=== PATIENT | female | born 1985 | race Caucasian/White ===

== ENCOUNTER 2020-03-16 20:47 | Inpatient (IN) | payer MEDICAID, SELFPAY ==
--- NOTE | 2020-03-16 20:53 | DI.RAD.S_ITS ---
PROCEDURE: XR ACUTE ABDOMEN SERIES INDICATIONS: severe pain, N/V TECHNIQUE: One view chest and two views of the abdomen were acquired. COMPARISON: None. FINDINGS: Surgical changes and devices: None. Chest: Lungs are clear. Heart size is normal. No pleural effusions. No pneumoperitoneum. Abdomen: Bowel gas pattern is demonstrates prominent, dilated fluid-filled loops of bowel. No suspicious calcifications. Visualized solid organ contours appear normal. Bones: No suspicious bony lesions. IMPRESSION: Prominently dilated fluid filled loops of bowel consistent with partial obstruction. Dictated by: Neetu Spence M.D. on 03/16/2020 at 21:49 Approved by: Neetu Spence M.D. on 03/16/2020 at 21:49
--- NOTE | 2020-03-16 20:56 | ED_ITS ---
HPI - Abdominal Pain General Chief Complaint: Abdominal Pain Stated Complaint: abd pain/ bloating Time Seen by Provider: 03/16/20 20:48 Source: patient and EMS Mode of arrival: EMS Limitations: no limitations History of Present Illness HPI narrative: 35-year-old female smoker with history mental illness and illicit drug use presents by EMS for evaluation of worsening abdominal pain. She was seen and evaluated at an outside facility earlier today and had a workup which was reassuring with normal labs and an apparent return to baseline. Over the course of the afternoon patient developed worsening pain and persistent vomiting contacted EMS for transport here. She states that any motion makes her belly worse and she has never had any pain like this before. She denies any change in bowel movements or difficulty with urination. Related Data Home Medications Medication Instructions Recorded Confirmed albuterol sulfate [Ventolin HFA] #0 07/26/17 fluticasone propion-salmeterol 1 puff INH BID #0 07/26/17 [Advair Diskus] lithium carbonate TID #0 01/01/18 Previous Rx's Medication Instructions Recorded albuterol sulfate [Ventolin HFA] 0 puff INH Q4HP PRN #1 ea 07/26/17 oxycodone 0 mg PO Q4HP PRN #30 10/05/17 oxycodone-acetaminophen 0 tab PO Q4HP PRN #30 10/05/17 nystatin [Nyamyc] 100,000 u TP TID #30 gm 11/17/17 oxycodone-acetaminophen [Percocet] 0 tab PO Q4HP PRN #30 tab 01/01/18 labetalol 100 mg PO BID #60 tab 02/02/18 Allergies Allergy/AdvReac Type Severity Reaction Status Date / Time morphine [MORPHINE] Allergy Intermediate rash,hives Unverified 02/17/18 12:33 clindamycin [CLINDAMYCIN] Allergy Mild vomiting Unverified 02/17/18 12:33 Review of Systems Constitutional Constitutional: Denies chills, Denies fatigue, Denies fever(s), Denies frequent falls, Denies lethargy and Denies weakness Eyes Eyes: Denies change in vision, Denies eye discharge, Denies irritation and Denie s loss of vision ENT Ears, Nose, Mouth, and Throat: Denies change in voice, Denies dizziness, Denies neck pain, Denies sore throat and Denies throat swelling Cardiovascular Cardiovascular: Denies chest pain, Denies irregular heart rhythm, Denies lightheadedness, Denies palpitations, Denies dyspnea, Denies dyspnea on exertion and Denies orthopnea Respiratory Respiratory: Denies cough, Denies dyspnea, Denies dyspnea on exertion and Denies wheezing Gastrointestinal Gastrointestinal: Reports abdominal pain, Denies change in bowel habits, Denies diarrhea, Reports nausea and Reports vomiting Genitourinary Genitourinary: Denies hematuria, Denies flank pain, Denies urinary incontinence and Denies urinary urgency Musculoskeletal Musculoskeletal: Denies back pain, Denies muscle weakness, Denies neck pain, Den ies numbness and Denies tingling Integumentary/Breasts Skin/Breast: Denies pruritus, Denies erythema, Denies rash and Denies wounds Neurologic Neurologic: Denies behavioral changes, Denies confusion, Denies dizziness, Denies frequent falls, Denies loss of vision, Denies numbness, Denies tingling and Denies weakness Psychiatric Psychiatric: Denies anxiety, Denies behavioral changes, Denies confusion, Denies depression, Denies homicidal ideation and Denies suicidal ideation Endocrine Endocrine: Denies fatigue, Denies flushing and Denies palpitations Hematologic/Lymphatic Hematologic/Lymphatic: Denies easy bruising Allergic/Immunologic Allergic/Immunologic: Denies urticaria, Denies throat swelling and Denies wheezing Patient History Surgical History Status post delivery (10/02/17) Social History household members: family Smoking Status: Former smoker alcohol intake: former Smoking Status: Current some day smoker Substance Use Type: heroin Exam Narrative Exam Narrative: GENERAL: [35] year old patient appears stated age. Well- nourished, well-developed patient, in moderate distress, obviously in signifi cant pain, holding an emesis bag HEAD: Atraumatic. Normocephalic. EYES: Pupils equal round and reactive. Extraocular motions intact. No scleral icterus. No injection or drainage. ENT: Nose without bleeding, purulent drainage. Throat without erythema, tonsillar hypertrophy or exudate. Airway patent. NECK: Trachea midline. Non tender CARDIOVASCULAR: Regular rate and rhythm without murmurs, gallops, or rubs. RESPIRATORY: Clear to auscultation. Breath sounds equal bilaterally. No wheezes, rales, or rhonchi. GASTROINTESTINAL: Abdomen soft, generally tender with significant pain and localized peritonitis in the upper abdomen, mildly distended. EXTREMITIES: No edema or joint tenderness. BACK: Nontender without deformity or crepitance. No flank tenderness. NEURO: AOx3. SKIN: No rash or erythema of visible areas Initial Vital Signs Initial Vital Signs: Vital Signs Temperature 97.7 F 03/16/20 21:00 Pulse Rate 94 H 03/16/20 21:00 Respiratory Rate 18 03/16/20 21:00 Blood Pressure 149/97 H 03/16/20 21:00 Pulse Oximetry 97 03/16/20 21:00 Course Orders Ordered: ED Orders 03/16/20 20:53 XR acute abdomen series Stat 03/16/20 21:02 Complete Blood Count AUTO DIFF Stat Comprehensive Metabolic Panel Stat Lactate (Lactic Acid) Stat Lipase Stat 03/16/20 21:58 CT abdomen pelvis w con Stat Hydromorphone HCl (Dilaudid) 1 mg IV Q3H PRN PRN Reason: Pain, Severe (7-10) Sodium Chloride (Normal Saline 0.9%) 1,000 mls @ 125 mls/hr IV CONT PERRY Naloxone HCl (Narcan) 0.2 mg IV Q2MIN PRN PRN Reason: Opiate Reversal Ondansetron HCl (Zofran) 4 mg IV Q6HR PERRY Discontinued Medications Hydromorphone HCl (Dilaudid) 0.5 mg IV NOW ONE Stop: 03/16/20 21:57 Last Admin: 03/16/20 22:16 Dose: 0.5 mg Documented by: RIAZ Sodium Chloride (Normal Saline 0.9%) 1,000 mls @ 150 mls/hr IV CONT PERRY Last Admin: 03/16/20 22:17 Dose: 150 mls/hr Documented by: RIAZ Ondansetron HCl (Zofran) 4 mg IV NOW ONE Stop: 03/16/20 20:54 Last Admin: 03/16/20 22:18 Dose: 4 mg Documented by: RIAZ Pantoprazole Sodium (Protonix) 40 mg IV NOW ONE Stop: 03/16/20 20:54 Last Admin: 03/16/20 21:20 Dose: 40 mg Documented by: DHALE Consultations Consultation #1: call to surgery, happy to be involved in consult, not surgical patient currently. Requests NG, COVID swab, and admission to hospitalist Consultation #2: Hospitalist happy to accept Vital Signs Vital signs: Vital Signs - 8 hr 03/16/20 21:00 03/16/20 22:37 03/16/20 23:10 Temperature 97.7 F Pulse Rate 94 H 93 H 83 Respiratory Rate 18 25 H 19 Blood Pressure 149/97 H Blood Pressure [Right Arm] 170/81 H 151/80 H Pulse Oximetry 97 97 98 MDM - Abdominal Pain Lab Data Result diagrams: 03/16/20 21:02 03/16/20 21:02 Labs: Lab Results 03/16/20 03/16/20 03/16/20 Range/Units 21:02 21:02 21:02 WBC 8.5 (4.5-11.0) X10^3/uL RBC 5.68 H (4.0-5.2) X10^6/uL Hgb 16.4 H (12.0-16.0) g/dL Hct 49.3 H (36-46) % MCV 86.9 (80-100) fL MCH 28.8 (26-34) PG MCHC 33.2 (30-36) % RDW 14.5 (11.6-14.8) % Plt Count 244 (150-400) X10^3/uL Neut % (Auto) 85.7 H (50-75) % Lymph % (Auto) 11.0 L (25-40) % [place] % (Auto) 2.9 L (3-14) % Eos % (Auto) 0.2 L (2-4) % Baso % (Auto) 0.2 (0-2) % Neut # (Auto) 7300 H (8867-8395) /uL Lymph # (Auto) 900 L (8942-1724) /uL [place] # (Auto) 200 (0-900) /uL Eos # (Auto) 0 (0-450) /uL Baso # (Auto) 0 (0-100) /uL RBC Morphology See below Anisocytosis 1+ H Sodium 136 L (137-145) mmol/L Potassium 3.9 (3.4-5.1) mmol/L Chloride 100 (98-107) mmol/L Carbon Dioxide 30 (22-32) mmol/L BUN 13 (7-17) mg/dL Creatinine 0.63 (0.52-1.04) mg/dL Estimated GFR > 60.0 (>60) mL/min BUN/Creatinine Ratio 20.6 (6-22) Glucose 273 H (70-100) mg/dL Lactate 1.5 (0.7-2.1) mmol/L Calcium 9.2 (8.4-10.2) mg/dL Total Bilirubin 0.7 (0.2-1.3) mg/dL AST 45 H (14-36) IU/L ALT 57 H (<35) IU/L Alkaline Phosphatase 104 (38-126) U/L Total Protein 8.0 (6.3-8.2) g/dL Albumin 4.4 (3.5-5.0) g/dL Globulin 3.6 (1.7-4.1) g/dL Albumin/Globulin Ratio 1.2 (1.0-2.8) Lipase 29 (23-300) U/L Imaging Data Abdominal x-ray: Attestation: I personally reviewed and interpreted this imaging study as follows: My Impression: bowel obstruction CT scan - abdomen/pelvis: Radiologist's Impression: High-grade obstruction proximal sigmoid colon with moderate to severe colonic distension Discharge Plan Departure Patient Disposition: Admitted As Inpatient Clinical Impression: Bowel obstruction Qualifiers: Intestinal obstruction type: other intestinal obstruction Intestinal obstruction extent: partial Qualified Code(s): K56.690 - Other partial intestinal obstruction Admit Date/Time: 03/16/20 23:39 Admit Provider: Arianne Shoemaker
[2020-03-16 21:00] VITALS: BP 149/97; PULSE 94; RESP 18; TEMP 36.5; O2SAT 97
[2020-03-16 21:17] LABS: Basophils Absolute Auto 0 /uL (0-100); Basophils Percent Auto 0.2 % (0-2); Eosinophils Absolute Auto 0 /uL (0-450); Eosinophils Percent Auto 0.2 % (2-4); Hematocrit 49.3 % (36-46); Hemoglobin 16.4 g/dL (12.0-16.0); Lymphocytes Absolute Auto 900 /uL (1100-4500); Mean Corpuscular HGB Conc 33.2 % (30-36); Mean Corpuscular Hemoglobin 28.8 PG (26-34); Mean Corpuscular Volume 86.9 fL (80-100); Monocytes Absolute Auto 200 /uL (0-900); Monocytes Percent Auto 2.9 % (3-14); Neutrophils Absolute Auto 7300 /uL (1500-7000); Neutrophils Percent Auto 85.7 % (50-75); Platelet Count 244 X10^3/uL (150-400); Red Blood Cell Count 5.68 X10^6/uL (4.0-5.2); Red Cell Distribution Width 14.5 % (11.6-14.8); White Blood Cell Count 8.5 X10^3/uL (4.5-11.0)
[2020-03-16 21:18] LABS: Add Manual Diff / Slide Review SLIDE REVIEW
[2020-03-16] MEDS: PANTOPRAZOLE 40 MG VIAL IV (21:20)
[2020-03-16 21:26] LABS: Lactate (Lactic Acid) 1.5 mmol/L (0.7-2.1)
[2020-03-16 21:27] LABS: Alanine Aminotransferase 57 IU/L (<35); Albumin 4.4 g/dL (3.5-5.0); Albumin Globulin Ratio 1.2 (1.0-2.8); Alkaline Phosphatase 104 U/L (38-126); Aspartate Aminotransferase 45 IU/L (14-36); BUN Creatinine Ratio 20.6 (6-22); Bilirubin Total 0.7 mg/dL (0.2-1.3); Blood Urea Nitrogen 13 mg/dL (7-17); Calcium 9.2 mg/dL (8.4-10.2); Carbon Dioxide 30 mmol/L (22-32); Chloride 100 mmol/L (98-107); Estimated Glomerular Filt Rate > 60.0 mL/min (>60); Globulin 3.6 g/dL (1.7-4.1); Glucose 273 mg/dL (70-100); HEMOLYSIS 18 (0-50); Lipase 29 U/L (23-300); Potassium 3.9 mmol/L (3.4-5.1); Sodium 136 mmol/L (137-145)
--- NOTE | 2020-03-16 21:58 | DI.CT.S_ITS ---
PROCEDURE: CT ABDOMEN PELVIS W CON INDICATIONS: bowel obstruction TECHNIQUE: After the administration of intravenous contrast, 5 mm thick sections acquired from the diaphragm to the symphysis. 5 mm coronal and sagittal reformats were acquired. For radiation dose reduction, the following was used: automated exposure control, adjustment of mA and/or kV according to patient size. COMPARISON: [facility], CR, XR ACUTE ABDOMEN SERIES, 03/16/2020, 21:26. FINDINGS: Image quality: This study is limited by body habitus. ABDOMEN: Lung bases: Lung bases are clear. Heart size is normal. Solid organs: Liver is normal in size and enhancement. Diffuse fatty liver infiltration is noted. Gallbladder wall does not appear thickened. Biliary system is non dilated. Pancreas enhances normally. Spleen is normal in size and enhancement. No adrenal nodules. Kidneys demonstrate normal size and enhancement, without hydronephrosis. Peritoneum and bowel: A gastric tube is seen, with the tip within the distal stomach. There is focal narrowing seen involving the sigmoid colon, as on series 2 image 80 and on series 5 image 51. Just proximal to this site of narrowing, there is an apparent ball of stool seen. Distal to this site, the colon is collapsed. Proximal to this site, there is liquid filled, dilated colon seen. The cecum measures 8.5 cm. Dilated loops of small bowel can be seen, which measure up to 3.7 cm. Nodes and vessels: Mild prominence of retroperitoneal lymph nodes can be seen, without delmis enlargement. No enlarged mesenteric lymph nodes are seen. Aorta and inferior vena cava are normal in size. Miscellaneous: No ventral hernias. PELVIS: Genitourinary: Bladder wall thickness is normal. Miscellaneous: No inguinal hernias or adenopathy. Bones: No suspicious bony lesions. No vertebral body compression fractures. Focal lower lumbar spine degenerative changes are seen. IMPRESSION: Distal colonic obstruction, with a site of narrowing seen within the sigmoid colon. Just proximal to this, there is a focus of apparent stool seen. Dilated loops of fluid-filled colon and small bowel can be seen proximal to this site of obstruction. The tip of the gastric tube is seen within the mid stomach. Incidental note is made of: Fatty liver infiltration Borderline prominent retroperitoneal lymph nodes Premature lower lumbar spine degenerative change Note: No significant discrepancy from the preliminary report. Dictated by: Shubham Sheikh M.D. on 03/17/2020 at 7:17 Approved by: Shubham Sheikh M.D. on 03/17/2020 at 7:25
[2020-03-16] MEDS: LIDOCAINE 1% (PF) 2 ML (22:13)
[2020-03-16] MEDS: HYDROMORPHONE 0.5 MG INJ IV (22:16)
[2020-03-16] MEDS: SODIUM CHLORIDE 0.9% 1,000 ML 150 ML IV (22:17)
[2020-03-16] MEDS: ONDANSETRON 4 MG/2 ML INJ IV (22:18)
[2020-03-16 22:37] VITALS: BP 170/81; PULSE 93; RESP 25; O2SAT 97
[2020-03-16 22:54] LABS: Anisocytosis 1+
[2020-03-16 23:10] VITALS: BP 151/80; PULSE 83; RESP 19; O2SAT 98
--- NOTE | 2020-03-16 23:16 | PM.HP.1 ---
History of Present Illness History of Present Illness Date Patient Seen: 03/16/20 Time Patient Seen: 23:16 Chief complaint: abd pain/ bloating Narrative: This is a 35 yo woman who is a poor historian due to sleepiness. She wakes to answer questions appropriately but immediately falls back asleep. Per chart review and partial discussion with patient, she has a history of morbid obesity, borderline DM2, C section in 2017, tubal ligation, asthma, bipolar disorder, and substance abuse (methamphetamine history per chart review). She presented to the ER with 12 hours of obstructive symptoms including abdominal pain, obstipation, and bloating. In the ER she was found to have normal labs, and an xray consistent with obstruction. CT scan performed shows a distal sigmoid narrowing causing obstruction. The cause of the sigmoid narrowing is unclear based on the CT scan. The patient's lactate is 1.2, WBC is 8, and electrolytes are normal. Her LFT's are slightly elevated, and her glucose is 273. She says she has never had an episode like this before. She denies any history of chronic constipation or diarrhea, blood in the stool, or dark colored stool. She denies any family history of colorectal disorders. She has never had a colonoscopy. She denies any fevers or chills. ROS: Full ROS could not be obtained as patient continued to dose off as I was speaking to her. Otherwise as per HPI. PE: GENERAL: Sleepy but arousable. Appears stated age. When awakened, the patient answers questions appropriately. Vital signs noted. HENT: Normocephalic, atraumatic. Hearing intact. Oral mucosa is pink and dry EYES: Conjunctiva pink, sclera white, no periorbital swelling. CARDIOVASCULAR: Regular rate. No pedal edema. RESPIRATORY: Non-tachypneic, breathing comfortably on room air. GASTROINTESTINAL: Abdomen soft, obese, moderately distended, mild generalized TTP; no focal peritonitis GENITALURINARY: No flank tenderness. MUSCULOSKELETAL: Equal tone and mass bilaterally. SKIN: Warm, dry, soft, appropriate color for ethnicity. No other lesions, rashes, or wounds. NEURO: Sleepy, but arouses to painful stimulus; oriented when awakened by stimulation. No gross sensory deficits, or cognitive issues. Psych: appropriate mood/fatigued affect Patient History Medical History (Updated 03/17/20 @ 04:48 by Margaret Barnard MD) Asthma exacerbation (Chronic) Bowel obstruction (Acute) Surgical History (Updated 03/17/20 @ 04:47 by Margaret Barnard MD) Status post delivery (Inactive 10/02/17) Family & Social History Safety & Behavioral: Feels Safe in Current Yes Environment Tobacco & Substance use: Smoking Status Former smoker Substance Use Type heroin,amphetamines Meds Home Medications and Allergies Home Medications Medication Instructions Recorded Confirmed Type albuterol sulfate [Ventolin HFA] #0 07/26/17 History albuterol sulfate [Ventolin HFA] 0 puff INH Q4HP PRN #1 ea 07/26/17 Rx fluticasone propion-salmeterol 1 puff INH BID #0 07/26/17 History [Advair Diskus] oxycodone 0 mg PO Q4HP PRN #30 10/05/17 Rx oxycodone-acetaminophen 0 tab PO Q4HP PRN #30 10/05/17 Rx nystatin [Nyamyc] 100,000 u TP TID #30 gm 11/17/17 Rx lithium carbonate TID #0 01/01/18 History oxycodone-acetaminophen [Percocet] 0 tab PO Q4HP PRN #30 tab 01/01/18 Rx labetalol 100 mg PO BID #60 tab 02/02/18 Rx Allergies Allergy/AdvReac Type Severity Reaction Status Date / Time morphine [MORPHINE] Allergy Intermediate rash,hives Unverified 02/17/18 12:33 clindamycin [CLINDAMYCIN] Allergy Mild vomiting Unverified 02/17/18 12:33 Exam Vital Signs (past 8 hours): - 03/16/20 21:00 03/16/20 22:37 03/16/20 23:10 Temperature 97.7 F Pulse Rate 94 H 93 H 83 Respiratory Rate 18 25 H 19 Blood Pressure 149/97 H Blood Pressure [Right Arm] 170/81 H 151/80 H Pulse Oximetry 97 97 98 Oxygen Delivery Method Nasal Cannula Oxygen Flow Rate [address] scan - abdomen: My impression: Bowel obstruction with narrowed sigmoid of unclear cause; no indication of volvulus, diverticulitis, fecal impaction; possible adhesive scarring from past C section Radiologist's impression: Bowel obstruction with narrowed sigmoid of unclear cause; dilated small bowel and proximal colon Labs Result Diagrams: 03/16/20 21:02 03/16/20 21:02 Labs: Laboratory Results - last 24 hr 03/16/20 03/16/20 03/16/20 21:02 21:02 21:02 WBC 8.5 RBC 5.68 H Hgb 16.4 H Hct 49.3 H MCV 86.9 MCH 28.8 MCHC 33.2 RDW 14.5 Plt Count 244 Neut % (Auto) 85.7 H Lymph % (Auto) 11.0 L [place] % (Auto) 2.9 L Eos % (Auto) 0.2 L Baso % (Auto) 0.2 Neut # (Auto) 7300 H Lymph # (Auto) 900 L [place] # (Auto) 200 Eos # (Auto) 0 Baso # (Auto) 0 RBC Morphology See below Anisocytosis 1+ H Sodium 136 L Potassium 3.9 Chloride 100 Carbon Dioxide 30 BUN 13 Creatinine 0.63 Estimated GFR > 60.0 BUN/Creatinine Ratio 20.6 Glucose 273 H Lactate 1.5 Calcium 9.2 Total Bilirubin 0.7 AST 45 H ALT 57 H Alkaline Phosphatase 104 Total Protein 8.0 Albumin 4.4 Globulin 3.6 Albumin/Globulin Ratio 1.2 Lipase 29 Assessment & Plan Assessment and plan (1) Morbid obesity: Problem details: BMI 53. Severe morbid obesity. She is at much higher risk for a medical or surgical complication because of her morbid obesity. It increases the difficulty of any surgery, and increases the chances of a poor outcome such as wound infection, wound dehiscence. Creating an ostomy and getting it to survive and function would be extremely difficulty if not impossible given the thickness of her abdominal wall. Current visit: Yes Status: Chronic (2) Status post primary low transverse section: Problem details: by Dr. Molina in 2017 Current visit: No Status: Acute (3) SBO (small bowel obstruction): Current visit: Yes Status: Acute (4) Colon obstruction: Problem details: sigmoid obstruction per CT scan; unclear etiology Current visit: Yes Status: Acute (5) Mental health disorder: Problem details: bipolar disorder per chart review Current visit: Yes Status: Acute Assessment & Plan narrative: This is a 35 yo woman with bowel obstruction symptoms x 12 hours. Her lactate and WBC are normal. Her cecum is 9-10cm on KUB. There is not a clear etiology of the sigmoid obstruction, but most likely cause is adhesive disease from prior C section which, per the chart, was in 2017. For now we will place an NGT and give bowel rest. She says she is very sleepy from being up all day. Her mental status seems normal and sharp when she is aroused, but she goes back to sleep after a few sentences of conversation. Given her drug history I would recommend a tox screen. She has an enlarging colon, and will need repeat exam and imaging in a few hours. If she has a sudden change in exam or vitals, we will need to repeat imaging and labs sooner, and consider going ahead to OR to avoid injuring the cecum. She is at much higher risk for a medical or surgical complication because of her morbid obesity. It increases the difficulty of any surgery, and the chances of a poor outcome. Recommendations: NGT, IV maintenance fluids repeat labs in AM (BMP, CBC, Mag) Rapid COVID 19 test in case she needs to go to the OR No abx for right now Ambulate as tolerated Ok for DVT ppx call if sudden changes in exam or vital signs urine tox screen COVID-19 COVID-19 status: Result pending Time Spent With Patient Time with patient: Greater than 35 minutes Quality VTE Deep Vein Thrombosis/Pulmonary Embolism Present on Admission: No
[2020-03-16 23:45] VITALS: BMI 54.5
[2020-03-17] VITALS (24 sets, daily range): BP systolic 112–202; BP diastolic 50–131; PULSE 12–120; RESP 13–24; TEMP 36.4–38.1; O2SAT 90–96; BMI 53.5
--- NOTE | 2020-03-17 01:37 | P.HP_ITS ---
History of Present Illness History of Present Illness Date Patient Seen: 03/16/20 Time Patient Seen: 23:55 Chief complaint: abd pain/ bloating Narrative: Unable to obtain history from the patient. She does state she is in pain and then when I try to follow-up with a question she falls asleep. Per nursing in the ED she was doing this as well. She was seen at [facility] emergency department and at that time was given Zofran and discharged with a diagnosis of acute gastritis. She apparently returned home and the pain got worse particularly with movement. In the emergency department here they did the CT scan of her abdomen and belly and found that she has a high-grade obstruction of the proximal sigmoid colon with moderate to severe distention of the colon and distension of the distal small bowel loops. Per the emergency room provider the only surgery she has ever had was laparoscopic gynecological surgery however was not able to discuss this with her. I am. unable to conduct a review of systems or obtain a social and family history from her. Patient History Medical History (Updated 03/17/20 @ 02:02 by ROEL Sands) Asthma exacerbation (Chronic) Bowel obstruction (Acute) Surgical History (Updated 03/17/20 @ 01:52 by ROEL Sands) Status post delivery (Inactive 10/02/17) Family & Social History Social History: household members family Prior Living Arrangements Apartment/Condo Safety & Behavioral: Feels Safe in Current Yes Environment Been Physically Hurt or No Threatened By a Person Suicidal Ideation Description None Suicide Plan Description No Plan Tobacco & Substance use: Smoking Status Current some day smoker alcohol intake former alcohol intake frequency holiday/special occasion Substance Use Type heroin Meds Home Medications and Allergies Home Medications Medication Instructions Recorded Confirmed Type albuterol sulfate [Ventolin HFA] #0 07/26/17 History albuterol sulfate [Ventolin HFA] 0 puff INH Q4HP PRN #1 ea 07/26/17 Rx fluticasone propion-salmeterol 1 puff INH BID #0 07/26/17 History [Advair Diskus] oxycodone 0 mg PO Q4HP PRN #30 10/05/17 Rx oxycodone-acetaminophen 0 tab PO Q4HP PRN #30 10/05/17 Rx nystatin [Nyamyc] 100,000 u TP TID #30 gm 11/17/17 Rx lithium carbonate TID #0 01/01/18 History oxycodone-acetaminophen [Percocet] 0 tab PO Q4HP PRN #30 tab 01/01/18 Rx labetalol 100 mg PO BID #60 tab 02/02/18 Rx Allergies Allergy/AdvReac Type Severity Reaction Status Date / Time morphine [MORPHINE] Allergy Intermediate rash,hives Unverified 02/17/18 12:33 clindamycin [CLINDAMYCIN] Allergy Mild vomiting Unverified 02/17/18 12:33 Review of Systems Review of Systems ROS: Yes unobtainable due to mental status Exam Vital Signs (past 8 hours): - 03/16/20 21:00 03/16/20 22:37 03/16/20 23:10 Temperature 97.7 F Pulse Rate 94 H 93 H 83 Respiratory Rate 18 25 H 19 Blood Pressure 149/97 H Blood Pressure [Right Arm] 170/81 H 151/80 H Pulse Oximetry 97 97 98 03/17/20 00:34 Temperature Pulse Rate 100 H Respiratory Rate 24 Blood Pressure Blood Pressure [Right Arm] 202/131 H Pulse Oximetry 95 Oxygen Delivery Method Nasal Cannula Oxygen Flow Rate 2 Narrative Exam Narrative: Gen: Alert, oriented, morbidly obese 35 y.o. female, is very lethargic or moaning in pain HEENT: normocephalic, atraumatic, conjunctiva clear, sclera non-icteric, oral mucosa pink and moist, NG tube intact Neck: supple, full ROM, no JVD, trachea is midline Resp: Lungs CTA, non-labored breathing CV: RRR, no murmur or rubs Abd: Distended and rigid abdomen with no bowel tones Skin: no lesions or rashes, dry and intact Neuro: Lethargic with minimal verbal responses GCS 12 Extremities: moves all 4 extremities Psyche: unable to assess at this time Objective Labs Result Diagrams: 03/16/20 21:02 03/16/20 21:02 Labs: Laboratory Results - last 24 hr 03/16/20 03/16/20 03/16/20 21:02 21:02 21:02 WBC 8.5 RBC 5.68 H Hgb 16.4 H Hct 49.3 H MCV 86.9 MCH 28.8 MCHC 33.2 RDW 14.5 Plt Count 244 Neut % (Auto) 85.7 H Lymph % (Auto) 11.0 L [place] % (Auto) 2.9 L Eos % (Auto) 0.2 L Baso % (Auto) 0.2 Neut # (Auto) 7300 H Lymph # (Auto) 900 L [place] # (Auto) 200 Eos # (Auto) 0 Baso # (Auto) 0 RBC Morphology See below Anisocytosis 1+ H Sodium 136 L Potassium 3.9 Chloride 100 Carbon Dioxide 30 BUN 13 Creatinine 0.63 Estimated GFR > 60.0 BUN/Creatinine Ratio 20.6 Glucose 273 H Lactate 1.5 Calcium 9.2 Total Bilirubin 0.7 AST 45 H ALT 57 H Alkaline Phosphatase 104 Total Protein 8.0 Albumin 4.4 Globulin 3.6 Albumin/Globulin Ratio 1.2 Lipase 29 Assessment & Plan Assessment & Plan narrative: Annie Jovel is a 35-year-old morbidly obese female who is admitted as an inpatient for a high-grade bowel obstruction High-grade bowel obstruction, acute, present on admission -surgery is following -patient has an NG tube placed and is NPO -pain control with IV Dilaudid -nausea and vomiting controlled with NG tube and IV Zofran -I noted in her history that she has had a section so she may have a moderate probability of adhesions -IV normal saline at 125 mL/hour Asthma, chronic, present on admission -patient will have as needed albuterol inhalers Morbid obesity, chronic, present on admission Consults: Margaret Barnard, consult and involvement is appreciated. Patient is inpatient status as [] stay is likely to exceed 2 midnights. FEN: IV NS at 125 ml/hour, NPO, C/BMP in the am. VTE prophylaxis: Bilateral SCDs Dispo: Eventual discharged to home Code Status: presumed to be full code given her age COVID-19 COVID-19 status: Result pending Result date/Date tested (Pos, Neg/Pending): 03/16/20 Scores GCS Guillermo coma scale eye opening: Spontaneous [place] coma scale verbal response: Words Guillermo coma scale motor response: Localising Guillermo coma scale total score: 12 Quality VTE Deep Vein Thrombosis/Pulmonary Embolism Present on Admission: No
[2020-03-17 02:22] LABS: COVID19 -Nasal RAPID Negative (Negative)
[2020-03-17] MEDS: SODIUM CHLORIDE 0.9% 1,000 ML 125 ML IV ×2 (02:34→09:13)
--- NOTE | 2020-03-17 04:08 | PC.NURSE ---
Admiited from ER, Diagnosed with worsening abdominal pain. per abdominal x-ray partial SBO. NGT to JEWEL tate. Unable to ask her some questions she's asleep,only opened her eyes for few seconds with verbal & tactile stimuli, but not answering my questions. NS initiated & 125 cc/hr. NPO for bowel rest, 2 litrs 02/NC & SPO2 95-97%. Lab called reported CoVid 19 test was negative. Will cont. POC & monitor
[2020-03-17] MEDS: HYDROMORPHONE 1 MG INJ IV ×3 (05:03→10:42)
[2020-03-17 05:14] LABS: Ur Creatinine 50 (Normal); Ur Specific Gravity 1.015 (Normal); Urine pH 6.5 (Normal)
[2020-03-17 05:15] LABS: UR Morphine/Opiate cutoff 300 Positive (Negative); Urine Amphetamines Positive (Negative); Urine Barbiturates Negative (Negative); Urine Benzodiazepines Negative (Negative); Urine Cocaine Negative (Negative); Urine MDMA Negative (Negative); Urine Methadone Negative (Negative); Urine Methamphetamines Positive (Negative); Urine Oxycodone Negative (Negative); Urine Phencyclidine Negative (Negative); Urine Tetrahydrocannabinol Negative (Negative); Urine Tricyclic Antidepressant Negative (Negative)
[2020-03-17 05:26] LABS: Appearance Urine UA CLEAR; Bacteria Urine None Seen; Bilirubin Urine UA NEGATIVE (NEGATIVE); Color Urine UA YELLOW; Glucose Urine UA 1+ g/dL (Negative); Ketones Urine UA 1+ (NEGATIVE); Leukocyte Esterase Urine UA NEGATIVE (NEGATIVE); Nitrite Urine UA NEGATIVE (Negative); Occult Blood Urine UA NEGATIVE (Negative); Protein Urine UA TRACE (Negative); Specific Gravity Urine UA <=1.005 (1.000-1.035); Urobilinogen Urine UA 0.2 E.U./dL (0.2); pH Urine UA 6.5 (4.5-8.0)
[2020-03-17 05:27] LABS: Culture Indicated Urine Cult Not Indicated; RBC Urine 0-1/HPF (0-5/HPF); Squamous Epithelial Cell Urine 1-5 /HPF (0-5/HPF); WBC Urine 0-1/HPF (0-5/HPF)
[2020-03-17] MEDS: ONDANSETRON 4 MG/2 ML INJ IV ×2 (06:40→18:31)
[2020-03-17 06:46] LABS: Add Manual Diff / Slide Review NO; Basophils Absolute Auto 0 /uL (0-100); Basophils Percent Auto 0.5 % (0-2); Eosinophils Absolute Auto 0 /uL (0-450); Eosinophils Percent Auto 0.3 % (2-4); Hematocrit 45.8 % (36-46); Hemoglobin 15.3 g/dL (12.0-16.0); Lymphocytes Absolute Auto 1000 /uL (1100-4500); Lymphocytes Percent Auto 19.8 % (25-40); Mean Corpuscular HGB Conc 33.5 % (30-36); Mean Corpuscular Volume 86.7 fL (80-100); Monocytes Absolute Auto 500 /uL (0-900); Monocytes Percent Auto 9.6 % (3-14); Neutrophils Absolute Auto 3400 /uL (1500-7000); Neutrophils Percent Auto 69.8 % (50-75); Platelet Count 225 X10^3/uL (150-400); Red Blood Cell Count 5.29 X10^6/uL (4.0-5.2); Red Cell Distribution Width 14.3 % (11.6-14.8); White Blood Cell Count 4.9 X10^3/uL (4.5-11.0)
[2020-03-17 06:57] LABS: BUN Creatinine Ratio 20.3 (6-22); Blood Urea Nitrogen 12 mg/dL (7-17); Calcium 8.4 mg/dL (8.4-10.2); Carbon Dioxide 28 mmol/L (22-32); Chloride 102 mmol/L (98-107); Estimated Glomerular Filt Rate > 60.0 mL/min (>60); Glucose 212 mg/dL (70-100); HEMOLYSIS < 15 (0-50); Magnesium 1.6 mg/dL (1.6-2.3); Potassium 3.6 mmol/L (3.4-5.1); Sodium 137 mmol/L (137-145)
[2020-03-17 07:20] LABS: Hemoglobin A1C% w Est Avg Glu 10.1 % (4.0-6.0)
[2020-03-17] MEDS: LABETALOL 20 MG/4 ML SYRINGE 5 MG IV (08:47)
[2020-03-17] MEDS: INSULIN GLARGINE 100 UNIT/ML 3ML PEN SUBCUT (08:50)
[2020-03-17] MEDS: FLUTICASONE/SALMETEROL 250/50 60 PUFF DISKUS INH ×2 (09:00→20:23)
--- NOTE | 2020-03-17 12:37 | PM.PREOP ---
Pre-operative Note Interval Note History & Physical reviewed/Exam performed by Physician: Yes Changes to H&P: Yes H&P completed within 30 days and has changed as indicated here:: Patient now has peritoneal irritation with diffuse abdominal pain. Increased pain with motion as well. Difficult to evaluate for guarding due to her very large size. I believe however she has involuntary guarding. Lungs are clear heart regular rate and rhythm no murmur gallop. Will proceed to the operating room. I have discussed the procedure in uncertainty of the diagnosis with the patient. Probable need to resect bowel and give her an ostomy was discussed with her. Risks of bleeding, infection, hernia, heart problems or breathing issues, intestinal leak all discussed. She is at high risk due to numerous issues medically of some form of complication though her young age will be beneficial to her.
[2020-03-17] MEDS: LACTATED RINGERS 1,000 ML 42 ML IV (12:38)
[2020-03-17] MEDS: PIPERACILLIN-TAZO 3.375 GM/50 ML FROZ.PIGGY IV (13:11)
--- NOTE | 2020-03-17 14:03 | P.PN_ITS ---
Subjective Subjective Date Patient Seen: 03/17/20 Time Patient Seen: 08:45 Interval history: Annie Jovel is a 35-year-old female with past medical history of ? COPD. Hypertension, bipolar disorder, diabetes, morbid obesity, and substance use disorder who presented to the emergency room with abdominal pain and bloating. She was found to have a high-grade large-bowel obstruction on CT imaging. An NG tube was placed without much improvement. This morning she was still complaining of significant pain. General surgery is currently taking to the patient to the operating room for a possible colectomy. Exam Vital Signs (past 8 hours): - 03/17/20 08:00 03/17/20 08:47 03/17/20 08:54 Temperature 98.5 F Pulse Rate 112 H 106 H 100 H Respiratory Rate 20 Blood Pressure 140/74 133/78 147/96 H Pulse Oximetry 91 03/17/20 09:07 03/17/20 09:22 03/17/20 09:36 Temperature Pulse Rate 100 H 101 H Respiratory Rate Blood Pressure 135/80 Pulse Oximetry 90 L 93 03/17/20 11:54 03/17/20 12:26 Temperature 97.6 F 100.3 F H Pulse Rate 110 H 111 H Respiratory Rate 20 18 Blood Pressure 130/85 131/78 Pulse Oximetry 92 95 Oxygen Delivery Method Room Air Oxygen Flow Rate 2 Narrative Exam Narrative: GENERAL APPEARANCE: Morbidly obese female, grimacing in pain with minimal movement or extremely lethargic when resting. SKIN: Inspection of the skin reveals no rashes, ulcerations or petechiae. HEENT: Normocephalic atraumatic, extraocular muscles are intact, oropharynx is clear and mucous membranes are moist, neck is supple without adenopathy. NG tube in place. NECK: Supple and symmetric. There was no thyroid enlargement, and no tenderness, or masses were felt. CHEST: Normal AP diameter and normal contour without any kyphoscoliosis. LUNGS: Auscultation of the lungs revealed no wheezes, rhonchi, or rales. CARDIOVASCULAR: There was a regular rate and rhythm without any murmurs, gallops, rubs. Peripheral pulses were 2+ and symmetric. ABDOMEN: Obese, diffuse tenderness worsened right upper quadrant, absent bowel tones. Difficult exam due to obesity MUSCULOSKELETAL: There was no tenderness or effusions noted. Muscle strength and tone were normal. EXTREMITIES: No cyanosis, clubbing or edema. NEUROLOGIC: Alert but falls asleep easily. No focal deficits. Objective Labs Result Diagrams: 03/17/20 06:30 03/17/20 06:30 Labs: Laboratory Results - last 24 hr 03/16/20 03/16/20 03/16/20 21:02 21:02 21:02 WBC 8.5 RBC 5.68 H Hgb 16.4 H Hct 49.3 H MCV 86.9 MCH 28.8 MCHC 33.2 RDW 14.5 Plt Count 244 Neut % (Auto) 85.7 H Lymph % (Auto) 11.[address] [place] % (Auto) 2.9 L Eos % (Auto) 0.2 L Baso % (Auto) 0.2 Neut # (Auto) 7300 H Lymph # (Auto) [address] [place] [place] # (Auto) 200 Eos # (Auto) 0 Baso # (Auto) 0 RBC Morphology See below Anisocytosis 1+ H Sodium 136 L Potassium 3.9 Chloride 100 Carbon Dioxide 30 BUN 13 Creatinine 0.63 Estimated GFR > 60.0 BUN/Creatinine Ratio 20.6 Glucose 273 H Hemoglobin A1c Lactate 1.5 Calcium 9.2 Magnesium Total Bilirubin 0.7 AST 45 H ALT 57 H Alkaline Phosphatase 104 Total Protein 8.0 Albumin 4.4 Globulin 3.6 Albumin/Globulin Ratio 1.2 Lipase 29 Urine Color Urine Appearance Urine pH Ur Specific [place] Urine Protein Urine Glucose (UA) Urine Ketones Urine Occult Blood Urine Nitrate Urine Bilirubin Urine Urobilinogen Ur Leukocyte Esterase Urine RBC Urine WBC Ur Squamous Epith Cells Urine Bacteria Ur Culture Indicated? U Opiates 300ng/mL cut Ur Oxycodone Screen Urine Methadone Screen Ur Barbiturates Screen U Tricyclic Antidepress Ur Phencyclidine Scrn Ur Amphetamines Screen U Methamphetamines Scrn Ur MDMA Scrn (Ecstasy) U Benzodiazepines Scrn Urine Cocaine Screen U Marijuana (THC) Screen COVID-19 PCR 03/17/20 03/17/20 03/17/20 01:15 04:50 04:50 WBC RBC Hgb Hct MCV MCH MCHC RDW Plt Count Neut % (Auto) Lymph % (Auto) [place] % (Auto) Eos % (Auto) Baso % (Auto) Neut # (Auto) Lymph # (Auto) [place] # (Auto) Eos # (Auto) Baso # (Auto) RBC Morphology Anisocytosis Sodium Potassium Chloride Carbon Dioxide BUN Creatinine Estimated GFR BUN/Creatinine Ratio Glucose Hemoglobin A1c Lactate Calcium Magnesium Total Bilirubin AST ALT Alkaline Phosphatase Total Protein Albumin Globulin Albumin/Globulin Ratio Lipase Urine Color Yellow Urine Appearance Clear Urine pH 6.5 Ur Specific [place] <=1.005 Urine Protein Trace H Urine Glucose (UA) 1+ H Urine Ketones 1+ H Urine Occult Blood Negative Urine Nitrate Negative Urine Bilirubin Negative Urine Urobilinogen 0.2 Ur Leukocyte Esterase Negative Urine RBC 0-1/hpf Urine WBC 0-1/hpf Ur Squamous Epith Cells 1-5 /hpf Urine Bacteria None seen Ur Culture Indicated? Cult not indicated U Opiates 300ng/mL cut Positive H Ur Oxycodone Screen Negative Urine Methadone Screen Negative Ur Barbiturates Screen Negative U Tricyclic Antidepress Negative Ur Phencyclidine Scrn Negative Ur Amphetamines Screen Positive H U Methamphetamines Scrn Positive H Ur MDMA Scrn (Ecstasy) Negative U Benzodiazepines Scrn Negative Urine Cocaine Screen Negative U Marijuana (THC) Screen Negative COVID-19 PCR Negative 03/17/20 03/17/20 03/17/20 06:30 06:30 06:30 WBC 4.9 RBC 5.29 H Hgb 15.3 Hct 45.8 MCV 86.7 MCH 29.0 MCHC 33.5 RDW 14.3 Plt Count 225 Neut % (Auto) 69.8 Lymph % (Auto) 19.[address] [place] % (Auto) 9.6 Eos % (Auto) 0.3 L Baso % (Auto) 0.5 Neut # (Auto) 3400 Lymph # (Auto) [address] [place] [place] # (Auto) 500 Eos # (Auto) 0 Baso # (Auto) 0 RBC Morphology Anisocytosis Sodium 137 Potassium 3.6 Chloride 102 Carbon Dioxide 28 BUN 12 Creatinine 0.59 Estimated GFR > 60.0 BUN/Creatinine Ratio 20.3 Glucose 212 H Hemoglobin A1c 10.1 H Lactate Calcium 8.4 Magnesium 1.6 Total Bilirubin AST ALT Alkaline Phosphatase Total Protein Albumin Globulin Albumin/Globulin Ratio Lipase Urine Color Urine Appearance Urine pH Ur Specific [place] Urine Protein Urine Glucose (UA) Urine Ketones Urine Occult Blood Urine Nitrate Urine Bilirubin Urine Urobilinogen Ur Leukocyte Esterase Urine RBC Urine WBC Ur Squamous Epith Cells Urine Bacteria Ur Culture Indicated? U Opiates 300ng/mL cut Ur Oxycodone Screen Urine Methadone Screen Ur Barbiturates Screen U Tricyclic Antidepress Ur Phencyclidine Scrn Ur Amphetamines Screen U Methamphetamines Scrn Ur MDMA Scrn (Ecstasy) U Benzodiazepines Scrn Urine Cocaine Screen U Marijuana (THC) Screen COVID-19 PCR Assessment & Plan Assessment & Plan narrative: Annie Jovel is a 35-year-old female with past medical history of ? COPD. Hypertension, bipolar disorder, diabetes, morbid obesity, and substance use disorder who presented to the emergency room with abdominal pain and bloating. She was found to have a high-grade large-bowel obstruction on CT imaging. An NG tube was placed without much improvement. General surgery is currently taking to the patient to the operating room for a possible colectomy. 1. Large bowel obstruction, acute, present on admission -appreciate surgical management of high-grade obstruction, patient currently in the operating room. -continue NPO pending operative findings -pain control with IV Dilaudid -at as needed Zofran 2. COPD, chronic, present on admission -patient will have as needed albuterol inhalers -consider blood gas. Labs not indicative of hypercarbia. -RT eval and treat 3. Diabetes, type 2, insulin dependent, possible new diagnosis -unable to confirm if patient was diabetic prior to admission, however she does have a prescription for metformin -A1c is 10.1 -have started Lantus 5 units given likely insulin naive, with medium dose sliding scale -will continue to adjust as necessary pending diet and glucose control. -fingersticks q.6 hours if NPO, a.c. HS if tolerating a diet. 4. Morbid obesity, present on admission -patient is more likely to experience complications from her surgery due to her morbid obesity as well as now uncontrolled diabetes. 5. Bipolar disorder -will need to work to confirm lithium dosing if the patient is still taking, there does not appear to be in electronic record of lithium -will need medication reconciliation once she is more alert 6. Elevated liver enzymes, present on admission -unknown chronicity, AST and ALT mildly elevated at 45 and 57 respectively. This is likely due to ARREOLA. -continue to follow liver enzymes. 7. Polysubstance abuse -urine tox screen positive for amphetamines -social work consultation Code: Full Dispo: Currently in the operating room, she is admitted under inpatient status. She possibly could be taken back to the ICU after surgical interventions, however this is unclear. Quality VTE Deep Vein Thrombosis/Pulmonary Embolism Present on Admission: No
--- NOTE | 2020-03-17 14:23 | SUR.OPER ---
Supine on padded OR bed, head on pillow, arms secured on padded arm boards at <90 degrees abduction, legs uncrossed, safety belt at thigh, tape over blanket over lower legs.
[2020-03-17] MEDS: BUPIVACAINE 0.5% (PF) VIAL 30 ML INJ (15:01)
--- NOTE | 2020-03-17 15:30 | PM.OP.1 ---
Operative Date/Time/Diagnoses Date of procedure: 03/17/20 Time of procedure: 15:31 Pre-op diagnosis: Large bowel obstruction Post-op diagnosis: same (Due to a large piece of inspissated stool) Procedure & Clinicians Procedure: Exploratory laparotomy. Flexible sigmoidoscopy. Disimpaction of the rectum. Same procedure as scheduled: Yes Indications: Patient with a large bowel obstruction in finding suggestive of peritonitis. She was taken emergently to the operating room. Surgeon: Alireza Gold Stained Glass Artist: Margaret Barnard Anesthesia Type: General Operative Notes Findings: Large piece of inspissated stool causing an intestinal blockage at the junction between the descending and sigmoid colon. This was milked into the rectum where it was disimpacted at procedure completion. Closure Type: primary Specimen(s): none sent Prosthetic devices, grafts, tissues, transplants, or devices: None Applied: catheter (Goodrich) Estimated Blood Loss (mL): 50 Blood products transfused: none Procedure in detail: Patient was placed supine on the operating room table underwent general endotracheal anesthesia. A Goodrich catheter was inserted and she was prepped and draped in the usual fashion. A vertical midline incision was made above and below the umbilicus and carried down into the peritoneal cavity. The omentum was removed as was the small bowel and I immediately encountered a segment of sigmoid colon containing a very hard piece of inspissated stool. It was mobile proximally but is it hit the turn in the sigmoid colon it stopped. Proximal to this the bowel was distended though viable. Distal it was normal in appearance externally. Due to the very unusual nature of this problem in the preoperative CT scan A clamp was placed across the colon proximal to the stool and a colonoscope was inserted and advanced to a level of 50 cm. The colon wall was entirely normal. It insufflated well. There were no defects. No strictures. The scope was removed Evacuating air as I went. The cecum was identified and was healthy in appearance and showed no signs of ischemia was soft and pliable. I partially crushed and then milked the piece of stool into the rectum. The abdomen was irrigated and suctioned free of fluid. The fascia was closed with a running 1. Double stranded PDS. Occasional intermittent figure of 8 1. Vicryl were placed. The subcu was closed in 2 layers. One with 2 0 Vicryl in the more superficial 1 with 3 0 Vicryl. The skin was closed with samuel. Local anesthetic was infiltrated. A dressing was applied and the drapes were removed. The patient was then frog-legged and I disimpacted the rectum. The patient was awakened, extubated taken recovery area in good condition. There were no apparent complications. Complications: none Post-operative Condition: stable Disposition: PACU
--- NOTE | 2020-03-17 15:35 | CM.IDA ---
Initial DCP Assessment Note: Pt is a 35 yo female , resident of [place]. Presents w/ abd pain and bloating PCP: Claude Ambrosio Payer: DASIA Reviewed chart, then spoke w/ RN Amna. Patient presents w/tox screen + for opiates, meth, amphetamines and has h/o ETOH and heroin use per Amna. Patient currently off the floor for surgery, possible colectomy and colostomy. Patient is expected to be in the ICU post operatively d/t her multiple medical co-morbidities. Mom Nighat Valadez P# [phone] has been kept updated per patient's request. Reviewed prior social work notes, [employer] consult requested in [address] Genao after patient's C Section d/t patient's meth use during her and h/o CPS involvement. See prior notes for details of this assessment. Patient will benefit from an [employer] assessment when she returns to the acute care floor and is able to engage in conversation. If not, patient's mom and sister might be good contacts to gather some background information. Following closely. RAJAN Franco
--- NOTE | 2020-03-17 16:07 | SUR.PHASEI ---
Patient taken back to room in bed.. left in good condition with receiving RN Kierra
[2020-03-17] MEDS: DEXTROSE 5%-0.45% NS 1,000 ML 125 ML IV (16:28)
[2020-03-17] MEDS: CEFAZOLIN 2 GM/100 ML FROZ.PIGGY IV (16:33)
--- NOTE | 2020-03-17 17:38 | PC.NURSE ---
Addendum entered by Kierra Reyes R.N. 03/17/20 23:38: Bolus completed and now pt receiving LR @ 150 cc/hr. HR 115 per monitor. Urine remains jeffy colored. NOC RN informed during bedside shift report. 02 decreased to 2L as oxygen level on 3L nc 98%. Addendum entered by Kierra Reyes R.N. 03/17/20 22:12: Pt's blood sugar checked after one hour receiving LR. Blood sugar 172. No insulin given per protocol. NG to LIS resumed following po meds. Addendum entered by Kierra Reyes R.N. 03/17/20 21:50: Bolus of LR begun @ 0 although not yet verified and scanned. Pt repositioned with assistance. Abdominal splinting taught to pt using pillow. Able to swallow po med whole with water. NG clamped x 30 minutes. Addendum entered by Kierra Reyes R.N. 03/17/20 21:10: Dr. Gold contacted by telephone and informed of pt's elevated HR in 100's and now sustained @ 120. Informed MD of pt's vital signs. Orders received and entered by this screen writer. Pt currently rousable, but resting quietly in bed with eyes closed without signs of distress or discomfort. Original Note: Pt to room 218 from PACU drowsy, but rousable to verbal and tactile stimuli. NG to LIS with small amount brown liquid draining. 02 3L nc sats 94% per continuous monitor. Clear breath sounds BL anterior edwards. Goodrich to gravity with jeffy colored urine. BL calf scd's in place. Respirations are even and unlabored. Abdominal binder in place with gauze dressing to abdomen clean and intact. Bowel tones are absent.
[2020-03-17] MEDS: INSULIN ASPART 100 UNIT/ML INSULN PEN SUBCUT (18:26)
[2020-03-17] MEDS: KETOROLAC 30 MG/ML VIAL IV (18:31)
[2020-03-17] MEDS: SODIUM CHLORIDE 0.9% FLUSH 10 ML IV ×2 (19:07→19:21)
[2020-03-17] MEDS: HYDROMORPHONE 2 MG INJ IV (19:20)
[2020-03-17] MEDS: LACTATED RINGERS 1,000 ML 1000 ML IV (21:20)
[2020-03-17] MEDS: GABAPENTIN 300 MG CAPSULE PO (21:27)
[2020-03-17] MEDS: ENOXAPARIN 40 MG/0.4 ML SYRINGE SUBCUT (22:23)
[2020-03-17] MEDS: LACTATED RINGERS 1,000 ML 150 ML IV (22:30)
[2020-03-18] VITALS (10 sets, daily range): BP systolic 106–127; BP diastolic 64–86; PULSE 98–119; RESP 18–22; TEMP 36.1–37.4; O2SAT 90–94
[2020-03-18] MEDS: ONDANSETRON 4 MG/2 ML INJ IV ×4 (00:17→18:09)
[2020-03-18] MEDS: CEFAZOLIN 2 GM/100 ML FROZ.PIGGY IV ×2 (00:18→08:59)
[2020-03-18] MEDS: KETOROLAC 30 MG/ML VIAL IV ×4 (00:26→21:31)
[2020-03-18] MEDS: HYDROMORPHONE 2 MG INJ IV ×4 (01:40→21:27)
[2020-03-18 05:10] LABS: Add Manual Diff / Slide Review NO; Basophils Absolute Auto 0 /uL (0-100); Basophils Percent Auto 0.4 % (0-2); Eosinophils Absolute Auto 100 /uL (0-450); Hematocrit 42.8 % (36-46); Hemoglobin 14.2 g/dL (12.0-16.0); Lymphocytes Absolute Auto 2100 /uL (1100-4500); Lymphocytes Percent Auto 39.2 % (25-40); Mean Corpuscular HGB Conc 33.2 % (30-36); Mean Corpuscular Volume 87.3 fL (80-100); Monocytes Absolute Auto 800 /uL (0-900); Monocytes Percent Auto 14.2 % (3-14); Neutrophils Absolute Auto 2400 /uL (1500-7000); Neutrophils Percent Auto 44.2 % (50-75); Platelet Count 217 X10^3/uL (150-400); Red Cell Distribution Width 14.3 % (11.6-14.8); White Blood Cell Count 5.4 X10^3/uL (4.5-11.0)
[2020-03-18 05:21] LABS: BUN Creatinine Ratio 19.1 (6-22); Blood Urea Nitrogen 18 mg/dL (7-17); Calcium 7.9 mg/dL (8.4-10.2); Carbon Dioxide 28 mmol/L (22-32); Chloride 102 mmol/L (98-107); Estimated Glomerular Filt Rate > 60.0 mL/min (>60); Glucose 155 mg/dL (70-100); HEMOLYSIS < 15 (0-50); Potassium 4.1 mmol/L (3.4-5.1); Sodium 136 mmol/L (137-145)
[2020-03-18] MEDS: LACTATED RINGERS 1,000 ML 150 ML IV ×3 (05:30→19:48)
[2020-03-18] MEDS: GABAPENTIN 300 MG CAPSULE PO ×2 (08:59→21:31)
[2020-03-18] MEDS: INSULIN GLARGINE 100 UNIT/ML 3ML PEN SUBCUT (09:00)
[2020-03-18] MEDS: FLUTICASONE/SALMETEROL 250/50 60 PUFF DISKUS INH ×2 (09:14→19:49)
--- NOTE | 2020-03-18 09:57 | CM.DPC ---
DCP continued: EMR reviewed: Patient had colonoscopy done yesterday and had a fecal bowel obstruction that was removed. During AM rounds Dr. Lackey stated patient will be here a few more days while she works on being able to eat and pass stools post surgery and bowel obstruction. Cm/Rn attempted to meet with patient today but patient was groggy and not able to participate in [employer] Supervisor Assessment today. Patient plan is to D/C home when medically stable. Haydee Kirkland RN
[2020-03-18] MEDS: LABETALOL 20 MG/4 ML SYRINGE 5 MG IV (10:35)
--- NOTE | 2020-03-18 11:06 | PM.PNPO.1 ---
Subjective Subjective Date Patient Seen: 03/18/20 Time Patient Seen: 10:06 Interval history: The patient is a woman postop day 1. From an exploration for large bowel obstruction caused by inspissated stool. She is feeling sore but otherwise okay. No flatus. Exam Vital Signs (past 8 hours): - 03/18/20 04:15 03/18/20 08:00 03/18/20 08:03 Temperature 98.6 F 99 F Pulse Rate 119 H 109 H Respiratory Rate 20 20 Blood Pressure 121/64 120/68 Pulse Oximetry 93 94 93 03/18/20 09:14 Temperature Pulse Rate 111 H Respiratory Rate 20 Blood Pressure Pulse Oximetry 92 Oxygen Delivery Method Nasal Cannula Oxygen Flow Rate 2 Narrative Exam Narrative: Respiratory effort could be better. Clear anteriorly. Abdomen is protuberant soft. Dressing is dry and intact there is a small area probably near the umbilicus that has a little bit of blood staining. Objective Labs Result Diagrams: 03/18/20 04:50 03/18/20 04:50 Labs: Laboratory Results - last 24 hr 03/18/20 03/18/20 04:50 04:50 WBC 5.4 RBC 4.90 Hgb 14.2 Hct 42.8 MCV 87.3 MCH 29.0 MCHC 33.2 RDW 14.3 Plt Count 217 Neut % (Auto) 44.2 L D Lymph % (Auto) 39.2 Morgan % (Auto) 14.2 H Eos % (Auto) 2.0 Baso % (Auto) 0.4 Neut # (Auto) 2400 Lymph # (Auto) 2100 Morgan # (Auto) 800 Eos # (Auto) 100 Baso # (Auto) 0 Sodium 136 L Potassium 4.1 Chloride 102 Carbon Dioxide 28 BUN 18 H Creatinine 0.94 Estimated GFR > 60.0 BUN/Creatinine Ratio 19.1 Glucose 155 H Calcium 7.9 L Assessment & Plan Post-op Postoperative Procedures: Procedures Operation Date: 03/17/20 12:30 Actual Procedures Side Surgeon p Exploratory Laparotomy GEN, flexible sigmoidoscopy Alireza Gold MD Postoperative day: 1 Postoperative status narrative: Doing as expected. Postoperative plan narrative: Mobilized patient. Remove Goodrich. DVT prophylaxis to continue. She is at increased risk due to her obesity and lack of activity of developing a DVT. Physical therapy to see patient as she is indefinite need of additional help due to her large size in mobilizing her. Quality VTE Deep Vein Thrombosis/Pulmonary Embolism Present on Admission: No
--- NOTE | 2020-03-18 13:16 | P.PN_ITS ---
Subjective Subjective Date Patient Seen: 03/18/20 Time Patient Seen: 13:17 Interval history: Annie Jovel is a 35-year-old female with past medical history of ? COPD. Hypertension, bipolar disorder, diabetes, morbid obesity, and substance use disorder who presented to the emergency room with abdominal pain and bloating. She was found to have a high-grade large-bowel obstruction on CT imaging. An NG tube was placed without much improvement and she was taking to the operating room yesterday where she was found to have a blockage secondary to impacted stool. This was relieved in the operating room and the patient currently has her pain controlled. She was up in bed to chair. Awaiting return of bowel function currently, NG tube still in place. Exam Vital Signs (past 8 hours): - 03/18/20 08:00 03/18/20 08:03 03/18/20 09:14 Temperature 99 F Pulse Rate 109 H 111 H Respiratory Rate 20 20 Blood Pressure 120/68 Pulse Oximetry 94 93 92 03/18/20 12:00 Temperature 99.3 F Pulse Rate 98 H Respiratory Rate 18 Blood Pressure 106/68 Pulse Oximetry 90 L Oxygen Delivery Method Nasal Cannula Oxygen Flow Rate 2 Narrative Exam Narrative: GENERAL APPEARANCE: Morbidly obese female, alert and talking but does not open eyes frequently unless prompted. SKIN: Inspection of the skin reveals no rashes, ulcerations or petechiae. HEENT: Normocephalic atraumatic, extraocular muscles are intact, oropharynx is clear and mucous membranes are moist, neck is supple without adenopathy. NG tube in place. NECK: Supple and symmetric. There was no thyroid enlargement, and no tenderness, or masses were felt. CHEST: Normal AP diameter and normal contour without any kyphoscoliosis. LUNGS: Auscultation of the lungs revealed no wheezes, rhonchi, or rales. CARDIOVASCULAR: There was a regular rate and rhythm without any murmurs, gallops, rubs. Peripheral pulses were 2+ and symmetric. ABDOMEN: Obese, soft, non-distended with appropriate tenderness near midline surgical dressings. dressings c/d/i. MUSCULOSKELETAL: There was no tenderness or effusions noted. Muscle strength and tone were normal. EXTREMITIES: No cyanosis or edema. NEUROLOGIC: Alert but falls asleep easily. No focal deficits. Objective Labs Result Diagrams: 03/18/20 04:50 03/18/20 04:50 Labs: Laboratory Results - last 24 hr 03/18/20 03/18/20 04:50 04:50 WBC 5.4 RBC 4.90 Hgb 14.2 Hct 42.8 MCV 87.3 MCH 29.0 MCHC 33.2 RDW 14.3 Plt Count 217 Neut % (Auto) 44.2 L D Lymph % (Auto) 39.2 [place] % (Auto) 14.2 H Eos % (Auto) 2.0 Baso % (Auto) 0.4 Neut # (Auto) 2400 Lymph # (Auto) 2100 [place] # (Auto) 800 Eos # (Auto) 100 Baso # (Auto) 0 Sodium 136 L Potassium 4.1 Chloride 102 Carbon Dioxide 28 BUN 18 H Creatinine 0.94 Estimated GFR > 60.0 BUN/Creatinine Ratio 19.1 Glucose 155 H Calcium 7.9 L Assessment & Plan Assessment & Plan narrative: Annie Jovel is a 35-year-old female with past medical history of ? COPD. Hypertension, bipolar disorder, diabetes, morbid obesity, and substance use disorder who presented to the emergency room with abdominal pain and bloating. She was found to have a high-grade large-bowel obstruction on CT imaging. An NG tube was placed without much improvement. Gen eral surgery is currently taking to the patient to the operating room yesterday where she was found to have a blockage secondary to impacted stool. 1. Large bowel obstruction, acute, present on admission -appreciate surgical management of high-grade obstruction, secondary to impacted stool which was removed during surgery without need for colectomy found on laparotomy 03/17/20. -continue NPO, ADAT per surgery. NG tube per surgery. -pain control with IV Dilaudid -at as needed Zofran 2. COPD, chronic, present on admission -patient will have as needed albuterol inhalers -RT eval and treat 3. Diabetes, type 2, insulin dependent, possible new diagnosis -A1c is 10.1 -have started Lantus 5 units given likely insulin naive, with medium dose sliding scale -will continue to adjust as necessary pending diet and glucose control. -fingersticks q.6 hours if NPO, a.c. HS if tolerating a diet. -glucose control today is adequate in the 120-160 range. 4. Morbid obesity, present on admission -patient is more likely to experience complications from her surgery due to her morbid obesity as well as now uncontrolled diabetes. 5. History of post depression. -patient states she does not have bipolar disorder and has been off of lithium for years, states initially thought of bipolar but was actually depression. 6. Elevated liver enzymes, present on admission -unknown chronicity, AST and ALT mildly elevated at 45 and 57 respectively. This is likely due to ARREOLA. -continue to follow liver enzymes. 7. Polysubstance abuse -urine tox screen positive for amphetamines -social work consultation 8. HTN - currently with borderline low BP but tachycardia. Continue labetalol as needed and if blood pressure increases. change back to oral medications when feasible. 9. Constipation - given above findings will need bowel regimen upon discharge. Code: Full Dispo: May need SNF upon discharge given obesity and after recovery from a laparotomy. Pending PT/OT evaluations. Quality VTE Deep Vein Thrombosis/Pulmonary Embolism Present on Admission: No
[2020-03-18] MEDS: INSULIN ASPART 100 UNIT/ML INSULN PEN SUBCUT ×2 (13:22→18:41)
--- NOTE | 2020-03-18 14:39 | PT-IP ANOTE ---
Received PT consult and reviewed chart. Discussed pt with RN who stated the pt's pain was poorly managed and would have limited ability to participate. Will contact pt in the morning to initiate evaluation.
[2020-03-18] MEDS: SODIUM CHLORIDE 0.9% FLUSH 10 ML IV ×2 (16:11→18:09)
--- NOTE | 2020-03-18 17:26 | RT ---
PT PLACED ON HOSPITAL CPAP PER VERBAL ORDER BY DR. MORGAN. PT USES HOME CPAP, HOWEVER HOME UNIT IS NOT HERE.
--- NOTE | 2020-03-18 17:29 | PC.NURSE ---
Addendum entered by Kierra Reyes R.N. 03/18/20 22:54: Reports abdominal pain improved. NG to LIS. 02 @ 3.5 L per NC sats 94% per continuous monitor. SCD's off for rest as per pt request. Addendum entered by Kierra Reyes R.N. 03/18/20 21:45: Pt is audibly crying. Reassured by staff and medicated for pain 8/10 as per emar. Pt describes this as gas pain. Denies passing flatus. Pt is able to assist with position changes in bed. SCD's off for a break for pt. Pillow to abdomen to splint. Encouraged deep breathing. NG clamped x 30 minutes following administration of po med. Pt has spoken to family members via telephone this evening shift. Addendum entered by Kierra Reyes R.N. 03/18/20 18:03: Pt no longer tolerating cpap and asks for this to be removed. This was done. Pt returned to NC @ 3.5 L with 02 saturation level 92-96%. Rouses easily to voice. Mostly sleeping with regular and unlabored respirations. Original Note: Pt with eyes closed in bed restlessly moving limbs. Admits to sharp pain to abdomen 10 making it difficult to move. Pt was medicated with 2 mg iv dilaudid and pt reports immediate improvement in pain. Denies nausea. NG to LIS with scant amount green colored liquid in tubing. Bowel tones hypoactive with NG suction turned off. Denies passing flatus. Goodrich catheter to be removed in a.m. per dayshift report. BL calf scd's replaced. Pt's 02 saturation level on 2L per nc 89-91%. Inquired of pt if has diagnosis of sleep apnea with cpap use at home and pt confirms both of these things. Discussion with Dr. Lackey and with R.T. Pt provided with hospital cpap as per R.T. Pt is able to tolerate this with NG in place. Uses I.S. with encouragement to 750.
[2020-03-19] VITALS (8 sets, daily range): BP systolic 111–149; BP diastolic 65–98; PULSE 96–105; RESP 18–20; TEMP 36.2–36.9; O2SAT 90–95
[2020-03-19] MEDS: HYDROMORPHONE 2 MG INJ IV ×5 (00:43→16:45)
[2020-03-19] MEDS: ONDANSETRON 4 MG/2 ML INJ IV ×2 (00:44→06:08)
[2020-03-19] MEDS: LACTATED RINGERS 1,000 ML 150 ML IV ×2 (02:41→09:23)
--- NOTE | 2020-03-19 03:58 | PC.NURSE ---
Addendum entered by Ermelinda Novak R.N. 03/19/20 06:47: Pt encouraged to TCDB and assists with same. Medicated with Dilaudid for pain 7/10.Pt sleeping between pain meds. Minimal amount out per NG of light green bile. NG irrigated easily with 30CC H20. With quick returns of 70 ml light bile colored fluid. Original Note: Pt assisted with repositioning in bed. Pt able to assist with turning. Pt encouraged to C,CB and able to return demonstrate. SCDs replaced and patient encouraged to ankle wave and calf pump. Pt able to participate in activities. Abd midline dressing with scant serosanguinous drainage at mid dressing. Abd binder in place. Pt rates pain 7/10 and Dilauid IV given per EMAR with good effect. Pt denies nausea.
[2020-03-19] MEDS: KETOROLAC 30 MG/ML VIAL IV (04:21)
[2020-03-19 05:57] LABS: Add Manual Diff / Slide Review NO; Basophils Absolute Auto 0 /uL (0-100); Basophils Percent Auto 0.4 % (0-2); Eosinophils Absolute Auto 200 /uL (0-450); Eosinophils Percent Auto 3.9 % (2-4); Lymphocytes Absolute Auto 2100 /uL (1100-4500); Lymphocytes Percent Auto 33.7 % (25-40); Mean Corpuscular HGB Conc 33.3 % (30-36); Mean Corpuscular Volume 87.2 fL (80-100); Monocytes Absolute Auto 700 /uL (0-900); Monocytes Percent Auto 10.9 % (3-14); Neutrophils Absolute Auto 3100 /uL (1500-7000); Neutrophils Percent Auto 51.1 % (50-75); Platelet Count 177 X10^3/uL (150-400); Red Blood Cell Count 4.48 X10^6/uL (4.0-5.2); Red Cell Distribution Width 14.4 % (11.6-14.8); White Blood Cell Count 6.1 X10^3/uL (4.5-11.0)
[2020-03-19 06:11] LABS: Alanine Aminotransferase 22 IU/L (<35); Alkaline Phosphatase 64 U/L (38-126); Aspartate Aminotransferase 27 IU/L (14-36); BUN Creatinine Ratio 18.3 (6-22); Bilirubin Total 0.4 mg/dL (0.2-1.3); Bilirubin Unconjugated 0.3 mg/dL (0.0-1.1); Blood Urea Nitrogen 13 mg/dL (7-17); Calcium 8.3 mg/dL (8.4-10.2); Carbon Dioxide 31 mmol/L (22-32); Chloride 103 mmol/L (98-107); Estimated Glomerular Filt Rate > 60.0 mL/min (>60); Globulin 3.1 g/dL (1.7-4.1); Glucose 103 mg/dL (70-100); HEMOLYSIS < 15 (0-50); Magnesium 1.8 mg/dL (1.6-2.3); Phosphorous 3.2 mg/dL (2.5-4.5); Potassium 3.9 mmol/L (3.4-5.1); Sodium 138 mmol/L (137-145); Total Protein 6.1 g/dL (6.3-8.2)
[2020-03-19] MEDS: FLUTICASONE/SALMETEROL 250/50 60 PUFF DISKUS INH ×2 (08:07→19:04)
[2020-03-19] MEDS: INSULIN GLARGINE 100 UNIT/ML 3ML PEN SUBCUT (08:39)
[2020-03-19] MEDS: GABAPENTIN 300 MG CAPSULE PO ×2 (08:39→22:05)
[2020-03-19] MEDS: SODIUM CHLORIDE 0.9% FLUSH 10 ML IV ×2 (08:40→22:06)
--- NOTE | 2020-03-19 10:11 | PC.NURSE ---
Addendum entered by Sheyla Galeas R.N. 03/19/20 13:24: PASSED FLATUS. Voided post Goodrich Cath removal 400 ml. Original Note: Day shift note: Received patient on O2 at 3L via CPAP while sleeping, arouses very easily, cont. pulse ox, sats 95%. Continue with NGT in place to right nare, at LIS, light green drainage noted. Abdominal binder in place, abdomen firm, mild distention, hypoactive BS, and tender. Dressing to mid abdo, CDI. No flatus. SCDs in place, encouraged IS use. Noted edema to upper extremity bilaterally 2+, and bilateral LE trace edema, notified Dr. Lackey regarding new finding, new order obtained to decreased IVF rate. Up OOB with OT/PT this chute operator. Calls appropriately for staff assist.
--- NOTE | 2020-03-19 11:35 | PT.IIE ---
Current Diagnoses Morbid (severe) obesity due to excess calories (03/16/20) Mental disorder, not otherwise specified (03/16/20) Unspecified intestinal obstruction, unspecified as to partial versus complete obstruction (03/16/20) History of uterine scar from previous surgery (03/16/20) Surgery Performed Operation Date: 03/17/20 12:30 Actual Procedures p Exploratory Laparotomy GEN, flexible sigmoidoscopy - Alireza Gold MD Surgical History (Last Updated 03/17/20 @ 01:52 by ROEL Sands) Status post delivery (Inactive 10/02/17) Medical History (Last Updated 03/17/20 @ 01:52 by ROEL Sands) Asthma exacerbation (Chronic) Bowel obstruction (Acute) Physical Therapy Inpatient Evaluation/Re-Eval M1 PT/OT-IP Prior Functional Status Start: 03/18/20 13:01 Freq: NEEDED Status: Active Protocol: Document 03/19/20 11:08 AW (Rec: 03/19/20 11:35 AW [id number]) Medical Review Prior Functional Status Medical History Reviewed Yes Diet/Fluid Consistency NPO Communication WNL. Pt is an effective verbal communicator. Mobility and Gait Pt reports independent ambulation with a limit of ~25 feet due to chronic back pain which she attributes a problem with epidural anesthesia a few years ago. She plans her outings accordingly with awareness of rest stations along her path. Activities of Daily Living and IADL's Independent Social History Household Members none Living Arrangements Apartment/Condo Number of Floors (Floors) One Floor Number of Stairs To Enter/Railing? Level entrance, wheelchair- accessible apartment. Home Environment High Toilet,Tub/Shower Home Equipment Front Wheel Walker,Four Wheel Walker,Shower Seat without Backrest,Grab Bars Near Toilet ,Grab Bars In Shower Employment Status Unemployed Additional Social History Comment Pt lived with her father who was on hospice and in late February. She provided some level of care for him. She now lives alone. Her children were placed with her sister ~18 months ago due to drug use which she states coincides with the onset of her back pain. Pt's mother and sister live nearby. Pt states she can discharge to her mother's home as her mom is concerned about her overdoing it before she has fully recovered. M2 PT-IP Current Condition Start: 03/18/20 13:01 Freq: NEEDED Status: Active Protocol: Document 03/19/20 11:08 AW (Rec: 03/19/20 11:35 AW [id number]) Physical Therapy Current Condition Current Condition Evaluation Date 03/19/20 Treatment Diagnosis bowel obstruction s/p abd surgery, difficulty in walking Onset Date 03/16/20 Precautions Abdominal Surgery Precautions Log Roll,Lifting Restrictions, Gait Belt above Incisional Area Brace abdominal binder for support Other Precautions NG tube to intermittent suction M3 PT-IP Subjective Start: 03/18/20 13:01 Freq: NEEDED Status: Active Protocol: Document 03/19/20 11:08 AW (Rec: 03/19/20 11:35 AW [id number]) Subjective Physical Therapy Visit Type Type Initial Evaluation Visit Start Time 09:55 Visit Stop Time 10:26 Total Visit Minutes 31 Physical Therapy Visit Comments Patient Comments Pt is interested in sitting up in the chair Patient Goals To discharge to her mother's house which is well-equipped. Therapy Pain Assessment Pain When Pain Assessed During Mobility Pain Present Pain Present Pain Reported Location abd Scale Used 0/10 at rest; 7/10 during mobility Pain Management Techniques Re-positioning,Timing of Activity with Medications M4 PT-IP Mobility and Gait Start: 03/18/20 13:01 Freq: NEEDED Status: Active Protocol: Document 03/19/20 11:08 AW (Rec: 03/19/20 11:35 AW [id number]) PT-Bed Mobility Assessment Rolling Type of Rolling Log Rolling,Roll to Left Level of Assist Minimal Assistance,1 Person Assistance Supine to Sit Supine to Sit Moderate Assistance,1 Person Assistance Scooting Scooting to Edge of Bed Standby Assistance Scooting Up and Down in Bed Standby Assistance PT-Transfer Assessment Sit to and From Stand Sit to and from Stand Minimal Assistance,1 Person Assistance,Use of Upper Extremities Equipment Transfer Assistive Device Gait Belt,Front Wheeled Walker Orthotic/Prosthetic Devices or Brace: No Transfers Transfer Destination Chair Transfer Technique Stand Step Pivot Transfer Ability Level of Assist Minimal Assistance,1 Person Assistance,Use of Upper Extremities Comments Mobility Comments Pt was reclined in bed upon PT arrival, eager to get out of bed. She was able to scoot herself up in bed SBA with bed flat and rolled to her left side min A. She completed sidelying to sit mod A x 1 and was able to sit EOB with and without UE support. She completed sit to stand min A x 1 with standard size FWW and ambulated min A x 1 three feet to the chair. SpO2 remained > 90% on 3L O2 via NC throughout evaluation. Pt was positioned in the chair with call light and all needs within reach. Gait Assessment Gait Gait Assistance Required: Minimum Assistance,1 Person Assist Distance (Feet) 3 Able to Maintain Weight Bearing Status Yes During Gait Assistive Devices Assistive Device Gait Belt,Front Wheeled Walker Gait Deviations General Gait Pattern Antalgic,Decreased Stride Length,Decreased Feet Clearance,Flexed Trunk Factors Limiting Gait Function Factors Limiting Gait Function Decreased Activity Tolerance, Decreased Strength,Pain,Poor Balance Comments Gait Comments Pt tethered to wall suction, limiting ambulation distance. Pt would benefit from bariatric-sized walker which was placed in the room following evaluation. Stair Climbing Assessment Comments Stair Climbing Comments Not assessed. No stairs at home or at her mother's home. PT-Balance Assessment Sitting Balance and Reactions Static Sitting Balance Ability Good Dynamic Sitting Balance Ability Good Standing Balance and Reactions Static Standing Balance Ability Good Dynamic Standing Balance Ability Good Device Used FWW M5 PT-IP Objective Assessments Start: 03/18/20 13:01 Freq: NEEDED Status: Active Protocol: Document 03/19/20 11:08 AW (Rec: 03/19/20 11:35 [id number]) Orientation Orientation/Cognition Level of Alertness Alert Orientation Name,Day of Week,Place, Situation Language Function Ability No Deficits Noted Safety Awareness Understands Safety Issues Memory Description No Deficits Noted Gross Range of Motion Lower Extremity ROM Assessment Bilaterally Impaired Impairments soft tissue limitations due to pt's habitus Strength Lower Extremity Strength Assessment Bilaterally Impaired Comments Strength Comments grossly 4-/5 BLE Coordination Assessment Gross Coordination Gross Coordination WNL Sensation Assessment Sensation Gross Sensation Right UE Impaired,Left UE Impaired Comments Sensation Comments 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 Pt encouraged to use pillow for splinting abdomen when needing to cough. M7 PT-IP Assessment and Plan Start: 03/18/20 13:01 Freq: NEEDED Status: Active Protocol: Document 03/19/20 11:08 AW (Rec: 03/19/20 11:35 AW [id number]) PT Summary Assessment and Plan Potential Rehabilitation Potential Good Status of Condition at Evaluation Evolving Summary Impairments Pain,ROM,Strength,Balance,Bed Mobility,Transfers,Gait, Activity Tolerance Assessment Summary Annie is a 35yo woman admitted with bowel obstruction and seen on POD2 following exp lap and flex sigmoidoscopy. She has a history of diabetes, bipolar disorder, substance use, and chronic back pain. At baseline , pt is independent with short bout ambulation up to about 25 feet at a time with her primary limitation being back pain. She is independent with ADL's. On evaluation, pt required min to mod assist with all mobility and will benefit from continued acute PT in order to address mobility limitations and for continued education. Morbid obesity contributes to the pt' s mobilty limitations as well. PT recommends likely discharge to her mother's house or to her own apartment with her mother staying to assist once medically stable and cleared. Pt would also benefit from home health PT. Goals Bed Mobility Goal Standby Assistance Transfer Goal Standby Assistance,Front Wheeled Walker Gait Goal Standby Assistance,Front Wheel Walker Gait Distance 30 Days to Meet Goals 5 Frequency of Treatment Frequency Of Treatment Once a Day Treatment Plan Physical Therapy Treatment Plan Bed Mobility Training,Transfer Training,Gait Training, Therapeutic Exercise,Balance Retraining,Post Op Education, Discharge Planning Other Recommendations and Next Treatment bed mobility, transfers, Focus standing tolerance, self-care at sink, progress ambulation distance with FWW if able Recommendations To Nursing Amount of Assist Needed 1 Person Assist Discharge Recommendations PT Discharge Recommendations Home with Assistance,Home Health Transportation Needs at Discharge Private Vehicle
--- NOTE | 2020-03-19 11:46 | PM.CHAP ---
Short introduction. Pt. responded only with a nod. We have female chaplains available if Pt. is open to further conversation. Cj Parker, [facility] [phone]
[2020-03-19] MEDS: LACTATED RINGERS 1,000 ML 75 ML IV ×2 (12:09→22:05)
--- NOTE | 2020-03-19 17:28 | P.PN_ITS ---
Subjective Subjective Date Patient Seen: 03/19/20 Time Patient Seen: 17:28 Interval history: Passing flatus. No abdominal pain except at the incision. Feeling better. Exam Vital Signs (past 8 hours): - 03/19/20 10:47 03/19/20 16:00 Temperature 97.8 F 97.7 F Pulse Rate 97 H 98 H Respiratory Rate 20 20 Blood Pressure 149/78 H 132/91 H Pulse Oximetry 90 L 93 Oxygen Delivery Method Nasal Cannula,CPAP Oxygen Flow Rate 2 Narrative Exam Narrative: On BiPAP. Lungs clear. Abdomen is soft. No unusual tenderness. Midline is intact. She has a red cast about her skin generally in that was present preoperatively. Objective Labs Result Diagrams: 03/19/20 05:30 03/19/20 05:30 Labs: Laboratory Results - last 24 hr 03/19/20 03/19/20 05:30 05:30 WBC 6.1 RBC 4.48 Hgb 13.0 Hct 39.0 MCV 87.2 MCH 29.0 MCHC 33.3 RDW 14.4 Plt Count 177 Neut % (Auto) 51.1 Lymph % (Auto) 33.7 [place] % (Auto) 10.9 Eos % (Auto) 3.9 Baso % (Auto) 0.4 Neut # (Auto) 3100 Lymph # (Auto) 2100 [place] # (Auto) 700 Eos # (Auto) 200 Baso # (Auto) 0 Sodium 138 Potassium 3.9 Chloride 103 Carbon Dioxide 31 BUN 13 Creatinine 0.71 Estimated GFR > 60.0 BUN/Creatinine Ratio 18.3 Glucose 103 H Calcium 8.3 L Phosphorus 3.2 Magnesium 1.8 Total Bilirubin 0.4 Conjugated Bilirubin 0.0 Unconjugated Bilirubin 0.3 AST 27 ALT 22 Alkaline Phosphatase 64 Total Protein 6.1 L Albumin 3.0 L Globulin 3.1 Albumin/Globulin Ratio 1.0 Assessment & Plan Post-op Postoperative Procedures: Procedures Operation Date: 03/17/20 12:30 Actual Procedures Side Surgeon p Exploratory Laparotomy GEN, flexible sigmoidoscopy Alireza Gold MD Postoperative status: doing well Postoperative plan narrative: JEM NG. Continue fluids and NPO status. DVT prophylaxis. JEM Chaudhryey. Quality VTE Deep Vein Thrombosis/Pulmonary Embolism Present on Admission: No
--- NOTE | 2020-03-19 18:24 | PM.PN.1 ---
Subjective Subjective Date Patient Seen: 03/19/20 Time Patient Seen: 11:30 Interval history: Annie Jovel is a 35-year-old female with past medical history of ? COPD. Hypertension, bipolar disorder, diabetes, morbid obesity, and substance use disorder who presented to the emergency room with abdominal pain and bloating. She was found to have a high-grade large-bowel obstruction on CT imaging. An NG tube was placed without much improvement and she was taking to the operating room yesterday where she was found to have a blockage secondary to impacted stool. This was relieved in the operating room and the patient currently has her pain controlled. She was up in bed to chair. She passed flatus later this afternoon and her NG tube was removed by surgery. She still NPO. Exam Vital Signs (past 8 hours): - 03/19/20 10:47 03/19/20 16:00 Temperature 97.8 F 97.7 F Pulse Rate 97 H 98 H Respiratory Rate 20 20 Blood Pressure 149/78 H 132/91 H Pulse Oximetry 90 L 93 Oxygen Delivery Method Nasal Cannula,CPAP Oxygen Flow Rate 2 Narrative Exam Narrative: GENERAL APPEARANCE: Morbidly obese female, alert and talking but does not open eyes frequently unless prompted. SKIN: Inspection of the skin reveals no rashes, ulcerations or petechiae. HEENT: Normocephalic atraumatic, extraocular muscles are intact, oropharynx is clear and mucous membranes are moist, neck is supple without adenopathy. NG tube in place. NECK: Supple and symmetric. There was no thyroid enlargement, and no tenderness, or masses were felt. CHEST: Normal AP diameter and normal contour without any kyphoscoliosis. LUNGS: Auscultation of the lungs revealed no wheezes, rhonchi, or rales. CARDIOVASCULAR: There was a regular rate and rhythm without any murmurs, gallops, rubs. Peripheral pulses were 2+ and symmetric. ABDOMEN: Obese, soft, non-distended with appropriate tenderness near midline surgical dressings. dressings c/d/i. MUSCULOSKELETAL: There was no tenderness or effusions noted. Muscle strength and tone were normal. EXTREMITIES: No cyanosis or edema. NEUROLOGIC: Alert but falls asleep easily. No focal deficits. Objective Labs Result Diagrams: 03/19/20 05:30 03/19/20 05:30 Labs: Laboratory Results - last 24 hr 03/19/20 03/19/20 05:30 05:30 WBC 6.1 RBC 4.48 Hgb 13.0 Hct 39.0 MCV 87.2 MCH 29.0 MCHC 33.3 RDW 14.4 Plt Count 177 Neut % (Auto) 51.1 Lymph % (Auto) 33.7 [place] % (Auto) 10.9 Eos % (Auto) 3.9 Baso % (Auto) 0.4 Neut # (Auto) 3100 Lymph # (Auto) 2100 [place] # (Auto) 700 Eos # (Auto) 200 Baso # (Auto) 0 Sodium 138 Potassium 3.9 Chloride 103 Carbon Dioxide 31 BUN 13 Creatinine 0.71 Estimated GFR > 60.0 BUN/Creatinine Ratio 18.3 Glucose 103 H Calcium 8.3 L Phosphorus 3.2 Magnesium 1.8 Total Bilirubin 0.4 Conjugated Bilirubin 0.0 Unconjugated Bilirubin 0.3 AST 27 ALT 22 Alkaline Phosphatase 64 Total Protein 6.1 L Albumin 3.0 L Globulin 3.1 Albumin/Globulin Ratio 1.0 Assessment & Plan Assessment & Plan narrative: Annie Jovel is a 35-year-old female with past medical history of ? COPD. Hypertension, bipolar disorder, diabetes, morbid obesity, and substance use disorder who presented to the emergency room with abdominal pain and bloating. She was found to have a high-grade large-bowel obstruction on CT imaging. An NG tube was placed without much improvement. General surgery is currently taking to the patient to the operating room yesterday where she was found to have a blockage secondary to impacted stool. 1. Large bowel obstruction, acute, present on admission -appreciate surgical management of high-grade obstruction, secondary to impacted stool which was removed during surgery without need for colectomy found on laparotomy 03/17/20. -continue NPO, ADAT per surgery. NG tube removed per surgery today. -pain control with IV Dilaudid -at as needed Zofran 2. COPD, chronic, present on admission -patient will have as needed albuterol inhalers -RT eval and treat 3. Diabetes, type 2, insulin dependent, possible new diagnosis -A1c is 10.1 -have started Lantus 5 units given likely insulin naive, with medium dose sliding scale -will continue to adjust as necessary pending diet and glucose control. -fingersticks q.6 hours if NPO, a.c. HS if tolerating a diet. -continue to adjust as necessary as diet increases 4. Morbid obesity, present on admission -patient is more likely to experience complications from her surgery due to her morbid obesity as well as now uncontrolled diabetes. 5. History of post depression. -patient states she does not have bipolar disorder and has been off of lithium for years, states initially thought of bipolar but was actually depression. 6. Elevated liver enzymes, present on admission -unknown chronicity, AST and ALT mildly elevated at 45 and 57 respectively. This has now improved to normal and may have been indicative of low-flow state during her obstruction. 7. Polysubstance abuse -urine tox screen positive for amphetamines -social work consultation appreciated 8. HTN - currently with borderline low BP but tachycardia. Continue labetalol as needed and if blood pressure increases. change back to oral medications when feasible. 9. Constipation - given above findings will need bowel regimen once tolerating oral intake Code: Full Dispo: Appreciate PT evaluation, plan for home with assistance. COVID-19 COVID-19 status: Negative Quality VTE Deep Vein Thrombosis/Pulmonary Embolism Present on Admission: No
--- NOTE | 2020-03-19 18:59 | PC.NURSE ---
MD Gold here to see pt and dc'd ng tube. pt greta well
[2020-03-20] VITALS (7 sets, daily range): BP systolic 134–155; BP diastolic 81–100; PULSE 91–97; RESP 16–20; TEMP 35.7–37.3; O2SAT 86–96
[2020-03-20] MEDS: HYDROMORPHONE 2 MG INJ IV ×3 (00:32→21:11)
[2020-03-20] MEDS: ONDANSETRON 4 MG/2 ML INJ IV (00:37)
[2020-03-20 05:34] LABS: Add Manual Diff / Slide Review NO; Basophils Absolute Auto 100 /uL (0-100); Basophils Percent Auto 0.9 % (0-2); Eosinophils Absolute Auto 300 /uL (0-450); Eosinophils Percent Auto 3.6 % (2-4); Hemoglobin 13.5 g/dL (12.0-16.0); Lymphocytes Absolute Auto 2200 /uL (1100-4500); Lymphocytes Percent Auto 29.3 % (25-40); Mean Corpuscular HGB Conc 32.9 % (30-36); Mean Corpuscular Hemoglobin 28.8 PG (26-34); Mean Corpuscular Volume 87.5 fL (80-100); Monocytes Absolute Auto 600 /uL (0-900); Monocytes Percent Auto 7.8 % (3-14); Neutrophils Absolute Auto 4400 /uL (1500-7000); Neutrophils Percent Auto 58.4 % (50-75); Platelet Count 204 X10^3/uL (150-400); Red Blood Cell Count 4.69 X10^6/uL (4.0-5.2); Red Cell Distribution Width 14.1 % (11.6-14.8); White Blood Cell Count 7.6 X10^3/uL (4.5-11.0)
[2020-03-20 05:50] LABS: Alanine Aminotransferase 26 IU/L (<35); Albumin 3.4 g/dL (3.5-5.0); Albumin Globulin Ratio 1.1 (1.0-2.8); Alkaline Phosphatase 69 U/L (38-126); Aspartate Aminotransferase 35 IU/L (14-36); Bilirubin Total 0.5 mg/dL (0.2-1.3); Bilirubin Unconjugated 0.4 mg/dL (0.0-1.1); Blood Urea Nitrogen 12 mg/dL (7-17); Calcium 8.7 mg/dL (8.4-10.2); Carbon Dioxide 30 mmol/L (22-32); Chloride 101 mmol/L (98-107); Estimated Glomerular Filt Rate > 60.0 mL/min (>60); Globulin 3.2 g/dL (1.7-4.1); Glucose 97 mg/dL (70-100); HEMOLYSIS < 15 (0-50); Magnesium 1.9 mg/dL (1.6-2.3); Phosphorous 3.9 mg/dL (2.5-4.5); Potassium 3.9 mmol/L (3.4-5.1); Sodium 139 mmol/L (137-145); Total Protein 6.6 g/dL (6.3-8.2)
[2020-03-20] MEDS: INSULIN GLARGINE 100 UNIT/ML 3ML PEN SUBCUT (08:16)
[2020-03-20] MEDS: GABAPENTIN 300 MG CAPSULE PO ×2 (08:16→21:12)
[2020-03-20] MEDS: SODIUM CHLORIDE 0.9% FLUSH 10 ML IV ×2 (08:19→21:12)
[2020-03-20] MEDS: KETOROLAC 30 MG/ML VIAL IV ×2 (09:38→16:40)
[2020-03-20] MEDS: FLUTICASONE/SALMETEROL 250/50 60 PUFF DISKUS INH ×2 (09:47→21:06)
--- NOTE | 2020-03-20 10:34 | P.PN_ITS ---
Subjective Subjective Date Patient Seen: 03/20/20 Time Patient Seen: 07:41 Interval history: The patient is post an exploration for large bowel obstruction caused by inspissated stool. She feels better today. Very little pain. Passing gas. Exam Vital Signs (past 8 hours): - 03/20/20 04:10 03/20/20 07:28 Temperature 97.4 F L 98.3 F Pulse Rate 94 H 97 H Respiratory Rate 18 18 Blood Pressure 144/85 H 134/100 H Pulse Oximetry 95 86 L Oxygen Delivery Method Nasal Cannula Oxygen Flow Rate 2 Narrative Exam Narrative: Cooperative no apparent distress. Much improved respiratory effort. Decreased breath sounds in the bases but that may just be from her body habitus making it difficult to hear posteriorly. Heart regular rate and rhythm without murmur gallop. Abdomen is protuberant but soft. Her midline is intact. She has a continued red cast to her skin of her arms and torso. Objective Labs Result Diagrams: 03/20/20 05:20 03/20/20 05:20 Labs: Laboratory Results - last 24 hr 03/20/20 03/20/20 05:20 05:20 WBC 7.6 RBC 4.69 Hgb 13.5 Hct 41.0 MCV 87.5 MCH 28.8 MCHC 32.9 RDW 14.1 Plt Count 204 Neut % (Auto) 58.4 Lymph % (Auto) 29.3 [place] % (Auto) 7.8 Eos % (Auto) 3.6 Baso % (Auto) 0.9 Neut # (Auto) 4400 Lymph # (Auto) 2200 [place] # (Auto) 600 Eos # (Auto) 300 Baso # (Auto) 100 Sodium 139 Potassium 3.9 Chloride 101 Carbon Dioxide 30 BUN 12 Creatinine 0.63 Estimated GFR > 60.0 BUN/Creatinine Ratio 19.0 Glucose 97 Calcium 8.7 Phosphorus 3.9 Magnesium 1.9 Total Bilirubin 0.5 Conjugated Bilirubin 0.0 Unconjugated Bilirubin 0.4 AST 35 ALT 26 Alkaline Phosphatase 69 Total Protein 6.6 Albumin 3.4 L Globulin 3.2 Albumin/Globulin Ratio 1.1 Assessment & Plan Post-op Postoperative Procedures: Procedures Operation Date: 03/17/20 12:30 Actual Procedures Side Surgeon p Exploratory Laparotomy GEN, flexible sigmoidoscopy Alireza Gold MD Postoperative status: doing well Postoperative plan narrative: Started her on clear liquids. Sugars are better controlled. May be able to go home in a day or to her medical issues are resolved and she continues to improve bowel function. Quality VTE Deep Vein Thrombosis/Pulmonary Embolism Present on Admission: No
--- NOTE | 2020-03-20 10:43 | PT.IPTN ---
Current Diagnoses Morbid (severe) obesity due to excess calories (03/16/20) Mental disorder, not otherwise specified (03/16/20) Unspecified intestinal obstruction, unspecified as to partial versus complete obstruction (03/16/20) History of uterine scar from previous surgery (03/16/20) Surgery Performed Operation Date: 03/17/20 12:30 Actual Procedures p Exploratory Laparotomy GEN, flexible sigmoidoscopy - Alireza Gold MD Physical Therapy Treatment Note M2 PT-IP Current Condition Start: 03/18/20 13:01 Freq: NEEDED Status: Active Protocol: Document 03/19/20 11:08 AW (Rec: 03/19/20 11:35 AW [id number]) Physical Therapy Current Condition Current Condition Evaluation Date 03/19/20 Treatment Diagnosis bowel obstruction s/p abd surgery, difficulty in walking Onset Date 03/16/20 Precautions Abdominal Surgery Precautions Log Roll,Lifting Restrictions, Gait Belt above Incisional Area Brace abdominal binder for support Other Precautions NG tube to intermittent suction M3 PT-IP Subjective Start: 03/18/20 13:01 Freq: NEEDED Status: Active Protocol: Document 03/20/20 09:31 MB (Rec: 03/20/20 10:43 MB [id number]) Subjective Physical Therapy Visit Type Type Treatment Note Visit Start Time 09:31 Visit Stop Time 09:44 Total Visit Minutes 13 Number of MANAGER CUSTOM Visits 0 Physical Therapy Visit Comments Patient Comments Pt denies pain upon arrival, asks to get up to the commode. Therapy Pain Assessment Pain When Pain Assessed During Mobility Pain Present Pain Present Pain Reported Location abd Scale Used 10/10 with sitting EOB, 8/10 after getting back from BR commode Pain Management Techniques Re-positioning,Timing of Activity with Medications M4 PT-IP Mobility and Gait Start: 03/18/20 13:01 Freq: NEEDED Status: Active Protocol: Document 03/20/20 09:31 MB (Rec: 03/20/20 10:43 MB [id number]) PT-Bed Mobility Assessment Rolling Type of Rolling Log Rolling,Roll to Left Level of Assist Independent Supine to Sit Supine to Sit Independent,Head of Bed Elevated,Bedrails Scooting Scooting to Edge of Bed Independent PT-Transfer Assessment Sit to and From Stand Sit to and from Stand Standby Assistance,1 Person Assistance,Use of Upper Extremities Equipment Transfer Assistive Device Front Wheeled Walker Orthotic/Prosthetic Devices or Brace: No Transfers Transfer Destination Toilet Transfer Ability Level of Assist Standby Assistance,Use of Upper Extremities Comments Mobility Comments Pt is able to perform bed mobility without person asst with heavy use of bed rails and HOB increased. She is able to transfer from the bed to standing and on and off the commode with superv to SBA with rolling walker. Pt states that she is ready to sit in the recliner after using toilet. Gait Assessment Gait Gait Assistance Required: Standby Assistance Distance (Feet) 15 Assistive Devices Assistive Device Front Wheeled Walker Gait Deviations General Gait Pattern Decreased Stride Length, Decreased Feet Clearance, Flexed Trunk,Wide Based Gait Factors Limiting Gait Function Factors Limiting Gait Function Decreased Activity Tolerance, Decreased Strength,Pain,Poor Balance,Poor Safety Awareness Comments Gait Comments Pt is able to gait with the walker to get to the BR 15' and then back to chair 10' with SBA and PT managing IV pole. Her sats are 89-91% on RA and nsg asks PT to re-don 2L O2 after treatment. Nsg brings pain medication at end of treatment. PT-Balance Assessment Sitting Balance and Reactions Static Sitting Balance Ability Good Dynamic Sitting Balance Ability Good Standing Balance and Reactions Static Standing Balance Ability Good Dynamic Standing Balance Ability Good Device Used RW M5 PT-IP Objective Assessments Start: 03/18/20 13:01 Freq: NEEDED Status: Active Protocol: Document 03/19/20 11:08 AW (Rec: 03/19/20 11:35 AW [id number]) Orientation Orientation/Cognition Level of Alertness Alert Orientation Name,Day of Week,Place, Situation Language Function Ability No Deficits Noted Safety Awareness Understands Safety Issues Memory Description No Deficits Noted Gross Range of Motion Lower Extremity ROM Assessment Bilaterally Impaired Impairments soft tissue limitations due to pt's habitus Strength Lower Extremity Strength Assessment Bilaterally Impaired Comments Strength Comments grossly 4-/5 BLE Coordination Assessment Gross Coordination Gross Coordination WNL Sensation Assessment Sensation Gross Sensation Right UE Impaired,Left UE Impaired Comments Sensation Comments 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 Muscle Tone Muscle Tone WNL Yes M6 PT-IP Treatment Start: 03/18/20 13:01 Freq: NEEDED Status: Active Protocol: Document 03/20/20 09:31 MB (Rec: 03/20/20 10:43 MB [id number]) Physical Therapy Treatment Education Education Provided Safety Other Treatments Other Treatment Performed Use of incentive spirometer, ed pt to perform 10x every hour. She demonstrates 3 reps with 1500 and inability to hold breath. She states that she smokes a pack a day and is never able to breathe well. Her O2 sats on RA are the best after incentive spirometer ( 91%). This is better than with O2 donned d/t she does not readily breathe deeply through nostrils. Her HR also improves with incentive spirometer--from 104 to 96 BPM . M7 PT-IP Assessment and Plan Start: 03/18/20 13:01 Freq: NEEDED Status: Active Protocol: Document 03/20/20 09:31 MB (Rec: 03/20/20 10:43 MB [id number]) PT Summary Assessment and Plan Potential Rehabilitation Potential Fair Status of Condition at Evaluation Evolving Summary Impairments Pain,ROM,Strength,Balance,Bed Mobility,Gait,Activity Tolerance Assessment Summary Pt presents with increased HR and decreased O2 sats this date with and without O2 donned. Both improve with use of incentive spirometer in sitting. She is able to toilet with set-up asst and is SBA for transfers and gait and PT monitoring lines. She declines further mobility today. Overall poor health including body habitus, surgery and smoking are barriers to overall functional health and I. She declines gait belt this date d/t pain. Nsg nearby at end of treatment when pt left up in chair. Call resendez given to pt. Goals Bed Mobility Goal Independent Transfer Goal Independent,Front Wheeled Walker Gait Goal Independent,Front Wheel Walker Gait Distance 100 Days to Meet Goals 5 Frequency of Treatment Frequency Of Treatment Once a Day Treatment Plan Physical Therapy Treatment Plan Bed Mobility Training,Transfer Training,Gait Training, Therapeutic Exercise,Balance Retraining,Post Op Education, Discharge Planning Other Recommendations and Next Treatment bed mobility with bed flat and Focus no rails, transfers, standing tolerance, self-care at sink, progress ambulation distance with FWW if able Recommendations To Nursing Amount of Assist Needed Standby Assistance Discharge Recommendations PT Discharge Recommendations Home with Assistance,Home Health Transportation Needs at Discharge Private Vehicle
--- NOTE | 2020-03-20 12:57 | CM.DPC ---
DCP/continued: Reviewed chart. Patient is a 35yr old obese female admitted [facility] with [facility]. Primary payor is 1)Medicaid 2)Self pay. Patient being followed by surgery. Attempted to meet with patient to discuss d/c planning and role. Patient unable to have meaningful conversation. She was in/out of sleeping throughout visit. ORDER CLERK reviewed therapy notes which recommend home with assistance from family and HH. F2F signed by provider. D/C anticipated for within the next 24-48hrs. Will request CM team follow closely and discuss HH options with patient when appropriate. Unclear if patient will meet homebound status or even wants HH. P: CM team to follow closely for d/c planning. RAJAN Bullard Discharge Planning/Care Management Advanced directive, confirm from FAMILY Start: 03/16/20 23:56 Freq: Q24H Status: Active Protocol: Document 03/17/20 07:45 CEW (Rec: 03/17/20 15:44 CEW [id number]) Advance Directive, confirm on record Time 08:00 Person contacted patient, doesn't have same, she reports she is a full code . Copy received No Document 03/18/20 07:40 CEW (Rec: 03/18/20 12:47 CEW [id number]) Advance Directive, confirm on record Time 08:00 Person contacted patient, doesn't have same, she reports she is a full code . Copy received No Time 08:00 Person contacted Patient, see above. Advanced directive available on record No Document 03/18/20 23:00 DGF (Rec: 03/19/20 01:55 DGF [id number]) Advance Directive, confirm on record Time 08:00 Person contacted patient, doesn't have same, she reports she is a full code . Copy received No Time 08:00 Person contacted Patient, see above. Advanced directive available on record No Document 03/20/20 09:00 EM (Rec: 03/20/20 09:32 EM [id number]) Advance Directive, confirm on record Time 08:00 Person contacted patient, doesn't have same, she reports she is a full code . Copy received No Time 08:00 Person contacted Patient, see above. Advanced directive available on record No CM Discharge Assessment Start: 03/20/20 12:51 Freq: Status: Active Protocol: Document 03/20/20 12:51 KJS (Rec: 03/20/20 12:57 KJS [id number]) Discharge Planning Assessment Assigned Endocrinology Physician RAJAN Bullard Contact Information Nighat Valadez (Mother) [phone] Advance Directives? No History Provided By Patient,Medical Record Prior Living Arrangements Apartment/Condo Household Members none Independent with ADL's Yes Is patient alert and oriented? No: Sleeping at time of visit. Unable to communicate fully due to drowsiness. Needs Assistance With Home Chores / Shopping Caregiver for Another No Comment Unsure on what DME patient already owns in the residence. Barriers to Discharge No Comment Hopefully patient will be able to stay at her Mom's at time of d/c. This mentioned in PT evaluation. Discharge Plan Home Transportation Arrangement Family? If patient plan is home with home health Yes : Has signed face to face form been completed? SNF/HH Preference No agency determined at this time. Pateint resides in [place]. F2F signed by Dr. Lackey for services. Whiteboard Updated in Patient Room with Yes name and ext. # of Endocrinology Physician Review Status In Process Next Review Type Continued Stay Review
[2020-03-20] MEDS: LACTATED RINGERS 1,000 ML 75 ML IV (13:16)
--- NOTE | 2020-03-20 13:29 | PC.NURSE ---
Day shift note: Patient awake, alert, and pleasantly cooperative. OOB to chair this shift, using IS while awake, instructed to cough and deep breathe. Weaned from O2 to RA, sats between 89-92% while sleeping. States at home her saturation is not above 92% at any given time. Diet advanced to CLEARS this morning after being seen by Dr. Gold. Tolerating diet, no nausea or vomiting. Abdomen round, tender, active BS, PASSING FLATUS. Up to BR to void, QS. Patient noted stronger today, increased mobility from previous day. Abdo incisions ZEE, abdominal binder in place. Calls appropriately for staff assistance.
--- NOTE | 2020-03-20 14:30 | P.PN_ITS ---
Subjective Subjective Date Patient Seen: 03/20/20 Time Patient Seen: 14:31 Interval history: Annie Jovel is a 35-year-old female with past medical history of ? COPD. Hypertension, bipolar disorder, diabetes, morbid obesity, and substance use disorder who presented to the emergency room with abdominal pain and bloating. She was found to have a high-grade large-bowel obstruction on CT imaging and was found to have an impacted stool causing the obstruction. Patient was advanced to clears after NG tube was removed. She is tolerating clears today. She is passing gas. Exam Vital Signs (past 8 hours): - 03/20/20 07:28 03/20/20 09:47 03/20/20 12:00 Temperature 98.3 F 97.8 F Pulse Rate 97 H 95 H 95 H Respiratory Rate 18 20 16 Blood Pressure 134/100 H 153/98 H Pulse Oximetry 86 L 96 88 L Oxygen Delivery Method Room Air Oxygen Flow Rate 2 Narrative Exam Narrative: GENERAL APPEARANCE: Morbidly obese female, alert and talking but does not open eyes frequently unless prompted. SKIN: Inspection of the skin reveals no rashes, ulcerations or petechiae. HEENT: Normocephalic atraumatic, extraocular muscles are intact, oropharynx is clear and mucous membranes are moist, neck is supple without adenopathy. NG tube in place. NECK: Supple and symmetric. There was no thyroid enlargement, and no tenderness, or masses were felt. CHEST: Normal AP diameter and normal contour without any kyphoscoliosis. LUNGS: Auscultation of the lungs revealed no wheezes, rhonchi, or rales. CARDIOVASCULAR: There was a regular rate and rhythm without any murmurs, gallops, rubs. Peripheral pulses were 2+ and symmetric. ABDOMEN: Obese, soft, non-distended with appropriate tenderness near midline surgical dressings. dressings c/d/i. MUSCULOSKELETAL: There was no tenderness or effusions noted. Muscle strength and tone were normal. EXTREMITIES: No cyanosis or edema. NEUROLOGIC: Alert but falls asleep easily. No focal deficits. Objective Labs Result Diagrams: 03/20/20 05:20 03/20/20 05:20 Labs: Laboratory Results - last 24 hr 03/20/20 03/20/20 05:20 05:20 WBC 7.6 RBC 4.69 Hgb 13.5 Hct 41.0 MCV 87.5 MCH 28.8 MCHC 32.9 RDW 14.1 Plt Count 204 Neut % (Auto) 58.4 Lymph % (Auto) 29.3 [place] % (Auto) 7.8 Eos % (Auto) 3.6 Baso % (Auto) 0.9 Neut # (Auto) 4400 Lymph # (Auto) 2200 [place] # (Auto) 600 Eos # (Auto) 300 Baso # (Auto) 100 Sodium 139 Potassium 3.9 Chloride 101 Carbon Dioxide 30 BUN 12 Creatinine 0.63 Estimated GFR > 60.0 BUN/Creatinine Ratio 19.0 Glucose 97 Calcium 8.7 Phosphorus 3.9 Magnesium 1.9 Total Bilirubin 0.5 Conjugated Bilirubin 0.0 Unconjugated Bilirubin 0.4 AST 35 ALT 26 Alkaline Phosphatase 69 Total Protein 6.6 Albumin 3.4 L Globulin 3.2 Albumin/Globulin Ratio 1.1 Assessment & Plan Assessment & Plan narrative: Annie Jovel is a 35-year-old female with past medical history of ? COPD. Hypertension, bipolar disorder, diabetes, morbid obesity, and substance use disorder who presented to the emergency room with abdominal pain and bloating. She was found to have a high-grade large-bowel obstruction on CT imaging. An NG tube was placed without much improvement. General surgery took the patient to the operating room on 03/18 where she was found to have a blockage secondary to impacted stool. She is doing well post-ope ratively, now advanced to clears. 1. Large bowel obstruction, acute, present on admission -appreciate surgical management of high-grade obstruction, secondary to impacted stool which was removed during surgery without need for colectomy found on laparotomy 03/17/20. -advanced to clears. ADAT per surgery. -pain control as needed and nausea control 2. COPD, chronic, present on admission -patient will have as needed albuterol inhalers -RT eval and treat 3. Diabetes, type 2, insulin dependent, possible new diagnosis -A1c is 10.1 -have started Lantus 5 units given likely insulin naive, with medium dose sliding scale -will continue to adjust as necessary pending diet and glucose control. -fingersticks ACHS with sliding scale -continue to adjust as necessary as diet increases 4. Morbid obesity, present on admission -patient is more likely to experience complications from her surgery due to her morbid obesity as well as now uncontrolled diabetes. 5. History of post depression. -patient states she does not have bipolar disorder and has been off of lithium for years, states initially thought of bipolar but was actually depression. 6. Elevated liver enzymes, present on admission -unknown chronicity, AST and ALT mildly elevated at 45 and 57 respectively. This has now improved to normal and may have been indicative of low-flow state during her obstruction. 7. Polysubstance abuse -urine tox screen positive for amphetamines -social work consultation appreciated 8. HTN - currently with borderline low BP but tachycardia. Continue labetalol as needed and if blood pressure increases. change back to oral medications when feasible. 9. Constipation - given above findings will need bowel regimen once tolerating oral intake Code: Full Dispo: Appreciate PT evaluation, plan for home with assistance. Per surgery anticipate discharge in the next 1-2 days. COVID-19 COVID-19 status: Negative Quality VTE Deep Vein Thrombosis/Pulmonary Embolism Present on Admission: No
[2020-03-20] MEDS: HEPARIN 5,000 UNIT/ML VIAL 5000 UNIT SUBCUT (21:13)
[2020-03-21] VITALS: BP 138/99; PULSE 92; RESP 20; TEMP 36.1; O2SAT 93
[2020-03-21] MEDS: KETOROLAC 30 MG/ML VIAL IV ×2 (02:40→11:36)
[2020-03-21 04:00] VITALS: BP 145/83; PULSE 80; RESP 18; TEMP 35.9; O2SAT 96
[2020-03-21] MEDS: HEPARIN 5,000 UNIT/ML VIAL 5000 UNIT SUBCUT ×2 (05:37→14:45)
[2020-03-21] MEDS: LACTATED RINGERS 1,000 ML 75 ML IV (05:37)
[2020-03-21 05:51] LABS: Add Manual Diff / Slide Review NO; Basophils Absolute Auto 0 /uL (0-100); Basophils Percent Auto 0.6 % (0-2); Eosinophils Absolute Auto 200 /uL (0-450); Eosinophils Percent Auto 3.6 % (2-4); Hematocrit 40.1 % (36-46); Lymphocytes Absolute Auto 2000 /uL (1100-4500); Lymphocytes Percent Auto 31.1 % (25-40); Mean Corpuscular HGB Conc 32.3 % (30-36); Mean Corpuscular Hemoglobin 28.2 PG (26-34); Mean Corpuscular Volume 87.3 fL (80-100); Monocytes Absolute Auto 600 /uL (0-900); Monocytes Percent Auto 8.9 % (3-14); Neutrophils Absolute Auto 3700 /uL (1500-7000); Neutrophils Percent Auto 55.8 % (50-75); Platelet Count 219 X10^3/uL (150-400); Red Cell Distribution Width 14.2 % (11.6-14.8); White Blood Cell Count 6.5 X10^3/uL (4.5-11.0)
[2020-03-21 06:02] LABS: Alanine Aminotransferase 27 IU/L (<35); Albumin 3.2 g/dL (3.5-5.0); Alkaline Phosphatase 68 U/L (38-126); Aspartate Aminotransferase 38 IU/L (14-36); Bilirubin Total 0.4 mg/dL (0.2-1.3); Bilirubin Unconjugated 0.2 mg/dL (0.0-1.1); Blood Urea Nitrogen 12 mg/dL (7-17); Calcium 8.6 mg/dL (8.4-10.2); Carbon Dioxide 32 mmol/L (22-32); Chloride 102 mmol/L (98-107); Estimated Glomerular Filt Rate > 60.0 mL/min (>60); Globulin 3.1 g/dL (1.7-4.1); Glucose 132 mg/dL (70-100); HEMOLYSIS < 15 (0-50); Phosphorous 3.4 mg/dL (2.5-4.5); Potassium 3.7 mmol/L (3.4-5.1); Sodium 137 mmol/L (137-145); Total Protein 6.3 g/dL (6.3-8.2)
[2020-03-21 08:00] VITALS: BP 157/92; PULSE 81; RESP 18; TEMP 36.5; O2SAT 93
[2020-03-21] MEDS: GABAPENTIN 300 MG CAPSULE PO (08:13)
[2020-03-21] MEDS: INSULIN GLARGINE 100 UNIT/ML 3ML PEN SUBCUT (08:14)
--- NOTE | 2020-03-21 09:58 | PT.IPTN ---
Current Diagnoses Morbid (severe) obesity due to excess calories (03/16/20) Mental disorder, not otherwise specified (03/16/20) Unspecified intestinal obstruction, unspecified as to partial versus complete obstruction (03/16/20) History of uterine scar from previous surgery (03/16/20) Surgery Performed Operation Date: 03/17/20 12:30 Actual Procedures p Exploratory Laparotomy GEN, flexible sigmoidoscopy - Alireza Gold MD Physical Therapy Treatment Note M2 PT-IP Current Condition Start: 03/18/20 13:01 Freq: NEEDED Status: Active Protocol: Document 03/19/20 11:08 AW (Rec: 03/19/20 11:35 AW [id number]) Physical Therapy Current Condition Current Condition Evaluation Date 03/19/20 Treatment Diagnosis bowel obstruction s/p abd surgery, difficulty in walking Onset Date 03/16/20 Precautions Abdominal Surgery Precautions Log Roll,Lifting Restrictions, Gait Belt above Incisional Area Brace abdominal binder for support Other Precautions NG tube to intermittent suction M3 PT-IP Subjective Start: 03/18/20 13:01 Freq: NEEDED Status: Active Protocol: Document 03/21/20 09:58 AB (Rec: 03/21/20 11:50 AB [id number]) Subjective Physical Therapy Visit Type Type Treatment Note Visit Start Time 09:58 Visit Stop Time 10:14 Total Visit Minutes 16 Number of REHABILITATION DIRECTOR Visits 0 Physical Therapy Visit Comments Patient Comments i want to go home Therapy Pain Assessment Pain Present Pain Present Denied Pain M4 PT-IP Mobility and Gait Start: 03/18/20 13:01 Freq: NEEDED Status: Active Protocol: Document 03/21/20 09:58 AB (Rec: 03/21/20 11:50 AB [id number]) PT-Bed Mobility Assessment Supine to Sit Supine to Sit Standby Assistance,Head of Bed Elevated,Bedrails PT-Transfer Assessment Sit to and From Stand Sit to and from Stand Standby Assistance Equipment Transfer Assistive Device Gait Belt Orthotic/Prosthetic Devices or Brace: No Transfers Transfer Destination Chair Transfer Technique Stand Step Pivot Transfer Ability Level of Assist Standby Assistance,1 Person Assistance Comments Mobility Comments pt supine in bed and agreed to get up. pt stated that she wants to go home and to inform nurse to call her mother. pt is impulsive and go up from the bed using bed rail and HOB elevated SBA before PT finished setting up and prior to instructions. pt able to don her pants on by herself and shoes on and maintained standing balance without AD SBA. pt has decrease activity tolerance and has to sit down a few time to complete tasks. pt ambulated to the toilet without AD SBA and completed without assist. ambulated more in room ~ 50 ft without AD SBA. pt sat on chair and stated that she wants to sit up on the chair until her mom comes in because she wants to go home and stated that if her mom does not come, she will walk out of the hospital. call light, phone and table placed next to pt. informed nurse. Gait Assessment Gait Gait Assistance Required: Standby Assistance Distance (Feet) 50 Able to Maintain Weight Bearing Status Yes During Gait Assistive Devices Orthotic/Prosthetic Devices or Brace: No Gait Deviations General Gait Pattern Antalgic,Decreased Stride Length,Decreased Feet Clearance Factors Limiting Gait Function Factors Limiting Gait Function Decreased Activity Tolerance, Decreased Strength,Poor Safety Awareness Comments Gait Comments pls refer to mobility section for details M5 PT-IP Objective Assessments Start: 03/18/20 13:01 Freq: NEEDED Status: Active Protocol: Document 03/19/20 11:08 AW (Rec: 03/19/20 11:35 AW [id number]) Orientation Orientation/Cognition Level of Alertness Alert Orientation Name,Day of Week,Place, Situation Language Function Ability No Deficits Noted Safety Awareness Understands Safety Issues Memory Description No Deficits Noted Gross Range of Motion Lower Extremity ROM Assessment Bilaterally Impaired Impairments soft tissue limitations due to pt's habitus Strength Lower Extremity Strength Assessment Bilaterally Impaired Comments Strength Comments grossly 4-/5 BLE Coordination Assessment Gross Coordination Gross Coordination WNL Sensation Assessment Sensation Gross Sensation Right UE Impaired,Left UE Impaired Comments Sensation Comments 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 Muscle Tone Muscle Tone WNL Yes M6 PT-IP Treatment Start: 03/18/20 13:01 Freq: NEEDED Status: Active Protocol: Document 03/21/20 09:58 AB (Rec: 03/21/20 11:50 AB [id number]) Physical Therapy Treatment Education Education Provided Safety M7 PT-IP Assessment and Plan Start: 03/18/20 13:01 Freq: NEEDED Status: Active Protocol: Document 03/21/20 09:58 AB (Rec: 03/21/20 11:50 AB [id number]) PT Summary Assessment and Plan Potential Rehabilitation Potential Good Summary Impairments Strength,Balance,Bed Mobility, Transfers,Gait,Activity Tolerance Progress Towards Goals Slow Progress due to Activity Tolerance Assessment Summary pt requiring SBA with mobility but presents with decrease activity tolerance requiring seated rest breaks in between activities. pt expressed desire to go home. pt confirmed that she will stay at her mother's house upon d/c and does not have any stairs to maneuver. pt may go home with assist when medically stable. Goals Bed Mobility Goal Independent Transfer Goal Independent Gait Goal Independent Gait Distance 100 Days to Meet Goals 5 Frequency of Treatment Frequency Of Treatment Once a Day Treatment Plan Physical Therapy Treatment Plan Bed Mobility Training,Transfer Training,Gait Training, Therapeutic Exercise,Balance Retraining,Post Op Education, Discharge Planning Recommendations To Nursing Amount of Assist Needed Standby Assistance Discharge Recommendations PT Discharge Recommendations Home with Assistance,Home Health Transportation Needs at Discharge Private Vehicle
--- NOTE | 2020-03-21 10:45 | PC.NURSE ---
Addendum entered by Tara Ruby R.N. 03/21/20 13:55: Patient is more relaxed after talking to her mother. She is waiting for the Doctor to come and see her and would like her diet to be upgraded from clear liquids. Given toradol for her cramping. Hopefully this will help patient promote a bowel movement. Original Note: Patient is wanting to leave against medical advice. She understands that the Dr's have not given her permission to be discharged to home. She still needs to have a bowel movement and advance her diet to see if she tolerates this well. Patient has multiple skin issues, please see skin assessment. Incision to lower abdomen has samuel that are well approximated. She is passing gas and her bowel tones are +x4. This RN informed patient that if she leaves , she may have to come back to the hospital for a longer period.
[2020-03-21 10:47] VITALS: PULSE 83; RESP 18; O2SAT 94
[2020-03-21 11:20] VITALS: BP 138/102; PULSE 80; RESP 18; TEMP 36.2; O2SAT 93
[2020-03-21] MEDS: SODIUM CHLORIDE 0.9% FLUSH 10 ML IV (11:36)
[2020-03-21] MEDS: INSULIN ASPART 100 UNIT/ML INSULN PEN SUBCUT ×2 (12:19→17:17)
--- NOTE | 2020-03-21 14:18 | CM.DPC ---
DCP Cont: Per MD, pt's NG removed and on clear liquids with plan to advance diet to see how she tolerates but pt also hasn't had bowel movement and pt will need to have bowel function prior to d/c. Per RN, pt has some anxiousness with feelings of wanting to discharge but can be redirected and calmed. Per PT, recommending home with assist and HH at d/c. SW met bedside with pt and explained role and pt confirms that she lives in an apartment alone in [place] but has local supportive mom and sister. Pt states that she is typically independent with ADL's at baseline but has chronic back pain since her labor and delivery and epidural about 2 years ago. Pt states she had imaging previously and was determined surgical intervention not needed but likely more nerve damage and pt has yet to pursue this further. Pt states she can only stand for short amount of time before she has to sit or lay down and has still been able to go grocery shopping via electric scooter at the store and frequent breaks. Pt has 3 children (ages around 16,12, and 2) who all live with her local sister who is in the process of open adoption and pt is very agreeable with this plan as she is so limited physically as well as an active heroin user. Pt states since the of her father, best friend, and grandpa within the past year and her chronic pain she began using street drugs to cope. Pt denies any hx of CD or MH treatment and states that she does not want to be using drugs anymore. SW discussed possible options of Inpt vs outpt treatment and pt declines Inpt Tx at this time as she does not want to be away from my kids for that long, being here in the hospital is the longest I have been away from them. SW discussed the benefits of Inpt Tx and pt states she may be agreeable to outpt tx although I've never done anything like treatment or counseling before. SW discussed the impacts of chronic pain and grief/loss in combination with drug use. Pt somewhat tearful and admits to feeling as if she does not have a purpose to focus on. Pt agreeable with being given resources for MH and CD tx to consider today to determine if she would like to have any services at d/c. Pt is agreeable with HH at d/c if covered by her Medicaid and states that she just recently spoke to her mother via phone and plan is for pt to d/c to her Mother's house for additional assist at d/c and HH would work with her at mother's house which is located at [address] [place] [address], [place] [address]. Pt agreeable with HH referral and no preference. [facility] called [facility] and discussed pt's straight Medicaid and they will need to review to determine if they can accept and do case by case basis for Medicaid but [employer] not covered by Medicaid but likely PT/RN and request clinicals be faxed for review and they will call back to confirm if they can accept. [facility] faxed requested clinicals to [facility]. F2F has been signed by . Plan: [facility] to follow for [facility] review to determine if they can accept her for RN/PT under her Medicaid for plan of d/c to pt's Mother's house. SW to follow for further discussion of MH/CD resources if pt is interested in outpt services at d/c as currently she is declining any Inpt tx and her barriers are her ADL's independently and medical complexity for Inpt treatment anyways. Kiley Hoyos, [employer]
[2020-03-21 15:00] VITALS: BP 142/87; PULSE 72; RESP 17; TEMP 36.4; O2SAT 94
--- NOTE | 2020-03-21 15:05 | PM.PNPO.1 ---
Subjective Subjective Date Patient Seen: 03/21/20 Time Patient Seen: 15:05 Interval history: Patient post exploration for colon obstruction secondary to inspissated stool. She feels pretty good today. She would like to go home. Still no bowel movement. Exam Vital Signs (past 8 hours): - 03/21/20 08:00 03/21/20 10:47 03/21/20 11:20 Temperature 97.7 F 97.1 F L Pulse Rate 81 83 80 Respiratory Rate 18 18 18 Blood Pressure 157/92 H 138/102 H Pulse Oximetry 93 94 93 Oxygen Delivery Method Room Air Oxygen Flow Rate 0 Narrative Exam Narrative: Flat affect. Lungs are clear no rales or rhonchi. Good effort. Heart regular rate and rhythm without murmur gallop. Abdomen is protuberant soft there is no unusual tenderness. Midline is intact. No cellulitis. Objective Labs Result Diagrams: 03/21/20 05:10 03/21/20 05:10 Labs: Laboratory Results - last 24 hr 03/21/20 03/21/20 05:10 05:10 WBC 6.5 RBC 4.60 Hgb 13.0 Hct 40.1 MCV 87.3 MCH 28.2 MCHC 32.3 RDW 14.2 Plt Count 219 Neut % (Auto) 55.8 Lymph % (Auto) 31.1 [place] % (Auto) 8.9 Eos % (Auto) 3.6 Baso % (Auto) 0.6 Neut # (Auto) 3700 Lymph # (Auto) 2000 [place] # (Auto) 600 Eos # (Auto) 200 Baso # (Auto) 0 Sodium 137 Potassium 3.7 Chloride 102 Carbon Dioxide 32 BUN 12 Creatinine 0.63 Estimated GFR > 60.0 BUN/Creatinine Ratio 19.0 Glucose 132 H Calcium 8.6 Phosphorus 3.4 Magnesium 2.0 Total Bilirubin 0.4 Conjugated Bilirubin 0.0 Unconjugated Bilirubin 0.2 AST 38 H ALT 27 Alkaline Phosphatase 68 Total Protein 6.3 Albumin 3.2 L Globulin 3.1 Albumin/Globulin Ratio 1.0 Assessment & Plan Post-op Postoperative Procedures: Procedures Operation Date: 03/17/20 12:30 Actual Procedures Side Surgeon p Exploratory Laparotomy GEN, flexible sigmoidoscopy Alireza Gold MD Postoperative status narrative: Doing well. Postoperative plan narrative: Continue DVT prophylaxis. Advance diet. Will give something to stimulate bowel function. Encourage patient to shower. Possible discharge in the morning. Quality VTE Deep Vein Thrombosis/Pulmonary Embolism Present on Admission: No
--- NOTE | 2020-03-21 15:46 | PC.NURSE ---
Addendum entered by Kierra Reyes R.N. 03/21/20 19:51: Pt had several loose stools while awaiting discharge paperwork. Prefers abdominal binder on and this is in place. Discharge instructions and prescription for gabapentin given to pt with verbal and written discharge instructions. Pt left hospital with [facility] escort via wheelchair and all personal belongings accounted for in stable condition. Addendum entered by Kierra Reyes R.N. 03/21/20 18:26: Pt fully dresses self. Up ad heron in room with abdominal binder in place. Expresses reggie at going home. Took full liquid diet well without any c/o nausea or pain. Reports had second, less hard bowel movement. Addendum entered by Kierra Reyes R.N. 03/21/20 18:12: Dr. Murry in to see patient. Pt now up in recliner. Addendum entered by Kierra Reyes R.N. 03/21/20 17:33: Discussed with Dr. Murry who states desires to see patient this evening shift. This was explained to pt and pt agrees to stay in hospital until Dr. Murry sees patient. Pt has put self back to bed and is now resting quietly with eyes closed. Addendum entered by Kierra Reyes R.N. 03/21/20 16:54: Dr. Barnard was informed via telephone of pt's decision to leave hospital this evening. Dr. Barnard then contacted Dr. Gold who states pt is on medicine service and surgeon was just waiting for pt to stool which has happened. Message to Dr. Murry to discuss and direct. Addendum entered by Kierra Reyes R.N. 03/21/20 16:44: BACON DE RINDER reports pt has had small, formed stool. [facility] R[facility] also informs this health technical writer pt has arranged for a ride home and is leaving as per pt statement. This health technical writer enters room and pt is sitting up in chair wide awake, smiling and conversant. States has had bowel movement and now wants to go home and has called for a ride. This health technical writer informed pt surgeon may discharge pt tomorrow based on progress report if pt could manage to remain in hospital overnight. Pt reports will not. States is going home. Page to on-call surgeon to discuss. Original Note: Pt resting quietly in bed with eyes closed. Rouses easily to voice. Explained to pt surgeon's orders for rectal suppository to promote bowel function. Pt expresses, I don't want to. Offered for pt to administer to self and pt declined. After a few moments states, Can we do it after dinner? Will allow this in this patient. Abdominal incision inspected. Midline incision with samuel intact open to air. Scattered bruises surround staple line. No drainage noted. Rare, but present bowel tones. Admits to passing flatus. Abdominal binder secured snugly. Will allow for rest and reapproach with suppository at later time as per pt request.
--- NOTE | 2020-03-21 18:27 | P.DS_ITS ---
History of Present Illness History of Present Illness Date Patient Seen: 03/17/20 Chief complaint: abd pain/ bloating Narrative: Written by Arianne SEVILLA: Unable to obtain history from the patient. She does state she is in pain and then when I try to follow-up with a question she falls asleep. Per nursing in the ED she was doing this as well. She was seen at [facility] emergency department and at that time was given Zofran and discharged with a diagnosis of acute gastritis. She apparently returned home and the pain got worse particularly with movement. In the emergency department here they did the CT scan of her abdomen and belly and found that she has a high-grade obstruction of the proximal sigmoid colon with moderate to severe distention of the colon and distension of the distal small bowel loops. Per the emergency room provider the only surgery she has ever had was laparoscopic gynecological surgery however was not able to discuss this with her. I am. unable to conduct a review of systems or obtain a social and family history from her. Discharge Providers Provider Date of admission: 03/16/20 23:39 Discharge Date: 03/21/20 Primary care physician: Claude Ambrosio Consults: 03/17/20 00:34 Consult to Physician Routine Comment: Consulting Provider: Margaret Barnard Reason for consultation: High grade SBO Has provider been notified: Yes 03/17/20 16:08 Consult to Discharge Planning Routine Comment: 03/18/20 11:11 Consult to Physical Therapy Evaluate & Treat Comment: Needs assistance in mobilization Physician Instructions: Evaluate and Treat 03/20/20 10:39 Consult to Discharge Planning Routine Comment: may go home in one or two days Discharge provider: Keli Murry DO Summary Hospital Course Discharge Diagnosis: 1. Acute high-grade large bowel obstruction, secondary to impacted stool, present on admission. Resolved. 2. Opiate induced constipation, acute on chronic, present on admission. Acute portion resolved. 3. COPD, chronic, present on admission. Stable. 4. Diabetes mellitus type 2, non-insulin using, present on admission. Stable. 5. Morbid obesity, present on admission. Stable. 6. Fatty liver disease, chronic, present on admission. Presumed stable. 7. Polysubstance abuse, chronic, present on admission. Stable. 8. Hypertension, chronic, present on admission. Stable. 9. History of post depression. Hospital Course: Annie Jovel is a 35-year-old female with a past medical history of hypertension, COPD, diabetes mellitus type II, morbid obesity, and substance abuse of heroin and methamphetamines who presented to the ED with abdominal pain and bloating and found to have a high-grade large-bowel obstruction. 1. Acute high-grade large bowel obstruction, secondary to impacted stool, present on admission. Resolved. -Patient presented with progressive worsening abdominal pain and persistent vomiting. -CT abdomen and pelvis with contrast demonstrated distal colonic obstruction, with a site of narrowing seen within the sigmoid colon. Just proximal to this, there is a focus of apparent stool seen. Dilated loops of fluid-filled colon and small bowel can be seen proximal to this site of obstruction. -Consulted general surgery, Dr. Gold, who performed an exploratory laparotomy, flexible sigmoidoscopy and disimpaction of the rectum. Continued postoperative management and pain control per general surgery. Discharged with temporary prescription of gabapentin 300 mg twice daily for pain control. -Continued to advance diet as tolerated which patient tolerated carbohydrate consistent diet with return of bowel function and several BMs prior to discharge. General surgery cleared for discharge home. 2. Opiate induced constipation, acute on chronic, present on admission. Acute portion resolved. -Surgical intervention as above. -Continued and discharged on bowel regimen with Colace 100 mg twice daily and Miralax 17 g daily. 3. COPD, chronic, present on admission. Stable. -Does not represent COPD exacerbation. -Continued respiratory therapy evaluation and treatment. Ordered as needed supplemental oxygen to maintain oxygen saturations 88-92%. Patient desaturatted while sleeping with oxygen placed on at night likely due to [place] and recommended outpatient sleep study per PCP. Continued albuterol inhaler as needed. Patient off oxygen. 4. Diabetes mellitus type 2, non-insulin using, present on admission. Stable. -Hemoglobin A1c 10.1% indicative of poor glycemic control. -Held metformin. -Continued [facility] blood glucose checks and medium dose correctional scale insulin. Started lantus 5 units for tighter glycemic control and discontinued at time of discharge as patient was adamant of discharging whether she have to sign-out AMA or not and due to concern for medical non-compliance and current substance abuse was instructed to restart metformin and follow-up with PCP. -Continued heart healthy/carbohydrate consistent diet. 5. Morbid obesity, present on admission. Stable. -BMI 53.6. -Counseled the patient extensively on lifestyle modification including: diet and exercise. 6. Fatty liver disease, chronic, present on admission. Presumed stable. -CT abdomen and pelvis demonstrated diffuse fatty liver infiltration. -Initial LFTs mildly elevated with AST and ALT 45 and 57 respectively. LFTs improved. -Counseled the patient extensively on lifestyle modification including: diet and exercise. 7. Polysubstance abuse, chronic, present on admission. Stable. -Urine tox screen was positive for methamphetamines and opiates. Patient admits to using heroin and methamphetamines up until hospitalization and reports she wants to abstain and go to inpatient treatment in next several days after discharge once she is able to see her children. -Consulted [employer] and we appreciate her time and recommendations. 8. Hypertension, chronic, present on admission. Stable. -Continued labetalol 100 mg twice daily. 9. History of post depression. -Patient reports she does not have bipolar disorder and has been off of lithium for years. She reports initially she was thought to have bipolar disorder but later was felt to be depression. Exam Vital Signs (past 8 hours): - 03/21/20 15:00 Temperature 97.6 F Pulse Rate 72 Respiratory Rate 17 Blood Pressure 142/87 H Pulse Oximetry 94 Oxygen Delivery Method Room Air Oxygen Flow Rate 0 Narrative Exam Narrative: General: Young female, sitting in bedside chair and in no acute distress, anxious but otherwise appropriately interactive. HEENT: Normocephalic, atraumatic. External ears without defect. Pupils equal, round, and reactive to light. Anicteric sclerae, moist conjunctivae, and no lid lag. Oropharynx free of erythema and cobble stoning with moist mucosa. Neck: Supple with full range of motion. No jugular venous distension. No bruits. No lymphadenopathy or thyromegaly. Cardiovascular: Regular rate and rhythm without murmurs, rubs, or gallops appreciated. Pulmonary: Clear to auscultation bilaterally without crackles, wheezes, or rhonchi. Normal respiratory effort with no use of accessory muscles. Abdomen: Soft, obese, mild tenderness over vertical surgical site with dressing in place C/D/I, nondistended. Extremities: No clubbing, cyanosis, or edema. Skin: Damian skin color. Normal temperature, turgor, and texture; no rash, ulcers, or subcutaneous nodules appreciated. Neurological: Cranial nerves grossly intact. Psychiatric: Anxious mood and affect. Alert and oriented to person, place, and time. Objective Labs Result Diagrams: 03/21/20 05:10 03/21/20 05:10 Labs: Laboratory Results - last 24 hr 03/21/20 03/21/20 05:10 05:10 WBC 6.5 RBC 4.60 Hgb 13.0 Hct 40.1 MCV 87.3 MCH 28.2 MCHC 32.3 RDW 14.2 Plt Count 219 Neut % (Auto) 55.8 Lymph % (Auto) 31.1 [place] % (Auto) 8.9 Eos % (Auto) 3.6 Baso % (Auto) 0.6 Neut # (Auto) 3700 Lymph # (Auto) 2000 [place] # (Auto) 600 Eos # (Auto) 200 Baso # (Auto) 0 Sodium 137 Potassium 3.7 Chloride 102 Carbon Dioxide 32 BUN 12 Creatinine 0.63 Estimated GFR > 60.0 BUN/Creatinine Ratio 19.0 Glucose 132 H Calcium 8.6 Phosphorus 3.4 Magnesium 2.0 Total Bilirubin 0.4 Conjugated Bilirubin 0.0 Unconjugated Bilirubin 0.2 AST 38 H ALT 27 Alkaline Phosphatase 68 Total Protein 6.3 Albumin 3.2 L Globulin 3.1 Albumin/Globulin Ratio 1.0 Discharge Plan Discharge Plan Patient Disposition: Home Health Service Discharge comment: You are being discharged home. You have been prescribed gabapentin 300 mg twice daily for pain control. Please abstain indefinitely from methamphetamines and heroin use. You had a large bowel obstruction due to severe constipation and impaction. Recommend regular bowel regimen with Colace 100 mg twice daily and metformin 17 g daily (may be increased to twice daily or decreased to every other day depending on stool frequency and consistency). Heroin is severely constipating and again please do not use this indefinitely. Highly recommend you consider inpatient treatment for polysubstance abuse. Please make an appointment with general surgery, Dr. Gold, in 2 weeks for postoperative follow-up. Please follow-up with your primary care provider in the next 1-2 weeks regarding your hospitalization and continued treatment for your diabetes. Discharge orders & Medications Prescriptions: New gabapentin [Neurontin] 300 mg Capsule 300 mg PO BID Qty: 30 RF: 0 docusate sodium [Colace] 100 mg capsule 100 mg PO BID Qty: 60 RF: 0 polyethylene glycol 3350 [Miralax] 17 gram/dose powder 17 gram PO DAILY Qty: 238 RF: 0 Continued fluticasone propion-salmeterol [Advair Diskus] 250 MCG/50 MCG blister with device 1 puff INH BID Qty: 0 RF: 0 albuterol sulfate [Ventolin HFA] 90 MCG/PUFF HFA aerosol inhaler 0 puff INH Q4HP PRNQty: 1 RF: 0 nystatin [Nyamyc] 15 GM powder 100,000 u TP TID Qty: 30 RF: 0 labetalol 100 MG tablet 100 mg PO BID Qty: 60 RF: 3 metformin 1,000 mg Tablet 1,000 mg PO BID RF: 0 Follow up/Referrals: Claude Ambrosio [Primary Care Provider] - Alireza Gold MD [Physician] - (Please call the office to make a follow up appointment for the week of April 02. ) Diet/Activity/Treatments Diet: Diet as Tolerated Activity: Avoid lifting, pulling, pushing more than 10 lbs for six weeks after surgery. Take a stool softener or laxative daily unless you are having loose stool. Avoid straining and constipation to help reduce the risk of hernia formation at the incision site. Use a fiber supplement such as metamucil or benefiber to help prevent constipation. Skin/Wound/Dressing Care Report to your healthcare provider any signs of infection, such as:: chills, fever, night sweats, increased pain, unusual drainage and unusual redness Other wound treatment: Ok to shower. Do not tub bathe or go in a swimming pool or tub until after your follow up appointment. Visit Report/Discharge Packet Instructions: DI Following Your Exploratory Laparotomy, DI for Constipation, [facility]: Wound Care Discharge Data Primary Care Provider: Claude Ambrosio Discharges patient from system. Discharge Date/Time: 03/21/20 19:49 Quality VTE Deep Vein Thrombosis/Pulmonary Embolism Present on Admission: No
== END 2020-03-21 19:49 | disposition home health service (06) | DRG 357 ==
LOC: ED 21:21 → AC 23:39
PROVIDERS: Internal Medicine; Specialist; Surgery; Admitting Provider Nurse Practitioner Family; Emergency Provider Emergency Medicine; PCP Physician Assistant Medical; Referring Provider Physician Assistant Medical; Visit Provider Nurse Practitioner Family
PROC: 0DCN8ZZ Extirpation of Matter from Sigmoid Colon, Via Natural or Artificial Opening Endoscopic (ICD-10-PCS; CPT 49000; principal; 2020-03-17 12:30)
DX: K56.41 Fecal impaction (principal); Z68.43 Body mass index [BMI] 50.0-59.9, adult; E66.01 Morbid (severe) obesity due to excess calories; J44.9 Chronic obstructive pulmonary disease, unspecified; E11.65 Type 2 diabetes mellitus with hyperglycemia; I10 Essential (primary) hypertension; F15.10 Other stimulant abuse, uncomplicated; F17.210 Nicotine dependence, cigarettes, uncomplicated; Z79.4 Long term (current) use of insulin; Z11.59 Encounter for screening for other viral diseases
CPT/HCPCS: 36415; 45330; 49000; 74022; 74177; 80048; 80053; 80076; 80305; 81001; 82962; 83036; 83605; 83690; 83735; 84100; 85025; 87635; 94150; 94640; 94660; 94760; 94762; 96361; 96374; 96375; 97161; 97530; 99222; 99284; 99285; C9113; J0330; J0690; J1170; J1644; J1650; J1885; J2250; J2405; J2543; J2704; J3010

== ENCOUNTER 2022-09-27 16:29 | Inpatient (IN) | payer OTHER, MEDICAID, SELFPAY ==
[2020-04-05 13:47] VITALS: BMI 53.5
[2022-09-27] VITALS (30 sets, daily range): BP systolic 122–167; BP diastolic 77–93; PULSE 87–117; RESP 10–35; TEMP 36.6–37; O2SAT 90–95; BMI 48.0
--- NOTE | 2022-09-27 16:26 | ED.SOB ---
HPI - SOB/Dyspnea <Annie Orellana DO - Last Filed: 09/29/22 20:53> General Chief Complaint: Shortness of Breath/Dyspnea Stated Complaint: SOB Time Seen by Provider: 09/27/22 16:37 Source: EMS and old records reviewed Mode of arrival: EMS Limitations: no limitations History of Present Illness HPI Narrative: This is a 37 year old female with known asthma, diabetes and history of fentanyl abuse which patient states she just by smoking. Patient states she is off her current medications. She has had fevers including sweats starting yesterday, muscle aches, chest pain, shortness of breath and wheeze for the past 2 days. She denies nausea or vomiting. She denies abdominal pain she states she has not had a bowel movement several days. She has been urinating regular without dysuria urgency or frequency. No new vaginal bleeding or discharge. She does not appreciate new swelling in her extremities. Patient states she was supposed to be on metformin for her diabetes, she had gestational hypertension but is no longer supposed to take labetalol, she was on albuterol and Advair. Patient states she is had some form of abdominal surgery she does not know exactly what because she left afterwards but she has a large scar. She has been intubated once before and she states she is been BiPAP multiple times. She states she does use tobacco, she states occasional alcohol but not regularly. She uses marijuana, she denies other illicit besides fentanyl. She states her last use was approximately 4 or 5 hours ago. Related Data Home Medications Medication Instructions Recorded Confirmed No Known Home Medications 09/28/22 09/28/22 Allergies Allergy/AdvReac Type Severity Reaction Status Date / Time morphine [MORPHINE] Allergy Intermediate rash,hives Verified 09/27/22 16:37 clindamycin [CLINDAMYCIN] Allergy Mild vomiting Verified 09/27/22 16:37 remdesivir Allergy Mild Verified 09/29/22 13:29 baricitinib Allergy Verified 09/29/22 13:30 Review of Systems <Annie Orellana DO - Last Filed: 09/29/22 20:53> Review of Systems ROS Unobtainable: All systems reviewed & are unremarkable except as noted in HPI and below Patient History <Annie Orellana DO - Last Filed: 09/29/22 20:53> Medical History Asthma exacerbation Bowel obstruction Surgical History Status post delivery (10/02/17) Social History household members: none Smoking Status: Current some day smoker alcohol intake: former Exam <Annie Orellana DO - Last Filed: 09/29/22 20:53> Narrative Exam Narrative: GEN: Obese female, alert and oriented x 3, patient appears to be in moderate distress. HEENT: Atraumatic, pupils are equal round reactive to light, extraocular movements are intact, nares are clear, Throat is clear without any exudates, erythema, tonsillar enlargement or uvular deviation HEART: Tachycardic but Regular rate and rhythm without murmur, clicks, rubs. No carotid bruits, pulses are equal in upper and lower extremities. No swelling bilateral lower extremities. LUNGS:Lungs have bilateral wheeze, rhonchi, no, rales, crackles, chest moves symmetrically, mild tachypnea. Mild sternoclavicular loose, no intercostal or subcostal retractions. Able to speak in 4-5 word sentences. ABD:bowel sounds normal, soft, non-tender, no guarding, rebound, rigidity, no masses noted, no hepatosplenomegaly :No CVA tenderness MSCL: Non-tender, no muscle atrophy, muscles strength 5/5 upper and lower extremities, full range of motion, normal gait NEURO:CN 2-12 intact, sensation normal Initial Vital Signs Initial Vital Signs: Vital Signs Temperature 98.6 F 09/27/22 16:37 Pulse Rate 109 H 09/27/22 16:37 Respiratory Rate 32 H 09/27/22 16:37 Blood Pressure 167/93 H 09/27/22 16:37 Pulse Oximetry 90 L 09/27/22 16:37 Oxygen Delivery Method 09/27/22 16:37 <Gabriela Story DO - Last Filed: 09/28/22 03:03> Initial Vital Signs Initial Vital Signs: Vital Signs Temperature 98.6 F 09/27/22 16:37 Pulse Rate 109 H 09/27/22 16:37 Respiratory Rate 32 H 09/27/22 16:37 Blood Pressure 167/93 H 09/27/22 16:37 Pulse Oximetry 90 L 09/27/22 16:37 Oxygen Delivery Method 09/27/22 16:37 Course <Annie Orellana, - Last Filed: 09/29/22 20:53> Orders Ordered: Acetaminophen (Acetaminophen 325 Mg Tablet) 650 mg PO Q6H PRN PRN Reason: Fever/Mild Pain (1-3) Last Admin: 09/28/22 09:34 Dose: 650 mg Documented By: Admin: 09/28/22 04:17 Dose: 650 mg Documented By: Admin: 09/27/22 22:28 Dose: 650 mg Documented By: CB Albuterol (Albuterol 2.5 Mg/3 Ml Neb (Adult)) 2.5 mg INH [id number] [facility] Last Admin: 09/29/22 19:44 Dose: 2.5 mg Documented By: ZRaymon Admin: 09/29/22 16:39 Dose: Not Given Documented By: Admin: 09/29/22 12:34 Dose: 2.5 mg Documented By: Admin: 09/29/22 07:19 Dose: 2.5 mg Documented By: Admin: 09/29/22 04:00 Dose: Not Given Documented By: Admin: 09/28/22 21:07 Dose: 2.5 mg Documented By: Admin: 09/28/22 15:57 Dose: 2.5 mg Documented By: Admin: 09/28/22 11:50 Dose: 2.5 mg Documented By: Admin: 09/28/22 09:05 Dose: 2.5 mg Documented By: Admin: 09/28/22 09:05 Dose: Not Given Documented By: JZF Albuterol (Albuterol 2.5 Mg/3 Ml Neb (Adult)) 2.5 mg INH [id number] PRN PRN Reason: Shortness Of Breath Last Admin: 09/29/22 03:59 Dose: 2.5 mg Documented By: ZC Budesonide (Budesonide 0.5 Mg/2 Ml Neb) 0.5 mg INH RTBID [facility] Last Admin: 09/29/22 19:44 Dose: 0.5 mg Documented By: Admin: 09/29/22 07:19 Dose: 0.5 mg Documented By: Admin: 09/28/22 21:07 Dose: 0.5 mg Documented By: Admin: 09/28/22 09:06 Dose: 0.5 mg Documented By: NATALIA Dexamethasone (Dexamethasone 10 Mg/Ml Vial) 6 mg IV DAILY [facility] Last Admin: 09/29/22 08:22 Dose: 6 mg Documented By: Admin: 09/28/22 08:46 Dose: 6 mg Documented By: MARIKA Dextrose (Dextrose 50 % In Water 25 Gm/50 Ml Syringe) 25 gm IV PRN PRN PRN Reason: Hypoglycemia Diphenhydramine HCl (Diphenhydramine 25 Mg Tablet) 25 mg PO Q6HR PRN PRN Reason: Itching Doxycycline Hyclate (Doxycycline Hyclate 100 Mg Tablet) 100 mg PO BID [facility] Stop: 10/01/22 09:00 Last Admin: 09/29/22 08:22 Dose: 100 mg Documented By: Admin: 09/28/22 21:11 Dose: 100 mg Documented By: Admin: 09/28/22 08:48 Dose: 100 mg Documented By: Admin: 09/27/22 22:28 Dose: 100 mg Documented By: VALERIA Enoxaparin Sodium (Enoxaparin 40 Mg/0.4 Ml Syringe) 40 mg SUBCUT BID [facility] Last Admin: 09/29/22 08:21 Dose: 40 mg Documented By: Admin: 09/28/22 21:12 Dose: 40 mg Documented By: Admin: 09/28/22 08:46 Dose: 40 mg Documented By: Admin: 09/27/22 22:37 Dose: 40 mg Documented By: VALERIA Famotidine (Famotidine 20 Mg Tablet) 20 mg PO BID [facility] Last Admin: 09/29/22 10:44 Dose: 20 mg Documented By: MYKEL Furosemide (Furosemide 20 Mg/2 Ml Vial) 20 mg IV BID [facility] Last Admin: 09/29/22 08:22 Dose: 20 mg Documented By: Admin: 09/28/22 21:12 Dose: 20 mg Documented By: Admin: 09/28/22 08:48 Dose: 20 mg Documented By: Admin: 09/27/22 22:37 Dose: 20 mg Documented By: VALERIA Ceftriaxone Sodium 2,000 mg/ (Sodium Chloride) 100 mls @ 200 mls/hr IV Q24H [facility] Last Infusion: 09/28/22 22:08 Dose: 0 mls/hr Documented By: Admin: 09/28/22 21:12 Dose: 200 mls/hr Documented By: Infusion: 09/28/22 03:24 Dose: 0 mls/hr Documented By: Admin: 09/27/22 22:53 Dose: 200 mls/hr Documented By: VALERIA Insulin Glargine (Insulin Glargine 100 Unit/Ml 3ml Pen) 10 unit SUBCUT DAILY [facility] Last Admin: 09/29/22 08:16 Dose: 10 unit Documented By: MYKEL Co-signed By: NASREEN Admin: 09/28/22 12:22 Dose: 10 unit Documented By: MARIKA Co-signed By: SHEILA Insulin Human Lispro (Insulin Lispro 100 Unit/Ml 3ml Vial) 0 unit SUBCUT ACHS [facility]; Protocol Last Admin: 09/29/22 16:58 Dose: 5 unit Documented By: MYKEL Co-signed By: NURYS Admin: 09/29/22 11:59 Dose: 3 unit Documented By: MYKEL Co-signed By: EDGARD Admin: 09/29/22 08:16 Dose: 1 unit Documented By: MYKEL Co-signed By: NASREEN Admin: 09/28/22 21:26 Dose: 2 unit Documented By: VALERIA Co-signed By: FLORINDA Admin: 09/28/22 17:01 Dose: 5 unit Documented By: RL Co-signed By: SHEILA Admin: 09/28/22 12:21 Dose: 5 unit Documented By: RL Co-signed By: SHEILA Admin: 09/28/22 08:45 Dose: 3 unit Documented By: MARIKA Co-signed By: SHEILA Admin: 09/27/22 23:01 Dose: 2 unit Documented By: VALERIA Co-signed By: TIN Loperamide HCl (Loperamide 2 Mg Capsule) 2 mg PO QID PRN PRN Reason: Diarrhea Naloxone HCl (Naloxone 0.4 Mg/Ml Vial) 0.2 mg IV Q2MIN PRN PRN Reason: Opiate Reversal Ondansetron HCl (Ondansetron 4 Mg/2 Ml Inj) 4 mg IV Q8HR PRN PRN Reason: Nausea And Vomiting Last Admin: 09/28/22 16:59 Dose: 4 mg Documented By: MARIKA Oxycodone HCl (Oxycodone Ir 10 Mg Tablet) 5 mg PO Q4HR PRN PRN Reason: opiate withdrawal symptoms Last Admin: 09/29/22 11:17 Dose: 5 mg Documented By: Admin: 09/29/22 03:29 Dose: 5 mg Documented By: Admin: 09/28/22 21:10 Dose: 5 mg Documented By: VALERIA Trazodone HCl (Trazodone 50 Mg Tablet) 50 mg PO BEDTIME [facility] Last Admin: 09/28/22 21:11 Dose: 50 mg Documented By: VALERIA Discontinued Medications Albuterol (Albuterol Hfa Mdi 60 Puff/8 Gm Inhaler) 8 puff INH NOW ONE Stop: 09/27/22 16:36 Last Admin: 09/27/22 16:45 Dose: 8 puff Documented By: NATALIA Albuterol (Albuterol 2.5 Mg/3 Ml Neb (Adult)) 2.5 mg INH NOW ONE Stop: 09/27/22 19:44 Last Admin: 09/27/22 20:57 Dose: Not Given Documented By: TO Albuterol/Ipratropium (Albuterol/Ipratropium 3 Ml Ampul) 3 ml INH NOW ONE Stop: 09/27/22 17:32 Last Admin: 09/27/22 17:55 Dose: 3 ml Documented By: NATALIA Clonidine HCl (Clonidine 0.1 Mg Tablet) 0.1 mg PO QID [facility] Stop: 09/29/22 17:00 Last Admin: 09/29/22 16:57 Dose: Not Given Documented By: Admin: 09/29/22 12:35 Dose: 0.1 mg Documented By: Admin: 09/29/22 08:22 Dose: 0.1 mg Documented By: Admin: 09/28/22 21:11 Dose: 0.1 mg Documented By: Admin: 09/28/22 17:00 Dose: 0.1 mg Documented By: MARIKA Remdesivir 200 mg/ Sodium (Chloride) 250 mls @ 250 mls/hr IV NOW ONE Stop: 09/27/22 22:42 Last Infusion: 09/28/22 03:24 Dose: 0 mls/hr Documented By: Admin: 09/27/22 22:54 Dose: 250 mls/hr Documented By: VALERIA Remdesivir 100 mg/ Sodium (Chloride) 250 mls @ 250 mls/hr IV DAILY [facility] Stop: 10/01/22 09:59 Last Admin: 09/29/22 08:49 Dose: Not Given Documented By: Infusion: 09/28/22 10:03 Dose: 0 mls/hr Documented By: Admin: 09/28/22 09:03 Dose: 250 mls/hr Documented By: MARIKA Insulin Human Lispro (Insulin Lispro 100 Unit/Ml 3ml Vial) 0 unit SUBCUT ACHS [facility]; Protocol Methylprednisolone (Methylprednisolone 125 Mg/2 Ml Vial) 125 mg IV NOW ONE Stop: 09/27/22 16:36 Last Admin: 09/27/22 16:56 Dose: 125 mg Documented By: MONET Oxycodone HCl (Oxycodone Ir 10 Mg Tablet) 10 mg PO Q8HR PRN PRN Reason: Pain, Severe (7-10) Last Admin: 09/28/22 11:30 Dose: 10 mg Documented By: MARIKA Reevaluation(s) Reevaluation #1: On recheck patient is still wheezy desats to 88% on room air, at 2 L she maintains but when she falls asleep she desatted so bumped up to 4%. DuoNeb was ordered. Time: 17:25 Vital Signs Vital signs: Vital Signs - 8 hr 09/27/22 19:13 09/27/22 19:59 09/27/22 19:00 Pulse Rate 91 H 102 H Respiratory Rate 20 22 27 H Pulse Oximetry 91 92 91 Oxygen Delivery Method Nasal Cannula Heated High Flow Nasal Cannula Oxygen Flow Rate 5 50 5 Fraction of Inspired Oxygen 09/27/22 19:15 09/27/22 19:30 09/27/22 19:45 Pulse Rate 103 H 106 H 101 H Respiratory Rate 25 H 20 15 Pulse Oximetry 91 90 L 90 L Oxygen Delivery Method Nasal Cannula Oxygen Flow Rate 5 5 Fraction of Inspired Oxygen 09/27/22 20:00 09/27/22 20:00 Pulse Rate Respiratory Rate 24 Pulse Oximetry 92 93 Oxygen Delivery Method High Flow Nasal Cannula Oxygen Flow Rate 50 Fraction of Inspired Oxygen 65 <Gabriela Story DO - Last Filed: 09/28/22 03:03> Orders Ordered: Acetaminophen (Acetaminophen 325 Mg Tablet) 650 mg PO Q6H PRN PRN Reason: Fever/Mild Pain (1-3) Last Admin: 09/28/22 09:34 Dose: 650 mg Documented By: Admin: 09/28/22 04:17 Dose: 650 mg Documented By: Admin: 09/27/22 22:28 Dose: 650 mg Documented By: CB Albuterol (Albuterol 2.5 Mg/3 Ml Neb (Adult)) 2.5 mg INH [id number] [facility] Last Admin: 09/29/22 19:44 Dose: 2.5 mg Documented By: Admin: 09/29/22 16:39 Dose: Not Given Documented By: Admin: 09/29/22 12:34 Dose: 2.5 mg Documented By: Admin: 09/29/22 07:19 Dose: 2.5 mg Documented By: Admin: 09/29/22 04:00 Dose: Not Given Documented By: Admin: 09/28/22 21:07 Dose: 2.5 mg Documented By: Admin: 09/28/22 15:57 Dose: 2.5 mg Documented By: Admin: 09/28/22 11:50 Dose: 2.5 mg Documented By: Admin: 09/28/22 09:05 Dose: 2.5 mg Documented By: Admin: 09/28/22 09:05 Dose: Not Given Documented By: SAYF Albuterol (Albuterol 2.5 Mg/3 Ml Neb (Adult)) 2.5 mg INH [id number] PRN PRN Reason: Shortness Of Breath Last Admin: 09/29/22 03:59 Dose: 2.5 mg Documented By: JOHN Budesonide (Budesonide 0.5 Mg/2 Ml Neb) 0.5 mg INH RTBID [facility] Last Admin: 09/29/22 19:44 Dose: 0.5 mg Documented By: Admin: 09/29/22 07:19 Dose: 0.5 mg Documented By: Admin: 09/28/22 21:07 Dose: 0.5 mg Documented By: Z Admin: 09/28/22 09:06 Dose: 0.5 mg Documented By: SAYF Dexamethasone (Dexamethasone 10 Mg/Ml Vial) 6 mg IV DAILY [facility] Last Admin: 09/29/22 08:22 Dose: 6 mg Documented By: Admin: 09/28/22 08:46 Dose: 6 mg Documented By: MARIKA Dextrose (Dextrose 50 % In Water 25 Gm/50 Ml Syringe) 25 gm IV PRN PRN PRN Reason: Hypoglycemia Diphenhydramine HCl (Diphenhydramine 25 Mg Tablet) 25 mg PO Q6HR PRN PRN Reason: Itching Doxycycline Hyclate (Doxycycline Hyclate 100 Mg Tablet) 100 mg PO BID [facility] Stop: 10/01/22 09:00 Last Admin: 09/29/22 08:22 Dose: 100 mg Documented By: Admin: 09/28/22 21:11 Dose: 100 mg Documented By: Admin: 09/28/22 08:48 Dose: 100 mg Documented By: Admin: 09/27/22 22:28 Dose: 100 mg Documented By: VALERIA Enoxaparin Sodium (Enoxaparin 40 Mg/0.4 Ml Syringe) 40 mg SUBCUT BID [facility] Last Admin: 09/29/22 08:21 Dose: 40 mg Documented By: Admin: 09/28/22 21:12 Dose: 40 mg Documented By: Admin: 09/28/22 08:46 Dose: 40 mg Documented By: Admin: 09/27/22 22:37 Dose: 40 mg Documented By: VALERIA Famotidine (Famotidine 20 Mg Tablet) 20 mg PO BID [facility] Last Admin: 09/29/22 10:44 Dose: 20 mg Documented By: MYKEL Furosemide (Furosemide 20 Mg/2 Ml Vial) 20 mg IV BID [facility] Last Admin: 09/29/22 08:22 Dose: 20 mg Documented By: Admin: 09/28/22 21:12 Dose: 20 mg Documented By: Admin: 09/28/22 08:48 Dose: 20 mg Documented By: Admin: 09/27/22 22:37 Dose: 20 mg Documented By: VALERIA Ceftriaxone Sodium 2,000 mg/ (Sodium Chloride) 100 mls @ 200 mls/hr IV Q24H [facility] Last Infusion: 09/28/22 22:08 Dose: 0 mls/hr Documented By: Admin: 09/28/22 21:12 Dose: 200 mls/hr Documented By: Infusion: 09/28/22 03:24 Dose: 0 mls/hr Documented By: Admin: 09/27/22 22:53 Dose: 200 mls/hr Documented By: VALERIA Insulin Glargine (Insulin Glargine 100 Unit/Ml 3ml Pen) 10 unit SUBCUT DAILY [facility] Last Admin: 09/29/22 08:16 Dose: 10 unit Documented By: MYKEL Co-signed By: NASREEN Admin: 09/28/22 12:22 Dose: 10 unit Documented By: MARIKA Co-signed By: SHEILA Insulin Human Lispro (Insulin Lispro 100 Unit/Ml 3ml Vial) 0 unit SUBCUT ACHS [facility]; Protocol Last Admin: 09/29/22 16:58 Dose: 5 unit Documented By: MYKEL Co-signed By: NURYS Admin: 09/29/22 11:59 Dose: 3 unit Documented By: MYKEL Co-signed By: EDGARD Admin: 09/29/22 08:16 Dose: 1 unit Documented By: MYKEL Co-signed By: NASREEN Admin: 09/28/22 21:26 Dose: 2 unit Documented By: VALERIA Co-signed By: FLORINDA Admin: 09/28/22 17:01 Dose: 5 unit Documented By: RL Co-signed By: SHEILA Admin: 09/28/22 12:21 Dose: 5 unit Documented By: MARIKA Co-signed By: SHEILA Admin: 09/28/22 08:45 Dose: 3 unit Documented By: MARIKA Co-signed By: SHEILA Admin: 09/27/22 23:01 Dose: 2 unit Documented By: VALERIA Co-signed By: TIN Loperamide HCl (Loperamide 2 Mg Capsule) 2 mg PO QID PRN PRN Reason: Diarrhea Naloxone HCl (Naloxone 0.4 Mg/Ml Vial) 0.2 mg IV Q2MIN PRN PRN Reason: Opiate Reversal Ondansetron HCl (Ondansetron 4 Mg/2 Ml Inj) 4 mg IV Q8HR PRN PRN Reason: Nausea And Vomiting Last Admin: 09/28/22 16:59 Dose: 4 mg Documented By: MARIKA Oxycodone HCl (Oxycodone Ir 10 Mg Tablet) 5 mg PO Q4HR PRN PRN Reason: opiate withdrawal symptoms Last Admin: 09/29/22 11:17 Dose: 5 mg Documented By: Admin: 09/29/22 03:29 Dose: 5 mg Documented By: Admin: 09/28/22 21:10 Dose: 5 mg Documented By: VALERIA Trazodone HCl (Trazodone 50 Mg Tablet) 50 mg PO BEDTIME [facility] Last Admin: 09/28/22 21:11 Dose: 50 mg Documented By: VALERIA Discontinued Medications Albuterol (Albuterol Hfa Mdi 60 Puff/8 Gm Inhaler) 8 puff INH NOW ONE Stop: 09/27/22 16:36 Last Admin: 09/27/22 16:45 Dose: 8 puff Documented By: NATALIA Albuterol (Albuterol 2.5 Mg/3 Ml Neb (Adult)) 2.5 mg INH NOW ONE Stop: 09/27/22 19:44 Last Admin: 09/27/22 20:57 Dose: Not Given Documented By: TO Albuterol/Ipratropium (Albuterol/Ipratropium 3 Ml Ampul) 3 ml INH NOW ONE Stop: 09/27/22 17:32 Last Admin: 09/27/22 17:55 Dose: 3 ml Documented By: NATALIA Clonidine HCl (Clonidine 0.1 Mg Tablet) 0.1 mg PO QID [facility] Stop: 09/29/22 17:00 Last Admin: 09/29/22 16:57 Dose: Not Given Documented By: Admin: 09/29/22 12:35 Dose: 0.1 mg Documented By: Admin: 09/29/22 08:22 Dose: 0.1 mg Documented By: Admin: 09/28/22 21:11 Dose: 0.1 mg Documented By: Admin: 09/28/22 17:00 Dose: 0.1 mg Documented By: MARIKA Remdesivir 200 mg/ Sodium (Chloride) 250 mls @ 250 mls/hr IV NOW ONE Stop: 09/27/22 22:42 Last Infusion: 09/28/22 03:24 Dose: 0 mls/hr Documented By: Admin: 09/27/22 22:54 Dose: 250 mls/hr Documented By: VALERIA Remdesivir 100 mg/ Sodium (Chloride) 250 mls @ 250 mls/hr IV DAILY [facility] Stop: 10/01/22 09:59 Last Admin: 09/29/22 08:49 Dose: Not Given Documented By: Infusion: 09/28/22 10:03 Dose: 0 mls/hr Documented By: Admin: 09/28/22 09:03 Dose: 250 mls/hr Documented By: MARIKA Insulin Human Lispro (Insulin Lispro 100 Unit/Ml 3ml Vial) 0 unit SUBCUT ACHS [facility]; Protocol Methylprednisolone (Methylprednisolone 125 Mg/2 Ml Vial) 125 mg IV NOW ONE Stop: 09/27/22 16:36 Last Admin: 09/27/22 16:56 Dose: 125 mg Documented By: NR Oxycodone HCl (Oxycodone Ir 10 Mg Tablet) 10 mg PO Q8HR PRN PRN Reason: Pain, Severe (7-10) Last Admin: 09/28/22 11:30 Dose: 10 mg Documented By: RL Vital Signs Vital signs: Vital Signs - 8 hr 09/27/22 19:13 09/27/22 19:59 09/27/22 19:00 Pulse Rate 91 H 102 H Respiratory Rate 20 22 27 H Pulse Oximetry 91 92 91 Oxygen Delivery Method Nasal Cannula Heated High Flow Nasal Cannula Oxygen Flow Rate 5 50 5 Fraction of Inspired Oxygen 09/27/22 19:15 09/27/22 19:30 09/27/22 19:45 Pulse Rate 103 H 106 H 101 H Respiratory Rate 25 H 20 15 Pulse Oximetry 91 90 L 90 L Oxygen Delivery Method Nasal Cannula Oxygen Flow Rate 5 5 Fraction of Inspired Oxygen 09/27/22 20:00 09/27/22 20:00 Pulse Rate Respiratory Rate 24 Pulse Oximetry 92 93 Oxygen Delivery Method High Flow Nasal Cannula Oxygen Flow Rate 50 Fraction of Inspired Oxygen 65 MDM - SOB/Dyspnea <Annie Orellana, - Last Filed: 09/29/22 20:53> Lab Data Result diagrams: 09/28/22 04:21 09/28/22 04:21 Labs: Lab Results 09/27/22 09/27/22 09/27/22 Range/Units 16:33 16:33 16:33 WBC 8.7 (4.5-11.0) X10^3/uL RBC 5.07 (4.0-5.2) X10^6/uL Hgb 13.8 (12.0-16.0) g/dL Hct 42.6 (36-46) % MCV 84.0 (80-100) fL MCH 27.2 (26-34) PG MCHC 32.4 (30-36) % RDW 15.1 H (11.6-14.8) % Plt Count 186 (150-400) X10^3/uL Neut % (Auto) 84.8 H (50-75) % Lymph % (Auto) 7.3 L (25-40) % Mingo % (Auto) 7.7 (3-14) % Eos % (Auto) 0.0 L (2-4) % Baso % (Auto) 0.2 (0-2) % Neut # (Auto) 7400 H (9723-7937) /uL Lymph # (Auto) 600 L (7648-7476) /uL Mingo # (Auto) 700 (0-900) /uL Eos # (Auto) 0 (0-450) /uL Baso # (Auto) 0 (0-100) /uL PT 15.8 H (10.1-12.7) SECONDS INR 1.4 H (0.9-1.3) APTT 29 (26-36) SECONDS D-Dimer 787 H (<500) ng/ml Sodium (137-145) mmol/L Potassium (3.4-5.1) mmol/L Chloride (98-107) mmol/L Carbon Dioxide (22-32) mmol/L BUN (7-17) mg/dL Creatinine (0.52-1.04) mg/dL Estimated GFR (>60) mL/min BUN/Creatinine Ratio (6-22) Glucose (70-100) mg/dL Lactate (0.7-2.1) mmol/L Calcium (8.4-10.2) mg/dL Total Bilirubin (0.2-1.3) mg/dL AST (14-36) IU/L ALT (<35) IU/L Alkaline Phosphatase (38-126) U/L Total Creatine Kinase (30-135) U/L CK-MB (CK-2) (<2.37) ng/mL CK-MB (CK-2) Rel Index (1.5-5.0) % Troponin I (0.01-0.034) ng/mL NT-Pro-B Natriuret Pep (<125) pg/mL Total Protein (6.3-8.2) g/dL Albumin (3.5-5.0) g/dL Globulin (1.7-4.1) g/dL Albumin/Globulin Ratio (1.0-2.8) Procalcitonin (<0.5) ng/mL SARS-CoV-2 (PCR) Positive H (Negative) Influenza A (RT-PCR) Flu a negative (NEGATIVE) Influenza B (RT-PCR) Flu b negative (NEGATIVE) RSV (PCR) Negative (Negative) 09/27/22 09/27/22 Range/Units 16:33 16:33 WBC (4.5-11.0) X10^3/uL RBC (4.0-5.2) X10^6/uL Hgb (12.0-16.0) g/dL Hct (36-46) % MCV (80-100) fL MCH (26-34) PG MCHC (30-36) % RDW (11.6-14.8) % Plt Count (150-400) X10^3/uL Neut % (Auto) (50-75) % Lymph % (Auto) (25-40) % Mingo % (Auto) (3-14) % Eos % (Auto) (2-4) % Baso % (Auto) (0-2) % Neut # (Auto) (4181-9669) /uL Lymph # (Auto) (2624-9069) /uL Mingo # (Auto) (0-900) /uL Eos # (Auto) (0-450) /uL Baso # (Auto) (0-100) /uL PT (10.1-12.7) SECONDS INR (0.9-1.3) APTT (26-36) SECONDS D-Dimer (<500) ng/ml Sodium 133 L (137-145) mmol/L Potassium 4.3 (3.4-5.1) mmol/L Chloride 98 (98-107) mmol/L Carbon Dioxide 29 (22-32) mmol/L BUN 9 (7-17) mg/dL Creatinine 0.64 (0.52-1.04) mg/dL Estimated GFR > 60 (>60) mL/min BUN/Creatinine Ratio 14.1 (6-22) Glucose 192 H (70-100) mg/dL Lactate 1.2 (0.7-2.1) mmol/L Calcium 8.6 (8.4-10.2) mg/dL Total Bilirubin 0.9 (0.2-1.3) mg/dL AST 32 (14-36) IU/L ALT 30 (<35) IU/L Alkaline Phosphatase 81 (38-126) U/L Total Creatine Kinase 130 (30-135) U/L CK-MB (CK-2) 1.20 (<2.37) ng/mL CK-MB (CK-2) Rel Index 0.9 L (1.5-5.0) % Troponin I < 0.012 (0.01-0.034) ng/mL NT-Pro-B Natriuret Pep 308 H (<125) pg/mL Total Protein 7.9 (6.3-8.2) g/dL Albumin 3.9 (3.5-5.0) g/dL Globulin 4.0 (1.7-4.1) g/dL Albumin/Globulin Ratio 1.0 (1.0-2.8) Procalcitonin 0.23 (<0.5) ng/mL SARS-CoV-2 (PCR) (Negative) Influenza A (RT-PCR) (NEGATIVE) Influenza B (RT-PCR) (NEGATIVE) RSV (PCR) (Negative) Imaging Data Chest x-ray: Radiologist's Impression: [address] [address] XRay Report Signed Patient: Annie Jovel MR#: [id number] : 1985 Acct:[id number] Age/Sex: 37 / F Date of Service: 09/27/22 Loc: Accession Number: [id number] ?? Procedure: XR chest 1V Ordering Provider: Annie Orellana D.O. PROCEDURE:? XR CHEST 1V ? INDICATIONS:? wheeze, chest pain ? TECHNIQUE:? One view of the chest was acquired.? ? COMPARISON:? None. ? FINDINGS:? ? Surgical changes and devices:? None.? ? Lungs and pleura:? Scattered bibasilar atelectasis and infiltrate. ? Mediastinum:? Mediastinal contours appear normal.? Heart size is normal.? ? Bones and chest wall:? No suspicious bony lesions.? Overlying soft tissues appear unremarkable.? ? IMPRESSION:? Scattered bibasilar atelectasis and or infiltrate ? ? ? ECG Data Attestation: I personally reviewed and interpreted this ECG as follows: Interpretation: Sinus tachycardia rate of 108 ME 120 QRS of 106 and QTC 463. No acute ST elevation depression. MDM Narrative Medical decision making narrative: This is a 37-year-old female with recent fever, myalgias with history of fentanyl abuse which she describes as smoking, asthma with prior BiPAP and intubation and untreated diabetes. Patient is wheezy, hypoxic in the field and had MDI with 4 puffs, she is tachycardic and tachypneic. She speaking in sentences with SCM accessory use. Chest x-ray is negative, labs show an elevated dimer, troponin, BNP are normal BNP is only [address] is negative making pneumonia unlikely. Slight leftward shift but normal hemoglobin and platelets. Patient likely having reactive airway with COVID and asthma but with her past history and elevated dimer CT angio was ordered. Patient was signed out to Dr. Story while awaiting CT angio and for final disposition. <Gabriela Story, DO - Last Filed: 09/28/22 03:03> Lab Data Labs: Lab Results 09/27/22 09/27/22 09/27/22 Range/Units 16:33 16:33 16:33 WBC 8.7 (4.5-11.0) X10^3/uL RBC 5.07 (4.0-5.2) X10^6/uL Hgb 13.8 (12.0-16.0) g/dL Hct 42.6 (36-46) % MCV 84.0 (80-100) fL MCH 27.2 (26-34) PG MCHC 32.4 (30-36) % RDW 15.1 H (11.6-14.8) % Plt Count 186 (150-400) X10^3/uL Neut % (Auto) 84.8 H (50-75) % Lymph % (Auto) 7.3 L (25-40) % [place] % (Auto) 7.7 (3-14) % Eos % (Auto) 0.0 L (2-4) % Baso % (Auto) 0.2 (0-2) % Neut # (Auto) 7400 H (9588-5878) /uL Lymph # (Auto) 600 L (1084-4084) /uL [place] # (Auto) 700 (0-900) /uL Eos # (Auto) 0 (0-450) /uL Baso # (Auto) 0 (0-100) /uL PT 15.8 H (10.1-12.7) SECONDS INR 1.4 H (0.9-1.3) APTT 29 (26-36) SECONDS D-Dimer 787 H (<500) ng/ml Sodium (137-145) mmol/L Potassium (3.4-5.1) mmol/L Chloride (98-107) mmol/L Carbon Dioxide (22-32) mmol/L BUN (7-17) mg/dL Creatinine (0.52-1.04) mg/dL Estimated GFR (>60) mL/min BUN/Creatinine Ratio (6-22) Glucose (70-100) mg/dL Lactate (0.7-2.1) mmol/L Calcium (8.4-10.2) mg/dL Total Bilirubin (0.2-1.3) mg/dL AST (14-36) IU/L ALT (<35) IU/L Alkaline Phosphatase (38-126) U/L Total Creatine Kinase (30-135) U/L CK-MB (CK-2) (<2.37) ng/mL CK-MB (CK-2) Rel Index (1.5-5.0) % Troponin I (0.01-0.034) ng/mL NT-Pro-B Natriuret Pep (<125) pg/mL Total Protein (6.3-8.2) g/dL Albumin (3.5-5.0) g/dL Globulin (1.7-4.1) g/dL Albumin/Globulin Ratio (1.0-2.8) Procalcitonin (<0.5) ng/mL SARS-CoV-2 (PCR) Positive H (Negative) Influenza A (RT-PCR) Flu a negative (NEGATIVE) Influenza B (RT-PCR) Flu b negative (NEGATIVE) RSV (PCR) Negative (Negative) 09/27/22 09/27/22 Range/Units 16:33 16:33 WBC (4.5-11.0) X10^3/uL RBC (4.0-5.2) X10^6/uL Hgb (12.0-16.0) g/dL Hct (36-46) % MCV (80-100) fL MCH (26-34) PG MCHC (30-36) % RDW (11.6-14.8) % Plt Count (150-400) X10^3/uL Neut % (Auto) (50-75) % Lymph % (Auto) (25-40) % [place] % (Auto) (3-14) % Eos % (Auto) (2-4) % Baso % (Auto) (0-2) % Neut # (Auto) (3822-4933) /uL Lymph # (Auto) (2823-3390) /uL M[place] # (Auto) (0-900) /uL Eos # (Auto) (0-450) /uL Baso # (Auto) (0-100) /uL PT (10.1-12.7) SECONDS INR (0.9-1.3) APTT (26-36) SECONDS D-Dimer (<500) ng/ml Sodium 133 L (137-145) mmol/L Potassium 4.3 (3.4-5.1) mmol/L Chloride 98 (98-107) mmol/L Carbon Dioxide 29 (22-32) mmol/L BUN 9 (7-17) mg/dL Creatinine 0.64 (0.52-1.04) mg/dL Estimated GFR > 60 (>60) mL/min BUN/Creatinine Ratio 14.1 (6-22) Glucose 192 H (70-100) mg/dL Lactate 1.2 (0.7-2.1) mmol/L Calcium 8.6 (8.4-10.2) mg/dL Total Bilirubin 0.9 (0.2-1.3) mg/dL AST 32 (14-36) IU/L ALT 30 (<35) IU/L Alkaline Phosphatase 81 (38-126) U/L Total Creatine Kinase 130 (30-135) U/L CK-MB (CK-2) 1.20 (<2.37) ng/mL CK-MB (CK-2) Rel Index 0.9 L (1.5-5.0) % Troponin I < 0.012 (0.01-0.034) ng/mL NT-Pro-B Natriuret Pep 308 H (<125) pg/mL Total Protein 7.9 (6.3-8.2) g/dL Albumin 3.9 (3.5-5.0) g/dL Globulin 4.0 (1.7-4.1) g/dL Albumin/Globulin Ratio 1.0 (1.0-2.8) Procalcitonin 0.23 (<0.5) ng/mL SARS-CoV-2 (PCR) (Negative) Influenza A (RT-PCR) (NEGATIVE) Influenza B (RT-PCR) (NEGATIVE) RSV (PCR) (Negative) Imaging Data CT scan - chest: Radiologist's Impression: [facility] [id number] CT Scan Report Signed Patient: Annie Jovel MR#: [id number] : 1985 Acct:[id number] Age/Sex: 37 / F Date of Service: 09/27/22 Loc: ED Accession Number: [id number] ?? Procedure: CT angio chest PE protocol Ordering Provider: Annie Orellana D.O. PROCEDURE:? CT ANGIO CHEST PE PROTOCOL ? INDICATIONS:? sob, fever, myalgias, +dimer ? TECHNIQUE:? After the administration of intravenous contrast, 2 mm thick sections acquired from the pulmonary apices to the posterior costophrenic angles.? 3-dimensional maximum intensity projection (MIP) coronal and sagittal reformats were then acquired through the thorax.? For radiation dose reduction, the following was used:? automated exposure control, adjustment of mA and/or kV according to patient size.? ? COMPARISON:? [facility], CR, XR CHEST 1V, 09/27/2022, 16:35. ? FINDINGS:? Image quality:? Excellent.? ? Pulmonary arteries:? Pulmonary arteries are normal in size, and demonstrate no intraluminal filling defects to suggest central pulmonary embolism.? ? Lungs and pleura:? There is scattered areas of nodular, patchy and more confluent areas ground-glass opacity as well as consolidations.? The most focal areas identified in the left lower lobe. ? Mediastinum:? Heart size is normal, without pericardial effusion.? Large mediastinal lymph nodes are present.? Aortic pulmonary window lymph node measures 1.5 cm.? Thoracic aorta is normal in caliber and enhancement.? Esophagus is normal in caliber, without hiatal hernia.? ? Bones and chest wall:? No suspicious bony lesions.? Ribs and thoracic spine appear intact throughout.? Thyroid gland is unremarkable.? No axillary or supraclavicular adenopathy.? ? Abdomen:? Visualized upper abdominal solid organs appear normal in the early arterial phase of enhancement.? ? IMPRESSION:? Patchy, nodular as well as consolidative opacities most consistent with pneumonia. Recommend interval followup to document resolution and exclude presence of underlying noninfectious/noninflammatory, potentially neoplastic mass. ? No pulmonary embolism. ? ? Dictated by: Neetu Spence M.D. on 09/27/2022 at 19:44 ? ? [facility] Narrative Medical decision making narrative: This is a 37-year-old female with recent fever, myalgias with history of fentanyl abuse which she describes as smoking, asthma with prior BiPAP and intubation and untreated diabetes. Patient is wheezy, hypoxic in the field and had MDI with 4 puffs, she is tachycardic and tachypneic. She speaking in sentences with SCM accessory use. Chest x-ray is negative, labs show an elevated dimer, troponin, BNP are normal BNP is only [address] is negative making pneumonia unlikely. Slight leftward shift but normal hemoglobin and platelets. Patient likely having reactive airway with COVID and asthma but with her past history and elevated dimer CT angio was ordered. Patient was signed out to Dr. Story while awaiting CT angio and for final disposition. Patient signed out to me by Dr. Orellana. I have seen evaluated patient myself. Overweight alert 37-year-old female. Sleeping but easily awoken O2 sat 88% on 5 L nasal cannula. Lungs are clear no sign of respiratory distress. Positive for COVID history of asthma with previous intubations. CT angio negative. Doing well now. Dr. Perry accepts patient Discharge Plan Departure Patient Disposition: Admitted As Inpatient Clinical Impression: COVID-19 virus infection, Asthma exacerbation Admit Date/Time: 09/27/22 20:08 Admit Provider: Brandon Perry
--- NOTE | 2022-09-27 16:35 | DI.RAD.S_ITS ---
PROCEDURE: XR CHEST 1V INDICATIONS: wheeze, chest pain TECHNIQUE: One view of the chest was acquired. COMPARISON: None. FINDINGS: Surgical changes and devices: None. Lungs and pleura: Scattered bibasilar atelectasis and infiltrate. Mediastinum: Mediastinal contours appear normal. Heart size is normal. Bones and chest wall: No suspicious bony lesions. Overlying soft tissues appear unremarkable. IMPRESSION: Scattered bibasilar atelectasis and or infiltrate Approved by: Skyler Mac M.D. on 09/27/2022 at 16:49
[2022-09-27] MEDS: ALBUTEROL HFA MDI 60 PUFF/8 GM INHALER 8 PUFF INH (16:45)
[2022-09-27] MEDS: methylPREDNISolone 125 MG/2 ML VIAL IV (16:56)
[2022-09-27 16:57] LABS: INR 1.4 (0.9-1.3); Prothrombin Time 15.8 SECONDS (10.1-12.7)
[2022-09-27 16:59] LABS: Add Manual Diff / Slide Review NO; Basophils Absolute Auto 0 /uL (0-100); Basophils Percent Auto 0.2 % (0-2); D Dimer 787 ng/ml (<500); Eosinophils Absolute Auto 0 /uL (0-450); Hematocrit 42.6 % (36-46); Hemoglobin 13.8 g/dL (12.0-16.0); Lymphocytes Absolute Auto 600 /uL (1100-4500); Lymphocytes Percent Auto 7.3 % (25-40); Mean Corpuscular HGB Conc 32.4 % (30-36); Mean Corpuscular Hemoglobin 27.2 PG (26-34); Monocytes Absolute Auto 700 /uL (0-900); Monocytes Percent Auto 7.7 % (3-14); Neutrophils Absolute Auto 7400 /uL (1500-7000); Neutrophils Percent Auto 84.8 % (50-75); Platelet Count 186 X10^3/uL (150-400); Red Blood Cell Count 5.07 X10^6/uL (4.0-5.2); Red Cell Distribution Width 15.1 % (11.6-14.8); White Blood Cell Count 8.7 X10^3/uL (4.5-11.0)
[2022-09-27 17:00] LABS: PTT Partial Thromboplastin Tim 29 SECONDS (26-36)
[2022-09-27 17:02] LABS: Alanine Aminotransferase 30 IU/L (<35); Albumin 3.9 g/dL (3.5-5.0); Alkaline Phosphatase 81 U/L (38-126); Aspartate Aminotransferase 32 IU/L (14-36); BUN Creatinine Ratio 14.1 (6-22); Bilirubin Total 0.9 mg/dL (0.2-1.3); Blood Urea Nitrogen 9 mg/dL (7-17); Calcium 8.6 mg/dL (8.4-10.2); Carbon Dioxide 29 mmol/L (22-32); Chloride 98 mmol/L (98-107); Creatine Kinase 130 U/L (30-135); Estimated Glomerular Filt Rate > 60 mL/min (>60); Glucose 192 mg/dL (70-100); Potassium 4.3 mmol/L (3.4-5.1); Sodium 133 mmol/L (137-145); Total Protein 7.9 g/dL (6.3-8.2)
[2022-09-27 17:03] LABS: Lactate (Lactic Acid) 1.2 mmol/L (0.7-2.1)
[2022-09-27 17:13] LABS: NT-proBNP (BNP-Adult 18+) 308 pg/mL (<125); Troponin I < 0.012 ng/mL (0.01-0.034)
[2022-09-27 17:17] LABS: CKMB % Relative Index 0.9 % (1.5-5.0); HEMOLYSIS 43 (0-50)
[2022-09-27 17:18] LABS: Procalcitonin 0.23 ng/mL (<0.5)
--- NOTE | 2022-09-27 17:24 | PC.NURSE ---
trial on room air upon arrival to ER. pt destated to 88%. placed on 2L NC with increase oxygen levels of 94%. pt then fell asleep and desated to 85%. provider notified
--- NOTE | 2022-09-27 17:31 | DI.CT.S_ITS ---
PROCEDURE: CT ANGIO CHEST PE PROTOCOL INDICATIONS: sob, fever, myalgias, +dimer TECHNIQUE: After the administration of intravenous contrast, 2 mm thick sections acquired from the pulmonary apices to the posterior costophrenic angles. 3-dimensional maximum intensity projection (MIP) coronal and sagittal reformats were then acquired through the thorax. For radiation dose reduction, the following was used: automated exposure control, adjustment of mA and/or kV according to patient size. COMPARISON: [facility], CR, XR CHEST 1V, 09/27/2022, 16:35. FINDINGS: Image quality: Excellent. Pulmonary arteries: Pulmonary arteries are normal in size, and demonstrate no intraluminal filling defects to suggest central pulmonary embolism. Lungs and pleura: There is scattered areas of nodular, patchy and more confluent areas ground-glass opacity as well as consolidations. The most focal areas identified in the left lower lobe. Mediastinum: Heart size is normal, without pericardial effusion. Large mediastinal lymph nodes are present. Aortic pulmonary window lymph node measures 1.5 cm. Thoracic aorta is normal in caliber and enhancement. Esophagus is normal in caliber, without hiatal hernia. Bones and chest wall: No suspicious bony lesions. Ribs and thoracic spine appear intact throughout. Thyroid gland is unremarkable. No axillary or supraclavicular adenopathy. Abdomen: Visualized upper abdominal solid organs appear normal in the early arterial phase of enhancement. IMPRESSION: Patchy, nodular as well as consolidative opacities most consistent with pneumonia. Recommend interval followup to document resolution and exclude presence of underlying noninfectious/noninflammatory, potentially neoplastic mass. No pulmonary embolism. Dictated by: Neetu Spence M.D. on 09/27/2022 at 19:44 Approved by: Neetu Spence M.D. on 09/27/2022 at 19:46
[2022-09-27 17:38] LABS: Influenza A - CEPHEID Flu A NEGATIVE (NEGATIVE); Influenza B - CEPHEID Flu B NEGATIVE (NEGATIVE); Respiratory Syncytial Virus Negative (Negative)
[2022-09-27 17:48] LABS: COVID-19 CEPHEID 4-PLEX PCR POSITIVE (Negative)
[2022-09-27] MEDS: ALBUTEROL/IPRATROPIUM 3 ML AMPUL INH (17:55)
--- NOTE | 2022-09-27 19:13 | PC.NURSE ---
Patient laying back on gurney, resting with eyes closed. O2 saturation 91% on 5L by NC. Patient on continuous monitoring coordinator, BP cuff and 02 probe. Respirations equal, regular and unlabored. No acute distress noted at this point in time.
--- NOTE | 2022-09-27 19:50 | PC.NURSE ---
Patient O2 saturation 88% while resting with eyes closed. She opens eyes to verbal stimulation and is able to speak 2-[address] Story notified and patient placed on high flow oxygen
[2022-09-27 20:35] LABS: Fractionated Inspired Oxygen 65; HCO3 ABG 27 mmol/L (22-26); Oxygen Saturation ABG 94 % (95-100); PCO2 ABG 40.7 mmHg (35-45); PO2 ABG 69 mmHg (80-100); TCO2 ABG 28 mmol/L (21-31); pH ABG 7.43 (7.35-7.45)
--- NOTE | 2022-09-27 21:00 | P.HP_ITS ---
History of Present Illness History of Present Illness Date Patient Seen: 09/27/22 Time Patient Seen: 20:00 Chief complaint: SOB Narrative: Ms. Jovel is a 37W with PMH asthma, morbid obesity, smoking daily fentanyl, diabetes who presents to the hospital feeling unwell. She states she has felt poorly for four days. She notes fevers, myalgias, chest pain, wheezing, diaphoresis. She has taken her albuterol once a day. She came in today because her family member recommended it. She has received one dose of Moderna vaccine against COVID. She has not taken a COVID test and has no known exposures. She has needed intubation and BIPAP previously for asthma exacerbation. She denied smoking tobacco and marijuana to me, but did admit this to the ED physician. She was placed on oxygen by EMS. In the ED workup was done, vitals notable for afebrile, tachycardic in the 100s, tachypneic in the 30s, pulse ox in the 80s on 4L. She was then placed on heated high flow. Labs notable for WBC 8.7, hgb 13.8, plts 186. Creatinine 0.64. INR 1.4. COVID positive. Lactate 1.2, troponin negative. Procal 0.23. Chest xray showed scattered infiltrates. CTA showed no PE, but did show patchy, nodular consolidations. Social history: smokes fentanyl daily Family history: she denies any astthma, copd, or other pulmonary medical issues in family Patient History Medical History Asthma exacerbation Bowel obstruction Surgical History Status post delivery (10/02/17) Family & Social History Social History: household members none Safety & Behavioral: Feels Safe in Current Yes Environment Been Physically Hurt or No Threatened By a Person Tobacco & Substance use: Smoking Status Current some day smoker alcohol intake former alcohol intake frequency holiday/special occasion Substance Use Type marijuana,other Meds Home Medications and Allergies Home Medications Medication Instructions Recorded Confirmed Type albuterol sulfate 90 mcg/actuation 0 puff INH Q4HP PRN #1 ea 07/26/17 04/05/20 Rx aerosol inhaler (Ventolin HFA) fluticasone 250 mcg-salmeterol 50 1 puff INH BID ##0 07/26/17 04/05/20 History mcg/dose blistr powdr for inhalation (Advair Diskus) nystatin 100,000 unit/gram topical 100,000 u TP TID ##30 11/17/17 04/05/20 Rx powder (Nyamyc) labetalol 100 mg tablet 100 mg PO BID #60 tabs 02/02/18 04/05/20 Rx docusate sodium 100 mg capsule 100 mg PO BID #60 caps 03/21/20 04/05/20 Rx (Colace) gabapentin 300 mg capsule 300 mg PO BID #30 caps 03/21/20 04/05/20 Rx (Neurontin) metformin 1,000 mg tablet 1,000 mg PO BID 03/21/20 04/05/20 History polyethylene glycol 3350 17 17 gram PO DAILY #238 grams 03/21/20 04/05/20 Rx gram/dose oral powder (Miralax) cephalexin 500 mg capsule (Keflex) 500 mg PO QID cellulitis #30 caps 04/05/20 04/05/20 Rx Allergies Allergy/AdvReac Type Severity Reaction Status Date / Time morphine [MORPHINE] Allergy Intermediate rash,hives Verified 09/27/22 16:37 clindamycin [CLINDAMYCIN] Allergy Mild vomiting Verified 09/27/22 16:37 Review of Systems Review of Systems Narrative: 14 systems reviewed and negative aside from what is noted in HPI Exam Vital Signs (past 8 hours): - 09/27/22 16:37 09/27/22 16:46 09/27/22 17:55 Temperature 98.6 F Pulse Rate 109 H 114 H 112 H Respiratory Rate 32 H 22 30 H Blood Pressure 167/93 H Pulse Oximetry 90 L 92 93 Oxygen Delivery Method Room Air Nasal Cannula Nasal Cannula Oxygen Flow Rate 2 4 Fraction of Inspired Oxygen 09/27/22 19:13 09/27/22 19:59 09/27/22 16:45 Temperature Pulse Rate 91 H 112 H Respiratory Rate 20 22 35 H Blood Pressure Pulse Oximetry 91 92 92 Oxygen Delivery Method Nasal Cannula Heated High Flow Oxygen Flow Rate 5 50 Fraction of Inspired Oxygen 09/27/22 17:00 09/27/22 17:02 09/27/22 17:02 Temperature Pulse Rate 112 H 117 H Respiratory Rate 34 H 28 H Blood Pressure 143/83 H Pulse Oximetry 93 94 Oxygen Delivery Method Oxygen Flow Rate Fraction of Inspired Oxygen 09/27/22 17:15 09/27/22 17:30 09/27/22 17:30 Temperature Pulse Rate 108 H 110 H Respiratory Rate 31 H 33 H Blood Pressure 132/79 Pulse Oximetry 93 Oxygen Delivery Method Oxygen Flow Rate Fraction of Inspired Oxygen 09/27/22 17:45 09/27/22 18:00 09/27/22 18:00 Temperature Pulse Rate 112 H 108 H Respiratory Rate 31 H 33 H Blood Pressure 130/77 Pulse Oximetry 92 92 Oxygen Delivery Method Oxygen Flow Rate Fraction of Inspired Oxygen 09/27/22 18:15 09/27/22 18:39 09/27/22 18:45 Temperature Pulse Rate 109 H 109 H 103 H Respiratory Rate 34 H 29 H 27 H Blood Pressure Pulse Oximetry 90 L 92 92 Oxygen Delivery Method Nasal Cannula Oxygen Flow Rate 5 Fraction of Inspired Oxygen 09/27/22 19:00 09/27/22 19:15 09/27/22 19:30 Temperature Pulse Rate 102 H 103 H 106 H Respiratory Rate 27 H 25 H 20 Blood Pressure Pulse Oximetry 91 91 90 L Oxygen Delivery Method Nasal Cannula Oxygen Flow Rate 5 5 Fraction of Inspired Oxygen 09/27/22 19:45 09/27/22 20:00 09/27/22 20:00 Temperature Pulse Rate 101 H Respiratory Rate 15 24 Blood Pressure Pulse Oximetry 90 L 92 93 Oxygen Delivery Method Nasal Cannula High Flow Nasal Cannula Oxygen Flow Rate 5 50 Fraction of Inspired Oxygen 65 09/27/22 20:55 Temperature Pulse Rate 93 H Respiratory Rate 22 Blood Pressure 130/77 Pulse Oximetry 93 Oxygen Delivery Method High Flow Nasal Cannula Oxygen Flow Rate Fraction of Inspired Oxygen Fraction of Inspired Oxygen 65 SaO2/FiO2 Ratio 143 Oxygen Delivery Method High Flow Nasal Cannula Oxygen Flow Rate 50 Narrative Exam Narrative: GEN: in respiratory distress, diaphoretic HEENT: moist mucous membranes, PERRL NECK: trachea midline, no JVD PULM: poor air movement bilaterally CV: tachycardic, no murmurs ABD: soft, nontender, nondistended, no organomegaly EXT: warm and well perfused with no edema NEURO: awake, alert, oriented, no focal deficits Objective Labs Result Diagrams: 09/27/22 16:33 09/27/22 16:33 Labs: Laboratory Results - last 24 hr 09/27/22 09/27/22 09/27/22 16:33 16:33 16:33 WBC 8.7 RBC 5.07 Hgb 13.8 Hct 42.6 MCV 84.0 MCH 27.2 MCHC 32.4 RDW 15.1 H Plt Count 186 Neut % (Auto) 84.8 H Lymph % (Auto) 7.3 L [place] % (Auto) 7.7 Eos % (Auto) 0.0 L Baso % (Auto) 0.2 Neut # (Auto) 7400 H Lymph # (Auto) 600 L [place] # (Auto) 700 Eos # (Auto) 0 Baso # (Auto) 0 PT 15.8 H INR 1.4 H APTT 29 D-Dimer 787 H ABG pH ABG pCO2 ABG pO2 ABG HCO3 ABG Total CO2 ABG O2 Saturation ABG Base Excess FiO2 Sodium Potassium Chloride Carbon Dioxide BUN Creatinine Estimated GFR BUN/Creatinine Ratio Glucose Lactate Calcium Total Bilirubin AST ALT Alkaline Phosphatase Total Creatine Kinase CK-MB (CK-2) CK-MB (CK-2) Rel Index Troponin I NT-Pro-B Natriuret Pep Total Protein Albumin Globulin Albumin/Globulin Ratio Procalcitonin SARS-CoV-2 (PCR) Positive H Influenza A (RT-PCR) Flu a negative Influenza B (RT-PCR) Flu b negative RSV (PCR) Negative 09/27/22 09/27/22 09/27/22 16:33 16:33 20:21 WBC RBC Hgb Hct MCV MCH MCHC RDW Plt Count Neut % (Auto) Lymph % (Auto) [place] % (Auto) Eos % (Auto) Baso % (Auto) Neut # (Auto) Lymph # (Auto) [place] # (Auto) Eos # (Auto) Baso # (Auto) PT INR APTT D-Dimer ABG pH 7.43 ABG pCO2 40.7 ABG pO2 69 L ABG HCO3 27 H ABG Total CO2 28 ABG O2 Saturation 94 L ABG Base Excess 3.0 H FiO2 65 Sodium 133 L Potassium 4.3 Chloride 98 Carbon Dioxide 29 BUN 9 Creatinine 0.64 Estimated GFR > 60 BUN/Creatinine Ratio 14.1 Glucose 192 H Lactate 1.2 Calcium 8.6 Total Bilirubin 0.9 AST 32 ALT 30 Alkaline Phosphatase 81 Total Creatine Kinase 130 CK-MB (CK-2) 1.20 CK-MB (CK-2) Rel Index 0.9 L Troponin I < 0.012 NT-Pro-B Natriuret Pep 308 H Total Protein 7.9 Albumin 3.9 Globulin 4.0 Albumin/Globulin Ratio 1.0 Procalcitonin 0.23 SARS-CoV-2 (PCR) Influenza A (RT-PCR) Influenza B (RT-PCR) RSV (PCR) Assessment & Plan Assessment & Plan narrative: 1. Acute hypoxemic respiratory failure secondary to COVID pneumonia, asthma exacerbation -patient undervaccinated with one dose of moderna -COVID positive on admission -requiring high flow oxygen on admission -abg with normal ph and pco2 -procal negative, bacterial pneumonia is less likely -could have some component of pulmonary toxicity from inhaled substances -treat covid with remdesivir, steroids, and baricitinib -dvt ppx with lovenox bid -will treat asthma with frequent nebs and steroids -procalcitonin low, will hold off on antibiotics, but low threshold to start if worsening 2. Type 2 Diabetes -hold metformin -ordered insulin sliding scale 3. Morbid obesity -risk factor for worse outcomes in covid 4. Opiate abuse, now with mild opiate withdrawal -did get narcan in field prior to arrival -starting to have mild withdrawal -monitor symptoms with COWS -will likely need medication for withdrawal, will wait until slightly more withdrawal CODE: Full Proxy: [facility], sister I have utilized all available resources to reconcile the patient's home medications Time Spent With Patient Critical Care time: I spent a total of [] minutes of critical care time on this patient's care today; this time is exclusive of procedural time.
--- NOTE | 2022-09-27 21:51 | P.TELICUCN_ITS ---
History of Present Illness Consult details IF CAMERA ACTIVATED, patient seen via real-time interactive audiovisual communication: Camera activated Date Patient Seen: 09/27/22 Chief complaint: SOB Requesting provider: Brandon Perry Consent obtained for tele-strategic debriefing officer care: Yes Patient Location: ICU Provider location (State): [place] Other participants/roles: RN Narrative: Patient is a 37 year old female with history of asthma, DM, and smoke fentanyl daily who presents with fever/chills, cough, and wheezing. On presentation, she was tested positive for COVID-19. She received one dose of Moderna vaccine. In ER, she was noted to be hypoxemia which she was placed on HFNC 40/45%. CTA PE study patchy consolidation. Started on baricitinib, remdesivir, and decadron therapy. In ICU, patient is desatting down to the 80s and HFNC was placed on her mouth. Recommended to switch her over to CPAP/BiPAP. Started on CAP coverage and lasix for gentle diuresis. [facility] Medical History Asthma exacerbation Bowel obstruction Surgical History Status post delivery (10/02/17) Social History household members: none Smoking Status: Current some day smoker alcohol intake: former Current Medications Current Medications Medications: Home Medications albuterol sulfate 90 mcg/actuation aerosol inhaler (Ventolin HFA) 0 puff INH Q 4HP PRN #1 ea 07/26/17 [Rx Confirmed 04/05/20] fluticasone 250 mcg-salmeterol 50 mcg/dose blistr powdr for inhalation (Advair Diskus) 1 puff INH BID ##0 07/26/17 [History Confirmed 04/05/20] nystatin 100,000 unit/gram topical powder (Nyamyc) 100,000 u TP TID ##30 11/17/17 [Rx Confirmed 04/05/20] labetalol 100 mg tablet 100 mg PO BID #60 tabs 02/02/18 [Rx Confirmed 04/05/20] docusate sodium 100 mg capsule (Colace) 100 mg PO BID #60 caps 03/21/20 [Rx Confirmed 04/05/20] gabapentin 300 mg capsule (Neurontin) 300 mg PO BID #30 caps 03/21/20 [Rx Confirmed 04/05/20] metformin 1,000 mg tablet 1,000 mg PO BID 03/21/20 [History Confirmed 04/05/20] polyethylene glycol 3350 17 gram/dose oral powder (Miralax) 17 gram PO DAILY #238 grams 03/21/20 [Rx Confirmed 04/05/20] cephalexin 500 mg capsule (Keflex) 500 mg PO QID cellulitis #30 caps 04/05/20 [Rx Confirmed 04/05/20] Exam Vital Signs (past 8 hours): - 09/27/22 16:37 09/27/22 16:46 09/27/22 17:55 Temperature 98.6 F Pulse Rate 109 H 114 H 112 H Respiratory Rate 32 H 22 30 H Blood Pressure 167/93 H Pulse Oximetry 90 L 92 93 Oxygen Delivery Method Room Air Nasal Cannula Nasal Cannula Oxygen Flow Rate 2 4 Fraction of Inspired Oxygen 09/27/22 19:13 09/27/22 19:59 09/27/22 16:45 Temperature Pulse Rate 91 H 112 H Respiratory Rate 20 22 35 H Blood Pressure Pulse Oximetry 91 92 92 Oxygen Delivery Method Nasal Cannula Heated High Flow Oxygen Flow Rate 5 50 Fraction of Inspired Oxygen 09/27/22 17:00 09/27/22 17:02 09/27/22 17:02 Temperature Pulse Rate 112 H 117 H Respiratory Rate 34 H 28 H Blood Pressure 143/83 H Pulse Oximetry 93 94 Oxygen Delivery Method Oxygen Flow Rate Fraction of Inspired Oxygen 09/27/22 17:15 09/27/22 17:30 09/27/22 17:30 Temperature Pulse Rate 108 H 110 H Respiratory Rate 31 H 33 H Blood Pressure 132/79 Pulse Oximetry 93 Oxygen Delivery Method Oxygen Flow Rate Fraction of Inspired Oxygen 09/27/22 17:45 09/27/22 18:00 09/27/22 18:00 Temperature Pulse Rate 112 H 108 H Respiratory Rate 31 H 33 H Blood Pressure 130/77 Pulse Oximetry 92 92 Oxygen Delivery Method Oxygen Flow Rate Fraction of Inspired Oxygen 09/27/22 18:15 09/27/22 18:39 09/27/22 18:45 Temperature Pulse Rate 109 H 109 H 103 H Respiratory Rate 34 H 29 H 27 H Blood Pressure Pulse Oximetry 90 L 92 92 Oxygen Delivery Method Nasal Cannula Oxygen Flow Rate 5 Fraction of Inspired Oxygen 09/27/22 19:00 09/27/22 19:15 09/27/22 19:30 Temperature Pulse Rate 102 H 103 H 106 H Respiratory Rate 27 H 25 H 20 Blood Pressure Pulse Oximetry 91 91 90 L Oxygen Delivery Method Nasal Cannula Oxygen Flow Rate 5 5 Fraction of Inspired Oxygen 09/27/22 19:45 09/27/22 20:00 09/27/22 20:00 Temperature Pulse Rate 101 H Respiratory Rate 15 24 Blood Pressure Pulse Oximetry 90 L 92 93 Oxygen Delivery Method Nasal Cannula High Flow Nasal Cannula Oxygen Flow Rate 5 50 Fraction of Inspired Oxygen 65 09/27/22 20:55 Temperature Pulse Rate 93 H Respiratory Rate 22 Blood Pressure 130/77 Pulse Oximetry 93 Oxygen Delivery Method High Flow Nasal Cannula Oxygen Flow Rate Fraction of Inspired Oxygen Fraction of Inspired Oxygen 65 SaO2/FiO2 Ratio 143 Oxygen Delivery Method High Flow Nasal Cannula Oxygen Flow Rate 50 Narrative Exam Narrative: Morbidly obese, diaphoretic, HFNC placed in mouth w/ SpO2 ~89% Objective Labs Result Diagrams: 09/27/22 16:33 09/27/22 16:33 Labs: Laboratory Results - last 24 hr 09/27/22 09/27/22 09/27/22 16:33 16:33 16:33 WBC 8.7 RBC 5.07 Hgb 13.8 Hct 42.6 MCV 84.0 MCH 27.2 MCHC 32.4 RDW 15.1 H Plt Count 186 Neut % (Auto) 84.8 H Lymph % (Auto) 7.3 L Archer % (Auto) 7.7 Eos % (Auto) 0.0 L Baso % (Auto) 0.2 Neut # (Auto) 7400 H Lymph # (Auto) 600 L Archer # (Auto) 700 Eos # (Auto) 0 Baso # (Auto) 0 PT 15.8 H INR 1.4 H APTT 29 D-Dimer 787 H ABG pH ABG pCO2 ABG pO2 ABG HCO3 ABG Total CO2 ABG O2 Saturation ABG Base Excess FiO2 Sodium Potassium Chloride Carbon Dioxide BUN Creatinine Estimated GFR BUN/Creatinine Ratio Glucose Lactate Calcium Total Bilirubin AST ALT Alkaline Phosphatase Total Creatine Kinase CK-MB (CK-2) CK-MB (CK-2) Rel Index Troponin I NT-Pro-B Natriuret Pep Total Protein Albumin Globulin Albumin/Globulin Ratio Procalcitonin SARS-CoV-2 (PCR) Positive H Influenza A (RT-PCR) Flu a negative Influenza B (RT-PCR) Flu b negative RSV (PCR) Negative 09/27/22 09/27/22 09/27/22 16:33 16:33 20:21 WBC RBC Hgb Hct MCV MCH MCHC RDW Plt Count Neut % (Auto) Lymph % (Auto) Archer % (Auto) Eos % (Auto) Baso % (Auto) Neut # (Auto) Lymph # (Auto) Archer # (Auto) Eos # (Auto) Baso # (Auto) PT INR APTT D-Dimer ABG pH 7.43 ABG pCO2 40.7 ABG pO2 69 L ABG HCO3 27 H ABG Total CO2 28 ABG O2 Saturation 94 L ABG Base Excess 3.0 H FiO2 65 Sodium 133 L Potassium 4.3 Chloride 98 Carbon Dioxide 29 BUN 9 Creatinine 0.64 Estimated GFR > 60 BUN/Creatinine Ratio 14.1 Glucose 192 H Lactate 1.2 Calcium 8.6 Total Bilirubin 0.9 AST 32 ALT 30 Alkaline Phosphatase 81 Total Creatine Kinase 130 CK-MB (CK-2) 1.20 CK-MB (CK-2) Rel Index 0.9 L Troponin I < 0.012 NT-Pro-B Natriuret Pep 308 H Total Protein 7.9 Albumin 3.9 Globulin 4.0 Albumin/Globulin Ratio 1.0 Procalcitonin 0.23 SARS-CoV-2 (PCR) Influenza A (RT-PCR) Influenza B (RT-PCR) RSV (PCR) Assessment & Plan Assessment & Plan narrative: NEURO: # Decondition -- Seek early mobility as tolerated # Fentanyl abuse -- Avoid narcotic due to risk of respiratory depression -- Pain control w/ tylenol as needed RESP: # Acute hypoxemia respiratory failure -- Secondary to COVID PNA w/ possible superimposed bacterial PNA -- COVID rx as below -- CAP coverage as below -- Start gentle diuresis to seek net negative fluid balance -- HOB elevation -- Recommend switching her over to NIVVP -- Goal SpO2 > 88% CVS: -- Goal SBP < 140 ID: # COVID PNA -- On baricitinib, remdesivir, and decadron -- Start gentle diuresis to seek net negative fluid balance -- On contact/airborne precaution w/ meticulous hygiene # Concern for bacterial PNA -- Given patchy consolidation, this raises concern for ? CAP vs SIZE WORKER -- Start ceftriaxone/doxycyline -- Check resp cx -- Follow up cx data ENDO: # DM -- Start ISS -- Goal BS < 180 D/w RN and Dr. Perry. Time Spent With Patient Critical Care time: I spent a total of 39 minutes of critical care time on this patient's care today; this time is exclusive of procedural time.
[2022-09-27] MEDS: DOXYCYCLINE HYCLATE 100 MG TABLET PO (22:28)
[2022-09-27] MEDS: ACETAMINOPHEN 325 MG TABLET 650 MG PO (22:28)
[2022-09-27] MEDS: BARICITINIB 2 MG TABLET 4 MG PO (22:29)
[2022-09-27] MEDS: ENOXAPARIN 40 MG/0.4 ML SYRINGE SUBCUT (22:37)
[2022-09-27] MEDS: FUROSEMIDE 20 MG/2 ML VIAL IV (22:37)
[2022-09-27] MEDS: cefTRIAXone 2,000 MG in SODIUM CHLORIDE 0.9% 100 ML 200 MG IV (22:53)
[2022-09-27] MEDS: REMDESIVIR 200 MG in SODIUM CHLORIDE 0.9% 210 ML 250 MG IV (22:54)
[2022-09-27] MEDS: INSULIN LISPRO 100 UNIT/ML 3ML VIAL SUBCUT (23:01)
[2022-09-28] VITALS (32 sets, daily range): BP systolic 107–145; BP diastolic 58–86; PULSE 54–97; RESP 10–24; TEMP 32–37.1; O2SAT 92–98
--- NOTE | 2022-09-28 00:44 | PC.NURSE ---
Pt arrived on floor around 2129. Pt A&Ox4, lungs exhibiting some inspiratory wheezing bilaterally, heart rate and rhythm WNL. Pt came up on HHFNC on 67% 50 L. Pt was diaphoretic on arrival, but stating they were cold. Temperature was WNL. Dope Worker was called, stated to transition pt to BiPAP since they were mouth-breathing, now currently on 65% FiO2 satting >95%. Pt started on ordered antibiotics and remdesivir. Pt getting up to the beside commode, exhibiting some SOB on exertion. Pt currently resting in room.
[2022-09-28 01:23] LABS: Appearance Urine UA CLEAR; Bilirubin Urine UA NEGATIVE (NEGATIVE); Color Urine UA YELLOW; Glucose Urine UA 1+ g/dL (Negative); Ketones Urine UA 1+ (NEGATIVE); Leukocyte Esterase Urine UA NEGATIVE (NEGATIVE); Nitrite Urine UA NEGATIVE (Negative); Occult Blood Urine UA NEGATIVE (Negative); Protein Urine UA NEGATIVE (Negative); Urobilinogen Urine UA 0.2 E.U./dL (0.2)
[2022-09-28 01:24] LABS: pH Urine UA 5.5 (4.5-8.0)
[2022-09-28 01:39] LABS: Bacteria Urine Occasional (0-1); Culture Indicated Urine Cult Not Indicated; RBC Urine None Seen (0-5/HPF); Squamous Epithelial Cell Urine 1-5 /HPF (0-5/HPF); WBC Urine None Seen (0-5/HPF)
[2022-09-28] MEDS: ACETAMINOPHEN 325 MG TABLET 650 MG PO ×2 (04:17→09:34)
[2022-09-28 04:37] LABS: Add Manual Diff / Slide Review NO; Basophils Absolute Auto 0 /uL (0-100); Basophils Percent Auto 0.3 % (0-2); Eosinophils Absolute Auto 0 /uL (0-450); Hematocrit 41.1 % (36-46); Hemoglobin 13.6 g/dL (12.0-16.0); Lymphocytes Absolute Auto 700 /uL (1100-4500); Lymphocytes Percent Auto 10.4 % (25-40); Mean Corpuscular HGB Conc 33.1 % (30-36); Mean Corpuscular Hemoglobin 27.6 PG (26-34); Mean Corpuscular Volume 83.5 fL (80-100); Monocytes Absolute Auto 200 /uL (0-900); Monocytes Percent Auto 2.7 % (3-14); Neutrophils Absolute Auto 6200 /uL (1500-7000); Neutrophils Percent Auto 86.6 % (50-75); Platelet Count 174 X10^3/uL (150-400); Red Blood Cell Count 4.93 X10^6/uL (4.0-5.2); Red Cell Distribution Width 14.7 % (11.6-14.8); White Blood Cell Count 7.1 X10^3/uL (4.5-11.0)
[2022-09-28 04:42] LABS: BUN Creatinine Ratio 29.4 (6-22); Blood Urea Nitrogen 15 mg/dL (7-17); Calcium 8.4 mg/dL (8.4-10.2); Carbon Dioxide 26 mmol/L (22-32); Chloride 100 mmol/L (98-107); Estimated Glomerular Filt Rate > 60 mL/min (>60); Glucose 287 mg/dL (70-100); Potassium 3.9 mmol/L (3.4-5.1); Sodium 134 mmol/L (137-145)
[2022-09-28 04:46] LABS: HEMOLYSIS 52 (0-50)
[2022-09-28] MEDS: INSULIN LISPRO 100 UNIT/ML 3ML VIAL SUBCUT ×4 (08:45→21:26)
[2022-09-28] MEDS: ENOXAPARIN 40 MG/0.4 ML SYRINGE SUBCUT ×2 (08:46→21:12)
[2022-09-28] MEDS: DEXAMETHASONE 10 MG/ML VIAL 6 MG IV (08:46)
[2022-09-28] MEDS: FUROSEMIDE 20 MG/2 ML VIAL IV ×2 (08:48→21:12)
[2022-09-28] MEDS: DOXYCYCLINE HYCLATE 100 MG TABLET PO ×2 (08:48→21:11)
[2022-09-28] MEDS: BARICITINIB 2 MG TABLET 4 MG PO (08:48)
[2022-09-28] MEDS: REMDESIVIR 100 MG in SODIUM CHLORIDE 0.9% 230 ML 250 MG IV (09:03)
[2022-09-28] MEDS: ALBUTEROL 2.5 MG/3 ML NEB (ADULT) INH ×4 (09:05→21:07)
[2022-09-28] MEDS: BUDESONIDE 0.5 MG/2 ML NEB INH ×2 (09:06→21:07)
--- NOTE | 2022-09-28 09:11 | PM.CN.EICU ---
History of Present Illness Consult details IF CAMERA ACTIVATED, patient seen via real-time interactive audiovisual communication: Camera activated Chief complaint: SOB Consent obtained for tele-tester compressed gases care: Yes Patient Location: ICU Provider location (State): Other participants/roles: RN Narrative: Assessment & Plan narrative: NEURO: # Decondition -- Seek early mobility as tolerated # Fentanyl abuse -- Avoid narcotic due to risk of respiratory depression -- Pain control w/ tylenol as needed Resp: # Acute hypoxemia respiratory failure -- Secondary to COVID PNA w/ possible superimposed bacterial PNA -- COVID rx as below -- CAP coverage as below -- Continue gentle diuresis to seek net negative fluid balance -- HOB elevation -- Recommend alternating between BiPAP & HFNC ( currently on 22/05/55%) -- Goal SpO2 > 88% CVS: -- Goal SBP < 140 ID: # COVID PNA -- On baricitinib, remdesivir, and decadron -- Continue gentle diuresis to seek net negative fluid balance -- On contact/airborne precaution w/ meticulous hygiene # Concern for bacterial PNA -- Given patchy consolidation, this raises concern for ? CAP vs WARP HAND -- Start ceftriaxone/doxycyline -- f/u resp cx -- Follow up cx data ENDO: # DM -- ISS -- Goal BS < 180 D/w RN and Dr. Perry. Time Spent With Patient Critical Care time: I spent a total of 30 minutes of critical care time on this patient's care today; this time is exclusive of procedural time. [facility] Medical History Asthma exacerbation Bowel obstruction Surgical History Status post delivery (10/02/17) Social History household members: none Smoking Status: Current some day smoker alcohol intake: former Current Medications Current Medications Medications: Home Medications albuterol sulfate 90 mcg/actuation aerosol inhaler (Ventolin HFA) 0 puff INH Q4HP PRN #1 ea 07/26/17 [Rx Confirmed 04/05/20] fluticasone 250 mcg-salmeterol 50 mcg/dose blistr powdr for inhalation (Advair Diskus) 1 puff INH BID ##0 07/26/17 [History Confirmed 04/05/20] nystatin 100,000 unit/gram topical powder (Nyamyc) 100,000 u TP TID ##30 11/17/17 [Rx Confirmed 04/05/20] labetalol 100 mg tablet 100 mg PO BID #60 tabs 02/02/18 [Rx Confirmed 04/05/20] docusate sodium 100 mg capsule (Colace) 100 mg PO BID #60 caps 03/21/20 [Rx Confirmed 04/05/20] gabapentin 300 mg capsule (Neurontin) 300 mg PO BID #30 caps 03/21/20 [Rx Confirmed 04/05/20] metformin 1,000 mg tablet 1,000 mg PO BID 03/21/20 [History Confirmed 04/05/20] polyethylene glycol 3350 17 gram/dose oral powder (Miralax) 17 gram PO DAILY #238 grams 03/21/20 [Rx Confirmed 04/05/20] cephalexin 500 mg capsule (Keflex) 500 mg PO QID cellulitis #30 caps 04/05/20 [Rx Confirmed 04/05/20] Visit Medications (administered) Generic Name Dose Route Start Last Admin Trade Name Freq PRN Reason Stop Dose Admin Acetaminophen 650 mg 09/27/22 21:43 09/28/22 04:17 Acetaminophen 325 Mg Tablet PO 650 mg Q6H PRN Administration Fever/Mild Pain (1-3) Albuterol 2.5 mg 09/27/22 23:00 09/28/22 09:05 Albuterol 2.5 Mg/3 Ml Neb (Adult) INH 2.5 mg [id number] PERRY Administration Budesonide 0.5 mg 09/28/22 08:00 09/28/22 09:06 Budesonide 0.5 Mg/2 Ml Neb INH 0.5 mg RTBID PERRY Administration Dexamethasone 6 mg 09/28/22 09:00 09/28/22 08:46 Dexamethasone 10 Mg/Ml Vial IV 6 mg DAILY PERRY Administration Doxycycline Hyclate 100 mg 09/27/22 22:00 09/28/22 08:48 Doxycycline Hyclate 100 Mg Tablet PO 10/01/22 09:00 100 mg BID PERRY Administration Enoxaparin Sodium 40 mg 09/27/22 21:43 09/28/22 08:46 Enoxaparin 40 Mg/0.4 Ml Syringe SUBCUT 40 mg BID PERRY Administration Furosemide 20 mg 09/27/22 22:00 09/28/22 08:48 Furosemide 20 Mg/2 Ml Vial IV 20 mg BID PERRY Administration Remdesivir 100 mg/ Sodium 250 mls @ 250 mls/hr 09/28/22 09:00 09/28/22 09:03 Chloride IV 10/01/22 09:59 250 mls/hr DAILY PERRY Administration Ceftriaxone Sodium 2,000 mg/ 100 mls @ 200 mls/hr 09/27/22 22:00 09/28/22 03:24 Sodium Chloride IV Infused Q24H PERRY Infusion Insulin Human Lispro 0 unit 09/27/22 22:30 09/28/22 08:45 Insulin Lispro 100 Unit/Ml 3ml Vial SUBCUT 3 unit ACHS PERRY Administration Protocol Exam Vital Signs (past 8 hours): - 09/28/22 02:00 09/28/22 03:00 09/28/22 04:17 Temperature 98.3 F Pulse Rate 83 83 Respiratory Rate 20 19 Blood Pressure 127/77 121/69 Pulse Oximetry 94 95 Oxygen Delivery Method Fraction of Inspired Oxygen 0.67 0.67 09/28/22 04:00 09/28/22 04:00 09/28/22 05:00 Temperature 98.3 F Pulse Rate 90 85 Respiratory Rate 19 18 Blood Pressure 145/82 H 126/74 Pulse Oximetry 95 96 Oxygen Delivery Method BiPAP Fraction of Inspired Oxygen 0.66 0.67 09/28/22 05:22 09/28/22 06:00 09/28/22 08:00 Temperature Pulse Rate 82 Respiratory Rate 15 Blood Pressure 125/75 Pulse Oximetry 95 Oxygen Delivery Method BiPAP Fraction of Inspired Oxygen 55 0.66 Fraction of Inspired Oxygen 0.66 SaO2/FiO2 Ratio 143 Oxygen Delivery Method BiPAP Oxygen Flow Rate 50 Objective Labs Result Diagrams: 09/28/22 04:21 09/28/22 04:21 Labs: Laboratory Results - last 24 hr 09/27/22 09/27/22 09/27/22 16:33 16:33 16:33 WBC 8.7 RBC 5.07 Hgb 13.8 Hct 42.6 MCV 84.0 MCH 27.2 MCHC 32.4 RDW 15.1 H Plt Count 186 Neut % (Auto) 84.8 H Lymph % (Auto) 7.3 L Young % (Auto) 7.7 Eos % (Auto) 0.0 L Baso % (Auto) 0.2 Neut # (Auto) 7400 H Lymph # (Auto) 600 L Young # (Auto) 700 Eos # (Auto) 0 Baso # (Auto) 0 PT 15.8 H INR 1.4 H APTT 29 D-Dimer 787 H ABG pH ABG pCO2 ABG pO2 ABG HCO3 ABG Total CO2 ABG O2 Saturation ABG Base Excess FiO2 Sodium Potassium Chloride Carbon Dioxide BUN Creatinine Estimated GFR BUN/Creatinine Ratio Glucose Lactate Calcium Total Bilirubin AST ALT Alkaline Phosphatase Total Creatine Kinase CK-MB (CK-2) CK-MB (CK-2) Rel Index Troponin I NT-Pro-B Natriuret Pep Total Protein Albumin Globulin Albumin/Globulin Ratio Procalcitonin Urine Color Urine Appearance Urine pH Ur Specific [place] Urine Protein Urine Glucose (UA) Urine Ketones Urine Occult Blood Urine Nitrate Urine Bilirubin Urine Urobilinogen Ur Leukocyte Esterase Urine RBC Urine WBC Ur Squamous Epith Cells Urine Bacteria Ur Culture Indicated? Nasal Screen MRSA (PCR) SARS-CoV-2 (PCR) Positive H Influenza A (RT-PCR) Flu a negative Influenza B (RT-PCR) Flu b negative RSV (PCR) Negative 09/27/22 09/27/22 09/27/22 16:33 16:33 20:21 WBC RBC Hgb Hct MCV MCH MCHC RDW Plt Count Neut % (Auto) Lymph % (Auto) Young % (Auto) Eos % (Auto) Baso % (Auto) Neut # (Auto) Lymph # (Auto) Young # (Auto) Eos # (Auto) Baso # (Auto) PT INR APTT D-Dimer ABG pH 7.43 ABG pCO2 40.7 ABG pO2 69 L ABG HCO3 27 H ABG Total CO2 28 ABG O2 Saturation 94 L ABG Base Excess 3.0 H FiO2 65 Sodium 133 L Potassium 4.3 Chloride 98 Carbon Dioxide 29 BUN 9 Creatinine 0.64 Estimated GFR > 60 BUN/Creatinine Ratio 14.1 Glucose 192 H Lactate 1.2 Calcium 8.6 Total Bilirubin 0.9 AST 32 ALT 30 Alkaline Phosphatase 81 Total Creatine Kinase 130 CK-MB (CK-2) 1.20 CK-MB (CK-2) Rel Index 0.9 L Troponin I < 0.012 NT-Pro-B Natriuret Pep 308 H Total Protein 7.9 Albumin 3.9 Globulin 4.0 Albumin/Globulin Ratio 1.0 Procalcitonin 0.23 Urine Color Urine Appearance Urine pH Ur Specific [place] Urine Protein Urine Glucose (UA) Urine Ketones Urine Occult Blood Urine Nitrate Urine Bilirubin Urine Urobilinogen Ur Leukocyte Esterase Urine RBC Urine WBC Ur Squamous Epith Cells Urine Bacteria Ur Culture Indicated? Nasal Screen MRSA (PCR) SARS-CoV-2 (PCR) Influenza A (RT-PCR) Influenza B (RT-PCR) RSV (PCR) 09/28/22 09/28/22 09/28/22 00:40 04:21 04:21 WBC 7.1 RBC 4.93 Hgb 13.6 Hct 41.1 MCV 83.5 MCH 27.6 MCHC 33.1 RDW 14.7 Plt Count 174 Neut % (Auto) 86.6 H Lymph % (Auto) 10.4 L Young % (Auto) 2.7 L Eos % (Auto) 0.0 L Baso % (Auto) 0.3 Neut # (Auto) 6200 Lymph # (Auto) 700 L Young # (Auto) 200 Eos # (Auto) 0 Baso # (Auto) 0 PT INR APTT D-Dimer ABG pH ABG pCO2 ABG pO2 ABG HCO3 ABG Total CO2 ABG O2 Saturation ABG Base Excess FiO2 Sodium 134 L Potassium 3.9 Chloride 100 Carbon Dioxide 26 BUN 15 Creatinine 0.51 L Estimated GFR > 60 BUN/Creatinine Ratio 29.4 H Glucose 287 H Lactate Calcium 8.4 Total Bilirubin AST ALT Alkaline Phosphatase Total Creatine Kinase CK-MB (CK-2) CK-MB (CK-2) Rel Index Troponin I NT-Pro-B Natriuret Pep Total Protein Albumin Globulin Albumin/Globulin Ratio Procalcitonin Urine Color Yellow Urine Appearance Clear Urine pH 5.5 Ur Specific [place] 1.020 Urine Protein Negative Urine Glucose (UA) 1+ H Urine Ketones 1+ H Urine Occult Blood Negative Urine Nitrate Negative Urine Bilirubin Negative Urine Urobilinogen 0.2 Ur Leukocyte Esterase Negative Urine RBC None seen Urine WBC None seen Ur Squamous Epith Cells 1-5 /hpf Urine Bacteria Occasional (0-1) Ur Culture Indicated? Cult not indicated Nasal Screen MRSA (PCR) SARS-CoV-2 (PCR) Influenza A (RT-PCR) Influenza B (RT-PCR) RSV (PCR) 09/28/22 04:21 WBC RBC Hgb Hct MCV MCH MCHC RDW Plt Count Neut % (Auto) Lymph % (Auto) Young % (Auto) Eos % (Auto) Baso % (Auto) Neut # (Auto) Lymph # (Auto) Young # (Auto) Eos # (Auto) Baso # (Auto) PT INR APTT D-Dimer ABG pH ABG pCO2 ABG pO2 ABG HCO3 ABG Total CO2 ABG O2 Saturation ABG Base Excess FiO2 Sodium Potassium Chloride Carbon Dioxide BUN Creatinine Estimated GFR BUN/Creatinine Ratio Glucose Lactate Calcium Total Bilirubin AST ALT Alkaline Phosphatase Total Creatine Kinase CK-MB (CK-2) CK-MB (CK-2) Rel Index Troponin I NT-Pro-B Natriuret Pep Total Protein Albumin Globulin Albumin/Globulin Ratio Procalcitonin Urine Color Urine Appearance Urine pH Ur Specific [place] Urine Protein Urine Glucose (UA) Urine Ketones Urine Occult Blood Urine Nitrate Urine Bilirubin Urine Urobilinogen Ur Leukocyte Esterase Urine RBC Urine WBC Ur Squamous Epith Cells Urine Bacteria Ur Culture Indicated? Nasal Screen MRSA (PCR) Negative for mrsa SARS-CoV-2 (PCR) Influenza A (RT-PCR) Influenza B (RT-PCR) RSV (PCR) Assessment & Plan Time Spent With Patient Critical Care time: I spent a total of [] minutes of critical care time on this patient's care today; this time is exclusive of procedural time.
[2022-09-28] MEDS: OXYCODONE IR 10 MG TABLET PO (11:30)
[2022-09-28] MEDS: INSULIN GLARGINE 100 UNIT/ML 3ML PEN 10 UNIT SUBCUT (12:22)
--- NOTE | 2022-09-28 12:37 | PC.NURSE ---
Pt confirmed she takes no home medications. Med list updated accordingly.
--- NOTE | 2022-09-28 14:01 | CM.DANOTE ---
Patient is a 37 yo female who was admitted on 09/27/22 for SOB. Pt has [employer] and [employer] for insurance and her PCP is Claude Ambrosio. EMR was reviewed. Per MD, pt with hx of asthma, obesity and diabetes and hx of intubation from asthma exacerbation. Pt also admits to smoking fentanyl daily for chronic pain issues. Pt currently on HHFNC and also bipap. Pt getting oxycodone for pain and also reduce risk of withdrawal. Pt COVID positive as well. Pt was last admitted in 2019 and declined CD/MH resources at that time and discharged home with family support. SW called into pt room due to COVID precautions and pt still feeling quite ill and limited in her ability to participate in long discussion but was able to confirm that she still lives in an apartment alone in [place] but has local supportive mom and sister. Pt states that she is typically independent with ADL's at baseline but has chronic back pain since her labor and delivery and epidural about 4 years ago. Pt states she had imaging previously and was determined surgical intervention not needed but likely more nerve damage and pt has yet to pursue this further. Pt states she can only stand for short amount of time before she has to sit or lay down and has still been able to go grocery shopping via electric scooter at the store and frequent breaks. Pt has 3 children (ages around 16,12, and 2) who all live with her local sister who pursued open adoption and pt is very agreeable with this plan as she is so limited physically. Pt states since the of her father, best friend, and grandpa a couple years ago and her chronic pain she began using street drugs to cope and has continued to use them since. Pt denies any hx of CD or MH treatment and is unsure if she is interested in [facility] resources at this time for additional support at d/c. Pt denies any hx of HH or SNF. Pt still needs to ambulate once her oxygen levels are more stabilized to confirm if she will be safe for d/c to home with family support and HH vs higher level of care needs. Pt's COVID+ status could be a barrier if pt not safe for home. Plan: SW to follow closely for pt's progress towards determining d/c planning needs and offer CD/MH resources again closer to d/c when pt feeling better. RAJAN Knight Discharge Planning/Care Management CM Discharge Assessment Start: 09/28/22 13:59 Freq: Status: Active Protocol: Document 09/28/22 13:59 BF (Rec: 09/28/22 14:01 BF [id number]) Discharge Planning Assessment Assigned Pump Runner RAJAN Cao DPOA/Assigned Designee Name sister Hoa Jovel Advance Directives? No Advance Directives on File No History Provided By Patient,Medical Record Has Patient been admitted in last 30 No days? Prior Living Arrangements Apartment/Condo Household Members none Type of transporation used prior to Drives own vehicle admit Independent with ADL's Yes Is patient alert and oriented? Yes Needs Assistance With Home Chores / Shopping Caregiver for Another No: 3 children that are adopted by her sister Patient/Family Preference Drug/Alcohol Rehab Barriers to Discharge No Discharge Plan Home with Home Health Transportation Arrangement Family likely if safe for home Whiteboard Updated in Patient Room with Yes name and ext. # of Pump Runner Review Status In Process Please Provide Date Initial DC 09/28/22 Assessment Was Performed Next Review Type Continued Stay Review
[2022-09-28] MEDS: ONDANSETRON 4 MG/2 ML INJ IV (16:59)
[2022-09-28] MEDS: cloNIDine 0.1 MG TABLET PO ×2 (17:00→21:11)
--- NOTE | 2022-09-28 18:39 | P.PN_ITS ---
Subjective Subjective Interval history: 37-year-old female with asthma, class 3 obesity, tobacco use, marijuana use, and Internal abuse who was admitted overnight with acute hypoxic respiratory failure and COVID pneumonia. Patient reports that she smokes fentanyl daily. It sounds as though she gets synthetic fentanyl (Mexis). She states she smokes up to 12 times a day and often will smoke hourly. She has generally well-controlled asthma and states she takes Advair 500/50 twice daily and DuoNebs. She typically only has trouble with her asthma when she gets sick. She states she continues to be short of breath today. She feels better than admission but about the same as she did earlier today. She was taken off of BiPAP this morning and transitioned to high-flow without difficulty. She does ask to use BiPAP tonight for sleep. She has had withdrawal symptoms including sweats and chills. She denies any nausea, vomiting, or diarrhea. Exam Vital Signs (past 8 hours): - 09/28/22 11:00 09/28/22 11:50 09/28/22 12:00 Temperature Pulse Rate 72 77 Respiratory Rate 15 15 Blood Pressure 124/78 Pulse Oximetry 95 95 Oxygen Delivery Method Heated High Flow Heated High Flow Oxygen Flow Rate 50 50 Fraction of Inspired Oxygen 65 65 09/28/22 12:00 09/28/22 13:00 09/28/22 14:00 Temperature 96.8 F L Pulse Rate 76 83 77 Respiratory Rate 15 14 15 Blood Pressure 122/65 110/59 L 122/58 L Pulse Oximetry 95 94 95 Oxygen Delivery Method Oxygen Flow Rate 50 50 50 Fraction of Inspired Oxygen 65 65 65 09/28/22 15:00 09/28/22 15:57 09/28/22 16:00 Temperature Pulse Rate 71 71 80 Respiratory Rate 15 20 17 Blood Pressure 107/67 141/77 H Pulse Oximetry 95 96 97 Oxygen Delivery Method Heated High Flow Oxygen Flow Rate 50 50 50 Fraction of Inspired Oxygen 65 65 65 09/28/22 16:00 09/28/22 17:00 09/28/22 16:49 Temperature 97.2 F L Pulse Rate 64 68 Respiratory Rate 13 Blood Pressure 126/68 141/77 H Pulse Oximetry 94 Oxygen Delivery Method Heated High Flow Oxygen Flow Rate 50 Fraction of Inspired Oxygen 65 09/28/22 18:00 Temperature Pulse Rate 54 L Respiratory Rate 18 Blood Pressure 117/61 Pulse Oximetry 98 Oxygen Delivery Method Oxygen Flow Rate 50 Fraction of Inspired Oxygen 65 Fraction of Inspired Oxygen 65 SaO2/FiO2 Ratio 147 Oxygen Delivery Method Heated High Flow Oxygen Flow Rate 50 Narrative Exam Narrative: GEN: Alert and oriented x 3, NAD HEENT:NC, Face symmetric CHEST: Respiratory excursions symmetric, CTAB CV: RRR, no M/R/G ABD: Soft, NT/ND, BT present in all 4 quadrants, no organomegaly or masses EXTR: warm, well perfused, no C/C/E SKIN: warm and dry, no rash NEURO: Alert and oriented x 3, nonfocal Objective Labs Result Diagrams: 09/28/22 04:21 09/28/22 04:21 Labs: Laboratory Results - last 24 hr 09/27/22 09/28/22 09/28/22 20:21 00:40 04:21 WBC 7.1 RBC 4.93 Hgb 13.6 Hct 41.1 MCV 83.5 MCH 27.6 MCHC 33.1 RDW 14.7 Plt Count 174 Neut % (Auto) 86.6 H Lymph % (Auto) 10.4 L [place] % (Auto) 2.7 L Eos % (Auto) 0.0 L Baso % (Auto) 0.3 Neut # (Auto) 6200 Lymph # (Auto) 700 L [place] # (Auto) 200 Eos # (Auto) 0 Baso # (Auto) 0 ABG pH 7.43 ABG pCO2 40.7 ABG pO2 69 L ABG HCO3 27 H ABG Total CO2 28 ABG O2 Saturation 94 L ABG Base Excess 3.0 H FiO2 65 Sodium Potassium Chloride Carbon Dioxide BUN Creatinine Estimated GFR BUN/Creatinine Ratio Glucose Calcium Urine Color Yellow Urine Appearance Clear Urine pH 5.5 Ur Specific [place] 1.020 Urine Protein Negative Urine Glucose (UA) 1+ H Urine Ketones 1+ H Urine Occult Blood Negative Urine Nitrate Negative Urine Bilirubin Negative Urine Urobilinogen 0.2 Ur Leukocyte Esterase Negative Urine RBC None seen Urine WBC None seen Ur Squamous Epith Cells 1-5 /hpf Urine Bacteria Occasional (0-1) Ur Culture Indicated? Cult not indicated Nasal Screen MRSA (PCR) 09/28/22 09/28/22 04:21 04:21 WBC RBC Hgb Hct MCV MCH MCHC RDW Plt Count Neut % (Auto) Lymph % (Auto) [place] % (Auto) Eos % (Auto) Baso % (Auto) Neut # (Auto) Lymph # (Auto) [place] # (Auto) Eos # (Auto) Baso # (Auto) ABG pH ABG pCO2 ABG pO2 ABG HCO3 ABG Total CO2 ABG O2 Saturation ABG Base Excess FiO2 Sodium 134 L Potassium 3.9 Chloride 100 Carbon Dioxide 26 BUN 15 Creatinine 0.51 L Estimated GFR > 60 BUN/Creatinine Ratio 29.4 H Glucose 287 H Calcium 8.4 Urine Color Urine Appearance Urine pH Ur Specific [place] Urine Protein Urine Glucose (UA) Urine Ketones Urine Occult Blood Urine Nitrate Urine Bilirubin Urine Urobilinogen Ur Leukocyte Esterase Urine RBC Urine WBC Ur Squamous Epith Cells Urine Bacteria Ur Culture Indicated? Nasal Screen MRSA (PCR) Negative for mrsa [facility] Medical History Asthma exacerbation Bowel obstruction Surgical History Status post delivery (10/02/17) Social History household members: none Smoking Status: Current some day smoker alcohol intake: former Assessment & Plan Assessment & Plan narrative: 1. Acute hypoxic respiratory failure Patient continues on high-flow oxygen for COVID pneumonia. Will use BiPAP at night for comfort. Continue treatment as outlined below. 2. COVID pneumonia Patient remains on dexamethasone, remdesivir. Baricitinib was ordered but does not appear to be available at this time. Will continue supportive care with oxygen. 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 3. Opiate dependence with withdrawal Patient smokes headache fentanyl tablets up to 12 times daily. Unclear dosing. She is done this for the past year and has not skipped a single day in a year. Prior to that she was a daily heroin smoker. She is having some withdrawal symptoms. Continue oxycodone. Will initiate clonidine 0.1 q.i.d.. Will also add trazodone for sleep and Imodium as needed will change oxycodone from 10 mg Q 8 as needed to 5 mg q.4 PRN. Explained to the patient risk for respiratory depression trying to treat her withdrawal symptoms in the setting of severe respiratory failure and COVID pneumonia. Also explained that she will likely have discomfort that we can not treat. She expresses understanding. 4. Asthma patient typically takes Advair and DuoNebs. 5. Type 2 diabetes continue sliding scale insulin. Monitor fingerstick 6. Class 3 obesity BMI is 48.1. Patient is at increased risk for morbidity and mortality. Would greatly benefit from weight reduction. Code status Full Prophylaxis On Lovenox b.i.d. Disposition Intensive care unit Time Spent With Patient Critical Care time: I spent a total of [] minutes of critical care time on this patient's care today; this time is exclusive of procedural time. Quality VTE Deep Vein Thrombosis/Pulmonary Embolism Present on Admission: No
--- NOTE | 2022-09-28 18:46 | PC.NURSE ---
Pt AAOx4, CAI, generalized weakness. Standby assist to bedside commode. Pt c/o lower back pain, PRN Tylenol x1 and PRN Oxy 10mg x1 given with relief. VSS. Afebrile. Transitioned off BiPAP this AM and started on heated high flow 65% 50L, no desats. Heart healthy diet, poor appetite. Accuchecks ACHS, started on Lantus 10u daily and increased sliding-scale to medium-dose coverage. No BM. AUOP using bedside commode, pt on scheduled Lasix 20mg BID.
--- NOTE | 2022-09-28 20:29 | PM.ICURNDS ---
- :: This patient was seen via real time interactive two-way audiovisual telecommunication. Note: Patient admitted for acute hypoxemia respiratory failure secondary to COVID PNA. On HFNC 50/50%. Will continue alternating w/ BiPAP and HFNC. D/w RN at bedside.
[2022-09-28] MEDS: OXYCODONE IR 10 MG TABLET 5 MG PO (21:10)
[2022-09-28] MEDS: TRAZODONE 50 MG TABLET PO (21:11)
[2022-09-28] MEDS: cefTRIAXone 2,000 MG in SODIUM CHLORIDE 0.9% 100 ML 200 MG IV (21:12)
[2022-09-29] VITALS (31 sets, daily range): BP systolic 99–134; BP diastolic 55–76; PULSE 49–96; RESP 10–17; TEMP 36.2–36.7; O2SAT 92–98
[2022-09-29] MEDS: OXYCODONE IR 10 MG TABLET 5 MG PO ×2 (03:29→11:17)
[2022-09-29] MEDS: ALBUTEROL 2.5 MG/3 ML NEB (ADULT) INH ×4 (03:59→19:44)
--- NOTE | 2022-09-29 05:43 | PC.NURSE ---
Patient requesting use of BiPap over night over Heated High Flow. Pt became agitated within 45 minutes and requesting BiPap be removed and she would wear HHF. RT notified and also patient's request of an RT treatment. Patient agitated with Bipap and stating that she just wanted to go home today. Asked for something for anxiety, while pulling BiPap mask off. Patient medicated with Oxycontin per EMAR. HHF replaced by RT at 50L 67% FiO2. Patient sleeping after medication. O2 sats remained 94-97% throughout the night. Patient OOB to the BSC without desats,
[2022-09-29] MEDS: BUDESONIDE 0.5 MG/2 ML NEB INH ×2 (07:19→19:44)
[2022-09-29] MEDS: INSULIN LISPRO 100 UNIT/ML 3ML VIAL SUBCUT ×4 (08:16→21:48)
[2022-09-29] MEDS: INSULIN GLARGINE 100 UNIT/ML 3ML PEN 10 UNIT SUBCUT (08:16)
[2022-09-29] MEDS: ENOXAPARIN 40 MG/0.4 ML SYRINGE SUBCUT ×2 (08:21→21:20)
[2022-09-29] MEDS: BARICITINIB 2 MG TABLET 4 MG PO (08:21)
[2022-09-29] MEDS: cloNIDine 0.1 MG TABLET PO ×2 (08:22→12:35)
[2022-09-29] MEDS: FUROSEMIDE 20 MG/2 ML VIAL IV ×2 (08:22→21:20)
[2022-09-29] MEDS: DEXAMETHASONE 10 MG/ML VIAL 6 MG IV (08:22)
[2022-09-29] MEDS: DOXYCYCLINE HYCLATE 100 MG TABLET PO ×2 (08:22→21:20)
--- NOTE | 2022-09-29 08:49 | PC.NURSE ---
pt complaining of generalized itching with red rash - MD notified, order noted to hold remdisivir. Pharmacy notified
--- NOTE | 2022-09-29 09:45 | P.TELICUPN_ITS ---
Subjective Subjective IF CAMERA ACTIVATED, patient seen via real-time interactive audiovisual communication: Camera activated Date Patient Seen: 09/29/22 Consent obtained for tele-catapult and arresting gear officer care: Yes Patient Location: ICU Provider location (State): [place] Other participants/roles: RN Interval history: Admitted for acute hypoxemia respiratory failure secondary to COVID PNA. On HFNC 50/67% with SPO2 96%. Per RN report, there is new rash developed overnight throughout her body. Also report feeling itchy. Current Medications Current Medications Medications: Home Medications No Known Home Medications 09/28/22 [History Confirmed 09/28/22] Visit Medications (administered) Generic Name Dose Route Start Last Admin Trade Name Freq PRN Reason Stop Dose Admin Acetaminophen 650 mg 09/27/22 21:43 09/28/22 09:34 Acetaminophen 325 Mg Tablet PO 650 mg Q6H PRN Administration Fever/Mild Pain (1-3) Albuterol 2.5 mg 09/27/22 23:00 09/29/22 07:19 Albuterol 2.5 Mg/3 Ml Neb (Adult) INH 2.5 mg [id number] PERRY Administration Albuterol 2.5 mg 09/27/22 21:43 09/29/22 03:59 Albuterol 2.5 Mg/3 Ml Neb (Adult) INH 2.5 mg [id number] PRN Administration Shortness Of Breath Budesonide 0.5 mg 09/28/22 08:00 09/29/22 07:19 Budesonide 0.5 Mg/2 Ml Neb INH 0.5 mg RTBID PERRY Administration Clonidine HCl 0.1 mg 09/28/22 17:00 09/29/22 08:22 Clonidine 0.1 Mg Tablet PO 09/29/22 17:00 0.1 mg QID PERRY Administration Dexamethasone 6 mg 09/28/22 09:00 09/29/22 08:22 Dexamethasone 10 Mg/Ml Vial IV 6 mg DAILY PERRY Administration Doxycycline Hyclate 100 mg 09/27/22 22:00 09/29/22 08:22 Doxycycline Hyclate 100 Mg Tablet PO 10/01/22 09:00 100 mg BID PERRY Administration Enoxaparin Sodium 40 mg 09/27/22 21:43 09/29/22 08:21 Enoxaparin 40 Mg/0.4 Ml Syringe SUBCUT 40 mg BID PERRY Administration Furosemide 20 mg 09/27/22 22:00 09/29/22 08:22 Furosemide 20 Mg/2 Ml Vial IV 20 mg BID PERRY Administration Remdesivir 100 mg/ Sodium 250 mls @ 250 mls/hr 09/28/22 09:00 09/29/22 08:49 Chloride IV 10/01/22 09:59 Not Given DAILY PERRY Ceftriaxone Sodium 2,000 mg/ 100 mls @ 200 mls/hr 09/27/22 22:00 09/28/22 22:08 Sodium Chloride IV Infused Q24H PERRY Infusion Insulin Glargine 10 unit 09/28/22 12:00 09/29/22 08:16 Insulin Glargine 100 Unit/Ml 3ml Pen SUBCUT 10 unit DAILY PERRY Administration Insulin Human Lispro 0 unit 09/27/22 22:30 09/29/22 08:16 Insulin Lispro 100 Unit/Ml 3ml Vial SUBCUT 1 unit ACHS PERRY Administration Protocol Ondansetron HCl 4 mg 09/27/22 21:43 09/28/22 16:59 Ondansetron 4 Mg/2 Ml Inj IV 4 mg Q8HR PRN Administration Nausea And Vomiting Oxycodone HCl 5 mg 09/28/22 18:47 09/29/22 03:29 Oxycodone Ir 10 Mg Tablet PO 5 mg Q4HR PRN Administration opiate withdrawal symptoms Trazodone HCl 50 mg 09/28/22 21:00 09/28/22 21:11 Trazodone 50 Mg Tablet PO 50 mg BEDTIME PERRY Administration Objective Ventilator Parameters: Ventilator Settings FiO2 67 Labs Result Diagrams: 09/28/22 04:21 09/28/22 04:21 Exam Vital Signs (past 8 hours): - 09/29/22 02:00 09/29/22 03:21 09/29/22 03:00 Temperature 98.0 F Pulse Rate 72 71 Respiratory Rate 16 15 Blood Pressure 114/57 L 123/56 L Pulse Oximetry 96 96 Oxygen Delivery Method Oxygen Flow Rate 50 Fraction of Inspired Oxygen 0.55 55 0.67 09/29/22 04:00 09/29/22 04:00 09/29/22 05:00 Temperature 98.0 F Pulse Rate 69 66 Respiratory Rate 16 14 Blood Pressure 109/57 L 120/72 Pulse Oximetry 95 97 Oxygen Delivery Method Heated High Flow Oxygen Flow Rate 50 50 Fraction of Inspired Oxygen 0.67 0.67 09/29/22 06:00 09/29/22 07:13 09/29/22 07:24 Temperature Pulse Rate 65 Respiratory Rate 14 Blood Pressure 112/66 Pulse Oximetry 97 Oxygen Delivery Method Heated High Flow Heated High Flow Oxygen Flow Rate 50 60 Fraction of Inspired Oxygen 0.67 96 09/29/22 07:31 09/29/22 07:00 09/29/22 08:00 Temperature Pulse Rate 60 70 54 L Respiratory Rate 14 15 15 Blood Pressure 109/68 109/68 113/64 Pulse Oximetry 97 97 97 Oxygen Delivery Method Oxygen Flow Rate 50 50 Fraction of Inspired Oxygen 67 67 09/29/22 07:00 09/29/22 08:00 Temperature 98 F Pulse Rate Respiratory Rate 17 Blood Pressure 134/76 Pulse Oximetry 95 Oxygen Delivery Method Heated High Flow Oxygen Flow Rate 50 Fraction of Inspired Oxygen Fraction of Inspired Oxygen 67 SaO2/FiO2 Ratio 194 Oxygen Delivery Method Heated High Flow Oxygen Flow Rate 50 Narrative Exam Narrative: Sleeping comfortably on HFUT Quality TeleICU VTE Deep Vein Thrombosis/Pulmonary Embolism Present on Admission: No Assessment & Plan Assessment & Plan narrative: NEURO: # Decondition -- Encourage early mobility as tolerated # Fentanyl abuse -- Avoid narcotic due to risk of respiratory depression -- Pain control w/ tylenol as needed RESP: # Acute hypoxemia respiratory failure -- Secondary to COVID PNA w/ possible superimposed bacterial PNA -- COVID rx as below -- On ceftriaxone and doxycycline -- Cont gentle diuresis to seek net negative fluid balance -- HOB elevation -- Failed to tolerate NIVVP -- Goal SpO2 > 88% CVS: # HTN -- On clonidine -- Goal SBP < 140 ID: # COVID PNA -- Developed new onset rash which raises concern for reaction to remdesivir and baricitinib -- Will dc baricitinib and remdesivir -- Cont decadron -- Cont gentle diuresis to seek net negative fluid balance -- On contact/airborne precaution w/ meticulous hygiene # Concern for bacterial PNA -- Given patchy consolidation, this raises concern for ? 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
[2022-09-29] MEDS: FAMOTIDINE 20 MG TABLET PO ×2 (10:44→21:20)
--- NOTE | 2022-09-29 13:25 | PC.NURSE ---
Pharmacy and MD aware of poss drug reaction, Remdisivir and Barcitinib discontinued
--- NOTE | 2022-09-29 14:56 | PM.PN.1 ---
Subjective Subjective Date Patient Seen: 09/29/22 Interval history: 37-year-old female with asthma, class 3 obesity, tobacco use, marijuana use, and Internal abuse who was admitted with acute hypoxic respiratory failure and COVID pneumonia. She remains on heated high flow today but is starting to feel much improved. She developed a rash today and baricitinib and remdesevir were stopped. She remains on steroids. She is also on antibiotics for possible bacterial pneumonia. Exam Vital Signs (past 8 hours): - 09/29/22 07:13 09/29/22 07:24 09/29/22 07:31 Temperature Pulse Rate 60 Respiratory Rate 14 Blood Pressure 109/68 Pulse Oximetry 97 Oxygen Delivery Method Heated High Flow Heated High Flow Oxygen Flow Rate 60 Fraction of Inspired Oxygen 96 09/29/22 07:00 09/29/22 08:00 09/29/22 07:00 Temperature 98 F Pulse Rate 70 54 L Respiratory Rate 15 15 17 Blood Pressure 109/68 113/64 134/76 Pulse Oximetry 97 97 95 Oxygen Delivery Method Oxygen Flow Rate 50 50 50 Fraction of Inspired Oxygen 67 67 09/29/22 08:00 09/29/22 09:00 09/29/22 10:00 Temperature 98 F Pulse Rate 68 Respiratory Rate 14 Blood Pressure 103/67 103/67 Pulse Oximetry 95 Oxygen Delivery Method Heated High Flow Oxygen Flow Rate 50 Fraction of Inspired Oxygen 67 09/29/22 09:00 09/29/22 10:01 09/29/22 11:00 Temperature 98.0 F Pulse Rate 64 Respiratory Rate 14 Blood Pressure 106/62 Pulse Oximetry 95 Oxygen Delivery Method Oxygen Flow Rate Fraction of Inspired Oxygen 09/29/22 11:00 09/29/22 11:02 09/29/22 11:02 Temperature Pulse Rate 66 63 Respiratory Rate Blood Pressure 102/63 Pulse Oximetry 92 92 Oxygen Delivery Method Oxygen Flow Rate Fraction of Inspired Oxygen 09/29/22 12:00 09/29/22 12:35 09/29/22 12:00 Temperature Pulse Rate 69 60 Respiratory Rate 17 Blood Pressure 104/63 104/60 Pulse Oximetry 96 Oxygen Delivery Method Heated High Flow Oxygen Flow Rate 50 Fraction of Inspired Oxygen 67 09/29/22 12:00 09/29/22 12:00 09/29/22 13:00 Temperature Pulse Rate 69 Respiratory Rate Blood Pressure 104/63 112/61 Pulse Oximetry 96 Oxygen Delivery Method Oxygen Flow Rate Fraction of Inspired Oxygen 09/29/22 13:00 09/29/22 14:00 09/29/22 14:00 Temperature Pulse Rate 49 L 59 L Respiratory Rate Blood Pressure 101/56 L Pulse Oximetry 96 95 Oxygen Delivery Method Oxygen Flow Rate Fraction of Inspired Oxygen Fraction of Inspired Oxygen 67 SaO2/FiO2 Ratio 194 Oxygen Delivery Method Heated High Flow Oxygen Flow Rate 50 Narrative Exam Narrative: GEN: Alert and oriented x 3, NAD HEENT:NC, Face symmetric CHEST: Respiratory excursions symmetric, CTAB CV: RRR, no M/R/G ABD: Soft, NT/ND, BT present in all 4 quadrants, no organomegaly or masses EXTR: warm, well perfused, no C/C/E SKIN: warm and dry, no rash NEURO: Alert and oriented x 3, nonfocal Objective Labs Result Diagrams: 09/28/22 04:21 09/28/22 04:21 [facility] Medical History Asthma exacerbation Bowel obstruction Surgical History Status post delivery (10/02/17) Social History household members: none Smoking Status: Current some day smoker alcohol intake: former Assessment & Plan Assessment & Plan narrative: 1. Acute hypoxic respiratory failure Patient continues on high-flow oxygen for COVID pneumonia. Will use BiPAP at night for comfort. Continue treatment as outlined below. 2. COVID pneumonia Patient remains on dexamethasone. Remdesevir and baricitinib stopped for rash. Will continue supportive care with oxygen. Patient is on empiric antibiotics (Rocephin and doxycycline) and diuresis started per tele-community relations coordinator. 3. Opiate dependence with withdrawal Patient smokes headache fentanyl tablets up to 12 times daily. Unclear dosing. She is done this for the past year and has not skipped a single day in a year. Prior to that she was a daily heroin smoker. She is having some withdrawal symptoms. Continue oxycodone. Will initiate clonidine 0.1 q.i.d.. Will also add trazodone for sleep and Imodium as needed will change oxycodone from 10 mg Q 8 as needed to 5 mg q.4 PRN. Explained to the patient risk for respiratory depression trying to treat her withdrawal symptoms in the setting of severe respiratory failure and COVID pneumonia. Also explained that she will likely have discomfort that we can not treat. She expresses understanding. 4. Asthma patient typically takes Advair and DuoNebs. 5. Type 2 diabetes continue sliding scale insulin. Monitor fingerstick 6. Class 3 obesity BMI is 48.1. Patient is at increased risk for morbidity and mortality. Would greatly benefit from weight reduction. Code status Full Prophylaxis On Lovenox b.i.d. Disposition Remains Intensive care unit I spent 30 minutes providing critical care management this patient. This excludes time spent in performing separately billed procedures. Time Spent With Patient Critical Care time: I spent a total of [] minutes of critical care time on this patient's care today; this time is exclusive of procedural time. Quality VTE Deep Vein Thrombosis/Pulmonary Embolism Present on Admission: No
--- NOTE | 2022-09-29 20:36 | PM.ICURNDS ---
- Date Patient Seen: 09/29/22 Time Patient Seen: 20:37 :: This patient was seen via real time interactive two-way audiovisual telecommunication. RN and family member present at bedside Note: Patient reports she is feeling OK this evening. Notes difficulty taking a full breath. Satting in mid-high 90s on 50L/50%, slightly decrease HFNC settings from earlier. HR in 50s-60s. MAP >65. RR WNL currently. No recent labs this evening. Patient notes she is experiencing some symptoms of opiate withdrawal - anxious, skin crawling most notably. She is on Oxy PRN. Earlier there was concern for an allergic reaction/rash but that has imrpoved. Still notes some itching. Continue on HFNC, can wean FiO2 to target O2 sats >88%. Will order PO PRN benadryl for itching. Continue gentle diuresis, CAP coverage ongoing. Would monitor opiod withdrawal symptoms, may need additional adjuncts, currently appears to be reasonably controlled. Follow up morning labs given diuresis. If continuing on Lasix, would benefit from daily electrolytes and PRN repletion.
[2022-09-29] MEDS: TRAZODONE 50 MG TABLET PO (21:20)
[2022-09-29] MEDS: ACETAMINOPHEN 325 MG TABLET 650 MG PO (21:20)
[2022-09-29] MEDS: cefTRIAXone 2,000 MG in SODIUM CHLORIDE 0.9% 100 ML 200 MG IV (22:04)
[2022-09-29] MEDS: diphenhydrAMINE 25 MG TABLET PO (23:56)
[2022-09-30] VITALS (39 sets, daily range): BP systolic 97–134; BP diastolic 53–80; PULSE 48–88; RESP 10–31; TEMP 36.2–36.7; O2SAT 87–98
[2022-09-30] MEDS: OXYCODONE IR 10 MG TABLET 5 MG PO (05:00)
[2022-09-30] MEDS: diphenhydrAMINE 25 MG TABLET PO ×2 (05:38→21:46)
[2022-09-30] MEDS: HYDROMORPHONE 0.5 MG INJ IV (05:38)
[2022-09-30 06:02] LABS: Add Manual Diff / Slide Review NO; Basophils Absolute Auto 0 /uL (0-100); Basophils Percent Auto 0.3 % (0-2); Eosinophils Absolute Auto 0 /uL (0-450); Hematocrit 42.4 % (36-46); Lymphocytes Absolute Auto 1900 /uL (1100-4500); Lymphocytes Percent Auto 23.5 % (25-40); Mean Corpuscular Hemoglobin 27.5 PG (26-34); Mean Corpuscular Volume 83.4 fL (80-100); Monocytes Absolute Auto 600 /uL (0-900); Monocytes Percent Auto 7.3 % (3-14); Neutrophils Absolute Auto 5500 /uL (1500-7000); Neutrophils Percent Auto 68.9 % (50-75); Platelet Count 240 X10^3/uL (150-400); Red Blood Cell Count 5.08 X10^6/uL (4.0-5.2); Red Cell Distribution Width 14.4 % (11.6-14.8)
[2022-09-30 06:09] LABS: Alanine Aminotransferase 25 IU/L (<35); Albumin 3.6 g/dL (3.5-5.0); Albumin Globulin Ratio 0.9 (1.0-2.8); Alkaline Phosphatase 75 U/L (38-126); Aspartate Aminotransferase 22 IU/L (14-36); BUN Creatinine Ratio 33.8 (6-22); Bilirubin Total 0.3 mg/dL (0.2-1.3); Blood Urea Nitrogen 24 mg/dL (7-17); Calcium 8.4 mg/dL (8.4-10.2); Carbon Dioxide 34 mmol/L (22-32); Chloride 100 mmol/L (98-107); Estimated Glomerular Filt Rate > 60 mL/min (>60); Globulin 3.9 g/dL (1.7-4.1); Glucose 144 mg/dL (70-100); HEMOLYSIS < 15 (0-50); Magnesium 2.2 mg/dL (1.6-2.3); Potassium 3.7 mmol/L (3.4-5.1); Sodium 139 mmol/L (137-145); Total Protein 7.5 g/dL (6.3-8.2)
[2022-09-30] MEDS: BUDESONIDE 0.5 MG/2 ML NEB INH ×2 (08:32→20:00)
[2022-09-30] MEDS: ALBUTEROL 2.5 MG/3 ML NEB (ADULT) INH ×4 (08:32→20:00)
[2022-09-30] MEDS: INSULIN LISPRO 100 UNIT/ML 3ML VIAL SUBCUT ×5 (09:12→21:39)
[2022-09-30] MEDS: FUROSEMIDE 20 MG/2 ML VIAL IV (09:13)
[2022-09-30] MEDS: DEXAMETHASONE 10 MG/ML VIAL 6 MG IV (09:13)
[2022-09-30] MEDS: ENOXAPARIN 40 MG/0.4 ML SYRINGE SUBCUT ×2 (09:16→21:18)
[2022-09-30] MEDS: OXYCODONE IR 5 MG TABLET PO ×3 (09:17→18:02)
[2022-09-30] MEDS: ACETAMINOPHEN 325 MG TABLET 650 MG PO (09:17)
[2022-09-30] MEDS: FAMOTIDINE 20 MG TABLET PO ×2 (09:18→21:18)
[2022-09-30] MEDS: DOXYCYCLINE HYCLATE 100 MG TABLET PO ×2 (09:18→21:18)
[2022-09-30] MEDS: INSULIN GLARGINE 100 UNIT/ML 3ML PEN 10 UNIT SUBCUT (09:19)
--- NOTE | 2022-09-30 09:35 | P.TELICUPN_ITS ---
Subjective Subjective IF CAMERA ACTIVATED, patient seen via real-time interactive audiovisual communication: Camera activated Date Patient Seen: 09/30/22 Consent obtained for tele-steffen house supervisor care: Yes Patient Location: ICU Provider location (State): [place] Other participants/roles: RN Interval history: Agitated overnight and received benadryl/dilaudid IV once. On HFNC 50/40%. Rash is improving. Current Medications Current Medications Medications: Home Medications No Known Home Medications 09/28/22 [History Confirmed 09/28/22] Visit Medications (administered) Generic Name Dose Route Start Last Admin Trade Name Freq PRN Reason Stop Dose Admin Acetaminophen 650 mg 09/27/22 21:43 09/30/22 09:17 Acetaminophen 325 Mg Tablet PO 650 mg Q6H PRN Administration Fever/Mild Pain (1-3) Albuterol 2.5 mg 09/27/22 23:00 09/30/22 08:32 Albuterol 2.5 Mg/3 Ml Neb (Adult) INH 2.5 mg [id number] PERRY Administration Albuterol 2.5 mg 09/27/22 21:43 09/29/22 03:59 Albuterol 2.5 Mg/3 Ml Neb (Adult) INH 2.5 mg [id number] PRN Administration Shortness Of Breath Budesonide 0.5 mg 09/28/22 08:00 09/30/22 08:32 Budesonide 0.5 Mg/2 Ml Neb INH 0.5 mg RTBID PERRY Administration Dexamethasone 6 mg 09/28/22 09:00 09/30/22 09:13 Dexamethasone 10 Mg/Ml Vial IV 6 mg DAILY PERRY Administration Diphenhydramine HCl 25 mg 09/29/22 20:36 09/30/22 05:38 Diphenhydramine 25 Mg Tablet PO 25 mg Q6HR PRN Administration Itching Doxycycline Hyclate 100 mg 09/27/22 22:00 09/30/22 09:18 Doxycycline Hyclate 100 Mg Tablet PO 10/01/22 09:00 100 mg BID PERRY Administration Enoxaparin Sodium 40 mg 09/27/22 21:43 09/30/22 09:16 Enoxaparin 40 Mg/0.4 Ml Syringe SUBCUT 40 mg BID PERRY Administration Famotidine 20 mg 09/29/22 10:00 09/30/22 09:18 Famotidine 20 Mg Tablet PO 20 mg BID PERRY Administration Furosemide 20 mg 09/27/22 22:00 09/30/22 09:13 Furosemide 20 Mg/2 Ml Vial IV 20 mg BID PERRY Administration Ceftriaxone Sodium 2,000 mg/ 100 mls @ 200 mls/hr 09/27/22 22:00 09/30/22 07:56 Sodium Chloride IV Infused Q24H PERRY Infusion Insulin Glargine 10 unit 09/28/22 12:00 09/30/22 09:19 Insulin Glargine 100 Unit/Ml 3ml Pen SUBCUT 10 unit DAILY PERRY Administration Insulin Human Lispro 0 unit 09/27/22 22:30 09/30/22 09:12 Insulin Lispro 100 Unit/Ml 3ml Vial SUBCUT 1 unit ACHS PERRY Administration Protocol Ondansetron HCl 4 mg 09/27/22 21:43 09/28/22 16:59 Ondansetron 4 Mg/2 Ml Inj IV 4 mg Q8HR PRN Administration Nausea And Vomiting Oxycodone HCl 5 mg 09/30/22 05:00 09/30/22 09:17 Oxycodone Ir 5 Mg Tablet PO 5 mg Q4HR PRN Administration OPIATE WITHDRAWAL SYMPTOMS Trazodone HCl 50 mg 09/28/22 21:00 09/29/22 21:20 Trazodone 50 Mg Tablet PO 50 mg BEDTIME PERRY Administration Objective Ventilator Parameters: Ventilator Settings FiO2 67 Labs Result Diagrams: 09/30/22 05:43 09/30/22 05:43 Labs: Laboratory Results - last 24 hr 09/30/22 09/30/22 05:43 05:43 WBC 8.0 RBC 5.08 Hgb 14.0 Hct 42.4 MCV 83.4 MCH 27.5 MCHC 33.0 RDW 14.4 Plt Count 240 Neut % (Auto) 68.9 Lymph % (Auto) 23.[address] [place] % (Auto) 7.3 Eos % (Auto) 0.0 L Baso % (Auto) 0.3 Neut # (Auto) 5500 Lymph # (Auto) 1900 [place] # (Auto) 600 Eos # (Auto) 0 Baso # (Auto) 0 Sodium 139 Potassium 3.7 Chloride 100 Carbon Dioxide 34 H BUN 24 H Creatinine 0.71 Estimated GFR > 60 BUN/Creatinine Ratio 33.8 H Glucose 144 H D Calcium 8.4 Magnesium 2.2 Total Bilirubin 0.3 AST 22 ALT 25 Alkaline Phosphatase 75 Total Protein 7.5 Albumin 3.6 Globulin 3.9 Albumin/Globulin Ratio 0.9 L Exam Vital Signs (past 8 hours): - 09/30/22 02:00 09/30/22 03:00 09/30/22 04:00 Temperature 97.7 F Pulse Rate 48 L 56 L 60 Respiratory Rate 13 14 16 Blood Pressure 101/65 106/56 L 108/71 Pulse Oximetry 96 98 96 Oxygen Delivery Method Oxygen Flow Rate 50 50 50 Fraction of Inspired Oxygen 0.61 0.61 0.57 09/30/22 05:00 09/30/22 06:00 09/30/22 04:00 Temperature Pulse Rate 56 L 49 L Respiratory Rate 16 16 Blood Pressure 121/73 115/70 Pulse Oximetry 94 96 Oxygen Delivery Method Heated High Flow Oxygen Flow Rate 50 50 Fraction of Inspired Oxygen 0.57 0.57 09/30/22 08:38 09/30/22 08:40 Temperature Pulse Rate 52 L 52 L Respiratory Rate 16 16 Blood Pressure Pulse Oximetry 97 97 Oxygen Delivery Method Heated High Flow Oxygen Flow Rate 50 Fraction of Inspired Oxygen 55 Fraction of Inspired Oxygen 55 SaO2/FiO2 Ratio 176 Oxygen Delivery Method Heated High Flow Oxygen Flow Rate 50 Narrative Exam Narrative: Not in acute distress. On HFNC and speaking in full sentence. Quality TeleICU VTE Deep Vein Thrombosis/Pulmonary Embolism Present on Admission: No Assessment & Plan Assessment & Plan narrative: NEURO: # Decondition -- Encourage early mobility as tolerated # Opioid withdrawal -- On clonidine and oxycodone as needed -- Pain control w/ tylenol as needed -- May consider using dilaudid as needed for breakthrough pain RESP: # Acute hypoxemia respiratory failure -- Secondary to COVID PNA w/ possible superimposed bacterial PNA -- COVID rx as below -- On ceftriaxone and doxycycline -- Decrease lasix to 20 mg IV daily -- HOB elevation -- Encourage IS and OOB as tolerated -- Goal SpO2 > 88% CVS: # HTN -- On clonidine -- Goal SBP < 140 ID: # COVID PNA -- Developed new onset rash which raises concern for reaction to remdesivir and baricitinib -- Off baricitinib and remdesivir -- Cont decadron -- Cont gentle diuresis to seek net negative fluid balance -- On contact/airborne precaution w/ meticulous hygiene # Concern for bacterial PNA -- Given patchy consolidation, this raises concern for ? CAP vs OIL TESTER from COVID PNA -- Cont ceftriaxone/doxycyline -- Blood cx negative to date -- Follow up cx data ENDO: # DM -- On ISS -- Goal < 180 D/w RN. Time Spent With Patient Critical Care time: I spent a total of 32 minutes of critical care time on this patient's care today; this time is exclusive of procedural time.
--- NOTE | 2022-09-30 14:10 | P.PN_ITS ---
Subjective Subjective Date Patient Seen: 09/30/22 Interval history: 37-year-old female with asthma, class 3 obesity, tobacco use, marijuana use, and Internal abuse who was admitted with acute hypoxic respiratory failure and COVID pneumonia. She remains on heated high flow today but is starting to feel much improved. She developed a rash previously and baricitinib and remdesevir were stopped. She remains on steroids. She is also on antibiotics for possible bacterial pneumonia. Exam Vital Signs (past 8 hours): - 09/30/22 08:38 09/30/22 08:40 09/30/22 07:00 Temperature Pulse Rate 52 L 52 L Respiratory Rate 16 16 Blood Pressure 121/76 Pulse Oximetry 97 97 Oxygen Delivery Method Heated High Flow Oxygen Flow Rate 50 Fraction of Inspired Oxygen 55 09/30/22 07:00 09/30/22 08:00 09/30/22 08:00 Temperature Pulse Rate 56 L 55 L Respiratory Rate 16 21 Blood Pressure 124/80 Pulse Oximetry 94 98 Oxygen Delivery Method Oxygen Flow Rate Fraction of Inspired Oxygen 09/30/22 09:00 09/30/22 09:00 09/30/22 10:00 Temperature Pulse Rate 62 Respiratory Rate 23 Blood Pressure 123/75 122/76 Pulse Oximetry 94 Oxygen Delivery Method Oxygen Flow Rate Fraction of Inspired Oxygen 09/30/22 10:00 09/30/22 11:00 09/30/22 11:00 Temperature Pulse Rate 66 70 Respiratory Rate 10 L 16 Blood Pressure 114/69 Pulse Oximetry 92 93 Oxygen Delivery Method Oxygen Flow Rate Fraction of Inspired Oxygen 09/30/22 11:21 09/30/22 12:00 09/30/22 12:00 Temperature 98.0 F Pulse Rate 61 Respiratory Rate 17 Blood Pressure 121/71 Pulse Oximetry 94 Oxygen Delivery Method Oxygen Flow Rate Fraction of Inspired Oxygen 09/30/22 12:28 09/30/22 12:29 Temperature Pulse Rate 67 Respiratory Rate 18 Blood Pressure Pulse Oximetry 95 95 Oxygen Delivery Method Heated High Flow Oxygen Flow Rate 50 Fraction of Inspired Oxygen 45 Fraction of Inspired Oxygen 45 SaO2/FiO2 Ratio 211 Oxygen Delivery Method Heated High Flow Oxygen Flow Rate 50 Narrative Exam Narrative: GEN: Alert and oriented x 3, NAD HEENT:NC, Face symmetric CHEST: Respiratory excursions symmetric, CTAB CV: RRR, no M/R/G ABD: Soft, NT/ND, BT present in all 4 quadrants, no organomegaly or masses EXTR: warm, well perfused, no C/C/E SKIN: warm and dry, no rash NEURO: Alert and oriented x 3, nonfocal Objective Labs Result Diagrams: 09/30/22 05:43 09/30/22 05:43 Labs: Laboratory Results - last 24 hr 09/30/22 09/30/22 05:43 05:43 WBC 8.0 RBC 5.08 Hgb 14.0 Hct 42.4 MCV 83.4 MCH 27.5 MCHC 33.0 RDW 14.4 Plt Count 240 Neut % (Auto) 68.9 Lymph % (Auto) 23.5 L [place] % (Auto) 7.3 Eos % (Auto) 0.0 L Baso % (Auto) 0.3 Neut # (Auto) 5500 Lymph # (Auto) 1900 [place] # (Auto) 600 Eos # (Auto) 0 Baso # (Auto) 0 Sodium 139 Potassium 3.7 Chloride 100 Carbon Dioxide 34 H BUN 24 H Creatinine 0.71 Estimated GFR > 60 BUN/Creatinine Ratio 33.8 H Glucose 144 H D Calcium 8.4 Magnesium 2.2 Total Bilirubin 0.3 AST 22 ALT 25 Alkaline Phosphatase 75 Total Protein 7.5 Albumin 3.6 Globulin 3.9 Albumin/Globulin Ratio 0.9 L PFSH Medical History Asthma exacerbation Bowel obstruction Surgical History Status post delivery (10/02/17) Social History household members: none Smoking Status: Current some day smoker alcohol intake: former Assessment & Plan Assessment & Plan narrative: 1. Acute hypoxic respiratory failure Patient continues on high-flow oxygen for COVID pneumonia with slight improvement today. Continue treatment as outlined below. continue lasix to remain on the dry side per teleintensivist, reduced from 20 mg BID to daily. 2. COVID pneumonia and superimposed bacterial pneumonia. Patient remains on dexamethasone. Remdesevir and baricitinib stopped for rash. Will continue supportive care with oxygen. Patient is on empiric antibiotics (R ocephin and doxycycline) and diuresis started per tele-veterinary surgeon. 3. Opiate dependence with withdrawal Patient smokes headache fentanyl tablets up to 12 times daily. Unclear dosing. She is done this for the past year and has not skipped a single day in a year. Prior to that she was a daily heroin smoker. She was having some withdrawal symptoms but now improved. Continue oxycodone prn. also on trazodone for sleep 4. Asthma patient typically takes Advair and DuoNebs. 5. Type 2 diabetes continue sliding scale insulin. Monitor fingerstick 6. Class 3 obesity BMI is 48.1. Patient is at increased risk for morbidity and mortality. Would greatly benefit from weight reduction. Code status Full Prophylaxis On Lovenox b.i.d. Disposition Remains Intensive care unit I spent 30 minutes providing critical care management this patient. This excludes time spent in performing separately billed procedures. Time Spent With Patient Critical Care time: I spent a total of [] minutes of critical care time on this patient's care today; this time is exclusive of procedural time. Quality VTE Deep Vein Thrombosis/Pulmonary Embolism Present on Admission: No
[2022-09-30] MEDS: LORazepam 2 MG/ML INJ 1 MG IV (15:34)
--- NOTE | 2022-09-30 20:34 | PM.ICURNDS ---
- Date Patient Seen: 09/30/22 Time Patient Seen: 20:34 :: This patient was seen via real time interactive two-way audiovisual telecommunication. Note: Admitted for acute hypoxemia respiratory failure secondary to COVID pneumonia. Currently on HFNC 40/40%. Will continue titrating down FiO2 to maintain goal SpO2 >88%. D/w RN at bedside.
[2022-09-30] MEDS: TRAZODONE 50 MG TABLET PO (21:18)
[2022-09-30] MEDS: cefTRIAXone 2,000 MG in SODIUM CHLORIDE 0.9% 100 ML 200 MG IV (21:46)
[2022-10-01] VITALS (14 sets, daily range): BP systolic 105–130; BP diastolic 61–88; PULSE 54–71; RESP 16–19; TEMP 36.1; O2SAT 93–98
[2022-10-01 06:49] LABS: Add Manual Diff / Slide Review NO; Basophils Absolute Auto 0 /uL (0-100); Basophils Percent Auto 0.1 % (0-2); Eosinophils Absolute Auto 0 /uL (0-450); Eosinophils Percent Auto 0.1 % (2-4); Hematocrit 42.6 % (36-46); Hemoglobin 14.1 g/dL (12.0-16.0); Lymphocytes Absolute Auto 2400 /uL (1100-4500); Lymphocytes Percent Auto 32.4 % (25-40); Mean Corpuscular HGB Conc 33.2 % (30-36); Mean Corpuscular Hemoglobin 27.7 PG (26-34); Mean Corpuscular Volume 83.4 fL (80-100); Monocytes Absolute Auto 600 /uL (0-900); Monocytes Percent Auto 8.1 % (3-14); Neutrophils Absolute Auto 4400 /uL (1500-7000); Neutrophils Percent Auto 59.3 % (50-75); Platelet Count 225 X10^3/uL (150-400); Red Blood Cell Count 5.11 X10^6/uL (4.0-5.2); Red Cell Distribution Width 14.6 % (11.6-14.8); White Blood Cell Count 7.4 X10^3/uL (4.5-11.0)
[2022-10-01 07:03] LABS: Alanine Aminotransferase 25 IU/L (<35); Albumin 3.4 g/dL (3.5-5.0); Albumin Globulin Ratio 0.9 (1.0-2.8); Alkaline Phosphatase 73 U/L (38-126); Aspartate Aminotransferase 23 IU/L (14-36); BUN Creatinine Ratio 31.8 (6-22); Bilirubin Total 0.3 mg/dL (0.2-1.3); Blood Urea Nitrogen 21 mg/dL (7-17); Calcium 8.2 mg/dL (8.4-10.2); Carbon Dioxide 30 mmol/L (22-32); Chloride 100 mmol/L (98-107); Estimated Glomerular Filt Rate > 60 mL/min (>60); Globulin 3.7 g/dL (1.7-4.1); Glucose 124 mg/dL (70-100); HEMOLYSIS < 15 (0-50); Magnesium 2.2 mg/dL (1.6-2.3); Potassium 3.6 mmol/L (3.4-5.1); Sodium 139 mmol/L (137-145); Total Protein 7.1 g/dL (6.3-8.2)
[2022-10-01] MEDS: ALBUTEROL 2.5 MG/3 ML NEB (ADULT) INH (09:07)
[2022-10-01] MEDS: BUDESONIDE 0.5 MG/2 ML NEB INH (09:07)
--- NOTE | 2022-10-01 09:34 | PM.PN.1 ---
Exam Vital Signs (past 8 hours): - 10/01/22 02:00 10/01/22 02:00 10/01/22 03:00 Temperature Pulse Rate 58 L Respiratory Rate 17 Blood Pressure 116/66 122/74 Pulse Oximetry 97 Oxygen Delivery Method Oxygen Flow Rate 40 10/01/22 03:00 10/01/22 03:39 10/01/22 04:00 Temperature Pulse Rate 64 Respiratory Rate 18 19 Blood Pressure Pulse Oximetry 98 Oxygen Delivery Method Heated High Flow Oxygen Flow Rate 40 10/01/22 04:00 10/01/22 04:00 10/01/22 05:00 Temperature Pulse Rate 58 L 68 Respiratory Rate 17 19 Blood Pressure 105/65 Pulse Oximetry 97 96 Oxygen Delivery Method Oxygen Flow Rate 40 10/01/22 05:01 10/01/22 05:01 10/01/22 06:00 Temperature Pulse Rate 71 Respiratory Rate 17 Blood Pressure 121/61 112/74 Pulse Oximetry 97 Oxygen Delivery Method Oxygen Flow Rate 40 10/01/22 06:00 10/01/22 07:00 10/01/22 07:01 Temperature 96.9 F L Pulse Rate 54 L 65 Respiratory Rate 17 16 Blood Pressure 129/88 Pulse Oximetry 97 98 Oxygen Delivery Method Oxygen Flow Rate 40 10/01/22 07:01 10/01/22 09:07 Temperature Pulse Rate 63 60 Respiratory Rate 16 18 Blood Pressure Pulse Oximetry 98 94 Oxygen Delivery Method High Flow Nasal Cannula Oxygen Flow Rate 4 Fraction of Inspired Oxygen 40 SaO2/FiO2 Ratio 237 Oxygen Delivery Method High Flow Nasal Cannula Oxygen Flow Rate 4 Narrative Exam Narrative: GEN: Alert and oriented x 3, NAD HEENT:NC, Face symmetric CHEST: Respiratory excursions symmetric, CTAB CV: RRR, no M/R/G ABD: Soft, NT/ND, BT present in all 4 quadrants, no organomegaly or masses EXTR: warm, well perfused, no C/C/E SKIN: warm and dry, no rash NEURO: Alert and oriented x 3, nonfocal Objective Labs Result Diagrams: 10/01/22 05:36 10/01/22 05:36 Labs: Laboratory Results - last 24 hr 10/01/22 10/01/22 05:36 05:36 WBC 7.4 RBC 5.11 Hgb 14.1 Hct 42.6 MCV 83.4 MCH 27.7 MCHC 33.2 RDW 14.6 Plt Count 225 Neut % (Auto) 59.3 Lymph % (Auto) 32.4 [place] % (Auto) 8.1 Eos % (Auto) 0.1 L Baso % (Auto) 0.1 Neut # (Auto) 4400 Lymph # (Auto) 2400 [place] # (Auto) 600 Eos # (Auto) 0 Baso # (Auto) 0 Sodium 139 Potassium 3.6 Chloride 100 Carbon Dioxide 30 BUN 21 H Creatinine 0.66 Estimated GFR > 60 BUN/Creatinine Ratio 31.8 H Glucose 124 H Calcium 8.2 L Magnesium 2.2 Total Bilirubin 0.3 AST 23 ALT 25 Alkaline Phosphatase 73 Total Protein 7.1 Albumin 3.4 L Globulin 3.7 Albumin/Globulin Ratio 0.9 L PFSH Medical History Asthma exacerbation Bowel obstruction Surgical History Status post delivery (10/02/17) Social History household members: none Smoking Status: Current some day smoker alcohol intake: former Assessment & Plan Assessment & Plan narrative: 1. Acute hypoxic respiratory failure Patient continues on high-flow oxygen for COVID pneumonia with slight improvement today. Continue treatment as outlined below. continue lasix to remain on the dry side per teleintensivist, reduced from 20 mg BID to daily. 2. COVID pneumonia and superimposed bacterial pneumonia. Patient remains on dexamethasone. Remdesevir and baricitinib stopped for rash. Will continue supportive care with oxygen. Patient is on empiric antibiotics (Rocephin and doxycycline) and diuresis started per tele-radio sales account executive. 3. Opiate dependence with withdrawal Patient smokes headache fentanyl tablets up to 12 times daily. Unclear dosing. She is done this for the past year and has not skipped a single day in a year. Prior to that she was a daily heroin smoker. She was having some withdrawal symptoms but now improved. Continue oxycodone prn. also on trazodone for sleep 4. Asthma patient typically takes Advair and DuoNebs. 5. Type 2 diabetes continue sliding scale insulin. Monitor fingerstick 6. Class 3 obesity BMI is 48.1. Patient is at increased risk for morbidity and mortality. Would greatly benefit from weight reduction. Code status Full Prophylaxis On Lovenox b.i.d. Disposition Remains Intensive care unit I spent 30 minutes providing critical care management this patient. This excludes time spent in performing separately billed procedures. Time Spent With Patient Critical Care time: I spent a total of [] minutes of critical care time on this patient's care today; this time is exclusive of procedural time. Quality VTE Deep Vein Thrombosis/Pulmonary Embolism Present on Admission: No
[2022-10-01] MEDS: DEXAMETHASONE 10 MG/ML VIAL 6 MG IV (09:35)
--- NOTE | 2022-10-01 10:33 | PC.NURSE ---
Day Shift Note Patient called this morning and stated that she would be leaving AMA this morning and would be declining all medications other than her steroid and respiratory meds. Reviewed plan of care and discussed disease process and wisdom of continuing with admission for further treatment and oxygen therapy. Patient states I know my body and I know I am ready, I can't stay here any longer. Titrated patient off heated HFNC and onto HFNC down to 4L with SpO2 92-96%. Pt verbalizes understanding that she will not have oxygen at home and states she has nebulizers and inhalers. Oxygen removed prior to d/c as well as IVs x2 and telemetry. AMA form signed and patient escorted to hospital exit. Stable on feet.
--- NOTE | 2022-10-01 14:29 | P.DS_ITS ---
History of Present Illness History of Present Illness Chief complaint: SOB Narrative: Ms. Jovel is a 37W with PMH asthma, morbid obesity, smoking daily fentanyl, diabetes who presents to the hospital feeling unwell. She states she has felt poorly for four days. She notes fevers, myalgias, chest pain, wheezing, diaphoresis. She has taken her albuterol once a day. She came in today because her family member recommended it. She has received one dose of Moderna vaccine against COVID. She has not taken a COVID test and has no known exposures. She has needed intubation and BIPAP previously for asthma exacerbation. She denied smoking tobacco and marijuana to me, but did admit this to the ED physician. She was placed on oxygen by EMS. In the ED workup was done, vitals notable for afebrile, tachycardic in the 100s, tachypneic in the 30s, pulse ox in the 80s on 4L. She was then placed on heated high flow. Labs notable for WBC 8.7, hgb 13.8, plts 186. Creatinine 0.64. INR 1.4. COVID positive. Lactate 1.2, troponin negative. Procal 0.23. Chest xray showed scattered infiltrates. CTA showed no PE, but did show patchy, nodular consolidations. Discharge Providers Provider Date of admission: 09/27/22 20:08 Discharge Date: 10/01/22 Primary care physician: Claude Ambrosio PA-C Consults: 09/27/22 20:35 Consult to Tele-fur buyer Routine Comment: Consulting Provider: Maurice Tele-intensivists Reason for consultation: [employer] services Has provider been notified: Yes Discharge provider: Aleks Quintero DO Summary Hospital Course Discharge Diagnosis: 1. Acute hypoxic respiratory failure Patient continues on high-flow oxygen for COVID pneumonia 2. COVID pneumonia and superimposed bacterial pneumonia. Patient received dexamethasone. Remdesevir and baricitinib stopped for rash. Will continue supportive care with oxygen.? Patient is on empiric antibiotics (Rocephin and doxycycline) and diuresis started per tele-fur buyer. 3. Opiate dependence with withdrawal Patient smokes fentanyl tablets up to 12 times daily.? Unclear dosing.? She is done this for the past year and has not skipped a single day in a year.? Prior to that she was a daily heroin smoker.? She was having some withdrawal symptoms but now improved.? Continue oxycodone prn.? also on trazodone for sleep 4. Asthma patient typically takes Advair and DuoNebs. 5. Type 2 diabetes ?continue sliding scale insulin.? Monitor fingerstick 6. Class 3 obesity BMI is 48.1.? Patient is at increased risk for morbidity and mortality.? Would greatly benefit from weight reduction. Hospital Course: Admitted for COVID pneumonia and respiratory failure requiring HFNC in the ICU. Received remdesivir and baricitinib which were stopped due to a rash and decadron was continued. Also received rocephin and azithro plus lasix. Resp failure was improving and HF was weaned down to 4L NC, then on day 5 she left AMA, likely due to opioid withdrawals as patient is a daily fentanyl/heroin user. Time Spent with Patient Time spent: Greater than 30 minutes Exam Vital Signs (past 8 hours): - 10/01/22 07:00 10/01/22 07:01 10/01/22 07:01 Pulse Rate 65 63 Respiratory Rate 16 16 Blood Pressure 129/88 Pulse Oximetry 98 98 Oxygen Delivery Method Oxygen Flow Rate 10/01/22 09:07 10/01/22 08:00 10/01/22 08:00 Pulse Rate 60 60 Respiratory Rate 18 17 Blood Pressure 130/77 Pulse Oximetry 94 94 Oxygen Delivery Method High Flow Nasal Cannula Oxygen Flow Rate 4 10/01/22 09:00 10/01/22 09:00 10/01/22 08:00 Pulse Rate 62 Respiratory Rate 18 Blood Pressure 121/70 Pulse Oximetry 93 Oxygen Delivery Method High Flow Nasal Cannula Heated High Flow Oxygen Flow Rate Fraction of Inspired Oxygen 40 SaO2/FiO2 Ratio 237 Oxygen Delivery Method High Flow Nasal Cannula Oxygen Flow Rate 4 Narrative Exam Narrative: GEN: Alert and oriented x 3, NAD HEENT:NC, Face symmetric CHEST: Respiratory excursions symmetric, CTAB CV: RRR, no M/R/G ABD: Soft, NT/ND, BT present in all 4 quadrants, no organomegaly or masses EXTR: warm, well perfused, no C/C/E SKIN: warm and dry, no rash NEURO: Alert and oriented x 3, nonfocal Objective Labs Result Diagrams: 10/01/22 05:36 10/01/22 05:36 Labs: Laboratory Results - last 24 hr 10/01/22 10/01/22 05:36 05:36 WBC 7.4 RBC 5.11 Hgb 14.1 Hct 42.6 MCV 83.4 MCH 27.7 MCHC 33.2 RDW 14.6 Plt Count 225 Neut % (Auto) 59.3 Lymph % (Auto) 32.4 [place] % (Auto) 8.1 Eos % (Auto) 0.1 L Baso % (Auto) 0.1 Neut # (Auto) 4400 Lymph # (Auto) 2400 [place] # (Auto) 600 Eos # (Auto) 0 Baso # (Auto) 0 Sodium 139 Potassium 3.6 Chloride 100 Carbon Dioxide 30 BUN 21 H Creatinine 0.66 Estimated GFR > 60 BUN/Creatinine Ratio 31.8 H Glucose 124 H Calcium 8.2 L Magnesium 2.2 Total Bilirubin 0.3 AST 23 ALT 25 Alkaline Phosphatase 73 Total Protein 7.1 Albumin 3.4 L Globulin 3.7 Albumin/Globulin Ratio 0.9 L PFSH Medical History Asthma exacerbation Bowel obstruction Surgical History Status post delivery (10/02/17) Social History household members: none Smoking Status: Current some day smoker alcohol intake: former Discharge Plan Discharge Plan Patient Disposition: Left Against Medical Advice Discharge orders & Medications Prescriptions: No Action No Known Home Medications Follow up/Referrals: Claude Ambrosio PA-C [Primary Care Provider] - 3-5 Days Discharge Data Primary Care Provider: Claude Ambrosio Quality VTE Deep Vein Thrombosis/Pulmonary Embolism Present on Admission: No
== END 2022-10-01 10:05 | disposition left against medical advice (07) | DRG 137 ==
LOC: ED 18:52 → AC 20:09 → ICU 21:15
PROVIDERS: Emergency Medicine; Internal Medicine; Admitting Provider Internal Medicine; Emergency Provider Emergency Medicine; PCP Physician Assistant Medical; Referring Provider Emergency Medicine; Visit Provider Internal Medicine
DX: U07.1 COVID-19 (principal); J96.01 Acute respiratory failure with hypoxia; J12.82 Pneumonia due to coronavirus disease 2019; F17.200 Nicotine dependence, unspecified, uncomplicated; J45.901 Unspecified asthma with (acute) exacerbation; E66.01 Morbid (severe) obesity due to excess calories; E11.9 Type 2 diabetes mellitus without complications; F11.23 Opioid dependence with withdrawal; R21 Rash and other nonspecific skin eruption; J15.9 Unspecified bacterial pneumonia; T37.5X5A Adverse effect of antiviral drugs, initial encounter; Z53.29 Procedure and treatment not carried out because of patient's decision for other reasons; Z68.42 Body mass index [BMI] 45.0-49.9, adult; Z79.84 Long term (current) use of oral hypoglycemic drugs
CPT/HCPCS: 0241U; 36415; 36592; 36600; 71045; 71275; 80048; 80053; 81001; 82550; 82553; 82805; 82962; 83605; 83735; 83880; 84145; 84484; 85025; 85379; 85610; 85730; 87040; 87797; 93005; 93010; 94640; 94660; 96374; 99285; 99291; A9270; J0696; J1100; J1170; J1650; J1815; J1940; J2060; J2405; J2930; J7613; Q9967

== ENCOUNTER 2022-11-21 00:26 | Emergency (ER) | payer OTHER, MEDICAID, SELFPAY ==
[2022-09-27 20:34] VITALS: BMI 48.0
[2022-09-28 09:00] VITALS: RESP 15; O2SAT 94
[2022-09-29 03:21] VITALS: PULSE 96
[2022-11-21] VITALS (7 sets, daily range): BP systolic 126–144; BP diastolic 61–88; PULSE 105–133; RESP 19–26; TEMP 36.3; O2SAT 91–95; BMI 43.2
--- NOTE | 2022-11-21 00:36 | DI.RAD.S_ITS ---
PROCEDURE: XR CHEST 1V INDICATIONS: chest pain TECHNIQUE: One view of the chest was acquired. COMPARISON: [facility], CR, XR CHEST 1V, 09/27/2022, 16:35. FINDINGS: Surgical changes and devices: None. Lungs and pleura: Lungs are clear. No pleural effusions or pneumothorax. Mediastinum: Mediastinal contours appear normal. Heart size is normal. Bones and chest wall: No suspicious bony lesions. Overlying soft tissues appear unremarkable. IMPRESSION: 1. No acute cardiopulmonary disease. Dictated by: Noah Baltazar M.D. on 11/21/2022 at 1:03 Approved by: Noah Baltazar M.D. on 11/21/2022 at 1:11
--- NOTE | 2022-11-21 00:37 | ED_ITS ---
HPI - SOB/Dyspnea General Chief Complaint: Shortness of Breath/Dyspnea Stated Complaint: SOB, Time Seen by Provider: 11/21/22 00:36 Source: patient, RN notes reviewed and old records reviewed Mode of arrival: Ambulatory Limitations: no limitations History of Present Illness HPI Narrative: This is a 37-year-old female history of asthma, diabetes history of fentanyl abuse which she states she smokes. Patient also had recent COVID infection requiring hospitalization in September. She presents today with increasing shortness of breath for the last 2 or 3 days but particularly in the last 12 hours. Patient denies fevers, she feels tight in her chest she denies any chest pain or pressure. She states her heart rate has been fast. Patient denies any nausea or vomiting she denies any syncope. She denies any diarrhea or constipation. She denies dysuria urgency or frequency. She denies any swelling of her extremities. Patient states she has been full smoking fentanyl today and she also use some heroin. She notes she has been intubated in the past for her asthma. Patient states she is had tubal ligation, and she had bowel obstruction requiring surgical resection as well as prior . Patient states she just restarted her metformin, Advair and asthma medications in the last day. She states she was seen at the urgent that her O2 sat was in the mid 80s at that time. She states she does use tobacco, occasional alcohol, states she uses typically fentanyl which she smokes, denies methamphetamines or other illicit and denies injectable drug use. Patient states she is allergic to clindamycin it makes her vomit and that morphine gives her itchy rash. Patient does note that her sister's daughter is in preschool and has had recent viral infections. Related Data Previous Rx's Medication Instructions Recorded albuterol sulfate 2.5 mg/3 mL 2.5 mg (3 mL) inhalation Q4H PRN 11/21/22 (0.083 %) solution for nebulization shortness of breath or wheezing #180 mL clarithromycin 500 mg tablet 500 mg PO Q12H 14 days #28 tabs 11/21/22 prednisone 50 mg tablet 50 mg PO DAILY #5 tabs 11/21/22 Allergies Allergy/AdvReac Type Severity Reaction Status Date / Time morphine [MORPHINE] Allergy Intermediate rash,hives Verified 09/27/22 16:37 clindamycin [CLINDAMYCIN] Allergy Mild vomiting Verified 09/27/22 16:37 remdesivir Allergy Mild Verified 09/29/22 13:29 baricitinib Allergy Verified 09/29/22 13:30 Review of Systems Review of Systems ROS Unobtainable: All systems reviewed & are unremarkable except as noted in HPI and below Patient History Medical History Asthma exacerbation Bowel obstruction Surgical History Status post delivery (10/02/17) Social History household members: none Smoking Status: Current some day smoker alcohol intake: former Smoking Status: Current some day smoker alcohol intake frequency: holidays/special occasions only Substance Use Type: marijuana and other Exam Narrative Exam Narrative: GEN: Obese female, alert and oriented x 3, patient appears to be in [default value] distress. HEENT: Atraumatic, pupils are equal round reactive to light, extraocular movements are intact, nares are clear, moderate, there is no conjunctival pallor. Throat is clear without any exudates, erythema, tonsillar enlargement or uvular deviation HEART: Tachycardic but regular rate and rhythm without murmur, clicks, rubs. No JVD appreciated but difficult secondary to body habitus. No swelling bilateral lower extremities. LUNGS:Lungs expiratory wheezes bilaterally, no rales, crackles, chest moves symmetrically, positive for tachypnea. Patient able to speak in full sentences. 91-92% on room air ABD:bowel sounds normal, soft, non-tender, no guarding, rebound, rigidity, no masses noted, no hepatosplenomegaly :No CVA tenderness MSCL: Non-tender, no muscle atrophy, muscles strength 5/5 upper and lower extremities, full range of motion, normal gait. Patient was ambulatory to ambulate from the bathroom to her room after giving urine sample with minimal difficulty. NEURO:CN 2-12 intact, sensation normal Initial Vital Signs Initial Vital Signs: Vital Signs Temperature 97.4 F L 11/21/22 00:37 Pulse Rate 133 H 11/21/22 00:37 Respiratory Rate 26 H 11/21/22 00:37 Blood Pressure 144/88 H 11/21/22 00:37 Pulse Oximetry 91 11/21/22 00:37 Oxygen Delivery Method 11/21/22 00:37 Course Orders Ordered: ED Orders 11/21/22 00:36 XR chest 1V Stat EKG-12 Lead Stat 11/21/22 00:42 Covid-19 + FLU A/B + RSV - PCR Stat 11/21/22 00:48 Complete Blood Count AUTO DIFF Stat Comprehensive Metabolic Panel Stat D Dimer Stat Lipase Stat NT-proBNP (BNP-Adult 18+) Stat Partial Thromboplastin Time Stat Prothrombin Time INR Stat Troponin & CK Cardiac Panel Stat 11/21/22 01:16 CT angio chest PE protocol Stat Discontinued Medications Albuterol (Albuterol 2.5 Mg/3 Ml Neb (Adult)) 10 mg INH NOW ONE Stop: 11/21/22 01:07 Last Admin: 11/21/22 01:09 Dose: 10 mg Documented By: MR Albuterol/Ipratropium (Albuterol/Ipratropium 3 Ml Ampul) 3 ml INH NOW ONE Stop: 11/21/22 00:53 Last Admin: 11/21/22 00:58 Dose: 3 ml Documented By: MR Sodium Chloride (Normal Saline 0.9%) 1,000 mls @ 150 mls/hr IV CONT PERRY Last Infusion: 11/21/22 02:38 Dose: 0 mls/hr Documented By: Infusion: 11/21/22 02:05 Dose: 1,000 mls/hr Documented By: Admin: 11/21/22 00:56 Dose: 150 mls/hr Documented By: LUPE Sodium Chloride (Normal Saline 0.9%) 1,000 mls @ 1,000 mls/hr IV BOLUS ONE Stop: 11/21/22 02:34 Methylprednisolone (Methylprednisolone 125 Mg/2 Ml Vial) 125 mg IV NOW ONE Stop: 11/21/22 00:53 Last Admin: 11/21/22 00:56 Dose: 125 mg Documented By: LUPE Reevaluation(s) Reevaluation #1: Patient's wheezes improved, she states she feels much better that she is aerating significantly better. Patient is asking about if she can be discharged home. Discussed dimer is elevated and would like to obtain CTA angio to rule out PE with her recent hospitalization. Also she is still receiving albuterol neb and I would like for that to complete. Patient is agreeable to both. Time: 01:39 Vital Signs Vital signs: Vital Signs - 8 hr 11/21/22 00:37 11/21/22 00:42 11/21/22 01:00 Temperature 97.4 F L Pulse Rate 133 H 119 H Respiratory Rate 26 H 25 H Blood Pressure 144/88 H 143/73 H Pulse Oximetry 91 93 93 Oxygen Delivery Method Room Air Room Air Oxygen Flow Rate 11/21/22 01:00 11/21/22 01:30 11/21/22 02:07 Temperature Pulse Rate 105 H 107 H 115 H Respiratory Rate 20 19 Blood Pressure 135/61 128/79 Pulse Oximetry 93 95 93 Oxygen Delivery Method Room Air Aerosol Mask Oxygen Flow Rate 15 11/21/22 02:09 11/21/22 02:09 11/21/22 02:30 Temperature Pulse Rate 119 H Respiratory Rate 26 H Blood Pressure 126/66 Pulse Oximetry 93 91 Oxygen Delivery Method Oxygen Flow Rate MDM - SOB/Dyspnea Lab Data Result diagrams: 11/21/22 00:48 11/21/22 00:48 Labs: Lab Results 11/21/22 11/21/22 11/21/22 Range/Units 00:42 00:48 00:48 WBC 8.6 (4.5-11.0) X10^3/uL RBC 4.68 (4.0-5.2) X10^6/uL Hgb 13.2 (12.0-16.0) g/dL Hct 40.3 (36-46) % MCV 86.2 (80-100) fL MCH 28.1 (26-34) PG MCHC 32.6 (30-36) % RDW 15.6 H (11.6-14.8) % Plt Count 198 (150-400) X10^3/uL Neut % (Auto) 71.9 (50-75) % Lymph % (Auto) 20.2 L (25-40) % [place] % (Auto) 7.1 (3-14) % Eos % (Auto) 0.2 L (2-4) % Baso % (Auto) 0.6 (0-2) % Neut # (Auto) 6200 (5565-0341) /uL Lymph # (Auto) 1700 (8785-0427) /uL [place] # (Auto) 600 (0-900) /uL Eos # (Auto) 0 (0-450) /uL Baso # (Auto) 100 (0-100) /uL PT 11.8 (10.1-12.7) SECONDS INR 1.0 (0.9-1.3) APTT 28 (26-36) SECONDS D-Dimer 712 H (<500) ng/ml Sodium (137-145) mmol/L Potassium (3.4-5.1) mmol/L Chloride (98-107) mmol/L Carbon Dioxide (22-32) mmol/L BUN (7-17) mg/dL Creatinine (0.52-1.04) mg/dL Estimated GFR (>60) mL/min BUN/Creatinine Ratio (6-22) Glucose (70-100) mg/dL Calcium (8.4-10.2) mg/dL Total Bilirubin (0.2-1.3) mg/dL AST (14-36) IU/L ALT (<35) IU/L Alkaline Phosphatase (38-126) U/L Total Creatine Kinase (30-135) U/L CK-MB (CK-2) (<2.37) ng/mL CK-MB (CK-2) Rel Index (1.5-5.0) % Troponin I (0.01-0.034) ng/mL NT-Pro-B Natriuret Pep (<125) pg/mL Total Protein (6.3-8.2) g/dL Albumin (3.5-5.0) g/dL Globulin (1.7-4.1) g/dL Albumin/Globulin Ratio (1.0-2.8) Lipase (23-300) U/L SARS-CoV-2 (PCR) Negative (Negative) Influenza A (RT-PCR) Flu a negative (NEGATIVE) Influenza B (RT-PCR) Flu b negative (NEGATIVE) RSV (PCR) Negative (Negative) 11/21/22 Range/Units 00:48 WBC (4.5-11.0) X10^3/uL RBC (4.0-5.2) X10^6/uL Hgb (12.0-16.0) g/dL Hct (36-46) % MCV (80-100) fL MCH (26-34) PG MCHC (30-36) % RDW (11.6-14.8) % Plt Count (150-400) X10^3/uL Neut % (Auto) (50-75) % Lymph % (Auto) (25-40) % [place] % (Auto) (3-14) % Eos % (Auto) (2-4) % Baso % (Auto) (0-2) % Neut # (Auto) (7725-7664) /uL Lymph # (Auto) (2390-8213) /uL [place] # (Auto) (0-900) /uL Eos # (Auto) (0-450) /uL Baso # (Auto) (0-100) /uL PT (10.1-12.7) SECONDS INR (0.9-1.3) APTT (26-36) SECONDS D-Dimer (<500) ng/ml Sodium 138 (137-145) mmol/L Potassium 3.8 (3.4-5.1) mmol/L Chloride 99 (98-107) mmol/L Carbon Dioxide 28 (22-32) mmol/L BUN 11 (7-17) mg/dL Creatinine 0.61 (0.52-1.04) mg/dL Estimated GFR > 60 (>60) mL/min BUN/Creatinine Ratio 18.0 (6-22) Glucose 396 H (70-100) mg/dL Calcium 8.7 (8.4-10.2) mg/dL Total Bilirubin 0.4 (0.2-1.3) mg/dL AST 30 (14-36) IU/L ALT 40 H (<35) IU/L Alkaline Phosphatase 102 (38-126) U/L Total Creatine Kinase 207 H (30-135) U/L CK-MB (CK-2) 4.24 H (<2.37) ng/mL CK-MB (CK-2) Rel Index 2.0 (1.5-5.0) % Troponin I < 0.012 (0.01-0.034) ng/mL NT-Pro-B Natriuret Pep 277 H (<125) pg/mL Total Protein 7.6 (6.3-8.2) g/dL Albumin 4.1 (3.5-5.0) g/dL Globulin 3.5 (1.7-4.1) g/dL Albumin/Globulin Ratio 1.2 (1.0-2.8) Lipase 25 (23-300) U/L SARS-CoV-2 (PCR) (Negative) Influenza A (RT-PCR) (NEGATIVE) Influenza B (RT-PCR) (NEGATIVE) RSV (PCR) (Negative) Imaging Data Chest x-ray: Radiologist's Impression: Close Chest X-Ray (Signed) Noah Baltazar - 11/21/22 Launch?Image [address] [address] XRay Report Signed Patient: Annie Jovel MR#: [id number] : 1985 Acct:[id number] Age/Sex: 37 / F Date of Service: 11/21/22 Loc: ED Accession Number: [id number] ?? Procedure: XR chest 1V Ordering Provider: Annie Orellana D.O. PROCEDURE:? XR CHEST 1V ? INDICATIONS:? chest pain ? TECHNIQUE:? One view of the chest was acquired.? ? COMPARISON:? Located Within [facility], CR, XR CHEST 1V, 09/27/2022, 16:35. ? FINDINGS:? ? Surgical changes and devices:? None.? ? Lungs and pleura:? Lungs are clear.? No pleural effusions or pneumothorax.? ? Mediastinum:? Mediastinal contours appear normal.? Heart size is normal.? ? Bones and chest wall:? No suspicious bony lesions.? Overlying soft tissues appear unremarkable.? ? IMPRESSION:? ? 1.? No acute cardiopulmonary disease. ? ? ? Dictated by: Noah Baltazar M.D. on 11/21/2022 at 1:03 ? ? Approved by: Noah Baltazar M.D. on 11/21/2022 at 1:11?? ECG Data Attestation: I personally reviewed and interpreted this ECG as follows: Prior ECG tracings: available for review Interpretation: Sinus tachycardia rate of 121 MA 118 QRS of 108 QTC 488. No acute ST elevation appreciated. No depression noted. Patient has prior from 09/27/2022 with sim ilar findings. No new ST changes noted MDM Narrative Medical decision making narrative: This is a 37-year-old female with history of asthma, COVID infection approximately 2 months ago requiring hospitalization who smokes fentanyl regularly. Patient is quite wheezy on exam suspect more exacerbation of her asthma she does seem to be responding to steroids and nebs on re-evaluation. Chest x-ray was negative, labs including CBC, CMP are negative except for elevated glucose of 396 which patient notes she has been off her medications, troponin is negative and BNP is 277 patient with negative chest x-ray no crackles on exam who does not appear to be fluid overloaded making CHF unlikely. Dimer is elevated this could be secondary to patient's BMI of [address] angio was obtained. Patient left prior to CT results, I did review Ct imaging preliminary and no obvious large pulmonary emboli was seen, patient does have patchy infiltrate throughout. She is currently on Augmentin for her teeth. She her wheezing has resolved on repeat check she feels much better. Will discharge her with steroids, albuterol. Patient signed out Against Medical Advice as we discussed that I have not had a radiology read of her CT and acute emergent life-threatening illness has not been fully ruled out. Patient I discussed she is welcome return at any time, she can also call with results and I will try to reach out to her with results as well once they have returned. CTA shows no evidence of PE, bilateral patchy ground-glass opacities with septal thickening findings are nonspecific but likely represent atypical pneumonia diff erential includes inflammatory process such as hypersensitivity pneumonitis, enlarged mediastinal and bilateral hilar lymph nodes are nonspecific these could be reactive secondary to infection a neoplastic process can not be excluded. Patient had prescription sent for clarithromycin 500 mg p.o. b.i.d. for 14 days to [facility] pharmacy. Discharge Plan Departure Patient Disposition: Left Against Medical Advice Clinical Impression: Asthma exacerbation Activity Restrictions/Additional Instructions: Your CT scan results have not returned, you could have a large blood clot or other dangerous changes that can kill you and I do not recommend that leave until this has returned. You are welcome to return at any time tonight or in the future. I would recommend you continue current medications as prescribed, including your current antibiotic of Augmentin. Prescription for steroids was sent to [facility] in [place] Prescription for albuterol vials, you may use 1 vial every 4 hours as needed. Please return were worsening chest pain, shortness of breath, passing out, persistent vomiting, new swelling of extremities, coughing up blood or other new or concerning changes. Prescriptions: New prednisone 50 mg tablet 50 mg PO DAILY Qty: 5 0RF albuterol sulfate 2.5 mg /3 mL (0.083 %) solution for nebulization 2.5 mg inhalation Q4H PRN (Reason: shortness of breath or wheezing) Qty: 180 0RF clarithromycin 500 mg tablet 500 mg PO Q12H 14 Days Qty: 28 0RF Stand Alone Forms: Against Medical Advice
[2022-11-21] MEDS: methylPREDNISolone 125 MG/2 ML VIAL IV (00:56)
[2022-11-21] MEDS: SODIUM CHLORIDE 0.9% 1,000 ML 150 ML IV (00:56)
[2022-11-21 00:58] LABS: Add Manual Diff / Slide Review NO; Basophils Absolute Auto 100 /uL (0-100); Basophils Percent Auto 0.6 % (0-2); Eosinophils Absolute Auto 0 /uL (0-450); Eosinophils Percent Auto 0.2 % (2-4); Hematocrit 40.3 % (36-46); Hemoglobin 13.2 g/dL (12.0-16.0); Lymphocytes Absolute Auto 1700 /uL (1100-4500); Lymphocytes Percent Auto 20.2 % (25-40); Mean Corpuscular HGB Conc 32.6 % (30-36); Mean Corpuscular Hemoglobin 28.1 PG (26-34); Mean Corpuscular Volume 86.2 fL (80-100); Monocytes Absolute Auto 600 /uL (0-900); Monocytes Percent Auto 7.1 % (3-14); Neutrophils Absolute Auto 6200 /uL (1500-7000); Neutrophils Percent Auto 71.9 % (50-75); Platelet Count 198 X10^3/uL (150-400); Red Blood Cell Count 4.68 X10^6/uL (4.0-5.2); Red Cell Distribution Width 15.6 % (11.6-14.8); White Blood Cell Count 8.6 X10^3/uL (4.5-11.0)
[2022-11-21] MEDS: ALBUTEROL/IPRATROPIUM 3 ML AMPUL INH (00:58)
[2022-11-21 01:02] LABS: Prothrombin Time 11.8 SECONDS (10.1-12.7)
[2022-11-21 01:04] LABS: D Dimer 712 ng/ml (<500)
[2022-11-21 01:05] LABS: PTT Partial Thromboplastin Tim 28 SECONDS (26-36)
[2022-11-21 01:07] LABS: Alanine Aminotransferase 40 IU/L (<35); Albumin 4.1 g/dL (3.5-5.0); Albumin Globulin Ratio 1.2 (1.0-2.8); Alkaline Phosphatase 102 U/L (38-126); Aspartate Aminotransferase 30 IU/L (14-36); Bilirubin Total 0.4 mg/dL (0.2-1.3); Blood Urea Nitrogen 11 mg/dL (7-17); Calcium 8.7 mg/dL (8.4-10.2); Carbon Dioxide 28 mmol/L (22-32); Chloride 99 mmol/L (98-107); Creatine Kinase 207 U/L (30-135); Estimated Glomerular Filt Rate > 60 mL/min (>60); Globulin 3.5 g/dL (1.7-4.1); Glucose 396 mg/dL (70-100); HEMOLYSIS < 15 (0-50); Lipase 25 U/L (23-300); Potassium 3.8 mmol/L (3.4-5.1); Sodium 138 mmol/L (137-145); Total Protein 7.6 g/dL (6.3-8.2)
[2022-11-21] MEDS: ALBUTEROL 2.5 MG/3 ML NEB (ADULT) 10 MG INH (01:09)
--- NOTE | 2022-11-21 01:16 | DI.CT.S_ITS ---
PROCEDURE: CT ANGIO CHEST PE PROTOCOL INDICATIONS: sob, hx fentanyl (smokes), prior covid November, asthma TECHNIQUE: After the administration of intravenous contrast, 2 mm thick sections acquired from the pulmonary apices to the posterior costophrenic angles. 3-dimensional maximum intensity projection (MIP) coronal and sagittal reformats were then acquired through the thorax. For radiation dose reduction, the following was used: automated exposure control, adjustment of mA and/or kV according to patient size. COMPARISON: [facility], CT, CT ANGIO CHEST PE PROTOCOL, 09/27/2022, 18:11. FINDINGS: Image quality: Excellent. Pulmonary arteries: Pulmonary arteries are normal in size, and demonstrate no intraluminal filling defects to suggest central pulmonary embolism. Lower Neck: No lymphadenopathy by size criteria. Thyroid: Visualized thyroid demonstrates no discrete nodules. Axillae: No lymphadenopathy by size criteria. Chest Wall: Unremarkable. Bones: Visualized osseous structures demonstrate no suspicious lesions. Lungs and Airways: There are bilateral patchy irregular areas of ground-glass opacity with mild septal thickening involving all lobes. These demonstrate a mild perihilar predominance. There is nodular thickening along the left major fissure measuring up to 0.7 cm on series 5, image 134 which appears unchanged. The trachea and central airways are patent. Pleura: No pneumothorax or pleural effusions. Heart: Heart size is normal. No pericardial effusion. Thoracic Vessels: The thoracic aorta is normal in size. Mediastinum and Teresa: Multiple enlarged mediastinal and hilar lymph nodes are redemonstrated. These include a prevascular anterior mediastinal node measuring up to 1.0 cm in short axis on series 4, image 36, slightly decreased from 1.3 cm previously. [employer] subcarinal node measures up to 1.4 cm, similar to the prior study. A customer engagement representative right hilar node measures up to 1.4 cm on series 4, image 70, similar in size compared to the prior study. Esophagus: No wall thickening. No hiatal hernia. Abdomen: Visualized upper abdomen demonstrates hypoattenuation of the liver compatible with fatty infiltration. IMPRESSION: 1. No evidence of pulmonary embolism. 2. Bilateral patchy ground-glass opacities with septal thickening. The findings are nonspecific but likely represent atypical pneumonia. The differential includes inflammatory processes such as hypersensitivity pneumonitis. 3. Enlarged mediastinal and bilateral hilar lymph nodes are nonspecific. Although the findings may be reactive secondary to infection, a neoplastic process cannot be excluded. Dictated by: Noah Baltazar M.D. on 11/21/2022 at 2:08 Approved by: Noah Baltazar M.D. on 11/21/2022 at 2:15
[2022-11-21 01:18] LABS: NT-proBNP (BNP-Adult 18+) 277 pg/mL (<125); Troponin I < 0.012 ng/mL (0.01-0.034)
[2022-11-21 01:36] LABS: Influenza A - CEPHEID Flu A NEGATIVE (NEGATIVE); Influenza B - CEPHEID Flu B NEGATIVE (NEGATIVE); Respiratory Syncytial Virus Negative (Negative)
[2022-11-21 01:53] LABS: COVID-19 CEPHEID 4-PLEX PCR Negative (Negative)
[2022-11-21 01:55] LABS: Creatine Kinase MB 4.24 ng/mL (<2.37)
== END 2022-11-21 02:37 | disposition left against medical advice (07) ==
PROVIDERS: Emergency Provider Emergency Medicine; PCP Physician Assistant Medical
DX: J45.901 Unspecified asthma with (acute) exacerbation (principal); R07.9 Chest pain, unspecified; Z86.16 Personal history of COVID-19; Z20.822 Contact with and (suspected) exposure to COVID-19
CPT/HCPCS: 0241U; 36415; 71045; 71275; 80053; 82550; 82553; 83690; 83880; 84484; 85025; 85379; 85610; 85730; 93005; 93010; 94640; 96374; 99284; J2930; J7613; Q9967

== ENCOUNTER 2023-06-11 19:44 | Emergency (ER) | payer OTHER, MEDICAID, SELFPAY ==
[2022-09-27 20:34] VITALS: BMI 48.0
[2022-09-28 09:00] VITALS: RESP 15; O2SAT 94
[2022-09-29 03:21] VITALS: PULSE 96
[2023-06-11] VITALS (19 sets, daily range): BP systolic 127–153; BP diastolic 70–86; PULSE 55–98; RESP 10–21; TEMP 36.8–37.3; O2SAT 79–97; BMI 44.9
--- NOTE | 2023-06-11 20:17 | DI.RAD.S_ITS ---
PROCEDURE: XR CHEST 1V INDICATIONS: suspected sepsis TECHNIQUE: One view of the chest was acquired. COMPARISON: [facility], CR, XR CHEST 1V, 11/21/2022, 0:49. FINDINGS: Surgical changes and devices: None. Lungs and pleura: Lungs are clear. No pleural effusions or pneumothorax. Mediastinum: Mediastinal contours appear normal. Heart size is normal. Bones and chest wall: No suspicious bony lesions. Overlying soft tissues appear unremarkable. IMPRESSION: 1. No acute cardiopulmonary disease. Dictated by: Noah Baltazar M.D. on 06/11/2023 at 20:55 Approved by: Noah Baltazar M.D. on 06/11/2023 at 21:01
[2023-06-11 20:45] LABS: Add Manual Diff / Slide Review NO; Basophils Absolute Auto 0 /uL (0-100); Basophils Percent Auto 0.4 % (0-2); Eosinophils Absolute Auto 100 /uL (0-450); Eosinophils Percent Auto 1.4 % (2-4); Hematocrit 46.3 % (36-46); Hemoglobin 15.5 g/dL (12.0-16.0); Lymphocytes Absolute Auto 1700 /uL (1100-4500); Lymphocytes Percent Auto 20.7 % (25-40); Mean Corpuscular HGB Conc 33.4 % (30-36); Mean Corpuscular Hemoglobin 28.2 PG (26-34); Mean Corpuscular Volume 84.5 fL (80-100); Monocytes Absolute Auto 400 /uL (0-900); Monocytes Percent Auto 4.5 % (3-14); Neutrophils Absolute Auto 6100 /uL (1500-7000); Platelet Count 225 X10^3/uL (150-400); Red Blood Cell Count 5.48 X10^6/uL (4.0-5.2); Red Cell Distribution Width 14.3 % (11.6-14.8); White Blood Cell Count 8.4 X10^3/uL (4.5-11.0)
[2023-06-11] MEDS: ONDANSETRON 4 MG/2 ML INJ IV (20:51)
[2023-06-11] MEDS: SODIUM CHLORIDE 0.9% 1,000 ML 1000 ML IV (20:51)
[2023-06-11 21:00] LABS: Lactate (Lactic Acid) 1.1 mmol/L (0.7-2.1)
[2023-06-11 21:01] LABS: Alanine Aminotransferase 31 IU/L (<35); Albumin 4.1 g/dL (3.5-5.0); Albumin Globulin Ratio 1.1 (1.0-2.8); Alkaline Phosphatase 91 U/L (38-126); Aspartate Aminotransferase 27 IU/L (14-36); BUN Creatinine Ratio 18.3 (6-22); Bilirubin Total 0.6 mg/dL (0.2-1.3); Blood Urea Nitrogen 11 mg/dL (7-17); Calcium 9.1 mg/dL (8.4-10.2); Carbon Dioxide 30 mmol/L (22-32); Chloride 99 mmol/L (98-107); Estimated Glomerular Filt Rate > 60 mL/min (>60); Globulin 3.9 g/dL (1.7-4.1); Glucose 179 mg/dL (70-100); HEMOLYSIS < 15 (0-50); Lipase 29 U/L (23-300); Potassium 4.4 mmol/L (3.4-5.1); Sodium 134 mmol/L (137-145)
[2023-06-11 21:06] LABS: INR 1.2 (0.9-1.3); Prothrombin Time 13.3 SECONDS (10.1-12.7)
[2023-06-11 21:08] LABS: PTT Partial Thromboplastin Tim 33 SECONDS (26-36)
[2023-06-11 21:17] LABS: Procalcitonin 0.05 ng/mL (<0.5)
--- NOTE | 2023-06-11 21:23 | ED.HA ---
HPI - Headache General Chief Complaint: Headache Stated Complaint: Headache Time Seen by Provider: 06/11/23 20:16 Mode of arrival: EMS History of Present Illness HPI Narrative: Patient 38-year-old female history of asthma with intubatation, presents today with headache and neck pain generalized not feeling well. She apparently was diagnosed with a bad tooth had a dental abscess on May 28 prescribed amoxicillin has not taken it as prescribed but has finished it. She reports that she was feeling well until yesterday. She is extremely sensitive to any sort of touch she has pain all over her body. Mom reports that she is not eating or drinking. She reports that she had it this morning to a restroom and her urine smelled extremely foul. She denies any significant tooth pain or facial swelling. Complaining of headache without nausea vomiting numbness tingling or weakness. Having neck pain but also having pain all over. Related Data Previous Rx's Medication Instructions Recorded albuterol sulfate 2.5 mg/3 mL 2.5 mg (3 mL) inhalation Q4H PRN 11/21/22 (0.083 %) solution for nebulization shortness of breath or wheezing #180 mL prednisone 50 mg tablet 50 mg PO DAILY #5 tabs 11/21/22 Allergies Allergy/AdvReac Type Severity Reaction Status Date / Time morphine [MORPHINE] Allergy Intermediate rash,hives Verified 09/27/22 16:37 baricitinib Allergy Mild Rash Verified 11/25/22 08:04 clindamycin [CLINDAMYCIN] Allergy Mild vomiting Verified 09/27/22 16:37 remdesivir Allergy Mild Rash Verified 11/25/22 08:04 Review of Systems Review of Systems ROS Unobtainable: All systems reviewed & are unremarkable except as noted in HPI and below Patient History Medical History Asthma exacerbation Bowel obstruction Surgical History Status post delivery (10/02/17) Social History household members: none Smoking Status: Current some day smoker alcohol intake: former Smoking Status: Current some day smoker alcohol intake frequency: holidays/special occasions only Substance Use Type: marijuana, opiates and other Exam Initial Vital Signs Initial Vital Signs: Vital Signs Temperature 98.3 F 06/11/23 19:45 Pulse Rate 84 06/11/23 19:45 Respiratory Rate 18 06/11/23 19:45 Blood Pressure 153/86 H 06/11/23 19:45 Pulse Oximetry 95 06/11/23 19:45 Oxygen Delivery Method Room Air 06/11/23 19:45 GENERAL: Alert 38-year-old female morbidly obese appears uncomfortable HEENT: Head atraumatic,EOMI, pupils reactive, face symmetric, moist mucous membranes MOUTH: Poor dentition tooth #16 is fractured, no obvious abscess no significant or obvious facial swelling CARDIOVASCULAR: Regular rate and rhythm without murmurs, rubs or gallops. RESPIRATORY: Breath sounds equal bilaterally, no wheezes rales or rhonchi. Managing own secretions ABDOMEN: Soft, nontender. Normoactive bowel sounds all 4 quadrants. No guarding or rebound. EXTREMITIES: Normal range of motion, no clubbing or edema. Neurovascularly intact NEUROLOGICAL: Alert and oriented x4. SKIN: Warm, dry, no laceration, no petechiae, no rashes or lesions. Course Orders Ordered: ED Orders 06/11/23 20:17 XR chest 1V Stat EKG-12 Lead Stat RT Consult Eval and Treat NOW 06/11/23 20:35 Complete Blood Count AUTO DIFF Stat Comprehensive Metabolic Panel Stat ETOH [Ethanol (ETOH)] Stat Lactate (Lactic Acid) Stat Lipase Stat PTT Partial Thromboplastin Isidoro Stat Procalcitonin Stat Prothrombin Time INR Stat 06/11/23 21:18 Blood Culture Stat 06/11/23 21:41 Respiratory Panel (Film Array) Stat 06/11/23 22:15 Urinalysis and Microscopic Stat Urine Drug Screen, Rapid Stat Discontinued Medications Albuterol (Albuterol 2.5 Mg/3 Ml Neb (Adult)) 2.5 mg INH NOW ONE Stop: 06/11/23 21:26 Albuterol (Albuterol 2.5 Mg/3 Ml Neb (Adult)) 5 mg INH NOW ONE Stop: 06/11/23 23:54 Last Admin: 06/12/23 00:20 Dose: 5 mg Documented By: ABHIJIT Sodium Chloride (Normal Saline 0.9%) 1,000 mls @ 1,000 mls/hr IV BOLUS ONE Stop: 06/11/23 21:16 Last Infusion: 06/11/23 22:59 Dose: 0 mls/hr Documented By: Admin: 06/11/23 20:51 Dose: 1,000 mls/hr Documented By: ELLE Ketorolac Tromethamine (Ketorolac 30 Mg/Ml Vial) 15 mg IV NOW ONE Stop: 06/11/23 21:22 Last Admin: 06/11/23 21:41 Dose: 15 mg Documented By: SUE Methylprednisolone (Methylprednisolone 125 Mg/2 Ml Vial) 125 mg IV NOW ONE Stop: 06/11/23 23:54 Last Admin: 06/12/23 00:00 Dose: 125 mg Documented By: ROSALEE Ondansetron HCl (Ondansetron 4 Mg/2 Ml Inj) 4 mg IV NOW PRN PRN Reason: Nausea And Vomiting Last Admin: 06/11/23 20:51 Dose: 4 mg Documented By: ELLE Ondansetron HCl (Ondansetron 4 Mg Odt) 4 mg SL NOW PRN PRN Reason: Nausea And Vomiting Vital Signs Vital signs: Vital Signs - 8 hr 06/11/23 21:18 06/11/23 21:30 06/11/23 21:30 Temperature Pulse Rate 73 83 Respiratory Rate 19 16 Blood Pressure 139/81 Pulse Oximetry 97 92 Oxygen Delivery Method Room Air Nasal Cannula Oxygen Flow Rate 4 06/11/23 21:28 06/11/23 21:46 06/11/23 21:45 Temperature 99.1 F Pulse Rate Respiratory Rate 10 L Blood Pressure 131/74 Pulse Oximetry 79 L 93 Oxygen Delivery Method Room Air Nasal Cannula Oxygen Flow Rate 3 06/11/23 21:45 06/11/23 22:00 06/11/23 22:00 Temperature Pulse Rate 55 L 77 Respiratory Rate 14 21 Blood Pressure 128/70 Pulse Oximetry 93 94 Oxygen Delivery Method Oxygen Flow Rate 06/11/23 22:15 06/11/23 22:15 06/11/23 22:30 Temperature Pulse Rate 76 Respiratory Rate 20 Blood Pressure 133/75 144/76 H Pulse Oximetry 92 Oxygen Delivery Method Oxygen Flow Rate 06/11/23 22:30 06/11/23 22:45 06/11/23 22:45 Temperature Pulse Rate 83 87 Respiratory Rate 20 20 Blood Pressure 128/72 Pulse Oximetry 94 94 Oxygen Delivery Method Oxygen Flow Rate 06/11/23 23:00 06/11/23 23:00 08/03/23 23:15 Temperature Pulse Rate 83 Respiratory Rate 20 Blood Pressure 131/73 127/72 Pulse Oximetry 92 Oxygen Delivery Method Oxygen Flow Rate 06/11/23 23:15 06/11/23 23:30 06/11/23 23:35 Temperature Pulse Rate 87 92 H 96 H Respiratory Rate 18 17 17 Blood Pressure Pulse Oximetry 92 88 L 89 L Oxygen Delivery Method Nasal Cannula Room Air Room Air Oxygen Flow Rate 1.5 06/11/23 23:40 06/11/23 23:45 06/11/23 23:50 Temperature Pulse Rate 98 H 92 H 92 H Respiratory Rate 17 15 12 Blood Pressure Pulse Oximetry 90 L 85 L 92 Oxygen Delivery Method Room Air Oxygen Flow Rate 06/11/23 23:55 06/12/23 00:00 06/12/23 00:05 Temperature Pulse Rate 86 86 82 Respiratory Rate 13 13 15 Blood Pressure Pulse Oximetry 88 L 91 90 L Oxygen Delivery Method Oxygen Flow Rate 06/12/23 00:10 06/12/23 00:15 06/12/23 00:20 Temperature Pulse Rate 83 88 84 Respiratory Rate 19 16 19 Blood Pressure Pulse Oximetry 91 91 91 Oxygen Delivery Method Oxygen Flow Rate 06/12/23 00:25 Temperature Pulse Rate 86 Respiratory Rate 15 Blood Pressure Pulse Oximetry 91 Oxygen Delivery Method Oxygen Flow Rate MDM - Headache Lab Data 06/11/23 20:35 06/11/23 20:35 Labs: Lab Results 06/11/23 06/11/23 06/11/23 Range/Units 20:35 20:35 20:35 WBC 8.4 (4.5-11.0) X10^3/uL RBC 5.48 H (4.0-5.2) X10^6/uL Hgb 15.5 (12.0-16.0) g/dL Hct 46.3 H (36-46) % MCV 84.5 (80-100) fL MCH 28.2 (26-34) PG MCHC 33.4 (30-36) % RDW 14.3 (11.6-14.8) % Plt Count 225 (150-400) X10^3/uL Neut % (Auto) 73.0 (50-75) % Lymph % (Auto) 20.7 L (25-40) % [place] % (Auto) 4.5 (3-14) % Eos % (Auto) 1.4 L (2-4) % Baso % (Auto) 0.4 (0-2) % Neut # (Auto) 6100 (9393-8838) /uL Lymph # (Auto) 1700 (5632-5129) /uL [place] # (Auto) 400 (0-900) /uL Eos # (Auto) 100 (0-450) /uL Baso # (Auto) 0 (0-100) /uL PT 13.3 H (10.1-12.7) SECONDS INR 1.2 (0.9-1.3) APTT 33 (26-36) SECONDS Sodium 134 L (137-145) mmol/L Potassium 4.4 (3.4-5.1) mmol/L Chloride 99 (98-107) mmol/L Carbon Dioxide 30 (22-32) mmol/L BUN 11 (7-17) mg/dL Creatinine 0.60 (0.52-1.04) mg/dL Estimated GFR > 60 (>60) mL/min BUN/Creatinine Ratio 18.3 (6-22) Glucose 179 H (70-100) mg/dL Lactate (0.7-2.1) mmol/L Calcium 9.1 (8.4-10.2) mg/dL Total Bilirubin 0.6 (0.2-1.3) mg/dL AST 27 (14-36) IU/L ALT 31 (<35) IU/L Alkaline Phosphatase 91 (38-126) U/L Total Protein 8.0 (6.3-8.2) g/dL Albumin 4.1 (3.5-5.0) g/dL Globulin 3.9 (1.7-4.1) g/dL Albumin/Globulin Ratio 1.1 (1.0-2.8) Lipase 29 (23-300) U/L Procalcitonin 0.05 (<0.5) ng/mL Urine Color Urine Appearance Urine pH (4.5-8.0) Ur Specific [place] (1.000-1.035) Urine Protein (Negative) Urine Glucose (UA) (Negative) g/dL Urine Ketones (NEGATIVE) Urine Occult Blood (Negative) Urine Nitrate (Negative) Urine Bilirubin (NEGATIVE) Urine Urobilinogen (0.2) E.U./dL Ur Leukocyte Esterase (NEGATIVE) Urine RBC (0-5/HPF) Urine WBC (0-5/HPF) Ur Squamous Epith Cells (0-5/HPF) Urine Bacteria (None) Urine Mucus (Negative) Ur Culture Indicated? U Opiates 300ng/mL cut (Negative) Ur Oxycodone Screen (Negative) Urine Methadone Screen (Negative) Ur Barbiturates Screen (Negative) U Tricyclic Antidepress (Negative) Ur Phencyclidine Scrn (Negative) Ur Amphetamines Screen (Negative) U Methamphetamines Scrn (Negative) Ur MDMA Scrn (Ecstasy) (Negative) U Benzodiazepines Scrn (Negative) Urine Cocaine Screen (Negative) U Marijuana (THC) Screen (Negative) Ethyl Alcohol ( - 10) mg/dL Chlamy pneumoniae PCR (Not Detect) Adenovirus (PCR) (Not Detect) B. pertussis DNA (PCR) (Not Detecte) B.parapertussis DNA PCR (Not Detecte) Coronavirus OC43 (PCR) (Not Detect) Coronavirus HKU1 (PCR) (Not Detect) Coronavirus 229E (PCR) (Not Detect) SARS-CoV-2 (PCR) (Not Detecte) Coronavirus NL63 (PCR) (Not Detect) Human Metapneumovir PCR (Not Detect) Influenza Type A (PCR) (Not Detect) Influenza Type B (PCR) (Not Detect) M. pneumoniae (PCR) (Not Detect) Parainfluenza 1 (PCR) (Not Detect) Parainfluenza 2 (PCR) (Not Detect) Parainfluenza 3 (PCR) (Not Detect) Parainfluenza 4 (PCR) (Not Detect) RSV (PCR) (Not Detect) Entero/Rhino (PCR) (Not Detect) 06/11/23 06/11/23 06/11/23 Range/Units 20:35 20:35 21:41 WBC (4.5-11.0) X10^3/uL RBC (4.0-5.2) X10^6/uL Hgb (12.0-16.0) g/dL Hct (36-46) % MCV (80-100) fL MCH (26-34) PG MCHC (30-36) % RDW (11.6-14.8) % Plt Count (150-400) X10^3/uL Neut % (Auto) (50-75) % Lymph % (Auto) (25-40) % [place] % (Auto) (3-14) % Eos % (Auto) (2-4) % Baso % (Auto) (0-2) % Neut # (Auto) (1171-8513) /uL Lymph # (Auto) (7435-0020) /uL [place] # (Auto) (0-900) /uL Eos # (Auto) (0-450) /uL Baso # (Auto) (0-100) /uL PT (10.1-12.7) SECONDS INR (0.9-1.3) APTT (26-36) SECONDS Sodium (137-145) mmol/L Potassium (3.4-5.1) mmol/L Chloride (98-107) mmol/L Carbon Dioxide (22-32) mmol/L BUN (7-17) mg/dL Creatinine (0.52-1.04) mg/dL Estimated GFR (>60) mL/min BUN/Creatinine Ratio (6-22) Glucose (70-100) mg/dL Lactate 1.1 (0.7-2.1) mmol/L Calcium (8.4-10.2) mg/dL Total Bilirubin (0.2-1.3) mg/dL AST (14-36) IU/L ALT (<35) IU/L Alkaline Phosphatase (38-126) U/L Total Protein (6.3-8.2) g/dL Albumin (3.5-5.0) g/dL Globulin (1.7-4.1) g/dL Albumin/Globulin Ratio (1.0-2.8) Lipase (23-300) U/L Procalcitonin (<0.5) ng/mL Urine Color Urine Appearance Urine pH (4.5-8.0) Ur Specific [place] (1.000-1.035) Urine Protein (Negative) Urine Glucose (UA) (Negative) g/dL Urine Ketones (NEGATIVE) Urine Occult Blood (Negative) Urine Nitrate (Negative) Urine Bilirubin (NEGATIVE) Urine Urobilinogen (0.2) E.U./dL Ur Leukocyte Esterase (NEGATIVE) Urine RBC (0-5/HPF) Urine WBC (0-5/HPF) Ur Squamous Epith Cells (0-5/HPF) Urine Bacteria (None) Urine Mucus (Negative) Ur Culture Indicated? U Opiates 300ng/mL cut (Negative) Ur Oxycodone Screen (Negative) Urine Methadone Screen (Negative) Ur Barbiturates Screen (Negative) U Tricyclic Antidepress (Negative) Ur Phencyclidine Scrn (Negative) Ur Amphetamines Screen (Negative) U Methamphetamines Scrn (Negative) Ur MDMA Scrn (Ecstasy) (Negative) U Benzodiazepines Scrn (Negative) Urine Cocaine Screen (Negative) U Marijuana (THC) Screen (Negative) Ethyl Alcohol < 10 ( - 10) mg/dL Chlamy pneumoniae PCR Not detected (Not Detect) Adenovirus (PCR) Detected H (Not Detect) B. pertussis DNA (PCR) Not detected (Not Detecte) B.parapertussis DNA PCR Not detected (Not Detecte) Coronavirus OC43 (PCR) Not detected (Not Detect) Coronavirus HKU1 (PCR) Not detected (Not Detect) Coronavirus 229E (PCR) Not detected (Not Detect) SARS-CoV-2 (PCR) Not detected (Not Detecte) Coronavirus NL63 (PCR) Not detected (Not Detect) Human Metapneumovir PCR Not detected (Not Detect) Influenza Type A (PCR) Not detected (Not Detect) Influenza Type B (PCR) Not detected (Not Detect) M. pneumoniae (PCR) Not detected (Not Detect) Parainfluenza 1 (PCR) Not detected (Not Detect) Parainfluenza 2 (PCR) Not detected (Not Detect) Parainfluenza 3 (PCR) Not detected (Not Detect) Parainfluenza 4 (PCR) Not detected (Not Detect) RSV (PCR) Not detected (Not Detect) Entero/Rhino (PCR) Not detected (Not Detect) 06/11/23 06/11/23 Range/Units 22:15 22:15 WBC (4.5-11.0) X10^3/uL RBC (4.0-5.2) X10^6/uL Hgb (12.0-16.0) g/dL Hct (36-46) % MCV (80-100) fL MCH (26-34) PG MCHC (30-36) % RDW (11.6-14.8) % Plt Count (150-400) X10^3/uL Neut % (Auto) (50-75) % Lymph % (Auto) (25-40) % [place] % (Auto) (3-14) % Eos % (Auto) (2-4) % Baso % (Auto) (0-2) % Neut # (Auto) (5422-3537) /uL Lymph # (Auto) (4767-2000) /uL [place] # (Auto) (0-900) /uL Eos # (Auto) (0-450) /uL Baso # (Auto) (0-100) /uL PT (10.1-12.7) SECONDS INR (0.9-1.3) APTT (26-36) SECONDS Sodium (137-145) mmol/L Potassium (3.4-5.1) mmol/L Chloride (98-107) mmol/L Carbon Dioxide (22-32) mmol/L BUN (7-17) mg/dL Creatinine (0.52-1.04) mg/dL Estimated GFR (>60) mL/min BUN/Creatinine Ratio (6-22) Glucose (70-100) mg/dL Lactate (0.7-2.1) mmol/L Calcium (8.4-10.2) mg/dL Total Bilirubin (0.2-1.3) mg/dL AST (14-36) IU/L ALT (<35) IU/L Alkaline Phosphatase (38-126) U/L Total Protein (6.3-8.2) g/dL Albumin (3.5-5.0) g/dL Globulin (1.7-4.1) g/dL Albumin/Globulin Ratio (1.0-2.8) Lipase (23-300) U/L Procalcitonin (<0.5) ng/mL Urine Color Yellow Urine Appearance Clear Urine pH 7.5 (4.5-8.0) Ur Specific [place] 1.020 (1.000-1.035) Urine Protein Trace H (Negative) Urine Glucose (UA) Negative (Negative) g/dL Urine Ketones 2+ H (NEGATIVE) Urine Occult Blood Negative (Negative) Urine Nitrate Negative (Negative) Urine Bilirubin Negative (NEGATIVE) Urine Urobilinogen 1.0 (0.2) E.U./dL Ur Leukocyte Esterase Negative (NEGATIVE) Urine RBC None seen (0-5/HPF) Urine WBC None seen (0-5/HPF) Ur Squamous Epith Cells 1-5 /hpf (0-5/HPF) Urine Bacteria None seen (None) Urine Mucus 2+ H (Negative) Ur Culture Indicated? Cult not indicated U Opiates 300ng/mL cut Negative (Negative) Ur Oxycodone Screen Negative (Negative) Urine Methadone Screen Negative (Negative) Ur Barbiturates Screen Negative (Negative) U Tricyclic Antidepress Negative (Negative) Ur Phencyclidine Scrn Negative (Negative) Ur Amphetamines Screen Positive H (Negative) U Methamphetamines Scrn Positive H (Negative) Ur MDMA Scrn (Ecstasy) Negative (Negative) U Benzodiazepines Scrn Negative (Negative) Urine Cocaine Screen Negative (Negative) U Marijuana (THC) Screen Negative (Negative) Ethyl Alcohol ( - 10) mg/dL Chlamy pneumoniae PCR (Not Detect) Adenovirus (PCR) (Not Detect) B. pertussis DNA (PCR) (Not Detecte) B.parapertussis DNA PCR (Not Detecte) Coronavirus OC43 (PCR) (Not Detect) Coronavirus HKU1 (PCR) (Not Detect) Coronavirus 229E (PCR) (Not Detect) SARS-CoV-2 (PCR) (Not Detecte) Coronavirus NL63 (PCR) (Not Detect) Human Metapneumovir PCR (Not Detect) Influenza Type A (PCR) (Not Detect) Influenza Type B (PCR) (Not Detect) M. pneumoniae (PCR) (Not Detect) Parainfluenza 1 (PCR) (Not Detect) Parainfluenza 2 (PCR) (Not Detect) Parainfluenza 3 (PCR) (Not Detect) Parainfluenza 4 (PCR) (Not Detect) RSV (PCR) (Not Detect) Entero/Rhino (PCR) (Not Detect) Point of Care Testing Test Results Negative Imaging Data Chest x-ray: Radiologist's Impression: PROCEDURE:? XR CHEST 1V ? INDICATIONS:? suspected sepsis ? TECHNIQUE:? One view of the chest was acquired.? ? COMPARISON:? [facility], CR, XR CHEST 1V, 11/21/2022, 0:49. ? FINDINGS:? ? Surgical changes and devices:? None.? ? Lungs and pleura:? Lungs are clear.? No pleural effusions or pneumothorax.? ? Mediastinum:? Mediastinal contours appear normal.? Heart size is normal.? ? Bones and chest wall:? No suspicious bony lesions.? Overlying soft tissues appear unremarkable.? ? IMPRESSION:? ? 1.? No acute cardiopulmonary disease. ? ? ? Dictated by: Noah Baltazar M.D. on 06/11/2023 at 20:55 ? ECG Data Interpretation: Normal sinus rhythm rate 85 NH interval 30 do QRS [address] changes no T-wave inversions similar to priors MDM Narrative Medical decision making narrative: Patient complaining of all-over pain extremely sensitive to skin touching diaphoretic high concern for withdrawal. Drug screen is positive for amphetamine and methamphetamine. Patient also reports that she takes 30-50 hits daily of fentanyl. She only has a half of a hit fentanyl today because she just did not feel right. She is positive for adenovirus as well. Chest x-ray is negative blood work is overall reassuring no evidence of sepsis. Attempted to discharge patient however O2 dropped into the mid 80s. Patient reports that her oxygen is normally in the 80s. She is obese she has a history of asthma previously been intubated. She reports that when she smokes a lot fentanyl her oxygen is a lot lower. We had a conversation I explained to her that hypoxia is deadly so is fentanyl. She understands completely. She is waiting for her ride she would like to go home. She feels better when she is sitting up. She is offered Solu-Medrol more albuterol which she accepts. She really does not have any difficulty speaking she has no wheezing she is no evidence of respiratory distress. For patient is not wanting any further workup. She is feeling better for Toradol. She is encouraged to stay and let us monitor her. At this time she refuses. She is clinically sober. Her mother is at bedside. Differential diagnosis includes morbid obesity with sequela, opiate abuse, asthma exacerbation, acute coronary syndrome, pulmonary embolism, pneumonia, pneumothorax, viral syndrome Discharge Plan Departure Patient Disposition: Left Against Medical Advice Clinical Impression: Upper respiratory infection, Opiate addiction Activity Restrictions/Additional Instructions: At this time you are leaving against medical advice. You were offered to stay at least be monitored in the hospital. Her oxygen is not always high enough. Please use your albuterol inhaler regularly. You may return to the ER at any time if you should feel worse. *You have been diagnosed with adenovirus *What to do: You may require more albuterol than normal however your not having respiratory symptoms at this time. Expect to have fever chills and body aches. Please stay hydrated. Eat as tolerated. Recommend Gatorade or Gatorade product *Continue to take medications as directed Motrin 600 mg every 6 hours if needed for [id number] pain or fever Tylenol 650 mg if very 4-6 hours if needed for [id number] pain or fever *Follow up with your primary care provider in 2-3 days or call [phone] *Return to ER if you should have increasing difficulty breathing, worsening headache, persistent vomiting, or any new, worsening or concerning symptoms Prescriptions: No Action prednisone 50 mg tablet 50 mg PO DAILY Qty: 5 0RF albuterol sulfate 2.5 mg /3 mL (0.083 %) solution for nebulization 2.5 mg inhalation Q4H PRN (Reason: shortness of breath or wheezing) Qty: 180 0RF Stand Alone Forms: Against Medical Advice
[2023-06-11 21:24] LABS: Ethanol (ETOH) < 10 mg/dL
[2023-06-11] MEDS: KETOROLAC 30 MG/ML VIAL 15 MG IV (21:41)
[2023-06-11 22:41] LABS: Appearance Urine UA CLEAR; Bilirubin Urine UA NEGATIVE (NEGATIVE); Color Urine UA YELLOW; Glucose Urine UA NEGATIVE (Negative); Ketones Urine UA 2+ (NEGATIVE); Leukocyte Esterase Urine UA NEGATIVE (NEGATIVE); Nitrite Urine UA NEGATIVE (Negative); Occult Blood Urine UA NEGATIVE (Negative); Protein Urine UA TRACE (Negative); pH Urine UA 7.5 (4.5-8.0)
[2023-06-11 22:43] LABS: UR Morphine/Opiate cutoff 300 Negative (Negative); Ur Creatinine Normal (Normal); Ur Specific Gravity Normal (Normal); Urine Amphetamines Positive (Negative); Urine Barbiturates Negative (Negative); Urine Benzodiazepines Negative (Negative); Urine Cocaine Negative (Negative); Urine MDMA Negative (Negative); Urine Methadone Negative (Negative); Urine Methamphetamines Positive (Negative); Urine Oxycodone Negative (Negative); Urine Phencyclidine Negative (Negative); Urine Tetrahydrocannabinol Negative (Negative); Urine Tricyclic Antidepressant Negative (Negative); Urine pH Normal (Normal)
[2023-06-11 22:54] LABS: Bacteria Urine None Seen; Culture Indicated Urine Cult Not Indicated; Mucus Urine 2+ (Negative); RBC Urine None Seen (0-5/HPF); Squamous Epithelial Cell Urine 1-5 /HPF (0-5/HPF); WBC Urine None Seen (0-5/HPF)
[2023-06-11 22:55] LABS: Adenovirus Detected (Not Detect); B. parapertussis Not Detected (Not Detecte); Bordetella pertussis Not Detected (Not Detecte); Chlamydophila pneumoniae Not Detected (Not Detect); Coronavirus 229E Not Detected (Not Detect); Coronavirus HKU1 Not Detected (Not Detect); Coronavirus NL 63 Not Detected (Not Detect); Coronavirus OC43 Not Detected (Not Detect); Human Metapneumovirus Not Detected (Not Detect); Human Rhinovirus/Enterovirus Not Detected (Not Detect); Influenza A Not Detected (Not Detect); Influenza B Not Detected (Not Detect); Mycoplasma pneumoniae Not Detected (Not Detect); Parainfluenza Virus 1 Not Detected (Not Detect); Parainfluenza Virus 2 Not Detected (Not Detect); Parainfluenza Virus 3 Not Detected (Not Detect); Parainfluenza Virus 4 Not Detected (Not Detect); Respiratory Syncytial Virus Not Detected (Not Detect); SARS- CoV-2 Not Detected (Not Detecte)
--- NOTE | 2023-06-11 23:44 | PC.NURSE ---
Patient was repositioned into a wheelchair, satting 88% on room air. Pt encouraged to take deep breaths and cough, pt refuses to cough because it hurts her head too much. Pt stated my oxygen is usually in the mid 80's. I smoke fentanyl all day. She states she does not use a cpap at home but has multiple breathing treatments. RT at bedside to evaluate. Pt did tell us that she usually takes 30x hits of fentanyl on a mediocre day, and today only had half of a hit of fentanyl early this morning.
[2023-06-12] VITALS: PULSE 86; RESP 13; O2SAT 91
[2023-06-12] MEDS: methylPREDNISolone 125 MG/2 ML VIAL IV
[2023-06-12 00:05] VITALS: PULSE 82; RESP 15; O2SAT 90
[2023-06-12 00:10] VITALS: PULSE 83; RESP 19; O2SAT 91
[2023-06-12 00:15] VITALS: PULSE 88; RESP 16; O2SAT 91
[2023-06-12 00:20] VITALS: PULSE 84; RESP 19; O2SAT 91
[2023-06-12] MEDS: ALBUTEROL 2.5 MG/3 ML NEB (ADULT) 5 MG INH (00:20)
[2023-06-12 00:25] VITALS: PULSE 86; RESP 15; O2SAT 91
== END 2023-06-12 00:30 | disposition left against medical advice (07) ==
PROVIDERS: Emergency Provider Emergency Medicine; PCP Physician Assistant Medical
DX: J06.9 Acute upper respiratory infection, unspecified (principal); M54.2 Cervicalgia; F11.20 Opioid dependence, uncomplicated; B34.0 Adenovirus infection, unspecified; Z20.822 Contact with and (suspected) exposure to COVID-19
CPT/HCPCS: 36415; 51701; 71045; 80053; 80305; 80320; 81001; 81025; 83605; 83690; 84145; 85025; 85610; 85730; 87040; 87633; 93005; 93010; 94640; 96361; 96374; 96375; 99285; J1885; J2405; J2930; J7613

== ENCOUNTER 2024-04-23 05:54 | Inpatient (IN) | payer OTHER, MEDICAID, SELFPAY ==
[2022-09-27 20:34] VITALS: BMI 48.0
[2022-09-28 09:00] VITALS: RESP 15; O2SAT 94
[2022-09-29 03:21] VITALS: PULSE 96
[2024-04-23] VITALS (52 sets, daily range): BP systolic 108–154; BP diastolic 53–79; PULSE 79–111; RESP 13–39; TEMP 36.2–37.1; O2SAT 88–95; BMI 49.3
[2024-04-23] MEDS: ALBUTEROL 2.5 MG/3 ML NEB (ADULT) 5 MG INH ×2 (06:08→06:47)
--- NOTE | 2024-04-23 06:47 | EKG_ITS ---
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
--- NOTE | 2024-04-23 06:47 | DI.RAD.S_ITS ---
PROCEDURE: XR CHEST 1V INDICATIONS: HYPOXIA, WHEEZING TECHNIQUE: One view of the chest was acquired. COMPARISON: [facility], CR, XR CHEST 1V, 06/11/2023, 20:16. [facility], CR, XR CHEST 1V, 11/21/2022, 0:49. FINDINGS: Surgical changes and devices: None. Lungs and pleura: Moderate left perihilar opacity. There is also blurring of the right heart border in the infrahilar region, and in the lingula. Mediastinum: Heart size is at the upper limit of normal. Bones and chest wall: Degenerative changes. IMPRESSION: Suspected airspace opacities within the left perihilar region and middle lobe and lingula. These are probably infectious or inflammatory, however, suggest surveillance imaging to ensure resolution Dictated by: Johnson Shore M.D. on 04/23/2024 at 7:18 Approved by: Johnson Shore M.D. on 04/23/2024 at 7:19
[2024-04-23] MEDS: DEXAMETHASONE 10 MG/ML VIAL IV (07:00)
[2024-04-23] MEDS: SODIUM CHLORIDE 0.9% 1,000 ML 1000 ML IV (07:00)
--- NOTE | 2024-04-23 07:00 | RT ---
0700 -post treatment, placed pt on 8L oxymask, noting SpO2 at 89% sustained. Improved breath sounds post breathing treatments. Report given to daytime RT.
[2024-04-23] MEDS: cefTRIAXone 2,000 MG in SODIUM CHLORIDE 0.9% 100 ML 200 MG IV (07:04)
--- NOTE | 2024-04-23 07:11 | ED_ITS ---
HPI - Asthma General Chief Complaint: Asthma Stated Complaint: Asthma exacerbation Time Seen by Provider: 04/23/24 06:44 Source: patient and EMS Mode of arrival: EMS History of Present Illness HPI Narrative: 39-year-old female presents by EMS from home for asthma exacerbation. Not improved with home nebulizer. EMS apparently administered DuoNebs, Solu-Medrol EN route. Patient noted to be tachycardic and hypoxic on arrival. She stated that she felt febrile during transport. She states that this feels different from asthma and feels more similar to when she had pneumonia. Related Data Previous Rx's Medication Instructions Recorded albuterol sulfate 2.5 mg/3 mL 2.5 mg (3 mL) inhalation Q4H PRN 11/21/22 (0.083 %) solution for nebulization shortness of breath or wheezing #180 mL prednisone 50 mg tablet 50 mg PO DAILY #5 tabs 11/21/22 Allergies Allergy/AdvReac Type Severity Reaction Status Date / Time morphine [MORPHINE] Allergy Intermediate rash,hives Verified 09/27/22 16:37 baricitinib Allergy Mild Rash Verified 11/25/22 08:04 clindamycin [CLINDAMYCIN] Allergy Mild vomiting Verified 09/27/22 16:37 remdesivir Allergy Mild Rash Verified 11/25/22 08:04 Patient History Medical History Asthma exacerbation Bowel obstruction Surgical History Status post delivery (10/02/17) Social History household members: none Smoking Status: Current some day smoker alcohol intake: former Smoking Status: Current some day smoker alcohol intake frequency: holidays/special occasions only Substance Use Type: marijuana, opiates and other Exam Initial Vital Signs Initial Vital Signs: Vital Signs Temperature 98.4 F 04/23/24 06:00 Pulse Rate 104 H 04/23/24 06:00 Respiratory Rate 34 H 04/23/24 06:00 Pulse Oximetry 89 L 04/23/24 06:00 Course Orders Ordered: ED Orders 04/23/24 06:00 CBC Auto Diff [Complete Blood Count AUTO DIFF] Stat 04/23/24 06:47 Chest [XR chest 1V] Stat EKG-12 Lead Stat 04/23/24 06:52 CMP [Comprehensive Metabolic Panel] Stat Lactate (Lactic Acid) Stat MAG [Magnesium] Stat Procalcitonin Stat 04/23/24 07:05 Blood Culture Stat 04/23/24 07:22 CT angio chest PE protocol Stat 04/23/24 07:29 Respiratory Panel (Film Array) Stat 04/23/24 08:43 Urine Drug Screen, Rapid Stat Discontinued Medications Albuterol (Albuterol 2.5 Mg/3 Ml Neb (Adult)) 5 mg INH NOW ONE Stop: 04/23/24 06:09 Last Admin: 04/23/24 06:08 Dose: 5 mg Documented By: CONNER Albuterol (Albuterol 2.5 Mg/3 Ml Neb (Adult)) 5 mg INH NOW ONE Stop: 04/23/24 06:48 Last Admin: 04/23/24 06:47 Dose: 5 mg Documented By: CONNER Dexamethasone (Dexamethasone 10 Mg/Ml Vial) 10 mg IV NOW ONE Stop: 04/23/24 06:47 Last Admin: 04/23/24 07:00 Dose: 10 mg Documented By: ROSALEE Sodium Chloride (Normal Saline 0.9%) 1,000 mls @ 1,000 mls/hr IV BOLUS ONE Stop: 04/23/24 07:45 Last Admin: 04/23/24 07:00 Dose: 1,000 mls/hr Documented By: ROSALEE Ceftriaxone Sodium 2,000 mg/ (Sodium Chloride) 100 mls @ 200 mls/hr IV NOW ONE Stop: 04/23/24 06:47 Last Admin: 04/23/24 07:04 Dose: 200 mls/hr Documented By: ROSALEE Azithromycin 500 mg/ Dextrose 250 mls @ 250 mls/hr IV NOW ONE Stop: 04/23/24 06:47 Vital Signs Vital signs: Vital Signs - 8 hr 04/23/24 06:00 04/23/24 06:03 04/23/24 06:08 Temperature 98.4 F 98.4 F Pulse Rate 104 H 105 H 104 H Respiratory Rate 34 H 28 H 34 H Blood Pressure 118/75 Pulse Oximetry 89 L 88 L 89 L Oxygen Delivery Method Aerosol Mask Nasal Cannula Oxygen Flow Rate 6 Fraction of Inspired Oxygen 44 04/23/24 06:30 04/23/24 06:33 04/23/24 06:33 Temperature Pulse Rate 109 H 111 H Respiratory Rate 28 H 31 H Blood Pressure 111/56 L Pulse Oximetry 93 93 Oxygen Delivery Method Aerosol Mask Oxygen Flow Rate 10 Fraction of Inspired Oxygen 04/23/24 06:47 04/23/24 07:00 04/23/24 07:06 Temperature Pulse Rate 109 H 110 H Respiratory Rate 28 H 28 H Blood Pressure 134/67 Pulse Oximetry 89 L Oxygen Delivery Method Nasal Cannula Oximask Oxygen Flow Rate 6 10 Fraction of Inspired Oxygen 44 04/23/24 07:06 04/23/24 07:30 04/23/24 07:30 Temperature Pulse Rate 111 H 105 H Respiratory Rate 23 25 H Blood Pressure 135/74 Pulse Oximetry 88 L 88 L Oxygen Delivery Method Oxygen Flow Rate Fraction of Inspired Oxygen MDM - Asthma Differential Diagnosis Differential diagnosis: Likely Acute exacerbation, Status asthmaticus and Acute asthmatic bronchitis Lab Data 04/23/24 06:00 04/23/24 06:52 Labs: Lab Results 04/23/24 04/23/24 04/23/24 Range/Units 06:00 06:52 07:29 WBC 18.3 H (4.5-11.0) X10^3/uL RBC 4.80 (4.0-5.2) X10^6/uL Hgb 13.2 (12.0-16.0) g/dL Hct 41.2 (36-46) % MCV 85.9 (80-100) fL MCH 27.4 (26-34) PG MCHC 31.9 (30-36) % RDW 15.3 H (11.6-14.8) % Plt Count 207 (150-400) X10^3/uL Neut % (Auto) 81.3 H (50-75) % Lymph % (Auto) 9.5 L (25-40) % Gibson % (Auto) 7.7 (3-14) % Eos % (Auto) 1.3 L (2-4) % Baso % (Auto) 0.2 (0-2) % Neut # (Auto) 06858 H (9358-8972) /uL Lymph # (Auto) 1700 (5552-9973) /uL Gibson # (Auto) 1400 H (0-900) /uL Eos # (Auto) 200 (0-450) /uL Baso # (Auto) 0 (0-100) /uL Sodium 136 L (137-145) mmol/L Potassium 4.4 (3.4-5.1) mmol/L Chloride 104 (98-107) mmol/L Carbon Dioxide 30 (22-32) mmol/L BUN 10 (7-17) mg/dL Creatinine 0.70 (0.52-1.04) mg/dL Estimated GFR > 60 (>60) mL/min BUN/Creatinine Ratio 14.3 (6-22) Glucose 177 H (70-100) mg/dL Lactate 1.2 (0.7-2.1) mmol/L Calcium 8.4 (8.4-10.2) mg/dL Magnesium 1.9 (1.6-2.3) mg/dL Total Bilirubin 0.8 (0.2-1.3) mg/dL AST 50 H (14-36) IU/L ALT 35 H (<35) IU/L Alkaline Phosphatase 92 (38-126) U/L Total Protein 7.1 (6.3-8.2) g/dL Albumin 4.0 (3.5-5.0) g/dL Globulin 3.1 (1.7-4.1) g/dL Albumin/Globulin Ratio 1.3 (1.0-2.8) Procalcitonin 0.080 (<0.5) ng/mL U Opiates 300ng/mL cut (Negative) Ur Oxycodone Screen (Negative) Urine Methadone Screen (Negative) Ur Barbiturates Screen (Negative) U Tricyclic Antidepress (Negative) Ur Phencyclidine Scrn (Negative) Ur Amphetamines Screen (Negative) U Methamphetamines Scrn (Negative) Ur MDMA Scrn (Ecstasy) (Negative) U Benzodiazepines Scrn (Negative) Urine Cocaine Screen (Negative) U Marijuana (THC) Screen (Negative) Urine pH (Normal) Urine Specific [place] (Normal) Ur Creatinine (Normal) Chlamy pneumoniae PCR Not detected (Not Detect) Adenovirus (PCR) Not detected (Not Detect) B.parapertussis DNA PCR Not detected (Not Detecte) Coronavirus OC43 (PCR) Not detected (Not Detect) Coronavirus HKU1 (PCR) Not detected (Not Detect) Coronavirus 229E (PCR) Not detected (Not Detect) SARS-CoV-2 (PCR) Not detected (Not Detecte) Coronavirus NL63 (PCR) Not detected (Not Detect) Human Metapneumovir PCR Not detected (Not Detect) Influenza Type A (PCR) Not detected (Not Detect) Influenza Type B (PCR) Not detected (Not Detect) M. pneumoniae (PCR) Not detected (Not Detect) Parainfluenza 1 (PCR) Not detected (Not Detect) Parainfluenza 2 (PCR) Not detected (Not Detect) Parainfluenza 3 (PCR) Not detected (Not Detect) Parainfluenza 4 (PCR) Not detected (Not Detect) RSV (PCR) Not detected (Not Detect) Entero/Rhino (PCR) Not detected (Not Detect) 04/23/24 Range/Units 08:43 WBC (4.5-11.0) X10^3/uL RBC (4.0-5.2) X10^6/uL Hgb (12.0-16.0) g/dL Hct (36-46) % MCV (80-100) fL MCH (26-34) PG MCHC (30-36) % RDW (11.6-14.8) % Plt Count (150-400) X10^3/uL Neut % (Auto) (50-75) % Lymph % (Auto) (25-40) % Gibson % (Auto) (3-14) % Eos % (Auto) (2-4) % Baso % (Auto) (0-2) % Neut # (Auto) (3993-3776) /uL Lymph # (Auto) (2526-2092) /uL Gibson # (Auto) (0-900) /uL Eos # (Auto) (0-450) /uL Baso # (Auto) (0-100) /uL Sodium (137-145) mmol/L Potassium (3.4-5.1) mmol/L Chloride (98-107) mmol/L Carbon Dioxide (22-32) mmol/L BUN (7-17) mg/dL Creatinine (0.52-1.04) mg/dL Estimated GFR (>60) mL/min BUN/Creatinine Ratio (6-22) Glucose (70-100) mg/dL Lactate (0.7-2.1) mmol/L Calcium (8.4-10.2) mg/dL Magnesium (1.6-2.3) mg/dL Total Bilirubin (0.2-1.3) mg/dL AST (14-36) IU/L ALT (<35) IU/L Alkaline Phosphatase (38-126) U/L Total Protein (6.3-8.2) g/dL Albumin (3.5-5.0) g/dL Globulin (1.7-4.1) g/dL Albumin/Globulin Ratio (1.0-2.8) Procalcitonin (<0.5) ng/mL U Opiates 300ng/mL cut Negative (Negative) Ur Oxycodone Screen Negative (Negative) Urine Methadone Screen Negative (Negative) Ur Barbiturates Screen Negative (Negative) U Tricyclic Antidepress Negative (Negative) Ur Phencyclidine Scrn Negative (Negative) Ur Amphetamines Screen Positive H (Negative) U Methamphetamines Scrn Positive H (Negative) Ur MDMA Scrn (Ecstasy) Negative (Negative) U Benzodiazepines Scrn Negative (Negative) Urine Cocaine Screen Negative (Negative) U Marijuana (THC) Screen Negative (Negative) Urine pH Normal (Normal) Urine Specific [place] Normal (Normal) Ur Creatinine Normal (Normal) Chlamy pneumoniae PCR (Not Detect) Adenovirus (PCR) (Not Detect) B.parapertussis DNA PCR (Not Detecte) Coronavirus OC43 (PCR) (Not Detect) Coronavirus HKU1 (PCR) (Not Detect) Coronavirus 229E (PCR) (Not Detect) SARS-CoV-2 (PCR) (Not Detecte) Coronavirus NL63 (PCR) (Not Detect) Human Metapneumovir PCR (Not Detect) Influenza Type A (PCR) (Not Detect) Influenza Type B (PCR) (Not Detect) M. pneumoniae (PCR) (Not Detect) Parainfluenza 1 (PCR) (Not Detect) Parainfluenza 2 (PCR) (Not Detect) Parainfluenza 3 (PCR) (Not Detect) Parainfluenza 4 (PCR) (Not Detect) RSV (PCR) (Not Detect) Entero/Rhino (PCR) (Not Detect) Imaging Data CT scan - chest: Radiologist's Impression: PROCEDURE: CT ANGIO CHEST PE PROTOCOL INDICATIONS: severe hypoxia, tachycardia TECHNIQUE: After the administration of intravenous contrast, 2 mm thick sections acquired from the pulmonary apices to the posterior costophrenic angles. 3-dimensional maximum intensity projection (MIP) coronal and sagittal reformats were then acquired through the thorax. For radiation dose reduction, the following was used: automated exposure control, adjustment of mA and/or kV according to patient size. COMPARISON: [facility], CT, CT ANGIO CHEST PE PROTOCOL, 11/21/2022, 1:53. FINDINGS: Image quality: Diagnostic Lungs and pleura: Bibasilar consolidations, lingular consolidation, and perihilar consolidations. No drainable pleural effusions Mediastinum, heart, and esophagus: No acute pulmonary embolism. Dilated main pulmonary trunk, indicating high pulmonary pressures. Enlarged hilar and mediastinal lymph nodes are seen diffusely for example right paratracheal node measure 1.1 cm in short axis Chest wall and thyroid: Unremarkable Upper abdomen: Possible hepatic steatosis. No gross abnormality otherwise in the partially visualized upper abdomen on this arterial phase study Bones: Degenerative changes, no acute or suspicious finding. IMPRESSION: Multifocal pulmonary consolidations suspicious for infection. Consider future imaging surveillance to assess for resolution. No acute pulmonary embolism. Enlarged lymph nodes in the wyatt and mediastinum, possibly reactive. Recommend surveillance imaging for the above findings. Dictated by: Johnson Shore M.D. on 04/23/2024 at 8:22 Approved by: Johnson Shore M.D. on 04/23/2024 at 8:25 MDM Narrative Medical decision making narrative: Shortness of breath at home, patient was hypoxic even on several L nasal cannula. Placed on Ventimask and Respiratory therapy paged for evaluation. Patient has restricted air movement with diffuse expiratory wheezing in the upper lung edwards concerning for acute asthma exacerbation. Additional nebulizers, Rocephin, azithromycin ordered. Unaware that EMS administered Solu- Medrol and so additional 10 mg of Decadron ordered. Laboratory work is reviewed, WBC count 18.3, hemoglobin 13.2, platelets 207, sodium 136, potassium 4.4, creatinine 0.7, procalcitonin 0.08, lactic acid 1.2. Patient continues to maintain saturations of 86-87% on 10 L Ventimask and so she was started on high-flow nasal cannula. CT angio of the chest shows no acute pulmonary embolism, multifocal pneumonia seen. Patient to be admitted for further treatment of her condition. Critical Care Time Critical Care Time Critical Care Time: Yes Total Critical Care Time: 42 Attestation: Acute hypoxemic respiratory failure with asthma exacerbation and multifocal pneumonia requiring high-flow nasal cannula Discharge Plan Departure Prescriptions: No Action prednisone 50 mg tablet 50 mg PO DAILY Qty: 5 0RF albuterol sulfate 2.5 mg /3 mL (0.083 %) solution for nebulization 2.5 mg inhalation Q4H PRN (Reason: shortness of breath or wheezing) Qty: 180 0RF Admit Date/Time: 04/23/24 08:51 Admit Provider: Mary Kate Barksdale
--- NOTE | 2024-04-23 07:22 | DI.CT.S_ITS ---
PROCEDURE: CT ANGIO CHEST PE PROTOCOL INDICATIONS: severe hypoxia, tachycardia TECHNIQUE: After the administration of intravenous contrast, 2 mm thick sections acquired from the pulmonary apices to the posterior costophrenic angles. 3-dimensional maximum intensity projection (MIP) coronal and sagittal reformats were then acquired through the thorax. For radiation dose reduction, the following was used: automated exposure control, adjustment of mA and/or kV according to patient size. COMPARISON: [facility], CT, CT ANGIO CHEST PE PROTOCOL, 11/21/2022, 1:53. FINDINGS: Image quality: Diagnostic Lungs and pleura: Bibasilar consolidations, lingular consolidation, and perihilar consolidations. No drainable pleural effusions Mediastinum, heart, and esophagus: No acute pulmonary embolism. Dilated main pulmonary trunk, indicating high pulmonary pressures. Enlarged hilar and mediastinal lymph nodes are seen diffusely for example right paratracheal node measure 1.1 cm in short axis Chest wall and thyroid: Unremarkable Upper abdomen: Possible hepatic steatosis. No gross abnormality otherwise in the partially visualized upper abdomen on this arterial phase study Bones: Degenerative changes, no acute or suspicious finding. IMPRESSION: Multifocal pulmonary consolidations suspicious for infection. Consider future imaging surveillance to assess for resolution. No acute pulmonary embolism. Enlarged lymph nodes in the wyatt and mediastinum, possibly reactive. Recommend surveillance imaging for the above findings. Dictated by: Johnson Shore M.D. on 04/23/2024 at 8:22 Approved by: Johnson Shore M.D. on 04/23/2024 at 8:25
[2024-04-23 08:06] LABS: Add Manual Diff / Slide Review NO; Basophils Absolute Auto 0 /uL (0-100); Basophils Percent Auto 0.2 % (0-2); Eosinophils Absolute Auto 200 /uL (0-450); Eosinophils Percent Auto 1.3 % (2-4); Hematocrit 41.2 % (36-46); Hemoglobin 13.2 g/dL (12.0-16.0); Lymphocytes Absolute Auto 1700 /uL (1100-4500); Lymphocytes Percent Auto 9.5 % (25-40); Mean Corpuscular HGB Conc 31.9 % (30-36); Mean Corpuscular Hemoglobin 27.4 PG (26-34); Mean Corpuscular Volume 85.9 fL (80-100); Monocytes Absolute Auto 1400 /uL (0-900); Monocytes Percent Auto 7.7 % (3-14); Neutrophils Absolute Auto 14900 /uL (1500-7000); Neutrophils Percent Auto 81.3 % (50-75); Platelet Count 207 X10^3/uL (150-400); Red Cell Distribution Width 15.3 % (11.6-14.8); White Blood Cell Count 18.3 X10^3/uL (4.5-11.0)
[2024-04-23 08:11] LABS: Alanine Aminotransferase 35 IU/L (<35); Albumin Globulin Ratio 1.3 (1.0-2.8); Alkaline Phosphatase 92 U/L (38-126); Aspartate Aminotransferase 50 IU/L (14-36); BUN Creatinine Ratio 14.3 (6-22); Bilirubin Total 0.8 mg/dL (0.2-1.3); Blood Urea Nitrogen 10 mg/dL (7-17); Calcium 8.4 mg/dL (8.4-10.2); Carbon Dioxide 30 mmol/L (22-32); Chloride 104 mmol/L (98-107); Estimated Glomerular Filt Rate > 60 mL/min (>60); Globulin 3.1 g/dL (1.7-4.1); Glucose 177 mg/dL (70-100); HEMOLYSIS 24 (0-50); Potassium 4.4 mmol/L (3.4-5.1); Sodium 136 mmol/L (137-145); Total Protein 7.1 g/dL (6.3-8.2)
[2024-04-23 08:12] LABS: Lactate (Lactic Acid) 1.2 mmol/L (0.7-2.1)
[2024-04-23 08:25] LABS: Adenovirus Not Detected (Not Detect); B. parapertussis Not Detected (Not Detecte); Bordetella pertussis Not Detected (Not Detect); Chlamydophila pneumoniae Not Detected (Not Detect); Coronavirus 229E Not Detected (Not Detect); Coronavirus HKU1 Not Detected (Not Detect); Coronavirus NL 63 Not Detected (Not Detect); Coronavirus OC43 Not Detected (Not Detect); Human Metapneumovirus Not Detected (Not Detect); Human Rhinovirus/Enterovirus Not Detected (Not Detect); Influenza A Not Detected (Not Detect); Influenza B Not Detected (Not Detect); Mycoplasma pneumoniae Not Detected (Not Detect); Parainfluenza Virus 1 Not Detected (Not Detect); Parainfluenza Virus 2 Not Detected (Not Detect); Parainfluenza Virus 3 Not Detected (Not Detect); Parainfluenza Virus 4 Not Detected (Not Detect); Respiratory Syncytial Virus Not Detected (Not Detect); SARS- CoV-2 Not Detected (Not Detecte)
--- NOTE | 2024-04-23 08:34 | PC.NURSE ---
RT called to start on heated High flow
[2024-04-23 08:57] LABS: Magnesium 1.9 mg/dL (1.6-2.3)
[2024-04-23 09:04] LABS: Ur Creatinine Normal (Normal); Ur Specific Gravity Normal (Normal); Urine Amphetamines Positive (Negative); Urine Barbiturates Negative (Negative); Urine Benzodiazepines Negative (Negative); Urine Cocaine Negative (Negative); Urine MDMA Negative (Negative); Urine Methadone Negative (Negative); Urine Methamphetamines Positive (Negative); Urine Opiates Negative (Negative); Urine Oxycodone Negative (Negative); Urine Phencyclidine Negative (Negative); Urine THC Negative (Negative); Urine Tricyclic Antidepressant Negative (Negative); Urine pH Normal (Normal)
[2024-04-23] MEDS: AZITHROMYCIN 500 MG in DEXTROSE 5% IN WATER 250 ML 250 MG IV (09:29)
[2024-04-23 09:32] LABS: pH ABG 7.35 (7.35-7.45)
[2024-04-23 09:33] LABS: Allen Test for ABG Passed? Yes, Passed; Blood Gas Collection Site Right Radial; Fractionated Inspired Oxygen 80; HCO3 ABG 26 mmol/L (23-27); Oxygen Saturation ABG 93 % (95-100); PCO2 ABG 46.7 mmHg (35-45); PO2 ABG 71 mmHg (80-100); TCO2 ABG 27 mmol/L (23-27)
--- NOTE | 2024-04-23 10:31 | PC.ADMIT ---
Addendum entered by Basil Nation R.N. 04/23/24 12:47: Small, osborn purse with drug paraphernalia inside placed in unit safe. Patient's valuable deposit slip placed in chart and given to patient. Patient reminded of illicit substance policies and valuables policies. Per hospital security, patient roommate/friend Sammie not allowed back on premises due to smoking meth in a bathroom downstairs. Original Note: [address] Admission Note: Admission assessment completed as best as possible. Patient drowsy and somnolent upon admission from ED. Roomate/friend at bedside able to help with some questions. Patient answering simple questions and following commands, but quickly closes eyes and falls asleep. 65% / 50L on HHF, 92%, resting comfortably. The patient,Annie Jovel,39 y/o, was given written information regarding hospital policies, unit procedures and contact persons. Patient's smoking status: Current some day smoker. Vital Signs - 8 hr 04/23/24 06:00 04/23/24 06:03 04/23/24 06:08 Temperature 98.4 F 98.4 F Pulse Rate 104 H 105 H 104 H Respiratory Rate 34 H 28 H 34 H Blood Pressure 118/75 Pulse Oximetry 89 L 88 L 89 L Oxygen Delivery Method Aerosol Mask Nasal Cannula Oxygen Flow Rate 6 Fraction of Inspired Oxygen 44 04/23/24 06:30 04/23/24 06:33 04/23/24 06:33 Temperature Pulse Rate 109 H 111 H Respiratory Rate 28 H 31 H Blood Pressure 111/56 L Pulse Oximetry 93 93 Oxygen Delivery Method Aerosol Mask Oxygen Flow Rate 10 Fraction of Inspired Oxygen 04/23/24 06:47 04/23/24 07:00 04/23/24 07:06 Temperature Pulse Rate 109 H 110 H Respiratory Rate 28 H 28 H Blood Pressure 134/67 Pulse Oximetry 89 L Oxygen Delivery Method Nasal Cannula Oximask Oxygen Flow Rate 6 10 Fraction of Inspired Oxygen 44 04/23/24 07:06 04/23/24 07:30 04/23/24 07:30 Temperature Pulse Rate 111 H 105 H Respiratory Rate 23 25 H Blood Pressure 135/74 Pulse Oximetry 88 L 88 L Oxygen Delivery Method Oxygen Flow Rate Fraction of Inspired Oxygen 04/23/24 08:07 04/23/24 08:09 04/23/24 08:09 Temperature Pulse Rate 105 H 100 H Respiratory Rate 39 H 29 H Blood Pressure 154/72 H Pulse Oximetry 93 90 L Oxygen Delivery Method Oxygen Flow Rate Fraction of Inspired Oxygen 04/23/24 08:30 04/23/24 09:00 04/23/24 09:11 Temperature Pulse Rate 105 H 95 H Respiratory Rate 18 Blood Pressure 136/74 Pulse Oximetry 90 L 94 Oxygen Delivery Method Oxygen Flow Rate Fraction of Inspired Oxygen 04/23/24 09:11 04/23/24 09:30 04/23/24 09:30 Temperature Pulse Rate 92 H 91 H Respiratory Rate 17 17 Blood Pressure 136/73 Pulse Oximetry 95 95 Oxygen Delivery Method Oxygen Flow Rate Fraction of Inspired Oxygen 04/23/24 09:46 04/23/24 10:19 Temperature Pulse Rate 90 81 Respiratory Rate 15 20 Blood Pressure 136/73 136/70 Pulse Oximetry 94 92 Oxygen Delivery Method Oxygen Flow Rate Fraction of Inspired Oxygen
[2024-04-23] MEDS: ALBUTEROL/IPRATROPIUM 3 ML AMPUL INH ×4 (10:42→23:42)
[2024-04-23] MEDS: AMPICILLIN/SULBACTAM 3 GM 3 GM in SODIUM CHLORIDE 0.9% 100 ML IV ×2 (11:51→17:04)
[2024-04-23] MEDS: ENOXAPARIN 40 MG/0.4 ML SYRINGE SUBCUT ×2 (11:51→20:32)
[2024-04-23] MEDS: INSULIN LISPRO 100 UNIT/ML 3ML VIAL SUBCUT ×3 (11:52→20:33)
[2024-04-23 12:57] LABS: MRSA (Nasal) PCR NOT DETECTED (Not Detect)
[2024-04-23] MEDS: methylPREDNISolone 125 MG/2 ML VIAL 80 MG IV ×2 (13:02→22:52)
[2024-04-23] MEDS: VANCOMYCIN 1,250 MG/250 ML PIGGYBACK 250 MG IV ×2 (13:02→20:22)
[2024-04-23] MEDS: ALBUTEROL 2.5 MG/3 ML NEB (ADULT) INH (13:06)
--- NOTE | 2024-04-23 17:13 | P.HP_ITS ---
History of Present Illness History of Present Illness Chief complaint: Asthma exacerbation Narrative: 39-year-old female with asthma, class 3 obesity, diabetes, history of tobacco dependence, marijuana use, and polysubstance dependence who presented to the emergency department with acute onset of shortness of breath. Patient is somnolent and it is difficult to get a history from her. However, her roommate is present in the room and provides some additional detail. Patient states she was in her usual state of health without any ill symptoms or asthma exacerbation until he awoke earlier this morning. She states she would acute onset of shortness a breath with some chest pain. She states it got progressively worse and did not respond to a home nebulizer treatment and she subsequently came to the emergency department via EMS. EMS reportedly gave her DuoNebs and Solu-Medrol on route. On arrival to the emergency department she was tachycardic and hypoxic. She told the room physician this did not feel like her typical asthma exacerbation, but reported she is felt like this in the past when she had pneumonia. In the emergency department she was afebrile, initial heart rate was 104, respiratory rate was 34, and O2 saturation was 89%. Oxygen was titrated up to 6 L. she developed ongoing hypoxia. She was placed on a 10 L mask but could not maintain saturation above 88%. Ultimately, she was placed on heated high-flow with improvement in her O2 saturations up to 90-93%. Labs revealed a white blood cell count of 18 3, hemoglobin 13.2, hematocrit 41.2, platelets of 207. ABG revealed a pH is 7.35, pCO2 46, PO2 71. Chemistry panel was within normal limits with the exception of a sodium of 136 and a glucose of 177. Lactate was within normal limits at 1.2. AST was elevated at 50, ALT was 35. Procalcitonin was 0.080. Urine tox screen was positive for amphetamines and methamphetamines. Respiratory viral panel was negative. Blood cultures have been drawn and are pending at this time. Initial chest x-ray revealed suspected air space opacities within the left perihilar region and middle lobe and lingula. [place] to be infectious or inflammatory. CT pulmonary angiogram was done which revealed multifocal pulmonary consolidation suspicious for infection. No PE. Enlarged lymph nodes in the [place] and mediastinum felt to be possibly reactive. In the ED she received albuterol nebulizers x2, normal saline x1 L, Decadron 10 mg IV, Rocephin 2 g IV, azithromycin 500 mg IV. Admission to the intensive care was recommended. At the time of my evaluation, patient reports she is feeling better than she did on arrival. She does complain of feeling fatigued. She does complain of some chest discomfort which she describes as generalized. Roommate notes that at about midnight when the patient was still sleeping, she began saying ouch and rubbing her chest. She notes that she became worse and at around 5:00 a.m. her shortness of breath got to the point that she (the roommate) became concerned. Currently, patient's primary complaint is being tired [facility] Medical History Asthma exacerbation Bowel obstruction Surgical History Status post delivery (10/02/17) Social History household members: friend(s) Smoking Status: Current some day smoker alcohol intake: former Meds Home Medications and Allergies Home Medications Medication Instructions Recorded Confirmed Type albuterol sulfate 2.5 mg/3 mL 2.5 mg (3 mL) inhalation Q4H PRN 11/21/22 04/23/24 Rx (0.083 %) solution for nebulization shortness of breath or wheezing #180 mL prednisone 50 mg tablet 50 mg PO DAILY #5 tabs 11/21/22 Rx Allergies Allergy/AdvReac Type Severity Reaction Status Date / Time morphine [MORPHINE] Allergy Intermediate rash,hives Verified 09/27/22 16:37 baricitinib Allergy Mild Rash Verified 11/25/22 08:04 clindamycin [CLINDAMYCIN] Allergy Mild vomiting Verified 09/27/22 16:37 remdesivir Allergy Mild Rash Verified 11/25/22 08:04 Review of Systems Review of Systems Narrative: Difficult to obtain secondary to patient's level of somnolence Exam Vital Signs (past 8 hours): - 04/23/24 09:30 04/23/24 09:30 04/23/24 09:46 Temperature Pulse Rate 91 H 90 Respiratory Rate 17 15 Blood Pressure 136/73 136/73 Pulse Oximetry 95 94 Oxygen Delivery Method Oxygen Flow Rate Fraction of Inspired Oxygen 06/15/24 10:19 04/23/24 10:31 04/23/24 10:42 Temperature 97.1 F L Pulse Rate 81 91 H 88 Respiratory Rate 20 18 20 Blood Pressure 136/70 Pulse Oximetry 92 91 92 Oxygen Delivery Method Heated High Flow Oxygen Flow Rate 50 Fraction of Inspired Oxygen 65 04/23/24 10:53 04/23/24 11:00 04/23/24 11:00 Temperature Pulse Rate 88 87 Respiratory Rate 20 17 Blood Pressure 136/76 122/68 Pulse Oximetry 92 91 Oxygen Delivery Method Oxygen Flow Rate Fraction of Inspired Oxygen 04/23/24 11:30 04/23/24 12:00 04/23/24 12:00 Temperature Pulse Rate 86 90 Respiratory Rate 17 19 Blood Pressure 136/79 Pulse Oximetry 91 90 L Oxygen Delivery Method Oxygen Flow Rate Fraction of Inspired Oxygen 04/23/24 12:30 04/23/24 13:00 04/23/24 13:06 Temperature Pulse Rate 88 87 87 Respiratory Rate 20 19 17 Blood Pressure Pulse Oximetry 90 L 90 L 91 Oxygen Delivery Method Heated High Flow Oxygen Flow Rate 50 Fraction of Inspired Oxygen 65 04/23/24 13:06 04/23/24 13:30 04/23/24 14:00 Temperature Pulse Rate 89 86 Respiratory Rate 17 19 17 Blood Pressure 136/79 Pulse Oximetry 91 89 L 89 L Oxygen Delivery Method Oxygen Flow Rate Fraction of Inspired Oxygen 04/23/24 14:30 04/23/24 15:05 04/23/24 15:05 Temperature Pulse Rate 83 82 82 Respiratory Rate 19 20 20 Blood Pressure 136/79 Pulse Oximetry 90 L 91 91 Oxygen Delivery Method Heated High Flow Oxygen Flow Rate Fraction of Inspired Oxygen Fraction of Inspired Oxygen 65 SaO2/FiO2 Ratio 140 Oxygen Delivery Method Heated High Flow Oxygen Flow Rate 50 Narrative Exam Narrative: GEN: Ill-appearing adult female, somnolent, heated high-flow nasal cannula in place, no acute distress HEENT: Normocephalic, face symmetric, pupils equal round reactive to light, extraocular movements intact, sclerae anicteric, conjunctiva clear, nares patent, oropharynx reveals an intact soft and hard palate with moist mucous membranes, dentition is fair NECK: Supple, no lymphadenopathy, thyroid without enlargement or nodularity, carotids no bruits CHEST: Respiratory excursions symmetric, faint expiratory wheezes in the right upper lobe, very diminished breath sounds throughout CV: Regular rate and rhythm, no murmurs, rubs, gallops, PMI can not be palpated ABD: Soft, obese, nontender, nondistended, bowel sounds present in all 4 quadrants, body habitus limits exam EXTR: Warm, well perfused, no clubbing/cyanosis/edema SKIN: Warm and dry, without rash NEURO: Somnolent, difficult to formally assess PSYCH: Mood and affect, judgment and insight difficult to assess secondary to her level of somnolence/lethargy Objective Labs 04/23/24 06:00 04/23/24 06:52 Labs: Laboratory Results - last 24 hr 04/23/24 04/23/24 04/23/24 06:00 06:52 07:29 WBC 18.3 H RBC 4.80 Hgb 13.2 Hct 41.2 MCV 85.9 MCH 27.4 MCHC 31.9 RDW 15.3 H Plt Count 207 Neut % (Auto) 81.3 H Lymph % (Auto) 9.5 L [place] % (Auto) 7.7 Eos % (Auto) 1.3 L Baso % (Auto) 0.2 Neut # (Auto) 77204 H Lymph # (Auto) 1700 [place] # (Auto) 1400 H Eos # (Auto) 200 Baso # (Auto) 0 ABG Sample Site ABG pH ABG pCO2 ABG pO2 ABG HCO3 ABG Total CO2 ABG O2 Saturation ABG Base Excess FiO2 Sodium 136 L Potassium 4.4 Chloride 104 Carbon Dioxide 30 BUN 10 Creatinine 0.70 Estimated GFR > 60 BUN/Creatinine Ratio 14.3 Glucose 177 H Lactate 1.2 Calcium 8.4 Magnesium 1.9 Total Bilirubin 0.8 AST 50 H ALT 35 H Alkaline Phosphatase 92 Total Protein 7.1 Albumin 4.0 Globulin 3.1 Albumin/Globulin Ratio 1.3 Procalcitonin 0.080 Nasal Screen MRSA (PCR) U Opiates 300ng/mL cut Ur Oxycodone Screen Urine Methadone Screen Ur Barbiturates Screen U Tricyclic Antidepress Ur Phencyclidine Scrn Ur Amphetamines Screen U Methamphetamines Scrn Ur MDMA Scrn (Ecstasy) U Benzodiazepines Scrn Urine Cocaine Screen U Marijuana (THC) Screen Urine pH Urine Specific [place] Ur Creatinine Chlamy pneumoniae PCR Not detected Adenovirus (PCR) Not detected B.parapertussis DNA PCR Not detected Coronavirus OC43 (PCR) Not detected Coronavirus HKU1 (PCR) Not detected Coronavirus 229E (PCR) Not detected SARS-CoV-2 (PCR) Not detected Coronavirus NL63 (PCR) Not detected Human Metapneumovir PCR Not detected Influenza Type A (PCR) Not detected Influenza Type B (PCR) Not detected M. pneumoniae (PCR) Not detected Parainfluenza 1 (PCR) Not detected Parainfluenza 2 (PCR) Not detected Parainfluenza 3 (PCR) Not detected Parainfluenza 4 (PCR) Not detected RSV (PCR) Not detected Entero/Rhino (PCR) Not detected 04/23/24 04/23/24 04/23/24 08:43 09:13 10:30 WBC RBC Hgb Hct MCV MCH MCHC RDW Plt Count Neut % (Auto) Lymph % (Auto) [place] % (Auto) Eos % (Auto) Baso % (Auto) Neut # (Auto) Lymph # (Auto) [place] # (Auto) Eos # (Auto) Baso # (Auto) ABG Sample Site Right radial ABG pH 7.35 ABG pCO2 46.7 H ABG pO2 71 L ABG HCO3 26 ABG Total CO2 27 ABG O2 Saturation 93 L ABG Base Excess 0.0 FiO2 80 Sodium Potassium Chloride Carbon Dioxide BUN Creatinine Estimated GFR BUN/Creatinine Ratio Glucose Lactate Calcium Magnesium Total Bilirubin AST ALT Alkaline Phosphatase Total Protein Albumin Globulin Albumin/Globulin Ratio Procalcitonin Nasal Screen MRSA (PCR) Not detected U Opiates 300ng/mL cut Negative Ur Oxycodone Screen Negative Urine Methadone Screen Negative Ur Barbiturates Screen Negative U Tricyclic Antidepress Negative Ur Phencyclidine Scrn Negative Ur Amphetamines Screen Positive H U Methamphetamines Scrn Positive H Ur MDMA Scrn (Ecstasy) Negative U Benzodiazepines Scrn Negative Urine Cocaine Screen Negative U Marijuana (THC) Screen Negative Urine pH Normal Urine Specific [place] Normal Ur Creatinine Normal Chlamy pneumoniae PCR Adenovirus (PCR) B.parapertussis DNA PCR Coronavirus OC43 (PCR) Coronavirus HKU1 (PCR) Coronavirus 229E (PCR) SARS-CoV-2 (PCR) Coronavirus NL63 (PCR) Human Metapneumovir PCR Influenza Type A (PCR) Influenza Type B (PCR) M. pneumoniae (PCR) Parainfluenza 1 (PCR) Parainfluenza 2 (PCR) Parainfluenza 3 (PCR) Parainfluenza 4 (PCR) RSV (PCR) Entero/Rhino (PCR) Assessment & Plan Assessment & Plan narrative: 1. Acute hypoxic respiratory failure Patient presents with acute hypoxic respiratory failure. She is presently requiring heated high-flow oxygen at 55 liters/minute. Suspected cause is the combination of multifocal pneumonia, asthma exacerbation, and known active daily smoking of fentanyl and or methamphetamines. She has been admitted to the ICU. Will continue heated high-flow. Will broaden antibiotics to Unasyn and vancomycin. MRSA nasal swab ordered and pending at this time. Respiratory viral panel was ordered with results as noted above. Blood cultures pending. Will place on Solu-Medrol 80 mg IV q.8 hours. Continue scheduled DuoNebs as well as albuterol as needed. Will wean high-flow as able. 2. Multifocal pneumonia As above, broaden antibiotics to Unasyn and vancomycin. Likely could DC vancomycin once MRSA screen returns and is negative. 3. Sepsis secondary to multifocal pneumonia. Patient met sepsis criteria on arrival as evidenced by tachycardia, tachypnea, elevated white blood cell count of 18.3, and known multifocal pneumonia. Blood cultures presently pending. She has not making any sputum so no sputum cultures have been ordered. Continue broad-spectrum antibiotics as noted. MRSA swab pending. 4. Asthma with exacerbation As above, Solu-Medrol has been ordered. We are unable to verify what her usual outpatient regimen is, if anything. She does have a nebulizer at home, but I am uncertain if she is on any chronic controlling medications. Will need to reconcile medications. Her roommate reports that she gets medications filled at [facility] pharmacy in [place]. 5. Diabetes mellitus uncontrolled with hyperglycemia Reportedly she is on oral medications. Her roommate says she believes she takes some type of injectable but can not tell me what it is. Patient can not tell me if she takes insulin. For now, will plan to place her on Lantus 10 units daily as well as medium dose regimen sliding scale, as I anticipate difficult to control blood sugars in the setting of Solu-Medrol treatment. Will ask nursing or pharmacy to reconcile medications to determine what other medication she takes at baseline. Place on a controlled carb diet. 6. Polysubstance dependence Patient does admit to daily to multiple times daily smoking of fentanyl tablets. She also reports ?occasional ?smoking of methamphetamines. Her urine tox screen was positive for amphetamines and methamphetamines. Will order oxycodone as needed for potential opioid withdrawal. Will additionally order trazodone as needed for sleep, Imodium for possible diarrhea. I have not ordered scheduled clonidine given her sepsis on admission. 7. Class 3 obesity BMI is 49.3. She is at significantly increased risk of morbidity and mortality, particularly from a respiratory standpoint given her very high BMI. 8. Hyponatremia Mild at 136 Code status Full Prophylaxis Due to her BMI greater than 40, I have ordered Lovenox 40 mg subQ b.i.d. Disposition Admit to the intensive care unit. For now, I have not requested an automatic winder operator consult. If she were to have any progressive symptoms, would have a very low threshold for consultation.
[2024-04-23] MEDS: INSULIN GLARGINE 100 UNIT/ML 3ML PEN 10 UNIT SUBCUT (20:36)
[2024-04-24] VITALS (68 sets, daily range): BP systolic 115–212; BP diastolic 60–122; PULSE 64–98; RESP 12–38; TEMP 36.8–37.3; O2SAT 88–96
[2024-04-24] MEDS: AMPICILLIN/SULBACTAM 3 GM 3 GM in SODIUM CHLORIDE 0.9% 100 ML IV ×3 (00:38→11:32)
[2024-04-24] MEDS: ALBUTEROL/IPRATROPIUM 3 ML AMPUL INH ×5 (02:55→23:04)
[2024-04-24] MEDS: OXYCODONE IR 10 MG TABLET PO ×2 (02:55→06:03)
[2024-04-24] MEDS: VANCOMYCIN 1,250 MG/250 ML PIGGYBACK 250 MG IV ×2 (05:03→13:23)
[2024-04-24] MEDS: methylPREDNISolone 125 MG/2 ML VIAL 80 MG IV ×3 (05:03→21:20)
[2024-04-24 05:33] LABS: Add Manual Diff / Slide Review NO; Basophils Absolute Auto 0 /uL (0-100); Basophils Percent Auto 0.2 % (0-2); Eosinophils Absolute Auto 0 /uL (0-450); Hematocrit 41.4 % (36-46); Hemoglobin 13.3 g/dL (12.0-16.0); Lymphocytes Absolute Auto 1000 /uL (1100-4500); Lymphocytes Percent Auto 4.6 % (25-40); Mean Corpuscular HGB Conc 32.2 % (30-36); Mean Corpuscular Hemoglobin 27.5 PG (26-34); Mean Corpuscular Volume 85.4 fL (80-100); Monocytes Absolute Auto 400 /uL (0-900); Monocytes Percent Auto 1.7 % (3-14); Neutrophils Absolute Auto 19600 /uL (1500-7000); Neutrophils Percent Auto 93.5 % (50-75); Platelet Count 206 X10^3/uL (150-400); Red Blood Cell Count 4.84 X10^6/uL (4.0-5.2); Red Cell Distribution Width 14.8 % (11.6-14.8); White Blood Cell Count 20.9 X10^3/uL (4.5-11.0)
[2024-04-24 05:45] LABS: BUN Creatinine Ratio 26.4 (6-22); Blood Urea Nitrogen 14 mg/dL (7-17); Calcium 8.6 mg/dL (8.4-10.2); Carbon Dioxide 27 mmol/L (22-32); Chloride 106 mmol/L (98-107); Estimated Glomerular Filt Rate > 60 mL/min (>60); Glucose 222 mg/dL (70-100); HEMOLYSIS < 15 (0-50); Magnesium 2.3 mg/dL (1.6-2.3); Phosphorous 2.3 mg/dL (2.5-4.5); Potassium 4.1 mmol/L (3.4-5.1); Sodium 137 mmol/L (137-145)
[2024-04-24] MEDS: PANTOPRAZOLE DR 20 MG TABLET 40 MG PO (06:03)
[2024-04-24] MEDS: ENOXAPARIN 40 MG/0.4 ML SYRINGE SUBCUT ×2 (08:12→21:20)
[2024-04-24] MEDS: INSULIN LISPRO 100 UNIT/ML 3ML VIAL SUBCUT ×3 (08:12→18:43)
--- NOTE | 2024-04-24 08:29 | PM.PN.1 ---
Subjective Subjective Interval history: Patient's breathing became more labored and patient more anxious and agitated requiring high flow to increase to 60L. Decision was made to intubate and Dr. Tobar from ED came up and successfully intubated patient at approx 1700. TeleICU consulted. Exam Vital Signs (past 8 hours): - 04/24/24 00:30 04/24/24 01:00 04/24/24 01:30 Temperature Pulse Rate 85 76 81 Respiratory Rate 38 H 14 23 Blood Pressure Pulse Oximetry 94 94 94 Oxygen Delivery Method Oxygen Flow Rate Fraction of Inspired Oxygen 04/24/24 02:00 04/24/24 02:30 04/24/24 03:00 Temperature Pulse Rate 86 81 80 Respiratory Rate 23 30 H 25 H Blood Pressure Pulse Oximetry 94 93 93 Oxygen Delivery Method Oxygen Flow Rate Fraction of Inspired Oxygen 04/24/24 03:30 04/24/24 04:00 04/24/24 04:00 Temperature 99.1 F Pulse Rate 82 82 Respiratory Rate 14 15 Blood Pressure 124/70 124/70 Pulse Oximetry 93 93 Oxygen Delivery Method Oxygen Flow Rate 50 Fraction of Inspired Oxygen 0.67 04/24/24 04:00 04/24/24 04:30 04/24/24 04:55 Temperature Pulse Rate 82 78 Respiratory Rate 15 15 Blood Pressure Pulse Oximetry 93 95 Oxygen Delivery Method High Flow Nasal Cannula Oxygen Flow Rate 50 Fraction of Inspired Oxygen 65 04/24/24 04:55 04/24/24 05:00 04/24/24 05:30 Temperature Pulse Rate 78 77 Respiratory Rate 16 12 Blood Pressure Pulse Oximetry 94 94 95 Oxygen Delivery Method Oxygen Flow Rate Fraction of Inspired Oxygen 04/24/24 06:00 04/24/24 06:30 04/24/24 07:00 Temperature Pulse Rate 64 79 81 Respiratory Rate 24 12 18 Blood Pressure Pulse Oximetry 96 93 93 Oxygen Delivery Method Oxygen Flow Rate Fraction of Inspired Oxygen 04/24/24 07:30 04/24/24 07:42 04/24/24 08:00 Temperature 98.3 F Pulse Rate 79 Respiratory Rate 25 H Blood Pressure 134/70 Pulse Oximetry 94 Oxygen Delivery Method Oxygen Flow Rate Fraction of Inspired Oxygen 04/24/24 08:00 04/24/24 08:21 Temperature Pulse Rate 80 77 Respiratory Rate 24 23 Blood Pressure 134/70 Pulse Oximetry 93 92 Oxygen Delivery Method Oxygen Flow Rate Fraction of Inspired Oxygen Fraction of Inspired Oxygen 65 SaO2/FiO2 Ratio 141 Oxygen Delivery Method High Flow Nasal Cannula Oxygen Flow Rate 50 Narrative Exam Narrative: GEN: Ill-appearing adult female, somnolent, heated high-flow nasal cannula in place, mod distress HEENT: Normocephalic, face symmetric, pupils equal round reactive to light, extraocular movements intact, sclerae anicteric, conjunctiva clear, nares patent, oropharynx reveals an intact soft and hard palate with moist mucous membranes, dentition is fair NECK: Supple, no lymphadenopathy, thyroid without enlargement or nodularity, carotids no bruits CHEST: Respiratory excursions symmetric, faint expiratory wheezes in the right upper lobe, very diminished breath sounds throughout CV: Regular rate and rhythm, no murmurs, rubs, gallops, PMI can not be palpated ABD: Soft, obese, nontender, nondistended, bowel sounds present in all 4 quadrants, body habitus limits exam EXTR: Warm, well perfused, no clubbing/cyanosis/edema SKIN: Warm and dry, without rash NEURO: Somnolent, difficult to formally assess PSYCH: Mood and affect, judgment and insight difficult to assess secondary to her level of somnolence/lethargy Objective Labs 04/24/24 04:46 04/24/24 04:46 Labs: Laboratory Results - last 24 hr 04/23/24 04/23/24 04/23/24 06:52 08:43 09:13 WBC RBC Hgb Hct MCV MCH MCHC RDW Plt Count Neut % (Auto) Lymph % (Auto) [place] % (Auto) Eos % (Auto) Baso % (Auto) Neut # (Auto) Lymph # (Auto) [place] # (Auto) Eos # (Auto) Baso # (Auto) ABG Sample Site Right radial ABG pH 7.35 ABG pCO2 46.7 H ABG pO2 71 L ABG HCO3 26 ABG Total CO2 27 ABG O2 Saturation 93 L ABG Base Excess 0.0 FiO2 80 Sodium 136 L Potassium 4.4 Chloride 104 Carbon Dioxide 30 BUN 10 Creatinine 0.70 Estimated GFR > 60 BUN/Creatinine Ratio 14.3 Glucose 177 H Lactate 1.2 Calcium 8.4 Phosphorus Magnesium 1.9 Total Bilirubin 0.8 AST 50 H ALT 35 H Alkaline Phosphatase 92 Total Protein 7.1 Albumin 4.0 Globulin 3.1 Albumin/Globulin Ratio 1.3 Procalcitonin 0.080 Nasal Screen MRSA (PCR) U Opiates 300ng/mL cut Negative Ur Oxycodone Screen Negative Urine Methadone Screen Negative Ur Barbiturates Screen Negative U Tricyclic Antidepress Negative Ur Phencyclidine Scrn Negative Ur Amphetamines Screen Positive H U Methamphetamines Scrn Positive H Ur MDMA Scrn (Ecstasy) Negative U Benzodiazepines Scrn Negative Urine Cocaine Screen Negative U Marijuana (THC) Screen Negative Urine pH Normal Urine Specific [place] Normal Ur Creatinine Normal 04/23/24 04/24/24 10:30 04:46 WBC 20.9 H RBC 4.84 Hgb 13.3 Hct 41.4 MCV 85.4 MCH 27.5 MCHC 32.2 RDW 14.8 Plt Count 206 Neut % (Auto) 93.5 H Lymph % (Auto) 4.6 L [place] % (Auto) 1.7 L Eos % (Auto) 0.0 L Baso % (Auto) 0.2 Neut # (Auto) 61957 H Lymph # (Auto) 1000 L [place] # (Auto) 400 Eos # (Auto) 0 Baso # (Auto) 0 ABG Sample Site ABG pH ABG pCO2 ABG pO2 ABG HCO3 ABG Total CO2 ABG O2 Saturation ABG Base Excess FiO2 Sodium 137 Potassium 4.1 Chloride 106 Carbon Dioxide 27 BUN 14 Creatinine 0.53 Estimated GFR > 60 BUN/Creatinine Ratio 26.4 H Glucose 222 H Lactate Calcium 8.6 Phosphorus 2.3 L Magnesium 2.3 Total Bilirubin AST ALT Alkaline Phosphatase Total Protein Albumin Globulin Albumin/Globulin Ratio Procalcitonin Nasal Screen MRSA (PCR) Not detected U Opiates 300ng/mL cut Ur Oxycodone Screen Urine Methadone Screen Ur Barbiturates Screen U Tricyclic Antidepress Ur Phencyclidine Scrn Ur Amphetamines Screen U Methamphetamines Scrn Ur MDMA Scrn (Ecstasy) U Benzodiazepines Scrn Urine Cocaine Screen U Marijuana (THC) Screen Urine pH Urine Specific [place] Ur Creatinine [facility] Medical History Asthma exacerbation Bowel obstruction Surgical History Status post delivery (10/02/17) Social History household members: friend(s) Smoking Status: Current some day smoker alcohol intake: former Assessment & Plan Assessment & Plan narrative: 1. Acute hypoxic respiratory failure, 2/2 multifocal PNA -intubated on 04/24 due to worsening resp status and agitation despite maxed on high flow -CXR ordered, check ABG -propofol and fent drips -appreciate teleICU consult 2. Multifocal pneumonia -CTA with bilateral infiltrates consistent with multifocal pneumonia -zosyn and azithro ordered, MRSA swab negative and vanco now off -send sputum culture -check resp PCR 3. Sepsis secondary to multifocal pneumonia. Patient met sepsis criteria on arrival as evidenced by tachycardia, tachypnea, elevated white blood cell count of 18.3, and known multifocal pneumonia. Blood cultures no growth. Continue broad-spectrum antibiotics as noted. 4. Asthma with exacerbation Solu-Medrol and nebs have been ordered. We are unable to verify what her usual outpatient regimen is, if anything. She does have a nebulizer at home, but I am uncertain if she is on any chronic controlling medications. Will need to reconcile medications. Her roommate reports that she gets medications filled at [facility] pharmacy in [place]. 5. Diabetes mellitus uncontrolled with hyperglycemia Reportedly she is on oral medications. Her roommate says she believes she takes some type of injectable but can not tell me what it is. Patient can not tell me if she takes insulin. For now, will plan to place her on Lantus 10 units daily as well as medium dose regimen sliding scale, as I anticipate difficult to control blood sugars in the setting of Solu-Medrol treatment. Will ask nursing or pharmacy to reconcile medications to determine what other medication she takes at baseline. Place on a controlled carb diet. 6. Polysubstance dependence Patient does admit to daily to multiple times daily smoking of fentanyl tablets. She also reports ?occasional ?smoking of methamphetamines. Her urine tox screen was positive for amphetamines and methamphetamines. Discussed mitigating withdrawals by starting suboxone, and patient would like to try it. Received 1 tab SL but stopped now as she is on an IV fentanyl drip. 7. Class 3 obesity BMI is 49.3. She is at significantly increased risk of morbidity and mortality, particularly from a respiratory standpoint given her very high BMI. 8. Hyponatremia, resolved Now 137 Code status Full Prophylaxis Due to her BMI greater than 40, I have ordered Lovenox 40 mg subQ b.i.d. I spent a total of 35 minutes of critical care time on this patient's care today; this time is exclusive of procedural time. Disposition ICU
[2024-04-24] MEDS: AZITHROMYCIN 250 MG TABLET 500 MG PO (09:00)
--- NOTE | 2024-04-24 09:13 | CM.DANOTE ---
Initial DCP Assessment Visit Note Reviewed EMR and team rounds for pt's medical status and updates. Met with pt's mother at bedside to introduce self and role, pt was found to be sleeping, appearing dyspneic, uncomfortable. Pt lives alone in her own apartment in [place] in subsidized housing. She has a long hx of opiate and methamphetamine use, is unemployed, and does not drive. Once stable, she will d/c back home, her sister, Hoa will plan on transporting her once she's been medically cleared for d/c. Payor: [employer] [facility] PCP: Claude Ambrosio Pt is a 39 year-old F who presented to the ED via EMS last evening with an acute asthma exacerbation. She was found to be tachycardic and hypoxic in the ED, and labs were positive for methamphetamines. CT of the chest showed possible infection, and she was requiring several liters of O2 for comfort, ultimately requiring a Ventimask, nebulizers, and IV fluids/antibiotics. She was then admitted to the ICU for further eval/respiratory management. Per her mother, pt has a hx of requiring acute hospitalizations following an asthma exacerbation, however will often leave AMA once she feels stable. She has been offered assistance with referrals for SOLA tx during past hospitalizations, but refused. LIBRARY TECHNICIAN will continue to follow and assist with any further evolving needs, as well as offer once again the option of SOLA tx in the community if she is agreeable. Discharge Planning/Care Management CM Discharge Assessment Start: 04/24/24 09:10 Freq: Status: Active Protocol: Document 04/24/24 09:10 DPL (Rec: 04/24/24 09:12 DPL [id number]) Discharge Planning Assessment Assigned Tile Molder RAJAN Thompson Advance Directives? No Advance Directives on File No History Provided By Family Member,Medical Record Has Patient been admitted in last 30 No days? Prior Living Arrangements Apartment/Condo Household Members friend(s) Type of transporation used prior to Relies on Others admit Independent with ADL's Yes Is patient alert and oriented? Yes Caregiver for Another No: Pt's 3-children are not in her custody. Comment Unsure on what DME patient already owns in the residence. Barriers to Discharge No Transportation Arrangement Family likely if safe for home Whiteboard Updated in Patient Room with Yes name and ext. # of Tile Molder Review Status In Process Please Provide Date Initial DC 04/24/24 Assessment Was Performed
[2024-04-24] MEDS: INSULIN GLARGINE 100 UNIT/ML 3ML PEN 10 UNIT SUBCUT ×2 (10:00→21:20)
[2024-04-24] MEDS: BUPRENORPHINE/NALOXONE 8MG/2MG 1 TAB SL (12:25)
[2024-04-24 13:14] LABS: Vancomycin Trough 9.2 ug/mL (10-20)
[2024-04-24] MEDS: dexmedeTOMIDine in 0.9 % NaCL 400 MCG/100 ML PLAST..BAG 33.6 MCG IV (14:58)
[2024-04-24] MEDS: dexmedeTOMIDine in 0.9 % NaCL 400 MCG/100 ML PLAST..BAG 67.2 MCG IV (16:27)
[2024-04-24] MEDS: MIDAZOLAM 2 MG/2 ML VIAL ×2 (16:51)
[2024-04-24] MEDS: ETOMIDATE 2 MG/ML 10 ML VIAL 20 MG IV (16:55)
[2024-04-24] MEDS: ROCURONIUM 50 MG/5 ML INJ 100 MG IV (16:56)
--- NOTE | 2024-04-24 17:07 | DI.RAD.S_ITS ---
PROCEDURE: XR CHEST 1V INDICATIONS: post-intubation, assess infiltrates TECHNIQUE: One view of the chest was acquired. COMPARISON: [facility], CT, CT ANGIO CHEST PE PROTOCOL, 04/23/2024, 8:03. [facility], CR, XR CHEST 1V, 04/23/2024, 6:47. FINDINGS: Surgical changes and devices: An endotracheal tube is seen, with the tip not well seen, yet believed to be 3-4 cm cm above the shannan. The tip of the gastric tube can be seen overlying the proximal stomach, with the side hole seen near the level of diaphragm. Lungs and pleura: On this semiupright portable chest examination, no large pneumothorax or large pleural effusions are seen. Mild generalized interstitial prominence can be seen. Mediastinum: Mediastinal contours appear normal. Heart size is normal. Bones and chest wall: No suspicious bony lesions. Overlying soft tissues appear unremarkable. IMPRESSION: The tip of the endotracheal tube is 3-4 cm above the shannan. The tip of the gastric tube can be seen overlying the proximal stomach. Low lung volumes. The known pulmonary infiltrates that are well seen on the prior recent CT are not well seen on this semiupright single view chest radiograph. Dictated by: Shubham Sheikh M.D. on 04/24/2024 at 16:52 Approved by: Shubham Sheikh M.D. on 04/24/2024 at 16:54
[2024-04-24] MEDS: propofoL 1,000 MG/100 ML VIAL 24.192 MG IV (17:27)
--- NOTE | 2024-04-24 17:50 | ED.CONSULT ---
ED Provider Consult/Code Note General Reason for Admission: Asthma exacerbation Events leading to Consult/Code: Patient with worsening oxygen requirements and worsening mental status despite high-flow oxygen. Called to ICU to intubate patient. Cardiac Additional: Normal sinus rhythm. Respiratory Auscultation: bronchial breath sounds ET Tube Size: 7.5 Tube Secured Depth (cm): 24 Tube Secured Location: teeth Tube Placement Confirmation: Visualized tube passing through cords, Equal breath sounds bilaterally, No breath sounds over epigastrium, Confirmation by capnometry and Chest Xray Care Provided Description of care provided: Called to ICU for intubation. Patient with worsening respiratory status despite maximum high-flow nasal cannula. Time-out performed. Using etomidate and rocuronium patient was sedated and paralyzed. Using S4 mac blade a 7 5 ET tube was passed through vocal cords. Two attempts required. Secured by respiratory therapy. Outcome Outcome: Improved oxygenation.
--- NOTE | 2024-04-24 17:58 | PC.NURSE ---
1330(est.) to 1630 - Patient becoming increasingly anxious, agitated, and restless. Thrashing arms and legs in bed dislodging medical equipment. Frequent panic attacks. O2 dropping to low 80's during these episodes requiring frequent 100% FIO2 flushes. Precedex ordered and administered, maxed out on titration with no decrease in symptoms. RT making frequent adjustments to heated high flow during this time, increasing both flow rate and FIO2 up to a maximum of 75% and 60L. RT called to bedside at [address] Quintero[address] Quintero spoke with patient and received verbal consent for intubation if deemed necessary. After a brief discussion, intubation was deemed necessary. Dr Tobar arrived at bedside and patient was intubated at 1700. See EMAR for medications administered. Goodrich, OG, restraints, chest X-ray, and sedation ordered and administered. Mother, Nighat, updated.
[2024-04-24 18:09] LABS: Blood Gas Collection Site Left Brachial; Fractionated Inspired Oxygen 75; HCO3 ABG 25 mmol/L (23-27); Oxygen Saturation ABG 97 % (95-100); PCO2 ABG 41.6 mmHg (35-45); PO2 ABG 91 mmHg (80-100); TCO2 ABG 26 mmol/L (23-27); pH ABG 7.39 (7.35-7.45)
[2024-04-24] MEDS: fentaNYL 1,000 MCG in DEXTROSE 5% IN WATER 230 ML 23.52 MCG IV (18:12)
[2024-04-24] MEDS: PANTOPRAZOLE 40 MG VIAL IV (18:26)
[2024-04-24] MEDS: CHLORHEXIDINE GLUCONATE 15 ML CUP PO ×2 (18:51→23:58)
--- NOTE | 2024-04-24 19:02 | PM.CN.EICU ---
History of Present Illness Consult details IF CAMERA ACTIVATED, patient seen via real-time interactive audiovisual communication: Camera activated Chief complaint: Asthma exacerbation Consent obtained for tele-psychologist developmental care: Yes Patient Location: ICU Provider location (State): [place] Other participants/roles: RN, ICU Charge nurse, Hospitalist, RT Narrative: This is a 39 years old female with history of morbid obesity, asthma, diabetes type 2, tobacco use disorder, polysubstance abuse including marijuana use and methamphetamine use who initially presented to ED on 04/23/2024 for evaluation of acute onset of shortness of breath and mild chest discomfort, progressively got worse over the next few hours, did not respond to home nebulizer treatment so she decided to call EMS.? She was given DuoNebs and Solu-Medrol by EMS en route to ED.? When she arrived to ER, she was noted to be tachycardic, hypoxic, tachypneic with RR >30/min.? She was initially placed on 6-10 L from nasal cannula but continued to require increasing need for supplemental O2 and was switched to high flow nasal cannula.? Initial workup was notable for WBC 18.3, hemoglobin 13.2, ABG with pH 7.35, pCO2 46, PaO2 71.? Chemistry panel was unremarkable except sodium 136 and glucose 177.? Procalcitonin was 0.080.? Urine tox screen positive for methamphetamines.? Respiratory viral panel was negative.? Blood cultures were drawn and currently pending.? Initial chest x-ray showed airspace opacities within the left perihilar region, middle lobe and lingula concerning for multifocal pneumonia.? CTA of chest revealed multifocal pulmonary consultation without any evidence of pulmonary embolism.? In the ER, she received albuterol nebulizer treatment x 2, NS 1 L IV fluid bolus, Decadron 10 mg IV, Rocephin 2 g IV, azithromycin 500 mg IV and was admitted to ICU.? She was continued on IV antibiotics and supplemental O2 via high flow nasal cannula.? However, her respite status continued decline, became more labored, anxious/agitated despite on maximum settings on high flow nasal cannula so decision was made to intubate her.? Patient was intubated approximately 17:00 local time on 04/24/2024.? Following intubation, tele-ICU consultation was requested to assist with management. [facility] Medical History Bowel obstruction Asthma exacerbation Surgical History Status post delivery (10/02/17) Social History household members: friend(s) Smoking Status: Current some day smoker alcohol intake: former Current Medications Current Medications Medications: Home Medications albuterol sulfate 2.5 mg/3 mL (0.083 %) solution for nebulization 2.5 mg (3 mL) inhalation Q4H PRN shortness of breath or wheezing #180 mL 11/21/22 [Rx Confirmed 04/23/24] prednisone 50 mg tablet 50 mg PO DAILY #5 tabs 11/21/22 [Rx] Visit Medications (administered) Generic Name Dose Route Start Last Admin Trade Name Freq PRN Reason Stop Dose Admin Albuterol 2.5 mg 04/23/24 10:33 04/23/24 13:06 Albuterol 2.5 Mg/3 Ml Neb (Adult) INH 2.5 mg RTQ2HR PRN Administration Wheezing Albuterol/Ipratropium 3 ml 04/23/24 11:00 04/24/24 14:51 Albuterol/Ipratropium 3 Ml Ampul INH 3 ml RTQ4HR PERRY Administration Chlorhexidine Gluconate 15 ml 04/24/24 18:00 04/24/24 18:50 Chlorhexidine Gluconate 15 Ml Cup PO Not Given Q6HR PERRY Chlorhexidine Gluconate 15 ml 04/24/24 18:00 04/24/24 18:51 Chlorhexidine Gluconate 15 Ml Cup PO 15 ml Q6HR PERRY Administration Enoxaparin Sodium 40 mg 04/23/24 11:23 04/24/24 08:12 Enoxaparin 40 Mg/0.4 Ml Syringe SUBCUT 40 mg BID PERRY Administration Propofol 1,000 mg in 100 mls @ 4.032 mls/hr 04/24/24 17:15 04/24/24 18:22 Propofol IV 50 mcg/kg/min TITRATE PERRY 40.32 mls/hr Titration Protocol 5 MCG/KG/MIN Fentanyl 1,000 mcg/ Dextrose 250 mls @ 23.52 mls/hr 04/24/24 17:15 04/24/24 18:29 IV 1.5 mcg/kg/hr TITRATE PERRY 50.4 mls/hr Titration Protocol 0.7 MCG/KG/HR Insulin Glargine 10 unit 04/24/24 09:30 04/24/24 10:00 Insulin Glargine 100 Unit/Ml 3ml Pen SUBCUT 10 unit BID PERRY Administration Insulin Human Lispro 0 unit 04/24/24 17:45 04/24/24 18:43 Insulin Lispro 100 Unit/Ml 3ml Vial SUBCUT 5 unit Q6H PERRY Administration Protocol Methylprednisolone 80 mg 04/23/24 14:00 04/24/24 13:00 Methylprednisolone 125 Mg/2 Ml Vial IV 80 mg Q8HR PERRY Administration Pantoprazole Sodium 40 mg 04/24/24 17:10 04/24/24 18:26 Pantoprazole 40 Mg Vial IV 40 mg DAILY PERRY Administration Exam Vital Signs (past 8 hours): - 04/24/24 11:07 04/24/24 11:07 04/24/24 11:30 Pulse Rate 78 78 80 Respiratory Rate 19 19 19 Blood Pressure 134/70 Pulse Oximetry 93 93 92 Oxygen Delivery Method Heated High Flow Oxygen Flow Rate 50 Fraction of Inspired Oxygen 50 04/24/24 12:00 04/24/24 12:30 04/24/24 13:00 Pulse Rate 80 87 80 Respiratory Rate 22 24 19 Blood Pressure Pulse Oximetry 92 91 91 Oxygen Delivery Method Oxygen Flow Rate Fraction of Inspired Oxygen 04/24/24 13:30 04/24/24 14:00 04/24/24 14:30 Pulse Rate 77 79 87 Respiratory Rate 16 28 H 33 H Blood Pressure Pulse Oximetry 94 94 92 Oxygen Delivery Method Oxygen Flow Rate Fraction of Inspired Oxygen 04/24/24 14:52 04/24/24 14:52 04/24/24 15:00 Pulse Rate 82 82 Respiratory Rate 21 21 Blood Pressure Pulse Oximetry 92 92 Oxygen Delivery Method Heated High Flow Heated High Flow Oxygen Flow Rate 50 Fraction of Inspired Oxygen 50 04/24/24 15:00 04/24/24 15:17 04/24/24 15:30 Pulse Rate 88 70 Respiratory Rate 25 H 25 H Blood Pressure Pulse Oximetry 93 92 91 Oxygen Delivery Method Oxygen Flow Rate Fraction of Inspired Oxygen 04/24/24 16:00 04/24/24 16:30 04/24/24 16:40 Pulse Rate 80 67 Respiratory Rate 34 H 30 H 23 Blood Pressure Pulse Oximetry 90 L 90 L 91 Oxygen Delivery Method Oxygen Flow Rate Fraction of Inspired Oxygen 04/24/24 16:54 04/24/24 16:54 04/24/24 17:00 Pulse Rate 74 86 Respiratory Rate 36 H 27 H Blood Pressure 144/93 H Pulse Oximetry 91 91 Oxygen Delivery Method Oxygen Flow Rate Fraction of Inspired Oxygen 04/24/24 17:01 04/24/24 17:01 04/24/24 17:13 Pulse Rate 82 Respiratory Rate 19 Blood Pressure 158/105 H 212/118 H Pulse Oximetry 94 Oxygen Delivery Method Oxygen Flow Rate Fraction of Inspired Oxygen 04/24/24 17:13 04/24/24 17:15 04/24/24 17:15 Pulse Rate 69 77 Respiratory Rate 16 16 Blood Pressure 206/122 H Pulse Oximetry 96 95 Oxygen Delivery Method Oxygen Flow Rate Fraction of Inspired Oxygen 04/24/24 17:30 04/24/24 17:30 04/24/24 17:52 Pulse Rate 78 80 Respiratory Rate 16 18 Blood Pressure 200/106 H Pulse Oximetry 94 96 Oxygen Delivery Method Oxygen Flow Rate Fraction of Inspired Oxygen 04/24/24 17:52 04/24/24 18:00 04/24/24 18:00 Pulse Rate 89 Respiratory Rate 25 H Blood Pressure 185/115 H 194/121 H Pulse Oximetry 94 Oxygen Delivery Method Oxygen Flow Rate Fraction of Inspired Oxygen 04/24/24 18:00 04/24/24 18:25 04/24/24 18:25 Pulse Rate 82 Respiratory Rate 30 H Blood Pressure 178/97 H Pulse Oximetry 89 L Oxygen Delivery Method Oxygen Flow Rate Fraction of Inspired Oxygen 75 04/24/24 18:30 04/24/24 18:30 Pulse Rate 82 Respiratory Rate 28 H Blood Pressure 163/91 H Pulse Oximetry 88 L Oxygen Delivery Method Oxygen Flow Rate Fraction of Inspired Oxygen Fraction of Inspired Oxygen 75 SaO2/FiO2 Ratio 184 Oxygen Delivery Method Heated High Flow Oxygen Flow Rate 50 Narrative Exam Narrative: Morbidely obese, intubated, sedated, minimally responsive. Comfortable on the vent. Objective Labs 04/24/24 04:46 04/24/24 04:46 Labs: Laboratory Results - last 24 hr 04/24/24 04/24/24 04/24/24 04:46 12:34 17:50 WBC 20.9 H RBC 4.84 Hgb 13.3 Hct 41.4 MCV 85.4 MCH 27.5 MCHC 32.2 RDW 14.8 Plt Count 206 Neut % (Auto) 93.5 H Lymph % (Auto) 4.6 L [place] % (Auto) 1.7 L Eos % (Auto) 0.0 L Baso % (Auto) 0.2 Neut # (Auto) 20077 H Lymph # (Auto) 1000 L [place] # (Auto) 400 Eos # (Auto) 0 Baso # (Auto) 0 ABG Sample Site Left brachial ABG pH 7.39 ABG pCO2 41.6 ABG pO2 91 ABG HCO3 25 ABG Total CO2 26 ABG O2 Saturation 97 ABG Base Excess 0.0 FiO2 75 Sodium 137 Potassium 4.1 Chloride 106 Carbon Dioxide 27 BUN 14 Creatinine 0.53 Estimated GFR > 60 BUN/Creatinine Ratio 26.4 H Glucose 222 H Calcium 8.6 Phosphorus 2.3 L Magnesium 2.3 Vancomycin Trough 9.2 L Assessment & Plan Assessment & Plan narrative: # Acute hypoxic respiratory failure / Multifocal pneumonia / Acute asthma exacerbation: - Now intubated due to worsening respiratory status despite on maximum settings on HFNC. - Multifactorial.? Most likely in the setting of multifocal pneumonia and acute asthma exacerbation, undiagnosed BERNADETTE/OHS. - Current vent settings reviewed with RT at bedside.? Order postintubation ABG, adjust vent settings as needed. - Order stat chest x-ray to verify ETT position. - C/w vent support per lung protective strategy (TV 6ml/kg by IBW, plat pressure < 30, PaO2 60-80 mm Hg, SaO2 > 90%) and c/w ABCDE bundle while intubated. - On Propofol gtt and Fentanyl gtt for sedation/pain control. Goal to keep RAAS 0 to -2. - C/w daily sedation vacation (SAT) and vent weaning as tolerated.? Evaluate tomorrow am with SAT and SBT. - Continue empiric IV antibiotics ceftriaxone and azithromycin pending cultures. - Continue DuoNeb every 4 hours scheduled, every 2 hours as needed. - Continue Solu-Medrol 40 g IV every 8 hours. # Sepsis secondary to multifocal pneumonia: - Complete sepsis workup including blood cultures X 2, sputum cultures, UA with urine culture, procalcitonin. - Monitor markers of tissue perfusion (lactate clearance, base deficit, mental status, urine out). - Cover with empiric antibiotics (switched to Zosyn and IV vancomycin) pending cultures. - Received 1 L of NS IV fluid bolus in the ED.? Currently hypertensive with SBP >160.? Avoid aggressive IV fluid resuscitation for now. - When becomes hypotensive, may consider starting pressors (Norepinephrine) to keep MAP > 65. # Methamphetamine intoxication / History of polysubstance abuse: - Likely has some component of withdrawal from methamphetamine due to increased agitation/restlessness prior to intubation. - May use as needed Versed to help with withdrawal symptoms.? Unclear EtOH use history. - When extubated and appropriate, may need counseling and referral for detox # Diabetes type 2, uncontrolled: - BG goal 120-180.? Continue sliding-scale insulin, add Lantus as needed. ICU BUNDLE: # FEN: Currently NPO. Start tube feeding in am if remains intubated. # Glucose: fairly controlled. C/w Accu checks Q6 hours and SSI. BG goal 120-180 # Prophylaxis: Lovenox subcu for DVT prophylaxis, add PPI for stress ulcer prophylaxis # Lines/tubes: PIV, Goodrich, ET tube, OG tube # CODE STATUS: Full code # Disposition: Remains in ICU Above plan was discussed with rounding team including hospitalist, bedside RN, respiratory therapist, during tele-ICU multidisciplinary rounds this morning.? We will continue to follow.? Please call us if any additional questions.
[2024-04-24] MEDS: propofoL 1,000 MG/100 ML VIAL 44.352 MG IV ×3 (19:23→23:58)
[2024-04-24] MEDS: PIPERACILLIN/TAZO 4.5 GM in SODIUM CHLORIDE 0.9% 100 ML IV (20:10)
[2024-04-24] MEDS: fentaNYL 1,000 MCG in DEXTROSE 5% IN WATER 230 ML 67.2 MCG IV (22:27)
[2024-04-25] VITALS (62 sets, daily range): BP systolic 101–151; BP diastolic 50–80; PULSE 68–83; RESP 18–40; TEMP 36.6–37.5; O2SAT 89–95
[2024-04-25] MEDS: INSULIN LISPRO 100 UNIT/ML 3ML VIAL SUBCUT ×4 (00:01→17:42)
[2024-04-25] MEDS: propofoL 1,000 MG/100 ML VIAL 40.32 MG IV ×6 (02:03→13:52)
[2024-04-25] MEDS: fentaNYL 1,000 MCG in DEXTROSE 5% IN WATER 230 ML 60.48 MCG IV (02:38)
[2024-04-25] MEDS: ALBUTEROL/IPRATROPIUM 3 ML AMPUL INH ×6 (04:55→22:52)
[2024-04-25] MEDS: PIPERACILLIN/TAZO 3.375 GM in SODIUM CHLORIDE 0.9% 100 ML IV ×3 (04:55→20:44)
[2024-04-25] MEDS: CHLORHEXIDINE GLUCONATE 15 ML CUP PO ×3 (05:20→18:47)
[2024-04-25] MEDS: methylPREDNISolone 125 MG/2 ML VIAL 80 MG IV ×3 (05:20→21:28)
[2024-04-25 05:50] LABS: Add Manual Diff / Slide Review NO; Basophils Absolute Auto 0 /uL (0-100); Basophils Percent Auto 0.3 % (0-2); Eosinophils Absolute Auto 0 /uL (0-450); Hematocrit 40.4 % (36-46); Hemoglobin 13.1 g/dL (12.0-16.0); Lymphocytes Absolute Auto 1000 /uL (1100-4500); Lymphocytes Percent Auto 6.8 % (25-40); Mean Corpuscular HGB Conc 32.4 % (30-36); Mean Corpuscular Hemoglobin 27.6 PG (26-34); Mean Corpuscular Volume 85.1 fL (80-100); Monocytes Absolute Auto 600 /uL (0-900); Monocytes Percent Auto 3.6 % (3-14); Neutrophils Absolute Auto 13700 /uL (1500-7000); Neutrophils Percent Auto 89.3 % (50-75); Platelet Count 236 X10^3/uL (150-400); Red Blood Cell Count 4.75 X10^6/uL (4.0-5.2); Red Cell Distribution Width 14.5 % (11.6-14.8); White Blood Cell Count 15.3 X10^3/uL (4.5-11.0)
[2024-04-25 06:04] LABS: Alanine Aminotransferase 30 IU/L (<35); Albumin 3.3 g/dL (3.5-5.0); Albumin Globulin Ratio 1.1 (1.0-2.8); Alkaline Phosphatase 78 U/L (38-126); Aspartate Aminotransferase 24 IU/L (14-36); BUN Creatinine Ratio 29.3 (6-22); Bilirubin Total 0.5 mg/dL (0.2-1.3); Blood Urea Nitrogen 22 mg/dL (7-17); Calcium 8.6 mg/dL (8.4-10.2); Carbon Dioxide 29 mmol/L (22-32); Chloride 110 mmol/L (98-107); Estimated Glomerular Filt Rate > 60 mL/min (>60); Globulin 3.1 g/dL (1.7-4.1); Glucose 268 mg/dL (70-100); HEMOLYSIS < 15 (0-50); Potassium 4.4 mmol/L (3.4-5.1); Sodium 140 mmol/L (137-145); Total Protein 6.4 g/dL (6.3-8.2)
--- NOTE | 2024-04-25 06:22 | PC.NURSE ---
maintenance supervisor 2nd shift RN note pt intubated and sedated, opens eyes and follow commands, agitation and restlessness with RASS +2, reaching for ETT, sedation titrated to maintain RASS -2, bilat soft wrist restraints on to maintain therapy, VSS, afebrile, face flushed and diaphoretic at times, SR BBB 70-80s, PPPx4, 1+ mild gen edema, #7.5 ETT/25 at teeth, vent AC 18/420/+5/60%, O2 sats 90-94%, mod to large amts of clear/white secretions from mouth an ETT, lungs coarse and decreased, wheezy at times with agitation, increased RR, abd round soft with BS, OGT to LIS, montiel draining mod amts yellow urine, skin warm, scattered abrasions, second IV site stated via U/S, pericare/oral care and bed bath completed, meds and labs as ordered
[2024-04-25] MEDS: fentaNYL 1,000 MCG in DEXTROSE 5% IN WATER 230 ML 67.2 MCG IV ×2 (06:37→10:41)
[2024-04-25] MEDS: ENOXAPARIN 40 MG/0.4 ML SYRINGE SUBCUT ×2 (08:12→20:45)
[2024-04-25] MEDS: PANTOPRAZOLE 40 MG VIAL IV (08:13)
[2024-04-25] MEDS: AZITHROMYCIN 500 MG in DEXTROSE 5% IN WATER 250 ML 250 MG IV (08:13)
[2024-04-25] MEDS: INSULIN GLARGINE 100 UNIT/ML 3ML PEN 10 UNIT SUBCUT ×2 (08:15→21:38)
--- NOTE | 2024-04-25 09:08 | CM.DPNOTE ---
DCP note ORDER MANAGEMENT SPECIALIST reviewed EMR. Per hospitalist, pt was intubated yesterday. seems to be doing well with it. Per chart review from previous SW notes, pt has a hx of leaving AMA once feeling stable/has denied SOLA tx during past hospitalizations. P: pt to dc home with her sister to transport once medically stable. CM team will continue to follow and assist with further evolving DCP/ORDER MANAGEMENT SPECIALIST needs and continue to offer SOLA treatment in the community if agreeable. RAJAN Patterson
--- NOTE | 2024-04-25 11:01 | DIET.CONS ---
Dietary Consultation Note Admission Date: 04/23/2024 08:51 Assessment: 39 y F presented with acute asthma exacerbation, was intubated last evening. Nutrition consulted for pt on vent and NPO. Chart reviewed. PMH of diabetes. Per healthcare team rounds, appropriate for initiation of enteral feeding. Propofol at 50 mcg, limiting amount of protein and carbohydrates that can be provided in order to avoid overfeeding. Ht: 165.1 cm Wt: 129 kg BMI: 49.3 UBW: limited recent wt hx Last BM: () MNA: John Score: 15 Diet: 04/24/24 17:08 NPO Diet Diet Modifications: NPO Type: Strict Nutrition Percent Meal Consumed 0% 04/24/24 18:00 Labs: RBC 4.75 X10^6/uL (4.0-5.2) 04/25/24 05:38 Hgb 13.1 g/dL (12.0-16.0) 04/25/24 05:38 Hct 40.4 % (36-46) 04/25/24 05:38 Creatinine 0.75 mg/dL (0.52-1.04) 04/25/24 05:38 Lactate 1.2 mmol/L (0.7-2.1) 04/23/24 06:52 Nutrition Diagnosis: Inadequate oral intake r/t intubation aeb NPO status Interventions: 1. Recc starting continuous enteral nutrition with Glucerna 1.5 at 20 ml/hr. Goal rate is 20 ml/hr. Goal rate w/ propofol at 50 mcg provides 1750 kcals, 40 g protein, 64 g carbs, and 365 ml feed water. 200 ml flushes Q4H. Feeds+flush provides 1565 ml fluids. Receiving IV fluids. 2. Will reassess needs based on propofol rate and provided additional protein as appropriate. EER: [id number] kcals (12-14 kcals/kg per BMI) 120-140 g protein (2.2-2.4 g/kg of IBW per BMI) Monitoring/Evaluations: tf rate, tolerance, propofol rate Electronically Signed by: Dhara Morse 04/25/24 11:01 Clinical Dietitian [address] [id number]
--- NOTE | 2024-04-25 11:25 | P.TELICUPN_ITS ---
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 Patient Location: ICU Provider location (State): [place] Other participants/roles: bedside RN Interval history: Remains agitated, but not purposefully following commands when sedation lightened still not well sedated despite max dose propofol and fentanyl on 60% fio2, peep 5 no pressors Current Medications Current Medications Medications: Home Medications albuterol sulfate 2.5 mg/3 mL (0.083 %) solution for nebulization 2.5 mg (3 mL) inhalation Q4H PRN shortness of breath or wheezing #180 mL 11/21/22 [Rx Confirmed 04/23/24] prednisone 50 mg tablet 50 mg PO DAILY #5 tabs 11/21/22 [Rx] Visit Medications (administered) Generic Name Dose Route Start Last Admin Trade Name Freq PRN Reason Stop Dose Admin Albuterol 2.5 mg 04/23/24 10:33 04/23/24 13:06 Albuterol 2.5 Mg/3 Ml Neb (Adult) INH 2.5 mg RTQ2HR PRN Administration Wheezing Albuterol/Ipratropium 3 ml 04/23/24 11:00 04/25/24 10:03 Albuterol/Ipratropium 3 Ml Ampul INH 3 ml RTQ4HR PERRY Administration Chlorhexidine Gluconate 15 ml 04/24/24 18:00 04/25/24 05:20 Chlorhexidine Gluconate 15 Ml Cup PO 15 ml Q6HR PERRY Administration Enoxaparin Sodium 40 mg 04/23/24 11:23 04/25/24 08:12 Enoxaparin 40 Mg/0.4 Ml Syringe SUBCUT 40 mg BID PERRY Administration Propofol 1,000 mg in 100 mls @ 4.032 mls/hr 04/24/24 17:15 04/25/24 08:52 Propofol IV 50 mcg/kg/min TITRATE PERRY 40.32 mls/hr Administration Protocol 5 MCG/KG/MIN Piperacillin Sod/Tazobactam 100 mls @ 25 mls/hr 04/25/24 04:00 04/25/24 09:31 Sod 3.375 gm/ Sodium Chloride IV Infused Q8H PERRY Infusion Fentanyl 1,000 mcg/ Dextrose 250 mls @ 23.52 mls/hr 04/25/24 02:30 04/25/24 10:41 IV 2 mcg/kg/hr TITRATE PERRY 67.2 mls/hr Administration Protocol 0.7 MCG/KG/HR Insulin Glargine 10 unit 04/24/24 09:30 04/25/24 08:15 Insulin Glargine 100 Unit/Ml 3ml Pen SUBCUT 10 unit BID PERRY Administration Insulin Human Lispro 0 unit 04/24/24 17:45 04/25/24 05:50 Insulin Lispro 100 Unit/Ml 3ml Vial SUBCUT 3 unit Q6H PERRY Administration Protocol Methylprednisolone 80 mg 04/23/24 14:00 04/25/24 05:20 Methylprednisolone 125 Mg/2 Ml Vial IV 80 mg Q8HR PERRY Administration Pantoprazole Sodium 40 mg 04/24/24 17:10 04/25/24 08:13 Pantoprazole 40 Mg Vial IV 40 mg DAILY PERRY Administration Objective Ventilator Parameters: Ventilator Settings FiO2 60 RT Vent Frequency 18 Ventilator Tidal Volume 420 Exhaled Positive End Expiratory 5 Pressure Inspiratory Phase Time 0.8 I:E Ratio 1:3.2 Patient Position HOB >= 30 degrees Imaging Chest x-ray: Radiologist's impression: 04/24- ETT and NGT in appropriate position the bilateral infiltrates seen on ct scan are not seen well on the cxr low lung volumes noted Labs 04/25/24 05:38 04/25/24 05:38 Labs: Laboratory Results - last 24 hr 04/24/24 04/24/24 04/25/24 12:34 17:50 05:38 WBC 15.3 H RBC 4.75 Hgb 13.1 Hct 40.4 MCV 85.1 MCH 27.6 MCHC 32.4 RDW 14.5 Plt Count 236 Neut % (Auto) 89.3 H Lymph % (Auto) 6.8 L [place] % (Auto) 3.6 Eos % (Auto) 0.0 L Baso % (Auto) 0.3 Neut # (Auto) 00307 H Lymph # (Auto) 1000 L [place] # (Auto) 600 Eos # (Auto) 0 Baso # (Auto) 0 ABG Sample Site Left brachial ABG pH 7.39 ABG pCO2 41.6 ABG pO2 91 ABG HCO3 25 ABG Total CO2 26 ABG O2 Saturation 97 ABG Base Excess 0.0 FiO2 75 Sodium 140 Potassium 4.4 Chloride 110 H Carbon Dioxide 29 BUN 22 H Creatinine 0.75 Estimated GFR > 60 BUN/Creatinine Ratio 29.3 H Glucose 268 H Calcium 8.6 Total Bilirubin 0.5 AST 24 ALT 30 Alkaline Phosphatase 78 Total Protein 6.4 Albumin 3.3 L Globulin 3.1 Albumin/Globulin Ratio 1.1 Vancomycin Trough 9.2 L Exam Vital Signs (past 8 hours): - 04/25/24 03:30 04/25/24 03:30 04/25/24 04:00 Temperature Pulse Rate 74 74 Respiratory Rate 19 21 Blood Pressure 103/54 L Pulse Oximetry 92 93 Oxygen Delivery Method Fraction of Inspired Oxygen 04/25/24 04:00 04/25/24 04:07 04/25/24 04:30 Temperature Pulse Rate 74 72 Respiratory Rate 21 20 Blood Pressure 103/50 L Pulse Oximetry 93 94 Oxygen Delivery Method Fraction of Inspired Oxygen 04/25/24 04:30 04/25/24 04:55 04/25/24 05:00 Temperature 99.5 F Pulse Rate Respiratory Rate Blood Pressure 109/55 L 108/61 Pulse Oximetry Oxygen Delivery Method Mechanical Ventilation Fraction of Inspired Oxygen 04/25/24 05:00 04/25/24 05:15 04/25/24 05:30 Temperature Pulse Rate 75 83 Respiratory Rate 22 27 H Blood Pressure 110/58 L Pulse Oximetry 92 90 L Oxygen Delivery Method Fraction of Inspired Oxygen 04/25/24 05:30 04/25/24 06:00 04/25/24 06:00 Temperature Pulse Rate 81 79 Respiratory Rate 35 H 25 H Blood Pressure 107/57 L Pulse Oximetry 90 L 90 L Oxygen Delivery Method Fraction of Inspired Oxygen 04/25/24 06:06 04/25/24 06:30 04/25/24 06:30 Temperature Pulse Rate 79 77 Respiratory Rate 39 H 27 H Blood Pressure 120/65 Pulse Oximetry 90 L 89 L Oxygen Delivery Method Fraction of Inspired Oxygen 04/25/24 07:00 04/25/24 07:00 04/25/24 07:18 Temperature Pulse Rate 74 72 Respiratory Rate 39 H 18 Blood Pressure 120/64 Pulse Oximetry 90 L 91 Oxygen Delivery Method Mechanical Ventilation Fraction of Inspired Oxygen 60 04/25/24 07:30 04/25/24 07:30 04/25/24 08:00 Temperature Pulse Rate 72 Respiratory Rate 32 H Blood Pressure 121/64 122/62 Pulse Oximetry 91 Oxygen Delivery Method Fraction of Inspired Oxygen 04/25/24 08:00 04/25/24 08:30 04/25/24 08:30 Temperature Pulse Rate 74 72 Respiratory Rate 24 33 H Blood Pressure 125/65 Pulse Oximetry 91 92 Oxygen Delivery Method Fraction of Inspired Oxygen 04/25/24 08:35 04/25/24 09:00 04/25/24 09:00 Temperature 98.6 F Pulse Rate 72 73 Respiratory Rate 30 H 40 H Blood Pressure Pulse Oximetry 93 93 Oxygen Delivery Method Mechanical Ventilation Fraction of Inspired Oxygen 35 04/25/24 09:00 04/25/24 09:30 04/25/24 09:30 Temperature Pulse Rate 71 Respiratory Rate 36 H Blood Pressure 126/66 126/66 Pulse Oximetry 93 Oxygen Delivery Method Fraction of Inspired Oxygen 04/25/24 10:00 04/25/24 10:00 04/25/24 10:30 Temperature Pulse Rate 74 76 Respiratory Rate 32 H 20 Blood Pressure 126/71 Pulse Oximetry 93 92 Oxygen Delivery Method Fraction of Inspired Oxygen 04/25/24 10:30 04/25/24 11:00 04/25/24 11:00 Temperature Pulse Rate 75 Respiratory Rate 21 Blood Pressure 119/62 119/59 L Pulse Oximetry 92 Oxygen Delivery Method Fraction of Inspired Oxygen Fraction of Inspired Oxygen 35 SaO2/FiO2 Ratio 151 Oxygen Delivery Method Mechanical Ventilation Oxygen Flow Rate 50 Narrative Exam Narrative: intubated, moving head around, eyes closed Quality TeleICU VTE Deep Vein Thrombosis/Pulmonary Embolism Present on Admission: No Assessment & Plan Assessment & Plan narrative: # Acute hypoxic respiratory failure / Multifocal pneumonia / Acute asthma exacerbation: - Now intubated due to worsening respiratory status despite on maximum settings on HFNC. - Multifactorial.? Most likely in the setting of multifocal pneumonia and acute asthma exacerbation, undiagnosed BERNADETTE/OHS. - Current vent settings reviewed - increase PEEP to 8 today, try to wean down FIO2 as able, now on 60%. keep sat >90%. . - C/w vent support per lung protective strategy (TV 6ml/kg by IBW, plat pressure < 30, PaO2 60-80 mm Hg, SaO2 > 90%) and c/w ABCDE bundle while intubated. - On Propofol gtt and Fentanyl gtt for sedation/pain control. Goal to keep RAAS 0 to -2. - will add precedex gtt as she is agitated and c/f withdrawing. will add ativan PRN - C/w daily sedation vacation (SAT) and vent weaning as tolerated.? Evaluate tomorrow am with SAT and SBT. - Continue empiric IV antibiotics zosyn and azithromycin pending cultures. - Continue DuoNeb every 4 hours scheduled, every 2 hours as needed. - Continue Solu-Medrol 40 g IV every 8 hours. # Sepsis secondary to multifocal pneumonia: - Complete sepsis workup including blood cultures X 2, sputum cultures, UA with urine culture, . - Cover with empiric antibiotics - MRSA screen neg, will not continue vaco - not requiring pressors, good UOP # Methamphetamine intoxication / History of polysubstance abuse: - Likely has some component of withdrawal from methamphetamine due to increased agitation/restlessness prior to intubation. - May use as needed benzo to help with withdrawal symptoms.? Unclear EtOH use history. - When extubated and appropriate, may need counseling and referral for detox # Diabetes type 2, uncontrolled: - BG goal 120-180.? Continue sliding-scale insulin, add Lantus as needed. ICU BUNDLE: # FEN: Currently NPO- start tube feeds # Glucose: fairly controlled. C/w Accu checks Q6 hours and SSI. BG goal 120-180 # Prophylaxis: Lovenox subcu for DVT prophylaxis, add PPI for stress ulcer prophylaxis # Lines/tubes: PIV, [place], ET tube, OG tube # CODE STATUS: Full code # Disposition: Remains in ICU Above plan was discussed with bedside RN Time Spent With Patient Time with patient: 30 to 49 minutes with 50% spent counseling/coordinating care
[2024-04-25] MEDS: dexmedeTOMIDine in 0.9 % NaCL 400 MCG/100 ML PLAST..BAG 6.45 MCG IV (11:26)
--- NOTE | 2024-04-25 11:28 | RT ---
PEEP INCREASED TO [address] BARAHONA.
[2024-04-25] MEDS: LORazepam 2 MG/ML INJ IV ×2 (12:00→17:16)
--- NOTE | 2024-04-25 13:34 | DI.RAD.S_ITS ---
PROCEDURE: XR CHEST 1V INDICATIONS: PICC placement TECHNIQUE: One view of the chest was acquired. COMPARISON: Merged With [facility], CR, XR CHEST 1V, 04/24/2024, 17:09. FINDINGS: Surgical changes and devices: The patient is intubated and the endotracheal tube is approximately 2.8 cm above the shannan. A nasogastric tube is present, the distal aspect of which is not visualized. There is a right PICC, the distal tip of which is projected over the right atrium. Lungs and pleura: Lung volumes are low. Right upper lobe and left mid lung pulmonary radiopacities are noted. Mediastinum: Mediastinal contours appear normal. Heart size is normal. Bones and chest wall: No suspicious bony lesions. Overlying soft tissues appear unremarkable. IMPRESSION: 1. Tubes and lines as above. Consider retracting the right PICC approximately 8 cm in the region of the cavoatrial junction. 2. Low lung volumes and bilateral pulmonary consolidation or atelectasis. Dictated by: Anyi Devine M.D. on 04/25/2024 at 14:29 Approved by: Anyi Devine M.D. on 04/25/2024 at 14:30
--- NOTE | 2024-04-25 14:37 | DI.RAD.S_ITS ---
PROCEDURE: XR CHEST 1V INDICATIONS: PICC withdrawal per previous CXR TECHNIQUE: One view of the chest was acquired. COMPARISON: [facility], , XR CHEST 1V, 04/25/2024, 13:32. FINDINGS: Surgical changes and devices: The right PICC has been retracted and is now approximately 4 cm deep to the cavoatrial junction. The endotracheal tube and NG tube are unchanged. Lungs and pleura: Lung volumes are low. There is likely bilateral atelectasis as before. Mediastinum: Mediastinal contours appear normal. Heart size is unchanged. Bones and chest wall: No suspicious bony lesions. Overlying soft tissues appear unremarkable. IMPRESSION: PICC retracted and is now more superiorly located in the right atrium. Dictated by: Anyi Devine M.D. on 04/25/2024 at 15:32 Approved by: Anyi Devine M.D. on 04/25/2024 at 15:33
[2024-04-25] MEDS: fentaNYL 2,000 MCG in DEXTROSE 5% IN WATER 210 ML 11.76 MCG IV (14:42)
[2024-04-25] MEDS: propofoL 1,000 MG/100 ML VIAL 32.256 MG IV ×3 (16:05→21:26)
--- NOTE | 2024-04-25 16:25 | DI.RAD.S_ITS ---
PROCEDURE: XR CHEST FOR PICC 1V INDICATIONS: PICC replacement COMPARISON: [facility], CR, XR CHEST 1V, 04/25/2024, 14:47. FINDINGS: PICC was placed by the intravenous therapy team from the right side. Fluoroscopic spot film demonstrates the tip of PICC projecting to the area of distal superior vena cava. IMPRESSION: Tip of PICC projects to the area of distal superior vena cava. Dictated by: Ayan Lay M.D. on 04/25/2024 at 16:56 Approved by: Ayan Lay M.D. on 04/25/2024 at 17:00
--- NOTE | 2024-04-25 16:58 | P.PN_ITS ---
Subjective Subjective Interval history: Pateint remains intubated. SBT this morning went poorly as she became quite agitated and attempted to remove ET tube. WBC improving. Exam Vital Signs (past 8 hours): - 04/25/24 09:00 04/25/24 09:00 04/25/24 09:00 Temperature 98.6 F Pulse Rate 72 73 Respiratory Rate 30 H 40 H Blood Pressure 126/66 Pulse Oximetry 93 93 Oxygen Delivery Method Fraction of Inspired Oxygen 35 04/25/24 09:30 04/25/24 09:30 04/25/24 10:00 Temperature Pulse Rate 71 Respiratory Rate 36 H Blood Pressure 126/66 126/71 Pulse Oximetry 93 Oxygen Delivery Method Fraction of Inspired Oxygen 04/25/24 10:00 04/25/24 10:30 04/25/24 10:30 Temperature Pulse Rate 74 76 Respiratory Rate 32 H 20 Blood Pressure 119/62 Pulse Oximetry 93 92 Oxygen Delivery Method Fraction of Inspired Oxygen 04/25/24 11:00 04/25/24 11:00 04/25/24 11:30 Temperature Pulse Rate 75 Respiratory Rate 21 Blood Pressure 119/59 L 120/61 Pulse Oximetry 92 Oxygen Delivery Method Fraction of Inspired Oxygen 04/25/24 11:30 04/25/24 12:00 04/25/24 12:00 Temperature 97.8 F Pulse Rate 76 Respiratory Rate 35 H Blood Pressure 125/67 Pulse Oximetry 91 Oxygen Delivery Method Fraction of Inspired Oxygen 04/25/24 12:00 04/25/24 12:20 04/25/24 13:00 Temperature Pulse Rate 72 70 71 Respiratory Rate 18 28 H 20 Blood Pressure 130/71 Pulse Oximetry 91 92 Oxygen Delivery Method Fraction of Inspired Oxygen 04/25/24 13:00 04/25/24 13:30 04/25/24 13:30 Temperature Pulse Rate 72 Respiratory Rate 21 Blood Pressure 133/74 133/72 Pulse Oximetry 93 Oxygen Delivery Method Fraction of Inspired Oxygen 04/25/24 14:00 04/25/24 14:00 04/25/24 14:30 Temperature 98.3 F Pulse Rate 69 75 Respiratory Rate 25 H 22 Blood Pressure 136/68 Pulse Oximetry 95 91 Oxygen Delivery Method Fraction of Inspired Oxygen 04/25/24 14:30 04/25/24 15:00 04/25/24 15:00 Temperature Pulse Rate 74 Respiratory Rate 24 Blood Pressure 126/65 126/64 Pulse Oximetry 92 Oxygen Delivery Method Fraction of Inspired Oxygen 04/25/24 15:30 04/25/24 15:30 04/25/24 16:00 Temperature Pulse Rate 73 Respiratory Rate 24 Blood Pressure 125/61 129/66 Pulse Oximetry 93 Oxygen Delivery Method Fraction of Inspired Oxygen 04/25/24 16:00 04/25/24 16:00 Temperature Pulse Rate 71 Respiratory Rate 23 Blood Pressure Pulse Oximetry 93 Oxygen Delivery Method Mechanical Ventilation Fraction of Inspired Oxygen Fraction of Inspired Oxygen 35 SaO2/FiO2 Ratio 151 Oxygen Delivery Method Mechanical Ventilation Oxygen Flow Rate 50 Narrative Exam Narrative: GEN: Intubated and sedated, morbidly obese HEENT: Normocephalic, face symmetric, pupils equal round reactive to light, extraocular movements intact, sclerae anicteric, conjunctiva clear, nares patent, oropharynx reveals an intact soft and hard palate with moist mucous membranes, dentition is fair NECK: Supple, no lymphadenopathy, thyroid without enlargement or nodularity, carotids no bruits CHEST: Respiratory excursions symmetric, faint expiratory wheezes in the right upper lobe, very diminished breath sounds throughout CV: Regular rate and rhythm, no murmurs, rubs, gallops, PMI can not be palpated ABD: Soft, obese, nontender, nondistended, bowel sounds present in all 4 quadrants, body habitus limits exam EXTR: Warm, well perfused, no clubbing/cyanosis/edema SKIN: Warm and dry, without rash NEURO: Cannot obtain due to sedation. PSYCH: Cannot obtain due to sedation. Objective Labs 04/25/24 05:38 04/25/24 05:38 Labs: Laboratory Results - last 24 hr 04/24/24 04/25/24 17:50 05:38 WBC 15.3 H RBC 4.75 Hgb 13.1 Hct 40.4 MCV 85.1 MCH 27.6 MCHC 32.4 RDW 14.5 Plt Count 236 Neut % (Auto) 89.3 H Lymph % (Auto) 6.8 L [place] % (Auto) 3.6 Eos % (Auto) 0.0 L Baso % (Auto) 0.3 Neut # (Auto) 81004 H Lymph # (Auto) 1000 L [place] # (Auto) 600 Eos # (Auto) 0 Baso # (Auto) 0 ABG Sample Site Left brachial ABG pH 7.39 ABG pCO2 41.6 ABG pO2 91 ABG HCO3 25 ABG Total CO2 26 ABG O2 Saturation 97 ABG Base Excess 0.0 FiO2 75 Sodium 140 Potassium 4.4 Chloride 110 H Carbon Dioxide 29 BUN 22 H Creatinine 0.75 Estimated GFR > 60 BUN/Creatinine Ratio 29.3 H Glucose 268 H Calcium 8.6 Total Bilirubin 0.5 AST 24 ALT 30 Alkaline Phosphatase 78 Total Protein 6.4 Albumin 3.3 L Globulin 3.1 Albumin/Globulin Ratio 1.1 [facility] Medical History Bowel obstruction Asthma exacerbation Surgical History Status post delivery (10/02/17) Social History household members: friend(s) Smoking Status: Current some day smoker alcohol intake: former Assessment & Plan Assessment & Plan narrative: 1. Acute hypoxic respiratory failure -intubated on 04/24 due to worsening resp status and agitation despite maxed on high flow -CXR with bilateral pulm consolidations -propofol and fent drips, precedex added due to agitation on vent -appreciate teleICU consult -failed SBT on 04/25 2. Multifocal pneumonia -CTA with bilateral infiltrates consistent with multifocal pneumonia -zosyn and azithro ordered, MRSA swab negative and vanco now off -send sputum culture -resp PCR negative 3. Sepsis secondary to multifocal pneumonia. Patient met sepsis criteria on arrival as evidenced by tachycardia, tachypnea, elevated white blood cell count of 18.3, and known multifocal pneumonia. Blood cultures no growth. Continue broad-spectrum antibiotics as noted. 4. Asthma with exacerbation Solu-Medrol and nebs have been ordered. We are unable to verify what her usual outpatient regimen is, if anything. She does have a nebulizer at home, but I am uncertain if she is on any chronic controlling medications. Will need to reconcile medications. Her roommate reports that she gets medications filled at [facility] pharmacy in [place]. 5. Diabetes mellitus uncontrolled with hyperglycemia -continue lantus 10u BID and SSI -TF running 6. Polysubstance dependence, with likely withdrawal Patient does admit to daily to multiple times daily smoking of fentanyl tablets. She also reports ?occasional ?smoking of methamphetamines. Her urine tox screen was positive for amphetamines and methamphetamines. Discussed mitigating withdrawals by starting suboxone, and patient would like to try it. Received 1 tab SL but stopped now as she is on an IV fentanyl drip. 7. Class 3 obesity BMI is 49.3. She is at significantly increased risk of morbidity and mortality, particularly from a respiratory standpoint given her very high BMI. 8. Hyponatremia, resolved Code status Full Prophylaxis Due to her BMI greater than 40, I have ordered Lovenox 40 mg subQ b.i.d. I spent a total of 35 minutes of critical care time on this patient's care today; this time is exclusive of procedural time. Disposition ICU Quality VTE Deep Vein Thrombosis/Pulmonary Embolism Present on Admission: No
[2024-04-25] MEDS: diphenhydrAMINE 50 MG/ML VIAL 25 MG IV (17:40)
--- NOTE | 2024-04-25 20:16 | P.ICUMDRN_ITS ---
- Date Patient Seen: 04/25/24 :: This patient was seen via real time interactive two-way audiovisual telecommunic ation. Note: Patient remains intubated and sedated. On FiO2 35%. Sedated w/ propofol and precedex. Cont abx and steroids. Daily SAT and SBT as tolerated. D/w bedside RN.
[2024-04-25] MEDS: fentaNYL 2,000 MCG in DEXTROSE 5% IN WATER 210 ML 28.56 MCG IV (22:52)
[2024-04-26] VITALS (67 sets, daily range): BP systolic 140–186; BP diastolic 66–101; PULSE 50–83; RESP 15–39; TEMP 37.1–38; O2SAT 90–96
[2024-04-26] MEDS: propofoL 1,000 MG/100 ML VIAL 32.256 MG IV ×4 (00:21→09:28)
[2024-04-26] MEDS: CHLORHEXIDINE GLUCONATE 15 ML CUP PO ×4 (00:57→18:49)
[2024-04-26] MEDS: INSULIN LISPRO 100 UNIT/ML 3ML VIAL SUBCUT ×4 (00:57→17:29)
[2024-04-26] MEDS: dexmedeTOMIDine in 0.9 % NaCL 400 MCG/100 ML PLAST..BAG 6.45 MCG IV (02:40)
[2024-04-26] MEDS: PIPERACILLIN/TAZO 3.375 GM in SODIUM CHLORIDE 0.9% 100 ML IV ×3 (03:47→19:54)
[2024-04-26] MEDS: ALBUTEROL/IPRATROPIUM 3 ML AMPUL INH ×6 (03:58→23:27)
[2024-04-26 05:56] LABS: Add Manual Diff / Slide Review NO; Basophils Absolute Auto 100 /uL (0-100); Basophils Percent Auto 0.6 % (0-2); Eosinophils Absolute Auto 0 /uL (0-450); Hematocrit 38.9 % (36-46); Hemoglobin 12.7 g/dL (12.0-16.0); Lymphocytes Absolute Auto 1100 /uL (1100-4500); Lymphocytes Percent Auto 10.7 % (25-40); Mean Corpuscular HGB Conc 32.7 % (30-36); Mean Corpuscular Volume 85.4 fL (80-100); Monocytes Absolute Auto 400 /uL (0-900); Monocytes Percent Auto 3.8 % (3-14); Neutrophils Absolute Auto 8900 /uL (1500-7000); Neutrophils Percent Auto 84.9 % (50-75); Platelet Count 227 X10^3/uL (150-400); Red Blood Cell Count 4.56 X10^6/uL (4.0-5.2); Red Cell Distribution Width 14.7 % (11.6-14.8); White Blood Cell Count 10.5 X10^3/uL (4.5-11.0)
[2024-04-26] MEDS: methylPREDNISolone 125 MG/2 ML VIAL 80 MG IV (06:03)
[2024-04-26 06:09] LABS: Alanine Aminotransferase 24 IU/L (<35); Albumin 3.3 g/dL (3.5-5.0); Albumin Globulin Ratio 1.1 (1.0-2.8); Alkaline Phosphatase 73 U/L (38-126); Aspartate Aminotransferase 21 IU/L (14-36); BUN Creatinine Ratio 26.8 (6-22); Bilirubin Total 0.5 mg/dL (0.2-1.3); Blood Urea Nitrogen 19 mg/dL (7-17); Carbon Dioxide 28 mmol/L (22-32); Chloride 109 mmol/L (98-107); Estimated Glomerular Filt Rate > 60 mL/min (>60); Glucose 254 mg/dL (70-100); HEMOLYSIS 18 (0-50); Potassium 4.5 mmol/L (3.4-5.1); Sodium 139 mmol/L (137-145); Total Protein 6.3 g/dL (6.3-8.2)
[2024-04-26] MEDS: fentaNYL 2,000 MCG in DEXTROSE 5% IN WATER 210 ML 28.56 MCG IV ×2 (07:54→17:29)
[2024-04-26] MEDS: ENOXAPARIN 40 MG/0.4 ML SYRINGE SUBCUT ×2 (08:26→20:33)
[2024-04-26] MEDS: PANTOPRAZOLE 40 MG VIAL IV (08:26)
[2024-04-26] MEDS: INSULIN GLARGINE 100 UNIT/ML 3ML PEN 10 UNIT SUBCUT ×2 (08:27→20:34)
--- NOTE | 2024-04-26 09:01 | PC.NURSE ---
LATE ENTRY 04/25 Day shift: SAT attempted at approximately 0835. Propofol paused, pt opened eyes, made eye contact briefly, thrashing in bed, head back and forth, hands reaching for tubes and wires. Pt reoriented to situation by this RN, pt not following commands, throwing legs out of bed. Sedation resumed for pt safety. eICU provider notified. Pt periodically wakening, RASS +4, provider notified and on screen at bedside. More sedation ordered (see MAR). Pt RASS -1 to -2 most of the remaining day. Bed bath performed, pt RASS +3 during bath, PRN provided (See MAR). Vital signs tolerating sedation and PRNs. Tube feeding started. PICC ordered then placed by outside PICC personnel. Care ongoing, will continue to monitor.
--- NOTE | 2024-04-26 09:08 | PC.NURSE ---
Addendum entered by Lisa Saldana R.N. 04/26/24 11:32: Pt RASS +3, gagging, thrashing head. OG displaced, tube feeds stopped, OG subsequently removed. New OG placed, CXR obtained, placement adequate. Tube feeds resumed. Original Note: Day shift: Pt VSS, RASS -3. Sedation vacation started at approximately 0855. 0906, pt open eyes, making eye contact, shaking head to questions appropriately, squeezing hand on command. 0910 pt +4, reaching for tubes and wires, shking head back and forth, biting on ETT. Pt kicking legs out of bed, tachypneic, not following commands/not cooperating with care. eICU provider at bedside remotely. PRN administered and sedation resumed (See MAR). Pt -1 RASS, hypertensive. Care ongoing, will continue to monitor.
[2024-04-26] MEDS: LORazepam 2 MG/ML INJ IV ×2 (09:15→22:42)
--- NOTE | 2024-04-26 09:27 | P.TELICUPN_ITS ---
Subjective Subjective IF CAMERA ACTIVATED, patient seen via real-time interactive audiovisual communication: Camera activated Date Patient Seen: 04/25/24 Consent obtained for tele-tie knitter helper care: Yes Patient Location: ICU Provider location (State): [place] Other participants/roles: bedside RN Interval history: I camera in the room today during SAT patient was agitated and pulling at ETT, despite precedex gtt remaning on She is still on 60% fio2, PEEP 8 and was tachypneic at time so ativan given x 1 and sedation restarted she was not able to trial PSV no pressors Current Medications Current Medications Medications: Home Medications albuterol sulfate 2.5 mg/3 mL (0.083 %) solution for nebulization 2.5 mg (3 mL) inhalation Q4H PRN shortness of breath or wheezing #180 mL 11/21/22 [Rx Confirmed 04/23/24] prednisone 50 mg tablet 50 mg PO DAILY #5 tabs 11/21/22 [Rx] Visit Medications (administered) Generic Name Dose Route Start Last Admin Trade Name Freq PRN Reason Stop Dose Admin Albuterol 2.5 mg 04/23/24 10:33 04/23/24 13:06 Albuterol 2.5 Mg/3 Ml Neb (Adult) INH 2.5 mg RTQ2HR PRN Administration Wheezing Albuterol/Ipratropium 3 ml 04/23/24 11:00 04/26/24 07:14 Albuterol/Ipratropium 3 Ml Ampul INH 3 ml RTQ4HR PERRY Administration Chlorhexidine Gluconate 15 ml 04/24/24 18:00 04/26/24 06:03 Chlorhexidine Gluconate 15 Ml Cup PO 15 ml Q6HR PERRY Administration Diphenhydramine HCl 25 mg 04/25/24 17:34 04/25/24 17:40 Diphenhydramine 50 Mg/Ml Vial IV 25 mg Q6HR PRN Administration Rash Enoxaparin Sodium 40 mg 04/23/24 11:23 04/26/24 08:26 Enoxaparin 40 Mg/0.4 Ml Syringe SUBCUT 40 mg BID PERRY Administration Propofol 1,000 mg in 100 mls @ 4.032 mls/hr 04/24/24 17:15 04/26/24 08:52 Propofol IV 0 mcg/kg/min TITRATE PERRY 0 mls/hr Titration Protocol 5 MCG/KG/MIN Piperacillin Sod/Tazobactam 100 mls @ 25 mls/hr 04/25/24 04:00 04/26/24 08:39 Sod 3.375 gm/ Sodium Chloride IV Infused Q8H PERRY Infusion dexmedeTOMIDine in 0.9 % NaCL 400 mcg in 100 mls @ 6.45 mls/hr 04/25/24 11:30 04/26/24 08:54 Precedex IV 0.6 mcg/kg/hr TITRATE PERRY 19.35 mls/hr Titration Protocol 0.2 MCG/KG/HR Fentanyl 2,000 mcg/ Dextrose 250 mls @ 11.76 mls/hr 04/25/24 14:00 04/26/24 08:54 IV 0 mcg/kg/hr TITRATE PERRY 0 mls/hr Titration Protocol 0.7 MCG/KG/HR Insulin Glargine 10 unit 04/24/24 09:30 04/26/24 08:27 Insulin Glargine 100 Unit/Ml 3ml Pen SUBCUT 10 unit BID PERRY Administration Insulin Human Lispro 0 unit 04/24/24 17:45 04/26/24 06:05 Insulin Lispro 100 Unit/Ml 3ml Vial SUBCUT 2 unit Q6H PERRY Administration Protocol Lorazepam 2 mg 04/25/24 11:36 04/26/24 09:15 Lorazepam 2 Mg/Ml Inj IV 2 mg Q4HR PRN Administration Anxiety/Agitation Methylprednisolone 80 mg 04/23/24 14:00 04/26/24 06:03 Methylprednisolone 125 Mg/2 Ml Vial IV 80 mg Q8HR PERRY Administration Pantoprazole Sodium 40 mg 04/24/24 17:10 04/26/24 08:26 Pantoprazole 40 Mg Vial IV 40 mg DAILY PERRY Administration Objective Ventilator Parameters: Ventilator Settings FiO2 60 RT Vent Frequency 18 Ventilator Tidal Volume 420 Exhaled Positive End Expiratory 8 Pressure Inspiratory Phase Time 0.8 I:E Ratio 1:3.2 Patient Position HOB >= 30 degrees Labs 04/26/24 05:46 04/26/24 05:46 Labs: Laboratory Results - last 24 hr 04/26/24 05:46 WBC 10.5 RBC 4.56 Hgb 12.7 Hct 38.9 MCV 85.4 MCH 28.0 MCHC 32.7 RDW 14.7 Plt Count 227 Neut % (Auto) 84.9 H Lymph % (Auto) 10.7 L [place] % (Auto) 3.8 Eos % (Auto) 0.0 L Baso % (Auto) 0.6 Neut # (Auto) 8900 H Lymph # (Auto) 1100 [place] # (Auto) 400 Eos # (Auto) 0 Baso # (Auto) 100 Sodium 139 Potassium 4.5 Chloride 109 H Carbon Dioxide 28 BUN 19 H Creatinine 0.71 Estimated GFR > 60 BUN/Creatinine Ratio 26.8 H Glucose 254 H Calcium 8.0 L Total Bilirubin 0.5 AST 21 ALT 24 Alkaline Phosphatase 73 Total Protein 6.3 Albumin 3.3 L Globulin 3.0 Albumin/Globulin Ratio 1.1 Exam Vital Signs (past 8 hours): - 04/26/24 01:30 04/26/24 01:30 04/26/24 02:00 Temperature Pulse Rate 69 Respiratory Rate Blood Pressure 159/81 H 155/80 H Pulse Oximetry 94 Oxygen Delivery Method Fraction of Inspired Oxygen 04/26/24 02:00 04/26/24 02:11 04/26/24 02:30 Temperature Pulse Rate 69 70 Respiratory Rate Blood Pressure 150/74 H Pulse Oximetry 92 93 Oxygen Delivery Method Fraction of Inspired Oxygen 04/26/24 02:30 04/26/24 03:00 04/26/24 03:00 Temperature Pulse Rate 68 69 Respiratory Rate Blood Pressure 146/75 H Pulse Oximetry 93 93 Oxygen Delivery Method Fraction of Inspired Oxygen 04/26/24 03:30 04/26/24 03:30 04/26/24 03:39 Temperature Pulse Rate 70 68 Respiratory Rate Blood Pressure 148/80 H Pulse Oximetry 93 93 Oxygen Delivery Method Fraction of Inspired Oxygen 04/26/24 03:58 04/26/24 04:00 04/26/24 04:00 Temperature 99.7 F H Pulse Rate 68 Respiratory Rate Blood Pressure Pulse Oximetry 93 Oxygen Delivery Method Mechanical Ventilation Humidification Mechanical Ventilation Fraction of Inspired Oxygen 60 04/26/24 04:00 04/26/24 04:08 04/26/24 04:30 Temperature Pulse Rate 68 Respiratory Rate Blood Pressure 155/79 H 150/75 H Pulse Oximetry 94 Oxygen Delivery Method Fraction of Inspired Oxygen 04/26/24 04:30 04/26/24 05:00 04/26/24 05:00 Temperature Pulse Rate 70 69 Respiratory Rate Blood Pressure 147/76 H Pulse Oximetry 95 94 Oxygen Delivery Method Fraction of Inspired Oxygen 04/26/24 05:30 04/26/24 05:30 04/26/24 06:00 Temperature Pulse Rate 72 Respiratory Rate Blood Pressure 144/74 H 143/74 H Pulse Oximetry 93 Oxygen Delivery Method Fraction of Inspired Oxygen 04/26/24 06:00 04/26/24 06:10 04/26/24 07:00 Temperature Pulse Rate 72 72 Respiratory Rate Blood Pressure 140/66 Pulse Oximetry 92 93 Oxygen Delivery Method Fraction of Inspired Oxygen 04/26/24 07:00 04/26/24 07:17 04/26/24 07:30 Temperature Pulse Rate 69 Respiratory Rate Blood Pressure 143/77 H Pulse Oximetry 93 93 Oxygen Delivery Method Mechanical Ventilation Fraction of Inspired Oxygen 60 04/26/24 07:30 04/26/24 08:00 04/26/24 08:00 Temperature 98.8 F Pulse Rate 70 63 Respiratory Rate 17 Blood Pressure Pulse Oximetry 93 93 Oxygen Delivery Method Fraction of Inspired Oxygen 04/26/24 08:00 04/26/24 08:30 04/26/24 08:30 Temperature Pulse Rate 61 Respiratory Rate 16 Blood Pressure 152/84 H 149/86 H Pulse Oximetry 92 Oxygen Delivery Method Fraction of Inspired Oxygen 04/26/24 08:57 04/26/24 08:57 04/26/24 09:00 Temperature Pulse Rate 60 Respiratory Rate 15 Blood Pressure 158/83 H 162/93 H Pulse Oximetry 94 Oxygen Delivery Method Fraction of Inspired Oxygen 04/26/24 09:00 Temperature Pulse Rate 61 Respiratory Rate 16 Blood Pressure Pulse Oximetry 94 Oxygen Delivery Method Fraction of Inspired Oxygen Fraction of Inspired Oxygen 60 SaO2/FiO2 Ratio 155 Oxygen Delivery Method Mechanical Ventilation Oxygen Flow Rate 50 Narrative Exam Narrative: intubated, at time of exam, on SAT was moving around, trying to reach for ETT, tachypneic Quality TeleICU VTE Deep Vein Thrombosis/Pulmonary Embolism Present on Admission: No Assessment & Plan Assessment & Plan narrative: # Acute hypoxic respiratory failure / Multifocal pneumonia / Acute asthma exacerbation: - intubated due to worsening respiratory status despite on maximum settings on HFNC. - Multifactorial.? Most likely in the setting of multifocal pneumonia and acute asthma exacerbation, undiagnosed BERNADETTE/OHS. - Current vent settings reviewed - PEEP 8 today, try to wean down FIO2 as able, now on 60%. keep sat >90%. will get ABG this am - C/w vent support per lung protective strategy (TV 6ml/kg by IBW, plat pressure < 30, PaO2 60-80 mm Hg, SaO2 > 90%) and c/w ABCDE bundle while intubated. - On Propofol gtt , precedex gtt and Fentanyl gtt for sedation/pain control. Goal to keep RAAS 0 to -2. - given continued difficulties with agitation will start ATC gabpentin, qhs melatonin and continue ativan PRN - C/w daily sedation vacation (SAT) and vent weaning as tolerated.? Evaluate tomorrow am with SAT and perform SBT if able to wean fio2 to 40%, peep 5 - Continue empiric IV antibiotics zosyn and azithromycin pending cultures. - Continue DuoNeb every 4 hours scheduled, every 2 hours as needed. - Continue Solu-Medrol 40 g IV - will decrease to BID # Sepsis secondary to multifocal pneumonia: - Complete sepsis workup including blood cultures X 2, sputum cultures, UA with urine culture, . - Cover with empiric antibiotics - MRSA screen neg, will not continue vaco - not requiring pressors, good UOP # Methamphetamine intoxication / History of polysubstance abuse: - Likely has some component of withdrawal from methamphetamine due to increased agitation/restlessness prior to intubation. - May use as needed benzo to help with withdrawal symptoms.? Unclear EtOH use history. - When extubated and appropriate, may need counseling and referral for detox # Diabetes type 2, uncontrolled: - BG goal 120-180.? Continue sliding-scale insulin, add Lantus as needed. ICU BUNDLE: # FEN: Currently tube feeds # Glucose: poorly controlled. C/w Accu checks Q6 hours and SSI.- uptitrate PRN BG goal 120-180 # Prophylaxis: Lovenox subcu for DVT prophylaxis, PPI for stress ulcer prophylaxis # Lines/tubes: PIcc , Goodrich, ET tube, OG tube # CODE STATUS: Full code # Disposition: Remains in ICU Above plan was discussed with bedside RN Time Spent With Patient Time with patient: 30 to 49 minutes with 50% spent counseling/coordinating care
[2024-04-26 10:13] LABS: Magnesium 2.7 mg/dL (1.6-2.3)
[2024-04-26 10:38] LABS: PCO2 ABG 43.3 mmHg (35-45); PO2 ABG 58 mmHg (80-100); pH ABG 7.42 (7.35-7.45)
[2024-04-26 10:39] LABS: Base Excess ABG 3.4 mmol/L (-2-3); Fractionated Inspired Oxygen 60; HCO3 ABG 28 mmol/L (23-27); Oxygen Saturation ABG 90 % (95-100); PEEP 8; Respiratory Rate 18; Tidal Volume 420
[2024-04-26 10:40] LABS: Allen Test for ABG Passed? Yes, Passed; Blood Gas Collection Site Right Radial; TCO2 ABG 29 mmol/L (23-27)
--- NOTE | 2024-04-26 10:48 | DI.RAD.S_ITS ---
PROCEDURE: XR CHEST 1V INDICATIONS: Verify OG tube placement TECHNIQUE: One view of the chest was acquired. COMPARISON: [facility], , XR CHEST 1V, 04/25/2024, 14:47. FINDINGS: Surgical changes and devices: ET tube and right-sided PICC line are stable. OG tube crosses the GE junction with nonvisualization of the distal tip and side-port. Lungs and pleura: Bilateral atelectasis. No pleural effusions or pneumothorax. Mediastinum: Mediastinal contours appear normal. Heart size is normal. Bones and chest wall: No suspicious bony lesions. Overlying soft tissues appear unremarkable. IMPRESSION: No acute cardiopulmonary abnormality is seen. OG tube crosses the GE junction with nonvisualization of the distal tip and side-port. Dictated by: Carmita Marquis MD, PhD on 04/26/2024 at 11:12 Approved by: Carmita Marquis MD, PhD on 04/26/2024 at 11:14
--- NOTE | 2024-04-26 11:00 | CM.DPNOTE ---
DCP Note RAILROAD WATCHMAN reviewed EMR. Per hospitalist in morning rounds, pt likely to remain intubated for a few days. Per RN, efforts to extubated this morning did not go well. Will try again tomorrow. Per chart review from previous SW notes/RN report, pt has a hx of leaving AMA once feeling stable/has denied SOLA tx during past hospitalizations. P: pt to dc home with her sister to transport once medically stable. CM team will continue to follow and assist with further evolving DCP/RAILROAD WATCHMAN needs and continue to offer SOLA treatment in the community if agreeable. RAJAN Patterson
[2024-04-26] MEDS: dexmedeTOMIDine in 0.9 % NaCL 400 MCG/100 ML PLAST..BAG 19.35 MCG IV ×2 (11:18→17:57)
[2024-04-26] MEDS: GABAPENTIN 300 MG CAPSULE TUBE ×3 (11:18→20:33)
[2024-04-26] MEDS: propofoL 1,000 MG/100 ML VIAL 24.192 MG IV ×3 (12:05→20:13)
--- NOTE | 2024-04-26 12:23 | DIET.CONS2 ---
Addendum entered by Dhara Morse 04/26/24 14:38: per RN, TF currently stopped. Pt pulled OG tube and is fluid overload. TF formula and Max Protein will be sent up when pt is medically able to resume TF. Original Note: Dietary Inpatient Consultation Note Admission Date: 04/23/2024 08:51 Nutrition f/u. Per RN, unsuccessful in attempt to extubate. Patient tolerating 20 ml/hr of Glucerna 1.5. Adding 1 Ensure Max to enteral nutrition feed to meet protein needs while patient is receiving 30 mcg/kg/min of propofol without overfeeding. Intervention: Recc: continuous enteral nutrition via OG tube of Glucerna 1.5 + Ensure Max Protein starting at 30 ml/hr and advancing 10-15 ml q4-6h as tolerated to reach goal rate of 45 ml/hr. Glucerna 1.5 + Ensure Max protein + propofol 30 mcg/kg/min provides 1830 (100% of estimated needs) kcals, 102 g carbs, 90 g protein (75% of estimated needs), and 546 ml feed water. 720 ml of Glucerna 1.5 plus 1, 330 ml of Ensure Max Protein for a total of 1050 ml in 24 hours. Will monitor tolerance, advancement to goal rate, propofol rate Diet: 04/25/24 Lunch Tube Feeding Diet Diet Modifications: TF Supplement type: Glucerna 1.5 johnna TF mode of delivery: Continuous Starting flow rate mL/hr: 20 Flow rate goal mL/hr: 20 Titration Schedule to reach Goal Rate: - Max total daily volume in mL: 480 Free fluid: 200 Free Water Frequency: Q4H Nutrition Percent Meal Consumed 0% 04/24/24 18:00 Electronically Signed by: Dhara Morse 04/26/24 12:23 Clinical Dietitian [address] [address]
--- NOTE | 2024-04-26 14:07 | DI.ECHO.S_ITS ---
[facility]+ [facility] : : [address] : : [place] : : [id number] : : Phone: [phone] Echocardiogram Report + + :Name: WYATT FLANAGAN Study Date: 04/26/2024 Height: 65 in : :Hospital ReadingLocation: Weight: 278 lb : : Gender: Female BSA: 2.3 m2 : :: 1985 Age: 39 yrs BP: 170/89 mmHg: :Reason For Study: METH USE, HYPOXIA : :Ordering Physician: EDGARD, : :OBEY Peters Performed By: Umm Jiang : :Referring: OBEY RENE : + + Interpretation Summary 1) Normal left ventricular thickness, size, wall motion, and systolic function (EF 60-65%). 2) Upper normal right ventricular size with normal function. 3) There is mild aortic regurgitation. 4) Hypertension present during the study (BP 170/89mmHg). 5) Compared to the Echo done 10/03/2015, no significant change. Procedure: A two-dimensional transthoracic echocardiogram with color flow and Doppler was performed. The study quality was technically adequate. Comparison is made with the echocardiogram of 10/03/2015. The patient was in sinus rhythm with heart rates between 59-76 bpm during the exam. Left Ventricle: The left ventricle is normal in size and wall thickness. The ejection fraction is estimated to be 60-65%. Left ventricular systolic function appears normal without focal wall motion abnormalities. Diastolic parameters suggest a relaxation abnormality of the left ventricle, consistent with probable normal filling pressures. Right Ventricle: The right ventricle is at the upper limits of normal in size. The right ventricular systolic function is normal. Atria: The left atrial size is normal. The right atrium is borderline dilated. There is no Doppler evidence for an interatrial shunt. Mitral Valve: The mitral valve is normal in structure and function. There is trace mitral regurgitation. Aortic Valve: The aortic valve opens well. The aortic valve is trileaflet. The peak aortic velocity is 2.09 m/sec. The aortic valve mean gradient is 10 mmHg. There is no aortic valve stenosis. Mean gradient elevation probably due to hyperdynamic state. There is mild aortic regurgitation. Tricuspid Valve: The tricuspid valve is normal in structure and function. There is mild tricuspid regurgitation. Right ventricular systolic pressure is estimated to be 35 mmHg plus the clinically estimated CVP which cannot be estimated on this exam. Pulmonic Valve: The pulmonic valve leaflets are thin and pliable; valve motion is normal. There is trace pulmonic regurgitation. Great Vessels: The aortic root is normal size. The dimensions of the ascending aorta are normal. Inspiratory collapse cannot be assessed because of mechanical ventilation, thus CVP cannot be estimated.. Pericardium/ Pleura There is no pericardial effusion. There is no pleural effusion. MMode/2D Measurements & Calculations LVIDd: 5.4 cm LVOT diam: 2.0 cm LVIDs: 3.5 cm Ao root diam: 2.5 cm FS: 34.5 % asc Aorta Diam: 3.2 cm EPSS: 0.91 cm IVSd: 0.92 cm LVPWd: 1.1 cm LV henry. diameter/BSA (cm/m^2): 2.4 LV sys. diameter/BSA (cm/m^2): 1.5 LA A2 area: 19.2 cm2 RA long axis: 5.4 cm LA A4 area: 17.6 cm2 RA area: 21.2 cm2 LA length (vol): 5.5 cm RA vol: 70.3 ml LA vol: 52.3 ml RA : 30.9 ml/m2 LA vol index: 23.0 ml/m2 RVD1 (basal): 3.9 cm RVD2 (mid): 3.7 cm TAPSE: 2.1 cm Doppler Measurements & Calculations Ao V2 max: 209.3 cm/sec LVOT Max Waldo: 94.2 cm/sec Ao V2 mean: 150.3 cm/sec LV V1 max P.6 mmHg Ao max P.5 mmHg LV V1 VTI: 20.0 cm Ao mean P.0 mmHg CHIOMA(I,D): 1.5 cm2 Ao V2 VTI: 42.6 cm CHIOMA(V,D): 1.4 cm2 sev ratio: 0.47 CHIOMA indexed to BSA (cm^2/m^2): 0.66 MV E max waldo: 126.8 cm/sec TR max waldo: 295.7 cm/sec MV A max waldo: 101.9 cm/sec TR max P.0 mmHg MV E/A: 1.2 PA V2 max: 139.9 cm/sec Med Peak E' Waldo: 8.7 cm/sec PA V2 mean: 100.6 cm/sec E/E' med: 14.6 PA mean P.4 mmHg Lat Peak E' Waldo: 10.1 cm/sec PA pr(Accel): 29.3 mmHg E/E' lat: 12.5 E/e' average: 13.5 MV dec time: 0.38 sec MVA(VTI): 1.3 cm2 MV V2 mean: 78.7 cm/sec SV(LVOT): 63.5 ml MV mean P.9 mmHg MV V2 VTI: 48.8 cm Reading Physician:04:38 PM
[2024-04-26] MEDS: FUROSEMIDE 20 MG/2 ML VIAL IV (14:08)
--- NOTE | 2024-04-26 14:19 | PM.PN.1 ---
Subjective Subjective Interval history: Patient able to follow some commands today, but then became very anxious and thrashed around so sedation was turned back up. Had vomiting and possibly some aspiration. Exam Vital Signs (past 8 hours): - 04/26/24 07:00 04/26/24 07:00 04/26/24 07:17 Temperature Pulse Rate 69 Respiratory Rate Blood Pressure 140/66 Pulse Oximetry 93 93 Oxygen Delivery Method Mechanical Ventilation Fraction of Inspired Oxygen 60 04/26/24 07:30 04/26/24 07:30 04/26/24 08:00 Temperature 98.8 F Pulse Rate 70 Respiratory Rate Blood Pressure 143/77 H Pulse Oximetry 93 Oxygen Delivery Method Fraction of Inspired Oxygen 04/26/24 08:00 04/26/24 08:00 04/26/24 08:30 Temperature Pulse Rate 63 Respiratory Rate 17 Blood Pressure 152/84 H 149/86 H Pulse Oximetry 93 Oxygen Delivery Method Fraction of Inspired Oxygen 04/26/24 08:30 04/26/24 08:57 04/26/24 08:57 Temperature Pulse Rate 61 60 Respiratory Rate 16 15 Blood Pressure 158/83 H Pulse Oximetry 92 94 Oxygen Delivery Method Fraction of Inspired Oxygen 04/26/24 09:00 04/26/24 09:00 04/26/24 09:35 Temperature Pulse Rate 61 Respiratory Rate 16 Blood Pressure 162/93 H 177/100 H Pulse Oximetry 94 Oxygen Delivery Method Fraction of Inspired Oxygen 04/26/24 10:00 04/26/24 10:00 04/26/24 10:30 Temperature 98.9 F Pulse Rate 56 L 55 L Respiratory Rate 39 H 23 Blood Pressure 177/99 H Pulse Oximetry 93 92 Oxygen Delivery Method Fraction of Inspired Oxygen 04/26/24 10:30 04/26/24 11:00 04/26/24 11:00 Temperature Pulse Rate 54 L Respiratory Rate 34 H Blood Pressure 181/96 H 182/94 H Pulse Oximetry 93 Oxygen Delivery Method Fraction of Inspired Oxygen 04/26/24 11:07 04/26/24 12:00 04/26/24 12:00 Temperature 99.0 F Pulse Rate 55 L Respiratory Rate 38 H Blood Pressure 181/97 H Pulse Oximetry 92 93 Oxygen Delivery Method Mechanical Ventilation Fraction of Inspired Oxygen 60 04/26/24 12:30 04/26/24 12:30 04/26/24 13:00 Temperature 99.0 F Pulse Rate 56 L Respiratory Rate 23 Blood Pressure 177/99 H 179/96 H Pulse Oximetry 93 Oxygen Delivery Method Fraction of Inspired Oxygen 04/26/24 13:00 04/26/24 13:30 04/26/24 13:30 Temperature Pulse Rate 58 L 56 L Respiratory Rate 22 22 Blood Pressure 182/88 H Pulse Oximetry 93 93 Oxygen Delivery Method Fraction of Inspired Oxygen 04/26/24 14:00 04/26/24 14:00 Temperature Pulse Rate 61 Respiratory Rate 20 Blood Pressure 171/88 H Pulse Oximetry 92 Oxygen Delivery Method Fraction of Inspired Oxygen Fraction of Inspired Oxygen 60 SaO2/FiO2 Ratio 153 Oxygen Delivery Method Mechanical Ventilation Oxygen Flow Rate 50 Narrative Exam Narrative: GEN: Intubated and sedated, morbidly obese HEENT: Normocephalic, face symmetric, pupils equal round reactive to light, extraocular movements intact, sclerae anicteric, conjunctiva clear, nares patent, oropharynx reveals an intact soft and hard palate with moist mucous membranes, dentition is fair NECK: Supple, no lymphadenopathy, thyroid without enlargement or nodularity, carotids no bruits CHEST: Respiratory excursions symmetric, faint expiratory wheezes in the right upper lobe, very diminished breath sounds throughout CV: Regular rate and rhythm, no murmurs, rubs, gallops, PMI can not be palpated ABD: Soft, obese, nontender, nondistended, bowel sounds present in all 4 quadrants, body habitus limits exam EXTR: Warm, well perfused, no clubbing/cyanosis/edema SKIN: Warm and dry, without rash NEURO: Cannot obtain due to sedation. PSYCH: Cannot obtain due to sedation. Objective Labs 04/26/24 05:46 04/26/24 05:46 Labs: Laboratory Results - last 24 hr 04/26/24 04/26/24 05:46 10:35 WBC 10.5 RBC 4.56 Hgb 12.7 Hct 38.9 MCV 85.4 MCH 28.0 MCHC 32.7 RDW 14.7 Plt Count 227 Neut % (Auto) 84.9 H Lymph % (Auto) 10.7 L [place] % (Auto) 3.8 Eos % (Auto) 0.0 L Baso % (Auto) 0.6 Neut # (Auto) 8900 H Lymph # (Auto) 1100 [place] # (Auto) 400 Eos # (Auto) 0 Baso # (Auto) 100 ABG Sample Site Right radial ABG pH 7.42 ABG pCO2 43.3 ABG pO2 58 L ABG HCO3 28 H ABG Total CO2 29 H ABG O2 Saturation 90 L ABG Base Excess 3.4 H Respiration Rate 18 O2 Delivery Device Mech vent FiO2 60 Tidal Volume 420 PEEP or CPAP 8 Sodium 139 Potassium 4.5 Chloride 109 H Carbon Dioxide 28 BUN 19 H Creatinine 0.71 Estimated GFR > 60 BUN/Creatinine Ratio 26.8 H Glucose 254 H Calcium 8.0 L Magnesium 2.7 H Total Bilirubin 0.5 AST 21 ALT 24 Alkaline Phosphatase 73 Total Protein 6.3 Albumin 3.3 L Globulin 3.0 Albumin/Globulin Ratio 1.1 PFSH Medical History Bowel obstruction Asthma exacerbation Surgical History Status post delivery (10/02/17) Social History household members: friend(s) Smoking Status: Current some day smoker alcohol intake: former Assessment & Plan Assessment & Plan narrative: 1. Acute hypoxic respiratory failure -intubated on 04/24 due to worsening resp status and agitation despite maxed on high flow -CXR with bilateral pulm consolidations -propofol and fent drips, precedex added due to agitation on vent -appreciate teleICU consult -failed SBT on 04/25, and again on 04/26 however did a little better -give dose of IV lasix 20mg -obtain echo 2. Multifocal pneumonia -CTA with bilateral infiltrates consistent with multifocal pneumonia -zosyn and azithro ordered, MRSA swab negative and vanco now off -sputum culture pending -resp PCR negative 3. Sepsis secondary to multifocal pneumonia. Patient met sepsis criteria on arrival as evidenced by tachycardia, tachypnea, elevated white blood cell count of 18.3, and known multifocal pneumonia. Blood cultures no growth. Continue broad-spectrum antibiotics as noted. 4. Asthma with exacerbation Solu-Medrol and nebs have been ordered. We are unable to verify what her usual outpatient regimen is, if anything. She does have a nebulizer at home, but I am uncertain if she is on any chronic controlling medications. Will need to reconcile medications. Her roommate reports that she gets medications filled at [facility] pharmacy in [place]. 5. Diabetes mellitus uncontrolled with hyperglycemia -continue lantus 10u BID and SSI -TF running 6. Polysubstance dependence, with likely withdrawal Patient does admit to daily to multiple times daily smoking of fentanyl tablets. She also reports ?occasional ?smoking of methamphetamines. Her urine tox screen was positive for amphetamines and methamphetamines. Discussed mitigating withdrawals by starting suboxone, and patient would like to try it. Received 1 tab SL but stopped now as she is on an IV fentanyl drip. 7. Class 3 obesity BMI is 49.3. She is at significantly increased risk of morbidity and mortality, particularly from a respiratory standpoint given her very high BMI. 8. Hyponatremia, resolved Code status Full Prophylaxis Due to her BMI greater than 40, I have ordered Lovenox 40 mg subQ b.i.d. I spent a total of 35 minutes of critical care time on this patient's care today; this time is exclusive of procedural time. Disposition ICU Time Spent With Patient Time with patient: 30 to 49 minutes with 50% spent counseling/coordinating care Quality VTE Deep Vein Thrombosis/Pulmonary Embolism Present on Admission: No
[2024-04-26] MEDS: ALBUTEROL 2.5 MG/3 ML NEB (ADULT) INH (16:29)
[2024-04-26] MEDS: methylPREDNISolone 125 MG/2 ML VIAL 40 MG IV (18:49)
--- NOTE | 2024-04-26 20:06 | P.ICUMDRN_ITS ---
- Date Patient Seen: 04/26/24 :: This patient was seen via real time interactive two-way audiovisual telecommunic ation. Note: Remains intubated and sedated. Failed SAT today. Will continue diuresis and steroids. Check SAT and SBT tomorrow. D/w bedside RN.
[2024-04-26] MEDS: MELATONIN 3 MG TABLET 6 MG TUBE (20:33)
[2024-04-26] MEDS: LABETALOL 20 MG/4 ML SYRINGE 10 MG IV ×2 (21:39→22:42)
[2024-04-26] MEDS: dexmedeTOMIDine in 0.9 % NaCL 400 MCG/100 ML PLAST..BAG 16.125 MCG IV (22:58)
[2024-04-27] VITALS (57 sets, daily range): BP systolic 149–184; BP diastolic 74–96; PULSE 52–70; RESP 17–20; TEMP 36.8–38.4; O2SAT 90–95
[2024-04-27] MEDS: propofoL 1,000 MG/100 ML VIAL 28.224 MG IV ×2 (00:10→03:24)
[2024-04-27] MEDS: CHLORHEXIDINE GLUCONATE 15 ML CUP PO ×4 (00:12→17:14)
[2024-04-27] MEDS: INSULIN LISPRO 100 UNIT/ML 3ML VIAL SUBCUT ×3 (00:23→12:32)
[2024-04-27] MEDS: ALBUTEROL/IPRATROPIUM 3 ML AMPUL INH ×6 (02:25→22:25)
[2024-04-27] MEDS: fentaNYL 2,000 MCG in DEXTROSE 5% IN WATER 210 ML 28.56 MCG IV ×3 (02:32→21:40)
[2024-04-27] MEDS: SODIUM CHLORIDE 0.9% FLUSH 10 ML IV ×3 (03:55→20:09)
[2024-04-27] MEDS: PIPERACILLIN/TAZO 3.375 GM in SODIUM CHLORIDE 0.9% 100 ML IV ×3 (03:55→20:06)
[2024-04-27 04:37] LABS: Add Manual Diff / Slide Review NO; Basophils Absolute Auto 100 /uL (0-100); Basophils Percent Auto 0.8 % (0-2); Eosinophils Absolute Auto 0 /uL (0-450); Hematocrit 40.2 % (36-46); Hemoglobin 13.1 g/dL (12.0-16.0); Lymphocytes Absolute Auto 1700 /uL (1100-4500); Lymphocytes Percent Auto 16.6 % (25-40); Mean Corpuscular HGB Conc 32.4 % (30-36); Mean Corpuscular Hemoglobin 27.7 PG (26-34); Mean Corpuscular Volume 85.5 fL (80-100); Monocytes Absolute Auto 800 /uL (0-900); Monocytes Percent Auto 7.4 % (3-14); Neutrophils Absolute Auto 7800 /uL (1500-7000); Neutrophils Percent Auto 75.2 % (50-75); Platelet Count 220 X10^3/uL (150-400); Red Blood Cell Count 4.71 X10^6/uL (4.0-5.2); Red Cell Distribution Width 14.3 % (11.6-14.8); White Blood Cell Count 10.4 X10^3/uL (4.5-11.0)
[2024-04-27] MEDS: dexmedeTOMIDine in 0.9 % NaCL 400 MCG/100 ML PLAST..BAG 16.125 MCG IV ×4 (04:52→22:00)
[2024-04-27] MEDS: QUETIAPINE 25 MG TABLET PO ×2 (05:49→15:28)
[2024-04-27] MEDS: methylPREDNISolone 125 MG/2 ML VIAL 40 MG IV ×2 (05:49→17:14)
[2024-04-27 05:50] LABS: Alanine Aminotransferase 22 IU/L (<35); Albumin 3.3 g/dL (3.5-5.0); Albumin Globulin Ratio 1.1 (1.0-2.8); Alkaline Phosphatase 74 U/L (38-126); Aspartate Aminotransferase 21 IU/L (14-36); BUN Creatinine Ratio 28.9 (6-22); Bilirubin Total 0.5 mg/dL (0.2-1.3); Blood Urea Nitrogen 24 mg/dL (7-17); Calcium 7.9 mg/dL (8.4-10.2); Carbon Dioxide 30 mmol/L (22-32); Chloride 105 mmol/L (98-107); Estimated Glomerular Filt Rate > 60 mL/min (>60); Globulin 2.9 g/dL (1.7-4.1); Glucose 295 mg/dL (70-100); HEMOLYSIS < 15 (0-50); Potassium 4.5 mmol/L (3.4-5.1); Sodium 138 mmol/L (137-145); Total Protein 6.2 g/dL (6.3-8.2)
[2024-04-27] MEDS: propofoL 1,000 MG/100 ML VIAL 20.16 MG IV (07:30)
[2024-04-27] MEDS: ALBUTEROL 2.5 MG/3 ML NEB (ADULT) INH ×3 (07:51→18:09)
--- NOTE | 2024-04-27 08:54 | EKG_ITS ---
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
[2024-04-27] MEDS: PANTOPRAZOLE 40 MG VIAL IV (09:19)
[2024-04-27] MEDS: INSULIN GLARGINE 100 UNIT/ML 3ML PEN 15 UNIT SUBCUT (09:19)
[2024-04-27] MEDS: GABAPENTIN 300 MG CAPSULE TUBE (09:19)
[2024-04-27] MEDS: ENOXAPARIN 40 MG/0.4 ML SYRINGE SUBCUT ×2 (09:19→20:07)
[2024-04-27] MEDS: LORazepam 2 MG/ML INJ IV (10:12)
--- NOTE | 2024-04-27 10:27 | CM.DPNOTE ---
DCP Note ADMISSIONS ASSISTANT reviewed EMR. Per hospitalist in morning rounds, pt likely to remain intubated another two days. Pt thrashes when sedation is removed and had fevers overnight. Continues to theorize need for intubation is due to withdrawals from methamphetamines. Per chart review from previous SW notes/RN report, pt has a hx of leaving AMA once feeling stable/has denied SOLA tx during past hospitalizations. P: pt to dc home with her sister to transport once medically stable. CM team will continue to follow and assist with further evolving DCP/ADMISSIONS ASSISTANT needs and continue to offer SOLA treatment in the community if agreeable. RAJAN Patterson
--- NOTE | 2024-04-27 10:34 | DIET.CONS2 ---
Dietary Inpatient Consultation Note Admission Date: 04/23/2024 08:51 Nutrition f/u. Spoke with RN, TF started again, running at 30 ml/hr this morning. Will be titrated up to goal rate of 45 ml/hr as tolerated. Will continue to monitor TF advancement, tolerance, and propofol rate and adjust feeds accordingly to meet needs. Diet: 04/26/24 Dinner Tube Feeding Diet Diet Modifications: TF Supplement type: Glucerna 1.5 johnna TF mode of delivery: Continuous Starting flow rate mL/hr: 30 Flow rate goal mL/hr: 45 Titration Schedule to reach Goal Rate: 5-10 ml/hr Q4-6H Max total daily volume in mL: 1,080 Free fluid: 150 Free Water Frequency: Q6H Comment: Add 1 Ensure Max Protein Supplement to Glucerna 1.5 feed Electronically Signed by: Dhara Morse 04/27/24 10:34 Clinical Dietitian [address] [address]
--- NOTE | 2024-04-27 10:52 | PM.PN.EICU ---
Subjective Subjective IF CAMERA ACTIVATED, patient seen via real-time interactive audiovisual communication: Camera activated Date Patient Seen: 04/27/24 Consent obtained for tele-manager community development care: Yes Patient Location: ICU Provider location (State): [place] Other participants/roles: RN, RT Interval history: patient remains on 60% fio2, PEEP 8 last Pao2 yesterday 58 sat this am 92% was still quite agitated and not cooperative this am during SAT intermittently febrile Current Medications Current Medications Medications: Home Medications albuterol sulfate 2.5 mg/3 mL (0.083 %) solution for nebulization 2.5 mg (3 mL) inhalation Q4H PRN shortness of breath or wheezing #180 mL 11/21/22 [Rx Confirmed 04/23/24] prednisone 50 mg tablet 50 mg PO DAILY #5 tabs 11/21/22 [Rx] Visit Medications (administered) Generic Name Dose Route Start Last Admin Trade Name Freq PRN Reason Stop Dose Admin Albuterol 2.5 mg 04/23/24 10:33 04/27/24 07:51 Albuterol 2.5 Mg/3 Ml Neb (Adult) INH 2.5 mg RTQ2HR PRN Administration Wheezing Albuterol/Ipratropium 3 ml 04/23/24 11:00 04/27/24 07:18 Albuterol/Ipratropium 3 Ml Ampul INH 3 ml RTQ4HR PERRY Administration Chlorhexidine Gluconate 15 ml 04/24/24 18:00 04/27/24 06:33 Chlorhexidine Gluconate 15 Ml Cup PO 15 ml Q6HR PERRY Administration Diphenhydramine HCl 25 mg 04/25/24 17:34 04/25/24 17:40 Diphenhydramine 50 Mg/Ml Vial IV 25 mg Q6HR PRN Administration Rash Enoxaparin Sodium 40 mg 04/23/24 11:23 04/27/24 09:19 Enoxaparin 40 Mg/0.4 Ml Syringe SUBCUT 40 mg BID PERRY Administration Heparin Sodium (Porcine) 50 unit 04/26/24 21:41 04/27/24 10:07 Heparin Flush (Cl/Picc/Mid-Line) 50 Unit/5 Ml Syringe IV 50 unit PRN PRN Administration Flush Propofol 1,000 mg in 100 mls @ 4.032 mls/hr 04/24/24 17:15 04/27/24 09:05 Propofol IV 25 mcg/kg/min TITRATE PERRY 20.16 mls/hr Titration Protocol 5 MCG/KG/MIN Piperacillin Sod/Tazobactam 100 mls @ 25 mls/hr 04/25/24 04:00 04/27/24 03:55 Sod 3.375 gm/ Sodium Chloride IV 25 mls/hr Q8H PERRY Administration dexmedeTOMIDine in 0.9 % NaCL 400 mcg in 100 mls @ 6.45 mls/hr 04/25/24 11:30 04/27/24 10:04 Precedex IV 0.5 mcg/kg/hr TITRATE PERRY 16.125 mls/hr Administration Protocol 0.2 MCG/KG/HR Fentanyl 2,000 mcg/ Dextrose 250 mls @ 11.76 mls/hr 04/25/24 14:00 04/27/24 02:32 IV 1.7 mcg/kg/hr TITRATE PERRY 28.56 mls/hr Administration Protocol 0.7 MCG/KG/HR Insulin Glargine 15 unit 04/27/24 09:00 04/27/24 09:19 Insulin Glargine 100 Unit/Ml 3ml Pen SUBCUT 15 unit BID PERRY Administration Insulin Human Lispro 0 unit 04/24/24 17:45 04/27/24 06:04 Insulin Lispro 100 Unit/Ml 3ml Vial SUBCUT 5 unit Q6H PERRY Administration Protocol Labetalol HCl 10 mg 04/26/24 19:02 04/26/24 22:42 Labetalol 20 Mg/4 Ml Syringe IV 10 mg Q10MIN PRN Administration SBP>= 180 or DBP >=110 Lorazepam 2 mg 04/25/24 11:36 04/27/24 10:12 Lorazepam 2 Mg/Ml Inj IV 2 mg Q4HR PRN Administration Anxiety/Agitation Melatonin 6 mg 04/26/24 21:00 04/26/24 20:33 Melatonin 3 Mg Tablet TUBE 6 mg BEDTIME PERRY Administration Methylprednisolone 40 mg 04/26/24 18:00 04/27/24 05:49 Methylprednisolone 125 Mg/2 Ml Vial IV 40 mg Q12H PERRY Administration Pantoprazole Sodium 40 mg 04/24/24 17:10 04/27/24 09:19 Pantoprazole 40 Mg Vial IV 40 mg DAILY PERRY Administration Sodium Chloride 10 ml 04/26/24 21:40 04/27/24 05:50 Sodium Chloride 0.9% Flush IV 10 ml PRN PRN Administration Flush Sodium Chloride 10 ml 04/27/24 09:00 04/27/24 09:19 Sodium Chloride 0.9% Flush IV Not Given BID PERRY Objective Ventilator Parameters: Ventilator Settings FiO2 60 RT Vent Frequency 20 Ventilator Tidal Volume 380 Exhaled Vt/kg IBW 420 Positive End Expiratory 8 Pressure Inspiratory Phase Time 0.90 I:E Ratio 1:2.3 Patient Position HOB >= 30 degrees Labs 04/27/24 04:19 04/27/24 04:19 Labs: Laboratory Results - last 24 hr 04/27/24 04:19 WBC 10.4 RBC 4.71 Hgb 13.1 Hct 40.2 MCV 85.5 MCH 27.7 MCHC 32.4 RDW 14.3 Plt Count 220 Neut % (Auto) 75.2 H Lymph % (Auto) 16.6 L [place] % (Auto) 7.4 Eos % (Auto) 0.0 L Baso % (Auto) 0.8 Neut # (Auto) 7800 H Lymph # (Auto) 1700 [place] # (Auto) 800 Eos # (Auto) 0 Baso # (Auto) 100 Sodium 138 Potassium 4.5 Chloride 105 Carbon Dioxide 30 BUN 24 H Creatinine 0.83 Estimated GFR > 60 BUN/Creatinine Ratio 28.9 H Glucose 295 H Calcium 7.9 L Total Bilirubin 0.5 AST 21 ALT 22 Alkaline Phosphatase 74 Total Protein 6.2 L Albumin 3.3 L Globulin 2.9 Albumin/Globulin Ratio 1.1 Exam Vital Signs (past 8 hours): - 04/27/24 03:00 04/27/24 03:00 04/27/24 03:30 Temperature 100.5 F H Pulse Rate 69 Respiratory Rate 17 Blood Pressure 155/76 H 159/77 H Pulse Oximetry 94 Oxygen Delivery Method Oxygen Flow Rate 10 Fraction of Inspired Oxygen 04/27/24 03:30 04/27/24 04:00 04/27/24 04:00 Temperature 100.8 F H Pulse Rate 68 64 Respiratory Rate 20 18 Blood Pressure 151/75 H Pulse Oximetry 94 94 Oxygen Delivery Method Oxygen Flow Rate 10 Fraction of Inspired Oxygen 04/27/24 04:30 04/27/24 04:30 04/27/24 05:00 Temperature Pulse Rate 62 Respiratory Rate 18 Blood Pressure 149/74 H 154/75 H Pulse Oximetry 92 Oxygen Delivery Method Oxygen Flow Rate Fraction of Inspired Oxygen 04/27/24 05:00 04/27/24 05:00 04/27/24 05:30 Temperature Pulse Rate 59 L Respiratory Rate 18 Blood Pressure 158/79 H Pulse Oximetry 92 Oxygen Delivery Method Humidification Mechanical Ventilation Oxygen Flow Rate 10 Fraction of Inspired Oxygen 04/27/24 05:30 04/27/24 06:00 04/27/24 06:00 Temperature 100.2 F H Pulse Rate 58 L 56 L Respiratory Rate 18 18 Blood Pressure 160/81 H Pulse Oximetry 92 93 Oxygen Delivery Method Oxygen Flow Rate 10 Fraction of Inspired Oxygen 04/27/24 07:00 04/27/24 07:00 04/27/24 07:19 Temperature Pulse Rate 54 L Respiratory Rate 18 Blood Pressure 161/87 H Pulse Oximetry 94 94 Oxygen Delivery Method Mechanical Ventilation Oxygen Flow Rate Fraction of Inspired Oxygen 60 04/27/24 07:30 04/27/24 07:30 04/27/24 08:00 Temperature 98.2 F Pulse Rate 58 L Respiratory Rate 18 Blood Pressure 164/88 H 162/84 H Pulse Oximetry 93 Oxygen Delivery Method Oxygen Flow Rate Fraction of Inspired Oxygen 04/27/24 08:00 04/27/24 08:30 04/27/24 08:30 Temperature Pulse Rate 56 L 55 L Respiratory Rate 20 20 Blood Pressure 166/83 H Pulse Oximetry 91 91 Oxygen Delivery Method Oxygen Flow Rate Fraction of Inspired Oxygen 04/27/24 09:00 04/27/24 09:00 04/27/24 09:00 Temperature Pulse Rate 54 L Respiratory Rate 20 Blood Pressure 170/85 H Pulse Oximetry 91 Oxygen Delivery Method Humidification Mechanical Ventilation Oxygen Flow Rate Fraction of Inspired Oxygen 04/27/24 09:30 04/27/24 09:30 04/27/24 10:00 Temperature Pulse Rate 53 L 58 L Respiratory Rate 20 20 Blood Pressure 160/79 H Pulse Oximetry 92 93 Oxygen Delivery Method Oxygen Flow Rate Fraction of Inspired Oxygen 04/27/24 10:00 Temperature Pulse Rate Respiratory Rate Blood Pressure 159/80 H Pulse Oximetry Oxygen Delivery Method Oxygen Flow Rate Fraction of Inspired Oxygen Fraction of Inspired Oxygen 60 SaO2/FiO2 Ratio 156 Oxygen Delivery Method Humidification,Mechanical Ventilation Oxygen Flow Rate 10 Narrative Exam Narrative: intubated, sedated and calm (back on sedation) Quality TeleICU VTE Deep Vein Thrombosis/Pulmonary Embolism Present on Admission: No Assessment & Plan Assessment & Plan narrative: # Acute hypoxic respiratory failure / Multifocal pneumonia / Acute asthma exacerbation: - intubated due to worsening respiratory status despite on maximum settings on HFNC. - Multifactorial.? Most likely in the setting of multifocal pneumonia and acute asthma exacerbation, undiagnosed BERNADETTE/OHS. - Current vent settings reviewed - remains on 60%, PEEP 8 . keep sat >90%. will get ABG this am - C/w vent support per lung protective strategy (TV 6ml/kg by IBW, plat pressure < 30, PaO2 60-80 mm Hg, SaO2 > 90%) and c/w ABCDE bundle while intubated. - On Propofol gtt , precedex gtt and Fentanyl gtt for sedation/pain control. Goal to keep RAAS 0 to -1 - given continued difficulties with agitation will uptitrate ATC gabpentin, seroquel, keep qhs melatonin and continue ativan PRN - C/w daily sedation vacation (SAT) and vent weaning as tolerated.? Evaluate tomorrow am with SAT and perform SBT if able to wean fio2 to 40%, peep 5 - Continue empiric IV antibiotics zosyn and doxycyline (azithro d/c and will not restart due to qt prolnging potential while on seroquel) - Continue DuoNeb every 4 hours scheduled, every 2 hours as needed. - Continue Solu-Medrol 40 g IV - BID # Sepsis secondary to multifocal pneumonia: - Complete sepsis workup including blood cultures X 2, sputum cultures, UA with urine culture, . - repeated sputum today - Cover with empiric antibiotics as above - MRSA screen neg, will not continue vaco - not requiring pressors, good UOP # Methamphetamine intoxication / History of polysubstance abuse: - Likely has some component of withdrawal from methamphetamine due to increased agitation/restlessness prior to intubation. - May use as needed benzo to help with withdrawal symptoms.? Unclear EtOH use history. - When extubated and appropriate, may need counseling and referral for detox # Diabetes type 2, uncontrolled: - BG goal 120-180.? Continue sliding-scale insulin, add Lantus as needed. ICU BUNDLE: # FEN: Currently tube feeds # Glucose: poorly controlled. C/w Accu checks Q6 hours and SSI.- uptitrate PRN BG goal 120-180 # Prophylaxis: Lovenox subcu for DVT prophylaxis, PPI for stress ulcer prophylaxis # Lines/tubes: PIcc , [place], ET tube, OG tube # CODE STATUS: Full code # Disposition: Remains in ICU Above plan was discussed with bedside RN, RT, Dr. Quintero Time Spent With Patient Time with patient: 30 to 49 minutes with 50% spent counseling/coordinating care
[2024-04-27] MEDS: DOXYCYCLINE 100 MG in SODIUM CHLORIDE 0.9% 100 ML IV ×2 (11:19→23:15)
[2024-04-27] MEDS: propofoL 1,000 MG/100 ML VIAL 32.256 MG IV ×5 (11:23→23:13)
--- NOTE | 2024-04-27 14:59 | PM.PN.1 ---
Subjective Subjective Interval history: Febrile overnight to 101.2F. WBC still normal. Patient on 60% FiO2 and 8 of PEEP. Not ideal candidate for extubation yet per teleICU. Exam Vital Signs (past 8 hours): - 04/27/24 07:00 04/27/24 07:00 04/27/24 07:19 Temperature Pulse Rate 54 L Respiratory Rate 18 Blood Pressure 161/87 H Pulse Oximetry 94 94 Oxygen Delivery Method Mechanical Ventilation Fraction of Inspired Oxygen 60 04/27/24 07:30 04/27/24 07:30 04/27/24 08:00 Temperature 98.2 F Pulse Rate 58 L Respiratory Rate 18 Blood Pressure 164/88 H 162/84 H Pulse Oximetry 93 Oxygen Delivery Method Fraction of Inspired Oxygen 04/27/24 08:00 04/27/24 08:30 04/27/24 08:30 Temperature Pulse Rate 56 L 55 L Respiratory Rate 20 20 Blood Pressure 166/83 H Pulse Oximetry 91 91 Oxygen Delivery Method Fraction of Inspired Oxygen 04/27/24 09:00 04/27/24 09:00 04/27/24 09:00 Temperature Pulse Rate 54 L Respiratory Rate 20 Blood Pressure 170/85 H Pulse Oximetry 91 Oxygen Delivery Method Humidification Mechanical Ventilation Fraction of Inspired Oxygen 04/27/24 09:30 04/27/24 09:30 04/27/24 10:00 Temperature Pulse Rate 53 L 58 L Respiratory Rate 20 20 Blood Pressure 160/79 H Pulse Oximetry 92 93 Oxygen Delivery Method Fraction of Inspired Oxygen 04/27/24 10:00 04/27/24 10:30 04/27/24 10:30 Temperature Pulse Rate 57 L Respiratory Rate 20 Blood Pressure 159/80 H 159/84 H Pulse Oximetry 93 Oxygen Delivery Method Fraction of Inspired Oxygen 04/27/24 11:00 04/27/24 11:00 04/27/24 11:30 Temperature Pulse Rate 56 L Respiratory Rate 20 Blood Pressure 160/83 H 163/88 H Pulse Oximetry 92 Oxygen Delivery Method Fraction of Inspired Oxygen 04/27/24 11:30 04/27/24 11:37 04/27/24 12:00 Temperature Pulse Rate 57 L Respiratory Rate 20 Blood Pressure 160/83 H Pulse Oximetry 92 94 Oxygen Delivery Method Mechanical Ventilation Fraction of Inspired Oxygen 60 04/27/24 12:00 04/27/24 12:30 04/27/24 12:30 Temperature Pulse Rate 63 62 Respiratory Rate 20 20 Blood Pressure 161/88 H Pulse Oximetry 92 93 Oxygen Delivery Method Fraction of Inspired Oxygen 04/27/24 13:00 04/27/24 13:00 04/27/24 13:00 Temperature Pulse Rate 60 Respiratory Rate 20 Blood Pressure 163/89 H Pulse Oximetry 93 Oxygen Delivery Method Humidification Mechanical Ventilation Fraction of Inspired Oxygen 04/27/24 13:30 04/27/24 13:30 04/27/24 14:00 Temperature 100.0 F H Pulse Rate 59 L Respiratory Rate 20 Blood Pressure 164/90 H 162/85 H Pulse Oximetry 93 Oxygen Delivery Method Fraction of Inspired Oxygen 04/27/24 14:00 04/27/24 14:42 Temperature Pulse Rate 60 Respiratory Rate 20 Blood Pressure Pulse Oximetry 94 94 Oxygen Delivery Method Mechanical Ventilation Fraction of Inspired Oxygen 60 Fraction of Inspired Oxygen 60 SaO2/FiO2 Ratio 156 Oxygen Delivery Method Mechanical Ventilation Oxygen Flow Rate 10 Narrative Exam Narrative: GEN: Intubated and sedated, morbidly obese HEENT: Normocephalic, face symmetric, pupils equal round reactive to light, extraocular movements intact, sclerae anicteric, conjunctiva clear, nares patent, oropharynx reveals an intact soft and hard palate with moist mucous membranes, dentition is fair NECK: Supple, no lymphadenopathy, thyroid without enlargement or nodularity, carotids no bruits CHEST: Respiratory excursions symmetric, faint expiratory wheezes in the right upper lobe, very diminished breath sounds throughout CV: Regular rate and rhythm, no murmurs, rubs, gallops, PMI can not be palpated ABD: Soft, obese, nontender, nondistended, bowel sounds present in all 4 quadrants, body habitus limits exam EXTR: Warm, well perfused, no clubbing/cyanosis/edema SKIN: Warm and dry, without rash NEURO: Cannot obtain due to sedation. PSYCH: Cannot obtain due to sedation. Objective Labs 04/27/24 04:19 04/27/24 04:19 Labs: Laboratory Results - last 24 hr 04/27/24 04:19 WBC 10.4 RBC 4.71 Hgb 13.1 Hct 40.2 MCV 85.5 MCH 27.7 MCHC 32.4 RDW 14.3 Plt Count 220 Neut % (Auto) 75.2 H Lymph % (Auto) 16.6 L [place] % (Auto) 7.4 Eos % (Auto) 0.0 L Baso % (Auto) 0.8 Neut # (Auto) 7800 H Lymph # (Auto) 1700 [place] # (Auto) 800 Eos # (Auto) 0 Baso # (Auto) 100 Sodium 138 Potassium 4.5 Chloride 105 Carbon Dioxide 30 BUN 24 H Creatinine 0.83 Estimated GFR > 60 BUN/Creatinine Ratio 28.9 H Glucose 295 H Calcium 7.9 L Total Bilirubin 0.5 AST 21 ALT 22 Alkaline Phosphatase 74 Total Protein 6.2 L Albumin 3.3 L Globulin 2.9 Albumin/Globulin Ratio 1.1 [facility] Medical History Bowel obstruction Asthma exacerbation Surgical History Status post delivery (10/02/17) Social History household members: friend(s) Smoking Status: Current some day smoker alcohol intake: former Assessment & Plan Assessment & Plan narrative: 1. Acute hypoxic respiratory failure -intubated on 04/24 due to worsening resp status and agitation despite maxed on high flow -CXR with bilateral pulm consolidations -propofol and fent drips, precedex added due to agitation on vent -appreciate teleICU consult -failed SBT on 04/25, and again on 04/26 however did a little better -got dose of IV lasix 20mg x1 on 04/26 -echo reassuring with EF 60-65% 2. Multifocal pneumonia -CTA with bilateral infiltrates consistent with multifocal pneumonia -zosyn and doxy, azithro stopped due to elevated QT -sputum culture with no growth -resp PCR negative 3. Sepsis secondary to multifocal pneumonia. Patient met sepsis criteria on arrival as evidenced by tachycardia, tachypnea, elevated white blood cell count of 18.3, and known multifocal pneumonia. Blood cultures no growth. Continue broad-spectrum antibiotics as noted. 4. Asthma with exacerbation Solu-Medrol and nebs have been ordered. We are unable to verify what her usual outpatient regimen is, if anything. She does have a nebulizer at home, but I am uncertain if she is on any chronic controlling medications. Will need to reconcile medications. Her roommate reports that she gets medications filled at [facility] pharmacy in [place]. 5. Diabetes mellitus uncontrolled with hyperglycemia -start insulin drip due to elevated BG with steroids -TF running 6. Polysubstance dependence, with likely withdrawal Patient does admit to daily to multiple times daily smoking of fentanyl tablets. She also reports ?occasional ?smoking of methamphetamines. Her urine tox screen was positive for amphetamines and methamphetamines. Discussed mitigating withdrawals by starting suboxone, and patient would like to try it. Received 1 tab SL but stopped now as she is on an IV fentanyl drip. 7. Class 3 obesity BMI is 49.3. She is at significantly increased risk of morbidity and mortality, particularly from a respiratory standpoint given her very high BMI. 8. Hyponatremia, resolved Code status Full Prophylaxis Lovenox 40 mg subQ b.i.d. I spent a total of 35 minutes of critical care time on this patient's care today; this time is exclusive of procedural time. Disposition ICU Time Spent With Patient Time with patient: 30 to 49 minutes with 50% spent counseling/coordinating care Quality VTE Deep Vein Thrombosis/Pulmonary Embolism Present on Admission: No
[2024-04-27] MEDS: GABAPENTIN 300 MG CAPSULE 600 MG TUBE ×2 (15:28→20:07)
[2024-04-27] MEDS: INSULIN DRIP PREMIX 100 UNIT/100 ML PLAST..BAG IV (15:47)
[2024-04-27 17:03] LABS: Triglycerides 245 mg/dL (35-150)
[2024-04-27] MEDS: MELATONIN 3 MG TABLET 6 MG TUBE (20:07)
[2024-04-27] MEDS: QUETIAPINE 25 MG TABLET 50 MG PO (20:07)
--- NOTE | 2024-04-27 20:13 | P.ICUMDRN_ITS ---
- Date Patient Seen: 04/27/24 :: This patient was seen via real time interactive two-way audiovisual telecommunic ation. Note: Remains intubated and sedated. Failed SAT today. FiO2 60% and PEEP 8. Cont weaning down sedation as tolerated. D/w bedside RN.
[2024-04-28] VITALS (62 sets, daily range): BP systolic 132–189; BP diastolic 77–102; PULSE 49–86; RESP 13–24; TEMP 36.6–37.2; O2SAT 92–97
[2024-04-28] MEDS: CHLORHEXIDINE GLUCONATE 15 ML CUP PO ×4 (01:09→17:37)
[2024-04-28] MEDS: propofoL 1,000 MG/100 ML VIAL 32.256 MG IV ×2 (02:12→05:19)
[2024-04-28] MEDS: ALBUTEROL/IPRATROPIUM 3 ML AMPUL INH ×6 (02:24→22:13)
[2024-04-28] MEDS: PIPERACILLIN/TAZO 3.375 GM in SODIUM CHLORIDE 0.9% 100 ML IV ×3 (03:42→20:43)
[2024-04-28] MEDS: dexmedeTOMIDine in 0.9 % NaCL 400 MCG/100 ML PLAST..BAG 16.125 MCG IV ×4 (03:54→21:54)
[2024-04-28] MEDS: methylPREDNISolone 125 MG/2 ML VIAL 40 MG IV ×2 (05:18→17:37)
[2024-04-28 05:42] LABS: Add Manual Diff / Slide Review NO; Basophils Absolute Auto 0 /uL (0-100); Basophils Percent Auto 0.4 % (0-2); Eosinophils Absolute Auto 0 /uL (0-450); Hematocrit 42.2 % (36-46); Hemoglobin 13.9 g/dL (12.0-16.0); Lymphocytes Absolute Auto 1900 /uL (1100-4500); Lymphocytes Percent Auto 20.7 % (25-40); Mean Corpuscular HGB Conc 32.9 % (30-36); Mean Corpuscular Hemoglobin 27.8 PG (26-34); Mean Corpuscular Volume 84.3 fL (80-100); Monocytes Absolute Auto 600 /uL (0-900); Monocytes Percent Auto 6.7 % (3-14); Neutrophils Absolute Auto 6600 /uL (1500-7000); Neutrophils Percent Auto 72.2 % (50-75); Platelet Count 212 X10^3/uL (150-400); White Blood Cell Count 9.1 X10^3/uL (4.5-11.0)
[2024-04-28] MEDS: INSULIN DRIP PREMIX 100 UNIT/100 ML PLAST..BAG 6 UNIT IV (05:42)
[2024-04-28 05:58] LABS: Alanine Aminotransferase 21 IU/L (<35); Albumin 3.4 g/dL (3.5-5.0); Albumin Globulin Ratio 1.1 (1.0-2.8); Alkaline Phosphatase 65 U/L (38-126); Aspartate Aminotransferase 19 IU/L (14-36); BUN Creatinine Ratio 27.8 (6-22); Bilirubin Total 0.7 mg/dL (0.2-1.3); Blood Urea Nitrogen 20 mg/dL (7-17); Calcium 8.5 mg/dL (8.4-10.2); Carbon Dioxide 32 mmol/L (22-32); Chloride 105 mmol/L (98-107); Estimated Glomerular Filt Rate > 60 mL/min (>60); Globulin 3.1 g/dL (1.7-4.1); Glucose 211 mg/dL (70-100); HEMOLYSIS < 15 (0-50); Potassium 4.3 mmol/L (3.4-5.1); Sodium 140 mmol/L (137-145); Total Protein 6.5 g/dL (6.3-8.2)
[2024-04-28] MEDS: fentaNYL 2,000 MCG in DEXTROSE 5% IN WATER 210 ML 28.56 MCG IV ×2 (08:04→18:23)
[2024-04-28] MEDS: PANTOPRAZOLE 40 MG VIAL IV (08:07)
[2024-04-28] MEDS: QUETIAPINE 25 MG TABLET PO ×2 (08:07→20:45)
[2024-04-28] MEDS: GABAPENTIN 300 MG CAPSULE 600 MG TUBE ×3 (08:07→20:45)
[2024-04-28] MEDS: ENOXAPARIN 40 MG/0.4 ML SYRINGE SUBCUT ×2 (08:07→20:44)
--- NOTE | 2024-04-28 08:12 | DI.RAD.S_ITS ---
PROCEDURE: XR CHEST 1V INDICATIONS: follow up PNA, ETT placement, intubated pateint TECHNIQUE: One view of the chest was acquired. COMPARISON: [facility], , XR CHEST 1V, 04/26/2024, 10:59. FINDINGS: Surgical changes and devices: The endotracheal tube and the NG tube are unchanged. Right PICC is unchanged. Lungs and pleura: Linear radiopacities within the right mid lung are redemonstrated. Differential considerations include atelectasis and aspiration/infection. Linear radiopacities within the left upper lung likely represent platelike atelectasis. No new airspace consolidation. No pleural effusion or pneumothorax. Mediastinum: Mediastinal contours appear normal. Heart size is normal. Bones and chest wall: No suspicious bony lesions. Overlying soft tissues appear unremarkable. IMPRESSION: Stable chest when compared with the study dated April 26, 2024. Dictated by: Anyi Devine M.D. on 04/28/2024 at 8:52 Approved by: Anyi Devine M.D. on 04/28/2024 at 8:56
--- NOTE | 2024-04-28 08:14 | P.TELICUPN_ITS ---
Subjective Subjective IF CAMERA ACTIVATED, patient seen via real-time interactive audiovisual communication: Camera activated Date Patient Seen: 04/28/24 Consent obtained for tele-integrated logistics programs director care: Yes Patient Location: ICU Provider location (State): [place] Other participants/roles: RN, RT Interval history: patient remains on 60% fio2, PEEP 8 Pao2 this am 61, peep increased to 10 Not meeting criteria for SBT culture data unrevealing to date Current Medications Current Medications Medications: Home Medications albuterol sulfate 2.5 mg/3 mL (0.083 %) solution for nebulization 2.5 mg (3 mL) inhalation Q4H PRN shortness of breath or wheezing #180 mL 11/21/22 [Rx Confirmed 04/23/24] prednisone 50 mg tablet 50 mg PO DAILY #5 tabs 11/21/22 [Rx] Visit Medications (administered) Generic Name Dose Route Start Last Admin Trade Name Freq PRN Reason Stop Dose Admin Albuterol 2.5 mg 04/23/24 10:33 04/27/24 18:09 Albuterol 2.5 Mg/3 Ml Neb (Adult) INH 2.5 mg RTQ2HR PRN Administration Wheezing Albuterol/Ipratropium 3 ml 04/23/24 11:00 04/28/24 06:01 Albuterol/Ipratropium 3 Ml Ampul INH 3 ml RTQ4HR PERRY Administration Chlorhexidine Gluconate 15 ml 04/24/24 18:00 04/28/24 05:18 Chlorhexidine Gluconate 15 Ml Cup PO 15 ml Q6HR PERRY Administration Diphenhydramine HCl 25 mg 04/25/24 17:34 04/25/24 17:40 Diphenhydramine 50 Mg/Ml Vial IV 25 mg Q6HR PRN Administration Rash Enoxaparin Sodium 40 mg 04/23/24 11:23 04/28/24 08:07 Enoxaparin 40 Mg/0.4 Ml Syringe SUBCUT 40 mg BID PERRY Administration Gabapentin 600 mg 04/27/24 15:00 04/28/24 08:07 Gabapentin 300 Mg Capsule TUBE 600 mg TID PERRY Administration Heparin Sodium (Porcine) 50 unit 04/26/24 21:41 04/27/24 10:07 Heparin Flush (Cl/Picc/Mid-Line) 50 Unit/5 Ml Syringe IV 50 unit PRN PRN Administration Flush Propofol 1,000 mg in 100 mls @ 4.032 mls/hr 04/24/24 17:15 04/28/24 05:19 Propofol IV 40 mcg/kg/min TITRATE PERRY 32.256 mls/hr Administration Protocol 5 MCG/KG/MIN Piperacillin Sod/Tazobactam 100 mls @ 25 mls/hr 04/25/24 04:00 04/28/24 03:42 Sod 3.375 gm/ Sodium Chloride IV 25 mls/hr Q8H PERRY Administration dexmedeTOMIDine in 0.9 % NaCL 400 mcg in 100 mls @ 6.45 mls/hr 04/25/24 11:30 04/28/24 03:54 Precedex IV 0.5 mcg/kg/hr TITRATE PERRY 16.125 mls/hr Administration Protocol 0.2 MCG/KG/HR Fentanyl 2,000 mcg/ Dextrose 250 mls @ 11.76 mls/hr 04/25/24 14:00 04/28/24 08:04 IV 1.7 mcg/kg/hr TITRATE PERRY 28.56 mls/hr Administration Protocol 0.7 MCG/KG/HR Doxycycline Hyclate 100 mg/ 100 mls @ 100 mls/hr 04/27/24 10:15 04/28/24 01:10 Sodium Chloride IV Infused Q12H PERRY Infusion INSULIN DRIP PREMIX 100 unit in 100 mls @ 6 mls/hr 04/27/24 15:30 04/28/24 08:03 Myxredlin Drip Premix IV 4 units/hr TITRATE PERRY 4 mls/hr Titration Protocol Labetalol HCl 10 mg 04/26/24 19:02 04/26/24 22:42 Labetalol 20 Mg/4 Ml Syringe IV 10 mg Q10MIN PRN Administration SBP>= 180 or DBP >=110 Lorazepam 2 mg 04/25/24 11:36 04/27/24 10:12 Lorazepam 2 Mg/Ml Inj IV 2 mg Q4HR PRN Administration Anxiety/Agitation Melatonin 6 mg 04/26/24 21:00 04/27/24 20:07 Melatonin 3 Mg Tablet TUBE 6 mg BEDTIME PERRY Administration Methylprednisolone 40 mg 04/26/24 18:00 04/28/24 05:18 Methylprednisolone 125 Mg/2 Ml Vial IV 40 mg Q12H PERRY Administration Pantoprazole Sodium 40 mg 04/24/24 17:10 04/28/24 08:07 Pantoprazole 40 Mg Vial IV 40 mg DAILY PERRY Administration Quetiapine Fumarate 50 mg 04/27/24 21:00 04/27/24 20:07 Quetiapine 25 Mg Tablet PO 50 mg BEDTIME PERRY Administration Quetiapine Fumarate 25 mg 04/27/24 16:00 04/28/24 08:07 Quetiapine 25 Mg Tablet PO 25 mg BID PERRY Administration Sodium Chloride 10 ml 04/26/24 21:40 04/27/24 05:50 Sodium Chloride 0.9% Flush IV 10 ml PRN PRN Administration Flush Sodium Chloride 10 ml 04/27/24 09:00 04/27/24 20:09 Sodium Chloride 0.9% Flush IV 10 ml BID PERRY Administration Objective Ventilator Parameters: Ventilator Settings FiO2 60 RT Vent Frequency 20 Ventilator Tidal Volume 380 Exhaled Positive End Expiratory 8 Pressure Inspiratory Phase Time 0.9 I:E Ratio 1:2.3 Patient Position HOB >= 30 degrees Imaging Chest x-ray: Radiologist's impression: stable exam compared to 04/26- right midlung opacity infection vs. atelectasis Labs 04/28/24 04:40 04/28/24 04:40 Labs: Laboratory Results - last 24 hr 04/27/24 04/28/24 04:19 04:40 WBC 9.1 RBC 5.00 Hgb 13.9 Hct 42.2 MCV 84.3 MCH 27.8 MCHC 32.9 RDW 14.0 Plt Count 212 Neut % (Auto) 72.2 Lymph % (Auto) 20.7 L [place] % (Auto) 6.7 Eos % (Auto) 0.0 L Baso % (Auto) 0.4 Neut # (Auto) 6600 Lymph # (Auto) 1900 [place] # (Auto) 600 Eos # (Auto) 0 Baso # (Auto) 0 Sodium 140 Potassium 4.3 Chloride 105 Carbon Dioxide 32 BUN 20 H Creatinine 0.72 Estimated GFR > 60 BUN/Creatinine Ratio 27.8 H Glucose 211 H Calcium 8.5 Total Bilirubin 0.7 AST 19 ALT 21 Alkaline Phosphatase 65 Total Protein 6.5 Albumin 3.4 L Globulin 3.1 Albumin/Globulin Ratio 1.1 Triglycerides 245 H Exam Vital Signs (past 8 hours): - 04/28/24 00:30 04/28/24 00:30 04/28/24 01:00 Temperature Pulse Rate 55 L Respiratory Rate 20 Blood Pressure 172/91 H 167/88 H Pulse Oximetry 96 Oxygen Delivery Method Oxygen Flow Rate 04/28/24 01:00 04/28/24 01:00 04/28/24 01:30 Temperature Pulse Rate 55 L 52 L Respiratory Rate 20 20 Blood Pressure Pulse Oximetry 96 96 Oxygen Delivery Method Mechanical Ventilation Oxygen Flow Rate 10 04/28/24 01:30 04/28/24 02:00 04/28/24 02:00 Temperature Pulse Rate 52 L Respiratory Rate 20 Blood Pressure 174/93 H 170/90 H Pulse Oximetry 96 Oxygen Delivery Method Oxygen Flow Rate 10 04/28/24 02:30 04/28/24 02:30 04/28/24 03:00 Temperature Pulse Rate 53 L Respiratory Rate 20 Blood Pressure 167/92 H 171/87 H Pulse Oximetry 96 Oxygen Delivery Method Oxygen Flow Rate 04/28/24 03:00 04/28/24 03:30 04/28/24 03:30 Temperature Pulse Rate 55 L 52 L Respiratory Rate 20 20 Blood Pressure 169/87 H Pulse Oximetry 96 95 Oxygen Delivery Method Oxygen Flow Rate 10 04/28/24 04:00 04/28/24 04:00 04/28/24 04:30 Temperature 98.1 F Pulse Rate 51 L Respiratory Rate 20 Blood Pressure 161/85 H 166/87 H Pulse Oximetry 95 Oxygen Delivery Method Oxygen Flow Rate 10 04/28/24 04:30 04/28/24 05:00 04/28/24 05:00 Temperature Pulse Rate 51 L 51 L Respiratory Rate 20 20 Blood Pressure 173/86 H Pulse Oximetry 95 95 Oxygen Delivery Method Oxygen Flow Rate 0 10 04/28/24 05:00 04/28/24 05:30 04/28/24 05:30 Temperature Pulse Rate 49 L Respiratory Rate 20 Blood Pressure 170/88 H Pulse Oximetry 95 Oxygen Delivery Method Mechanical Ventilation Oxygen Flow Rate 04/28/24 06:00 04/28/24 06:00 Temperature Pulse Rate 50 L Respiratory Rate 20 Blood Pressure 179/95 H Pulse Oximetry 95 Oxygen Delivery Method Oxygen Flow Rate 10 Fraction of Inspired Oxygen 60 SaO2/FiO2 Ratio 151 Oxygen Delivery Method Mechanical Ventilation Oxygen Flow Rate 10 Narrative Exam Narrative: intubated, sedated, NAD Quality TeleICU VTE Deep Vein Thrombosis/Pulmonary Embolism Present on Admission: No Assessment & Plan Assessment & Plan narrative: # Acute hypoxic respiratory failure / Multifocal pneumonia / Acute asthma exacerbation: - intubated due to worsening respiratory status despite on maximum settings on HFNC. - Multifactorial.? Most likely in the setting of multifocal pneumonia and acute asthma exacerbation, undiagnosed BERNADETTE/OHS. - given negative cultures , both viral and resp. thus far and stalled improvement may also be a component of ALI from smoking meth - Current vent settings reviewed - remains on 60%, PEEP 8 . keep sat >90%. Pao2 this am 61 and atelectasis seen on cxr, will increase peep to try to recruit alveoli - C/w vent support per lung protective strategy (TV 6ml/kg by IBW, plat pressure < 30, PaO2 60-80 mm Hg, SaO2 > 90%) and c/w ABCDE bundle while intubated. - On Propofol gtt , precedex gtt and Fentanyl gtt for sedation/pain control. Goal to keep RAAS 0 to -1 - given continued difficulties with agitation will continue ATC gabpentin, seroquel, keep qhs melatonin and continue ativan PRN - C/w daily sedation vacation (SAT) and vent weaning as tolerated.? Evaluate tomorrow am with SAT and perform SBT if able to wean fio2 to 40%, peep 7 - Continue empiric IV antibiotics zosyn and doxycyline (azithro d/c and will not restart due to qt prolnging potential while on seroquel) - Continue DuoNeb every 4 hours scheduled, every 2 hours as needed. - Continue Solu-Medrol 40 g IV - BID # Sepsis secondary to multifocal pneumonia: - Complete sepsis workup including blood cultures X 2, sputum cultures, UA with urine culture, . - repeated sputum 04/27- all NGTD - Cover with empiric antibiotics as above - MRSA screen neg, vanco d/c - not requiring pressors, robust UOP # Methamphetamine intoxication / History of polysubstance abuse: - Likely has some component of withdrawal from methamphetamine due to increased agitation/restlessness prior to intubation. - May use as needed benzo to help with withdrawal symptoms.? Unclear EtOH use history. - When extubated and appropriate, may need counseling and referral for detox # Diabetes type 2, uncontrolled: - BG goal 120-180.? insulin gtt started for uncontrolled hyperglycemia ICU BUNDLE: # FEN: Currently tube feeds # Glucose: insulin gtt # Prophylaxis: Lovenox subcu for DVT prophylaxis, PPI for stress ulcer prophylaxis # Lines/tubes: PIcc , [place], ET tube, OG tube # CODE STATUS: Full code # Disposition: Remains in ICU Above plan was discussed with bedside RN, RT Time Spent With Patient Time with patient: 30 to 49 minutes with 50% spent counseling/coordinating care
[2024-04-28] MEDS: SODIUM CHLORIDE 0.9% FLUSH 10 ML IV ×2 (08:20→20:45)
[2024-04-28] MEDS: propofoL 1,000 MG/100 ML VIAL 28.224 MG IV ×4 (08:37→23:01)
[2024-04-28 09:23] LABS: Base Excess ABG 6.8 mmol/L (-2-3); HCO3 ABG 31 mmol/L (23-27); PCO2 ABG 39.8 mmHg (35-45); PO2 ABG 62 mmHg (80-100); TCO2 ABG 31 mmol/L (23-27); pH ABG 7.49 (7.35-7.45)
[2024-04-28 09:24] LABS: Allen Test for ABG Passed? Yes, Passed; Blood Gas Collection Site Right Radial; Blood Gas Mode Assist Cont Ventilat; Delivery System Adult Ventilator; Fractionated Inspired Oxygen 60; Oxygen Saturation ABG 93 % (95-100); PEEP 8; Pressure Support 0; Respiratory Rate 20; Tidal Volume 380
[2024-04-28] MEDS: DOXYCYCLINE 100 MG in SODIUM CHLORIDE 0.9% 100 ML IV ×2 (10:15→21:30)
--- NOTE | 2024-04-28 13:43 | P.PN_ITS ---
Subjective Subjective Interval history: Not ideal candidate for extubation yet per teleICU. Possibly related to inhalational pneumonitis, may take a while to improve. Will continue to work on lowering sedation, but remains agitated with reduction in sedation today. Exam Vital Signs (past 8 hours): - 04/28/24 06:00 04/28/24 06:00 04/28/24 06:30 Temperature Pulse Rate 50 L Respiratory Rate 20 Blood Pressure 179/95 H 176/92 H Pulse Oximetry 95 Oxygen Delivery Method Oxygen Flow Rate 10 Fraction of Inspired Oxygen 04/28/24 06:30 04/28/24 07:00 04/28/24 07:00 Temperature Pulse Rate 56 L 51 L Respiratory Rate 20 20 Blood Pressure 176/90 H Pulse Oximetry 95 94 Oxygen Delivery Method Oxygen Flow Rate Fraction of Inspired Oxygen 04/28/24 07:30 04/28/24 07:30 04/28/24 08:00 Temperature 98.1 F Pulse Rate 50 L Respiratory Rate 20 Blood Pressure 184/92 H Pulse Oximetry 93 Oxygen Delivery Method Oxygen Flow Rate Fraction of Inspired Oxygen 04/28/24 08:00 04/28/24 08:00 04/28/24 08:30 Temperature Pulse Rate 51 L Respiratory Rate 20 Blood Pressure 179/89 H 189/102 H Pulse Oximetry 93 Oxygen Delivery Method Oxygen Flow Rate Fraction of Inspired Oxygen 04/28/24 08:30 04/28/24 09:00 04/28/24 09:00 Temperature Pulse Rate 52 L 53 L Respiratory Rate 20 20 Blood Pressure 180/93 H Pulse Oximetry 94 96 Oxygen Delivery Method Oxygen Flow Rate Fraction of Inspired Oxygen 04/28/24 09:00 04/28/24 09:30 04/28/24 09:30 Temperature Pulse Rate 52 L Respiratory Rate 20 Blood Pressure 170/95 H Pulse Oximetry 96 Oxygen Delivery Method Humidification Mechanical Ventilation Oxygen Flow Rate Fraction of Inspired Oxygen 04/28/24 10:00 04/28/24 10:00 04/28/24 10:30 Temperature Pulse Rate 56 L Respiratory Rate 20 Blood Pressure 176/97 H 166/92 H Pulse Oximetry 96 Oxygen Delivery Method Oxygen Flow Rate Fraction of Inspired Oxygen 04/28/24 10:30 04/28/24 11:00 04/28/24 11:00 Temperature Pulse Rate 62 57 L Respiratory Rate 20 20 Blood Pressure 172/95 H Pulse Oximetry 97 96 Oxygen Delivery Method Oxygen Flow Rate Fraction of Inspired Oxygen 04/28/24 11:30 04/28/24 11:30 04/28/24 11:36 Temperature Pulse Rate 56 L 56 L Respiratory Rate 20 20 Blood Pressure 171/97 H Pulse Oximetry 96 96 Oxygen Delivery Method Mechanical Ventilation Oxygen Flow Rate Fraction of Inspired Oxygen 60 04/28/24 12:00 04/28/24 12:00 04/28/24 12:00 Temperature 98.3 F Pulse Rate 70 Respiratory Rate 20 Blood Pressure 155/92 H Pulse Oximetry 95 Oxygen Delivery Method Oxygen Flow Rate Fraction of Inspired Oxygen 04/28/24 12:30 04/28/24 12:30 04/28/24 13:00 Temperature Pulse Rate 67 65 Respiratory Rate 20 20 Blood Pressure 159/92 H Pulse Oximetry 95 96 Oxygen Delivery Method Oxygen Flow Rate Fraction of Inspired Oxygen 04/28/24 13:00 Temperature Pulse Rate Respiratory Rate Blood Pressure 161/92 H Pulse Oximetry Oxygen Delivery Method Oxygen Flow Rate Fraction of Inspired Oxygen Fraction of Inspired Oxygen 60 SaO2/FiO2 Ratio 160 Oxygen Delivery Method Mechanical Ventilation Oxygen Flow Rate 10 Narrative Exam Narrative: GEN: Intubated and sedated, morbidly obese HEENT: Normocephalic, face symmetric, pupils equal round reactive to light, extraocular movements intact, sclerae anicteric, conjunctiva clear, nares patent, oropharynx reveals an intact soft and hard palate with moist mucous membranes, dentition is fair NECK: Supple, no lymphadenopathy, thyroid without enlargement or nodularity, carotids no bruits CHEST: Respiratory excursions symmetric, faint expiratory wheezes in the right upper lobe, very diminished breath sounds throughout CV: Regular rate and rhythm, no murmurs, rubs, gallops, PMI can not be palpated ABD: Soft, obese, nontender, nondistended, bowel sounds present in all 4 quadrants, body habitus limits exam EXTR: Warm, well perfused, no clubbing/cyanosis/edema SKIN: Warm and dry, without rash NEURO: Cannot obtain due to sedation. PSYCH: Cannot obtain due to sedation. Objective Labs 04/28/24 04:40 04/28/24 04:40 Labs: Laboratory Results - last 24 hr 04/27/24 04/28/24 04/28/24 04:19 04:40 08:40 WBC 9.1 RBC 5.00 Hgb 13.9 Hct 42.2 MCV 84.3 MCH 27.8 MCHC 32.9 RDW 14.0 Plt Count 212 Neut % (Auto) 72.2 Lymph % (Auto) 20.7 L [place] % (Auto) 6.7 Eos % (Auto) 0.0 L Baso % (Auto) 0.4 Neut # (Auto) 6600 Lymph # (Auto) 1900 [place] # (Auto) 600 Eos # (Auto) 0 Baso # (Auto) 0 ABG Sample Site Right radial ABG pH 7.49 H ABG pCO2 39.8 ABG pO2 62 L ABG HCO3 31 H ABG Total CO2 31 H ABG O2 Saturation 93 L ABG Base Excess 6.8 H Respiration Rate 20 O2 Delivery Device Adult ventilator Mode of Support Assist cont ventilat FiO2 60 Tidal Volume 380 Pressure Support 0 PEEP or CPAP 8 Sodium 140 Potassium 4.3 Chloride 105 Carbon Dioxide 32 BUN 20 H Creatinine 0.72 Estimated GFR > 60 BUN/Creatinine Ratio 27.8 H Glucose 211 H Calcium 8.5 Total Bilirubin 0.7 AST 19 ALT 21 Alkaline Phosphatase 65 Total Protein 6.5 Albumin 3.4 L Globulin 3.1 Albumin/Globulin Ratio 1.1 Triglycerides 245 H [facility] Medical History Bowel obstruction Asthma exacerbation Surgical History Status post delivery (10/02/17) Social History household members: friend(s) Smoking Status: Current some day smoker alcohol intake: former Assessment & Plan Assessment & Plan narrative: 1. Acute hypoxic respiratory failure -intubated on 04/24 due to worsening resp status and agitation despite maxed on high flow -CXR with bilateral pulm consolidations -propofol and fent drips, precedex added due to agitation on vent -appreciate teleICU consult -failed SBT on 04/25, and again on 04/26 however did a little better -got dose of IV lasix 20mg x1 on 04/26 -echo reassuring with EF 60-65% -possible pneumonitis vs pna vs asthma exacerbation. 2. Multifocal pneumonia -CTA with bilateral infiltrates consistent with multifocal pneumonia -zosyn and doxy, azithro stopped due to elevated QT -sputum culture with no growth -resp PCR negative 3. Sepsis secondary to multifocal pneumonia. Patient met sepsis criteria on arrival as evidenced by tachycardia, tachypnea, elevated white blood cell count of 18.3, and known multifocal pneumonia. Blood cultures no growth. Continue broad-spectrum antibiotics as noted. 4. Asthma with exacerbation Solu-Medrol and nebs have been ordered. We are unable to verify what her usual outpatient regimen is, if anything. She does have a nebulizer at home, but I am uncertain if she is on any chronic controlling medications. Will need to reconcile medications. Her roommate reports that she gets medications filled at [facility] pharmacy in [place]. 5. Diabetes mellitus uncontrolled with hyperglycemia -start insulin drip due to elevated BG with steroids, will continue today. -TF running 6. Polysubstance dependence, with likely withdrawal Patient does admit to daily to multiple times daily smoking of fentanyl tablets. She also reports ?occasional ?smoking of methamphetamines. Her urine tox screen was positive for amphetamines and methamphetamines. Discussed mitigating withdrawals by starting suboxone, and patient would like to try it. Received 1 tab SL but stopped now as she is on an IV fentanyl drip. 7. Class 3 obesity BMI is 49.3. She is at significantly increased risk of morbidity and mortality, particularly from a respiratory standpoint given her very high BMI. 8. Hyponatremia, resolved Code status Full Prophylaxis Lovenox 40 mg subQ b.i.d. I spent a total of 35 minutes of critical care time on this patient's care today; this time is exclusive of procedural time. Disposition Remains ICU Time Spent With Patient Time with patient: 30 to 49 minutes with 50% spent counseling/coordinating care Quality VTE Deep Vein Thrombosis/Pulmonary Embolism Present on Admission: No
--- NOTE | 2024-04-28 14:04 | PC.NURSE ---
0800 - Began weaning sedation. Patient became extremely agitated, thrashing arms and legs. Unable to redirect and not following commands. Failed SBA. Neither Dr. Brown nor Ziyad were expressing confidence of successful extubation today regardless. Patient still requiring 60% FIO2, SPO2 at 95% when at rest. Blood gas remains unimproved. Stephanie leaning towards frequent pulmonary injuries from methamphetamine inhalation which will require longer healing time than initially suspected atypical pneumonia. Plan is to finish course of antibiotics and continue to support and monitor, discussions of trach and peg tube at day seven to ten of intubation.
--- NOTE | 2024-04-28 14:08 | CM.DPC ---
DCP Cont: Per MD, pt on day 5 of being intubated and has not tolerated reduction in sedation or breathing trial and likely due to pnumonitis from inhaling substances. If pt unable to successfully extubate by end of the weekend, likely need of hospital transfer for higher level of care trach management. Pt currently continues on sedation and tf for nutrition. No family bedside today. RAJAN Knight
[2024-04-28] MEDS: propofoL 1,000 MG/100 ML VIAL 24.192 MG IV (15:59)
--- NOTE | 2024-04-28 20:27 | P.ICUMDRN_ITS ---
- Date Patient Seen: 04/28/24 :: This patient was seen via real time interactive two-way audiovisual telecommunic ation. Note: Failed SAT today. Currently sedated with propofol, fentanyl, and precedex gtt. Will continue titrating down sedation as tolerated to seek RASS goal -1 to 0. D/w bedside RN.
[2024-04-28] MEDS: MELATONIN 3 MG TABLET 6 MG TUBE (20:45)
[2024-04-28] MEDS: QUETIAPINE 25 MG TABLET 50 MG PO (20:45)
[2024-04-29] VITALS (55 sets, daily range): BP systolic 101–152; BP diastolic 56–96; PULSE 53–79; RESP 16–23; TEMP 36.6–37.2; O2SAT 92–98
[2024-04-29] MEDS: CHLORHEXIDINE GLUCONATE 15 ML CUP PO ×5 (00:30→23:11)
[2024-04-29] MEDS: propofoL 1,000 MG/100 ML VIAL 28.224 MG IV ×4 (01:36→11:54)
[2024-04-29] MEDS: ALBUTEROL/IPRATROPIUM 3 ML AMPUL INH ×5 (02:27→19:36)
[2024-04-29] MEDS: dexmedeTOMIDine in 0.9 % NaCL 400 MCG/100 ML PLAST..BAG 16.125 MCG IV ×2 (02:27→06:54)
[2024-04-29] MEDS: PIPERACILLIN/TAZO 3.375 GM in SODIUM CHLORIDE 0.9% 100 ML IV (03:30)
[2024-04-29] MEDS: fentaNYL 2,000 MCG in DEXTROSE 5% IN WATER 210 ML 28.56 MCG IV ×3 (03:37→22:24)
[2024-04-29] MEDS: methylPREDNISolone 125 MG/2 ML VIAL 40 MG IV ×2 (05:01→17:47)
[2024-04-29 05:22] LABS: Hematocrit 43.8 % (36-46); Hemoglobin 14.2 g/dL (12.0-16.0); Mean Corpuscular HGB Conc 32.5 % (30-36); Mean Corpuscular Hemoglobin 27.7 PG (26-34); Mean Corpuscular Volume 85.2 fL (80-100); Platelet Count 201 X10^3/uL (150-400); Red Blood Cell Count 5.15 X10^6/uL (4.0-5.2); Red Cell Distribution Width 14.7 % (11.6-14.8); White Blood Cell Count 12.1 X10^3/uL (4.5-11.0)
[2024-04-29 05:23] LABS: Add Manual Diff / Slide Review YES
[2024-04-29 05:31] LABS: Alanine Aminotransferase 26 IU/L (<35); Albumin 3.5 g/dL (3.5-5.0); Albumin Globulin Ratio 1.1 (1.0-2.8); Alkaline Phosphatase 59 U/L (38-126); Aspartate Aminotransferase 27 IU/L (14-36); BUN Creatinine Ratio 37.9 (6-22); Bilirubin Total 0.6 mg/dL (0.2-1.3); Blood Urea Nitrogen 25 mg/dL (7-17); Calcium 8.3 mg/dL (8.4-10.2); Carbon Dioxide 32 mmol/L (22-32); Chloride 104 mmol/L (98-107); Estimated Glomerular Filt Rate > 60 mL/min (>60); Globulin 3.2 g/dL (1.7-4.1); Glucose 185 mg/dL (70-100); HEMOLYSIS 30 (0-50); Potassium 4.5 mmol/L (3.4-5.1); Sodium 139 mmol/L (137-145); Total Protein 6.7 g/dL (6.3-8.2)
[2024-04-29] MEDS: INSULIN DRIP PREMIX 100 UNIT/100 ML PLAST..BAG IV (05:33)
[2024-04-29 05:35] LABS: Neutrophils Absolute Manual 8712 /uL (3000-5900); RBC Morphology Normal Morphology; Total Cells Counted 100
[2024-04-29] MEDS: PANTOPRAZOLE 40 MG VIAL IV (08:00)
[2024-04-29] MEDS: GABAPENTIN 300 MG CAPSULE 600 MG TUBE ×3 (08:01→20:22)
[2024-04-29] MEDS: QUETIAPINE 25 MG TABLET PO ×2 (08:01→20:22)
[2024-04-29] MEDS: ENOXAPARIN 40 MG/0.4 ML SYRINGE SUBCUT ×2 (08:02→20:22)
[2024-04-29] MEDS: SODIUM CHLORIDE 0.9% FLUSH 10 ML IV ×2 (08:12→20:23)
[2024-04-29] MEDS: DOXYCYCLINE 100 MG in SODIUM CHLORIDE 0.9% 100 ML IV (09:29)
--- NOTE | 2024-04-29 09:42 | P.TELICUPN_ITS ---
Subjective Subjective IF CAMERA ACTIVATED, patient seen via real-time interactive audiovisual communication: Camera activated Consent obtained for tele-guide domestic tour care: Yes Patient Location: ICU Provider location (State): [place] Other participants/roles: NATALY Nation Interval history: Following up on this 39 yo F w/ acute hypoxic respiratory failure due to culture-negative suspected multifocal pneumonia/status asthmaticus/methamphetamine intoxication. Other active hospital issues: 1) Hyperactive delirium; and 2) Hyperglycemia INTERIM EVENTS -RN reports that agitation recurs with propofol weaning Current Medications Current Medications Medications: Home Medications albuterol sulfate 2.5 mg/3 mL (0.083 %) solution for nebulization 2.5 mg (3 mL) inhalation Q4H PRN shortness of breath or wheezing #180 mL 11/21/22 [Rx Confirmed 04/23/24] prednisone 50 mg tablet 50 mg PO DAILY #5 tabs 11/21/22 [Rx] Visit Medications (administered) Generic Name Dose Route Start Last Admin Trade Name Freq PRN Reason Stop Dose Admin Albuterol 2.5 mg 04/23/24 10:33 04/27/24 18:09 Albuterol 2.5 Mg/3 Ml Neb (Adult) INH 2.5 mg RTQ2HR PRN Administration Wheezing Albuterol/Ipratropium 3 ml 04/23/24 11:00 04/29/24 06:09 Albuterol/Ipratropium 3 Ml Ampul INH 3 ml RTQ4HR PERRY Administration Chlorhexidine Gluconate 15 ml 04/24/24 18:00 04/29/24 05:02 Chlorhexidine Gluconate 15 Ml Cup PO 15 ml Q6HR PERRY Administration Diphenhydramine HCl 25 mg 04/25/24 17:34 04/25/24 17:40 Diphenhydramine 50 Mg/Ml Vial IV 25 mg Q6HR PRN Administration Rash Enoxaparin Sodium 40 mg 04/23/24 11:23 04/29/24 08:02 Enoxaparin 40 Mg/0.4 Ml Syringe SUBCUT 40 mg BID PERRY Administration Gabapentin 600 mg 04/27/24 15:00 04/29/24 08:01 Gabapentin 300 Mg Capsule TUBE 600 mg TID PERRY Administration Heparin Sodium (Porcine) 50 unit 04/26/24 21:41 04/27/24 10:07 Heparin Flush (Cl/Picc/Mid-Line) 50 Unit/5 Ml Syringe IV 50 unit PRN PRN Administration Flush Propofol 1,000 mg in 100 mls @ 4.032 mls/hr 04/24/24 17:15 04/29/24 08:00 Propofol IV 35 mcg/kg/min TITRATE PERRY 28.224 mls/hr Administration Protocol 5 MCG/KG/MIN Piperacillin Sod/Tazobactam 100 mls @ 25 mls/hr 04/25/24 04:00 04/29/24 03:30 Sod 3.375 gm/ Sodium Chloride IV 25 mls/hr Q8H PERRY Administration dexmedeTOMIDine in 0.9 % NaCL 400 mcg in 100 mls @ 6.45 mls/hr 04/25/24 11:30 04/29/24 06:54 Precedex IV 0.5 mcg/kg/hr TITRATE PERRY 16.125 mls/hr Administration Protocol 0.2 MCG/KG/HR Fentanyl 2,000 mcg/ Dextrose 250 mls @ 11.76 mls/hr 04/25/24 14:00 04/29/24 03:37 IV 1.7 mcg/kg/hr TITRATE PERRY 28.56 mls/hr Administration Protocol 0.7 MCG/KG/HR Doxycycline Hyclate 100 mg/ 100 mls @ 100 mls/hr 04/27/24 10:15 04/29/24 09:29 Sodium Chloride IV 100 mls/hr Q12H PERRY Administration INSULIN DRIP PREMIX 100 unit in 100 mls @ 6 mls/hr 04/27/24 15:30 04/29/24 05:33 Myxredlin Drip Premix IV 4 units/hr TITRATE PERRY 4 mls/hr Administration Protocol Labetalol HCl 10 mg 04/26/24 19:02 04/26/24 22:42 Labetalol 20 Mg/4 Ml Syringe IV 10 mg Q10MIN PRN Administration SBP>= 180 or DBP >=110 Lorazepam 2 mg 04/25/24 11:36 04/27/24 10:12 Lorazepam 2 Mg/Ml Inj IV 2 mg Q4HR PRN Administration Anxiety/Agitation Melatonin 6 mg 04/26/24 21:00 04/28/24 20:45 Melatonin 3 Mg Tablet TUBE 6 mg BEDTIME PERRY Administration Methylprednisolone 40 mg 04/26/24 18:00 04/29/24 05:01 Methylprednisolone 125 Mg/2 Ml Vial IV 40 mg Q12H PERRY Administration Pantoprazole Sodium 40 mg 04/24/24 17:10 04/29/24 08:00 Pantoprazole 40 Mg Vial IV 40 mg DAILY PERRY Administration Quetiapine Fumarate 50 mg 04/27/24 21:00 04/28/24 20:45 Quetiapine 25 Mg Tablet PO 50 mg BEDTIME PERRY Administration Quetiapine Fumarate 25 mg 04/27/24 16:00 04/29/24 08:01 Quetiapine 25 Mg Tablet PO 25 mg BID PERRY Administration Sodium Chloride 10 ml 04/26/24 21:40 04/27/24 05:50 Sodium Chloride 0.9% Flush IV 10 ml PRN PRN Administration Flush Sodium Chloride 10 ml 04/27/24 09:00 04/29/24 08:12 Sodium Chloride 0.9% Flush IV 10 ml BID PERRY Administration Objective Ventilator Parameters: Ventilator Settings FiO2 55 RT Vent Frequency 20 Ventilator Tidal Volume 380 Exhaled Positive End Expiratory 10 Pressure Inspiratory Phase Time 0.9 I:E Ratio 1:2.3 Patient Position HOB >= 30 degrees Labs 04/29/24 05:00 04/29/24 05:00 Labs: Laboratory Results - last 24 hr 04/29/24 05:00 WBC 12.1 H RBC 5.15 Hgb 14.2 Hct 43.8 MCV 85.2 MCH 27.7 MCHC 32.5 RDW 14.7 Plt Count 201 Neut % (Auto) Not Reportable Lymph % (Auto) Not Reportable [place] % (Auto) Not Reportable Eos % (Auto) Not Reportable Baso % (Auto) Not Reportable Lymph # (Auto) Not Reportable [place] # (Auto) Not Reportable Baso # (Auto) Not Reportable Total Counted 100 Seg Neutrophils % 72.0 H Lymphocytes % (Manual) 22.0 L Monocytes % (Manual) 3.0 Eosinophils % (Manual) 3.0 Neutrophils # (Manual) 8712 H RBC Morphology Normal morphology Sodium 139 Potassium 4.5 Chloride 104 Carbon Dioxide 32 BUN 25 H Creatinine 0.66 Estimated GFR > 60 BUN/Creatinine Ratio 37.9 H Glucose 185 H Calcium 8.3 L Total Bilirubin 0.6 AST 27 ALT 26 Alkaline Phosphatase 59 Total Protein 6.7 Albumin 3.5 Globulin 3.2 Albumin/Globulin Ratio 1.1 Exam Vital Signs (past 8 hours): - 04/29/24 02:00 04/29/24 02:00 04/29/24 02:30 Temperature Pulse Rate 55 L 56 L Respiratory Rate 20 20 Blood Pressure 135/86 Pulse Oximetry 98 98 Oxygen Delivery Method Oxygen Flow Rate 04/29/24 02:30 04/29/24 03:00 04/29/24 03:00 Temperature Pulse Rate 62 Respiratory Rate 20 Blood Pressure 140/87 132/81 Pulse Oximetry 98 Oxygen Delivery Method Oxygen Flow Rate 04/29/24 03:30 04/29/24 03:30 04/29/24 04:00 Temperature Pulse Rate 58 L Respiratory Rate 20 Blood Pressure 137/85 141/87 H Pulse Oximetry 98 Oxygen Delivery Method Oxygen Flow Rate 04/29/24 04:00 04/29/24 04:30 04/29/24 04:30 Temperature 98.6 F Pulse Rate 56 L 57 L Respiratory Rate 20 20 Blood Pressure 142/87 H Pulse Oximetry 98 98 Oxygen Delivery Method Oxygen Flow Rate 04/29/24 05:00 04/29/24 05:00 04/29/24 05:00 Temperature Pulse Rate 55 L Respiratory Rate 20 Blood Pressure 137/83 Pulse Oximetry 98 Oxygen Delivery Method Mechanical Ventilation Oxygen Flow Rate 04/29/24 05:30 04/29/24 05:30 04/29/24 06:00 Temperature Pulse Rate 55 L 53 L Respiratory Rate 20 20 Blood Pressure 142/89 H Pulse Oximetry 97 97 Oxygen Delivery Method Oxygen Flow Rate 04/29/24 06:00 04/29/24 06:30 04/29/24 06:30 Temperature Pulse Rate 58 L Respiratory Rate 20 Blood Pressure 147/95 H 147/93 H Pulse Oximetry 96 Oxygen Delivery Method Oxygen Flow Rate 04/29/24 07:00 04/29/24 07:00 04/29/24 07:30 Temperature Pulse Rate 53 L Respiratory Rate 20 Blood Pressure 151/96 H 150/88 H Pulse Oximetry 96 Oxygen Delivery Method Oxygen Flow Rate 04/29/24 07:30 04/29/24 08:00 04/29/24 08:00 Temperature Pulse Rate 55 L 55 L Respiratory Rate 20 20 Blood Pressure 151/93 H Pulse Oximetry 95 94 Oxygen Delivery Method Oxygen Flow Rate 04/29/24 08:30 04/29/24 08:30 Temperature Pulse Rate 57 L Respiratory Rate 18 Blood Pressure 151/92 H Pulse Oximetry 95 Oxygen Delivery Method Oxygen Flow Rate Fraction of Inspired Oxygen 60 SaO2/FiO2 Ratio 156 Oxygen Delivery Method Mechanical Ventilation Oxygen Flow Rate 10 Narrative Exam Narrative: intubated, sedated Chest Other: non-labored respirations on ventilator GI Other: Tolerating Glucerna 1.5 @ 45 mL/hr Neuro Other: RASS -4 on propofol 40 mcg/kg/min, dexmedetomidine 0.5 mcg/kg/hr, fentanyl 1.7 mcg/kg/hr Quality TeleICU VTE Deep Vein Thrombosis/Pulmonary Embolism Present on Admission: No Assessment & Plan Assessment & Plan narrative: # Acute hypoxic respiratory failure due to suspected multifocal pneumonia, inhalational methamphetamine abuse, and status asthmaticus superimposed on probable undiagnosed BERNADETTE/OHS -Stop Zosyn/doxycycline given (-) procalcitonin on hospital day one and (-) sputum culture -Continue daily SATs/SBTs -Wean PEEP back to 8 cm H20 if/when FiO2 <= 50% -Continue DuoNeb every 4 hours scheduled, every 2 hours as needed. -Continue Solu-Medrol 40 g IV BID #Hyperactive delirium probably due to methamphetamine abuse -Maximize Precedex -Continue gabpentin, Seroquel, QHS melatonin and PRN Ativan #Methamphetamine intoxication / History of polysubstance abuse: -Cessation counseling -See above #T2DM -Continue present regimen #ICU best practices -FEN: Currently tube feeds -Glycemic control: reviewed -Prophylaxis: Lovenox DVT prophylaxis, PPI for stress ulcer prophylaxis Case discussed w/ NATALY Nation. I spent a total of 38 minutes of aggregate critical care time on this patient's care today exclusive of procedural time. Telemedicine consent: in chart Physician distant site: [place] Persons involved: Patient, NATALY Nation Patient seen via two-way interactive audiovisual telecommunication.
--- NOTE | 2024-04-29 11:13 | CM.DPC ---
DCP Continued: Reviewed EMR and team rounds for pt?s medical status. Per hospitalist, pt still intubated and anticipating transfer for higher level of care on Thursday. Plan: No discharge plans identified at this time. CM Team will continue to follow for coordination of discharge plans. MARGARITA Foster
[2024-04-29] MEDS: dexmedeTOMIDine in 0.9 % NaCL 400 MCG/100 ML PLAST..BAG 32.25 MCG IV ×5 (11:54→22:28)
--- NOTE | 2024-04-29 13:56 | DIET.CONS2 ---
Dietary Inpatient Consultation Note Admission Date: 04/23/2024 08:51 Nutrition f/u. Tube feeds running at goal rate. Pt currently on 35 mcg/kg/min propofol. Will continue to monitor and reassess tube feed goal rate based on propofol rate to best meet energy and protein needs. Diet: 04/26/24 Dinner Tube Feeding Diet Diet Modifications: TF Supplement type: Glucerna 1.5 johnna TF mode of delivery: Continuous Starting flow rate mL/hr: 30 Flow rate goal mL/hr: 45 Titration Schedule to reach Goal Rate: 5-10 ml/hr Q4-6H Max total daily volume in mL: 1,080 Free fluid: 150 Free Water Frequency: Q6H Comment: Add 1 Ensure Max Protein Supplement to Glucerna 1.5 feed Electronically Signed by: Dhara Morse 04/29/24 13:56 Clinical Dietitian [address] [address]
--- NOTE | 2024-04-29 14:06 | PM.PN.1 ---
Subjective Subjective Interval history: Not ideal candidate for extubation yet. Peep of 10 today, FIO2 slightly lower af 55%. Possibly related to inhalational pneumonitis, may take a while to improve. Will continue to work on lowering sedation, but remains agitated with reduction in sedation today. Exam Vital Signs (past 8 hours): - 04/29/24 06:30 04/29/24 06:30 04/29/24 07:00 Temperature Pulse Rate 58 L 53 L Respiratory Rate 20 20 Blood Pressure 147/93 H Pulse Oximetry 96 96 Oxygen Delivery Method 04/29/24 07:00 04/29/24 07:30 04/29/24 07:30 Temperature Pulse Rate 55 L Respiratory Rate 20 Blood Pressure 151/96 H 150/88 H Pulse Oximetry 95 Oxygen Delivery Method 04/29/24 08:00 04/29/24 08:00 04/29/24 08:30 Temperature Pulse Rate 55 L 57 L Respiratory Rate 20 18 Blood Pressure 151/93 H Pulse Oximetry 94 95 Oxygen Delivery Method 04/29/24 08:30 04/29/24 09:00 04/29/24 09:00 Temperature 97.8 F Pulse Rate 66 Respiratory Rate 18 Blood Pressure 151/92 H Pulse Oximetry 95 Oxygen Delivery Method Mechanical Ventilation 04/29/24 09:00 04/29/24 09:30 04/29/24 09:30 Temperature Pulse Rate 66 Respiratory Rate 18 Blood Pressure 141/82 H 128/74 Pulse Oximetry 96 Oxygen Delivery Method 04/29/24 10:00 04/29/24 10:00 04/29/24 10:30 Temperature Pulse Rate 66 72 Respiratory Rate 18 23 Blood Pressure 136/82 Pulse Oximetry 96 96 Oxygen Delivery Method 04/29/24 10:30 04/29/24 11:00 04/29/24 11:00 Temperature Pulse Rate 76 Respiratory Rate 21 Blood Pressure 127/68 126/72 Pulse Oximetry 92 Oxygen Delivery Method 04/29/24 11:30 04/29/24 11:30 04/29/24 12:00 Temperature Pulse Rate 67 66 Respiratory Rate 23 19 Blood Pressure 133/85 Pulse Oximetry 95 96 Oxygen Delivery Method 04/29/24 12:00 04/29/24 12:30 04/29/24 12:30 Temperature 98.0 F Pulse Rate 63 Respiratory Rate 18 Blood Pressure 136/80 145/88 H Pulse Oximetry 96 Oxygen Delivery Method 04/29/24 13:00 04/29/24 13:00 04/29/24 13:00 Temperature Pulse Rate 61 Respiratory Rate 19 Blood Pressure 141/89 H Pulse Oximetry 97 Oxygen Delivery Method Mechanical Ventilation Fraction of Inspired Oxygen 60 SaO2/FiO2 Ratio 156 Oxygen Delivery Method Mechanical Ventilation Oxygen Flow Rate 10 Narrative Exam Narrative: GEN: Intubated and sedated, morbidly obese HEENT: Normocephalic, face symmetric, pupils equal round reactive to light, extraocular movements intact, sclerae anicteric, conjunctiva clear, nares patent, oropharynx reveals an intact soft and hard palate with moist mucous membranes, dentition is fair NECK: Supple, no lymphadenopathy, thyroid without enlargement or nodularity, carotids no bruits CHEST: Respiratory excursions symmetric, faint expiratory wheezes in the right upper lobe, very diminished breath sounds throughout CV: Regular rate and rhythm, no murmurs, rubs, gallops, PMI can not be palpated ABD: Soft, obese, nontender, nondistended, bowel sounds present in all 4 quadrants, body habitus limits exam EXTR: Warm, well perfused, no clubbing/cyanosis/edema SKIN: Warm and dry, without rash NEURO: Cannot obtain due to sedation. PSYCH: Cannot obtain due to sedation. Objective Labs 04/29/24 05:00 04/29/24 05:00 Labs: Laboratory Results - last 24 hr 04/29/24 05:00 WBC 12.1 H RBC 5.15 Hgb 14.2 Hct 43.8 MCV 85.2 MCH 27.7 MCHC 32.5 RDW 14.7 Plt Count 201 Neut % (Auto) Not Reportable Lymph % (Auto) Not Reportable [place] % (Auto) Not Reportable Eos % (Auto) Not Reportable Baso % (Auto) Not Reportable Lymph # (Auto) Not Reportable [place] # (Auto) Not Reportable Baso # (Auto) Not Reportable Total Counted 100 Seg Neutrophils % 72.0 H Lymphocytes % (Manual) 22.0 L Monocytes % (Manual) 3.0 Eosinophils % (Manual) 3.0 Neutrophils # (Manual) 8712 H RBC Morphology Normal morphology Sodium 139 Potassium 4.5 Chloride 104 Carbon Dioxide 32 BUN 25 H Creatinine 0.66 Estimated GFR > 60 BUN/Creatinine Ratio 37.9 H Glucose 185 H Calcium 8.3 L Total Bilirubin 0.6 AST 27 ALT 26 Alkaline Phosphatase 59 Total Protein 6.7 Albumin 3.5 Globulin 3.2 Albumin/Globulin Ratio 1.1 [facility] Medical History Bowel obstruction Asthma exacerbation Surgical History Status post delivery (10/02/17) Social History household members: friend(s) Smoking Status: Current some day smoker alcohol intake: former Assessment & Plan Assessment & Plan narrative: 1. Acute hypoxic respiratory failure -intubated on 04/24 due to worsening resp status and agitation despite maxed on high flow -CXR with bilateral pulm consolidations -propofol and fent drips, precedex added due to agitation on vent -appreciate teleICU consult, antibiotics were stopped today 04/29/24. -got dose of IV lasix 20mg x1 on 04/26 -echo reassuring with EF 60-65% -possible pneumonitis vs pna vs asthma exacerbation. She will likely remain intubated for a few more days. 2. Multifocal pneumonia -CTA with bilateral infiltrates consistent with multifocal pneumonia -zosyn and doxy, azithro stopped due to elevated QT. Stopped all antibiotiocs 04/29 given negative procalcitonin and lack of improvement. -sputum culture with no bacterial growth, did grow yeast. -resp PCR negative 3. Possible sepsis secondary to multifocal pneumonia. Patient met sepsis criteria given blood gas with SOFA score of >2 largely due to respiratory failure. She was treated with antibiotics as noted above. Antibiotics were stopped 04/29 and she completed 5 days of therapy. 4. Asthma with exacerbation Continue solumedrol IV BID. 5. Diabetes mellitus uncontrolled with hyperglycemia -started insulin drip due to elevated BG with steroids, will continue today. -TF running 6. Polysubstance dependence, with likely withdrawal Patient does admit to daily to multiple times daily smoking of fentanyl tablets. She also reports ?occasional ?smoking of methamphetamines. Her urine tox screen was positive for amphetamines and methamphetamines. Discussed mitigating withdrawals by starting suboxone, and patient would like to try it. Received 1 tab SL but stopped now as she is on an IV fentanyl drip. 7. Class 3 obesity BMI is 49.3. She is at significantly increased risk of morbidity and mortality, particularly from a respiratory standpoint given her very high BMI. 8. Hyponatremia, resolved Code status Full Prophylaxis Lovenox 40 mg subQ b.i.d. I spent a total of 35 minutes of critical care time on this patient's care today; this time is exclusive of procedural time. Disposition Remains ICU Time Spent With Patient Time with patient: 30 to 49 minutes with 50% spent counseling/coordinating care Quality VTE Deep Vein Thrombosis/Pulmonary Embolism Present on Admission: No
[2024-04-29] MEDS: propofoL 1,000 MG/100 ML VIAL 32.256 MG IV ×4 (14:18→23:44)
[2024-04-29] MEDS: QUETIAPINE 25 MG TABLET 50 MG PO (20:21)
[2024-04-29] MEDS: MELATONIN 3 MG TABLET 6 MG TUBE (20:22)
--- NOTE | 2024-04-29 20:36 | P.ICUMDRN_ITS ---
- Date Patient Seen: 04/29/24 :: This patient was seen via real time interactive two-way audiovisual telecommunic ation. Note: Failed SAT today. Currently sedated with propofol, fentanyl, and precedex. Will continue titrating down sedation to seek RASS goal -1 to 0.
[2024-04-30] VITALS (104 sets, daily range): BP systolic 74–140; BP diastolic 41–91; PULSE 61–86; RESP 16–26; TEMP 36.4–37.2; O2SAT 91–100
[2024-04-30] MEDS: dexmedeTOMIDine in 0.9 % NaCL 400 MCG/100 ML PLAST..BAG 25.8 MCG IV ×3 (01:52→22:56)
[2024-04-30] MEDS: ALBUTEROL/IPRATROPIUM 3 ML AMPUL INH ×5 (03:20→21:05)
[2024-04-30] MEDS: propofoL 1,000 MG/100 ML VIAL 32.256 MG IV ×3 (03:30→14:10)
[2024-04-30] MEDS: INSULIN DRIP PREMIX 100 UNIT/100 ML PLAST..BAG IV (04:10)
--- NOTE | 2024-04-30 05:00 | DI.RAD.S_ITS ---
PROCEDURE: XR CHEST 1V INDICATIONS: resp failure TECHNIQUE: One view of the chest was acquired. COMPARISON: [facility], , XR CHEST 1V, 04/28/2024, 8:16. FINDINGS: Surgical changes and devices: Endotracheal tube tip projects 2.5 cm above the shannan. Enteric tube courses below the diaphragm with distal tip not visualized. Compared to prior radiograph 04/28/2024, lung volumes have slightly decreased. No change in bilateral streaky opacities Lungs and pleura: Compared to prior radiograph 04/28/2024, lung volumes have slightly decreased. No change in bilateral streaky opacities. No pleural effusions or pneumothorax. Mediastinum: Mediastinal contours appear normal. Heart size is normal. Bones and chest wall: No suspicious bony lesions. Overlying soft tissues appear unremarkable. IMPRESSION: Compared to prior radiograph 04/28/2024, lung volumes have slightly decreased. Persistent bilateral streaky opacities which may represent atelectasis versus aspiration. No new focal airspace consolidation. Stable positioning of endotracheal tube. Approved by: Zulay Jacob M.D.,Ph.D. on 04/30/2024 at 13:28
[2024-04-30 05:09] LABS: Add Manual Diff / Slide Review NO; Basophils Absolute Auto 100 /uL (0-100); Basophils Percent Auto 1.1 % (0-2); Eosinophils Absolute Auto 100 /uL (0-450); Eosinophils Percent Auto 1.1 % (2-4); Hemoglobin 15.1 g/dL (12.0-16.0); Lymphocytes Absolute Auto 3200 /uL (1100-4500); Mean Corpuscular HGB Conc 32.8 % (30-36); Mean Corpuscular Hemoglobin 27.9 PG (26-34); Mean Corpuscular Volume 85.1 fL (80-100); Monocytes Absolute Auto 700 /uL (0-900); Monocytes Percent Auto 6.9 % (3-14); Neutrophils Absolute Auto 6400 /uL (1500-7000); Neutrophils Percent Auto 60.9 % (50-75); Platelet Count 205 X10^3/uL (150-400); Red Blood Cell Count 5.41 X10^6/uL (4.0-5.2); Red Cell Distribution Width 14.6 % (11.6-14.8); White Blood Cell Count 10.5 X10^3/uL (4.5-11.0)
[2024-04-30 05:14] LABS: Alanine Aminotransferase 25 IU/L (<35); Albumin 3.6 g/dL (3.5-5.0); Albumin Globulin Ratio 1.1 (1.0-2.8); Alkaline Phosphatase 59 U/L (38-126); Aspartate Aminotransferase 20 IU/L (14-36); Bilirubin Total 0.5 mg/dL (0.2-1.3); Blood Urea Nitrogen 27 mg/dL (7-17); Carbon Dioxide 35 mmol/L (22-32); Chloride 102 mmol/L (98-107); Estimated Glomerular Filt Rate > 60 mL/min (>60); Globulin 3.2 g/dL (1.7-4.1); Glucose 167 mg/dL (70-100); HEMOLYSIS < 15 (0-50); Magnesium 2.3 mg/dL (1.6-2.3); Potassium 4.3 mmol/L (3.4-5.1); Sodium 138 mmol/L (137-145); Total Protein 6.8 g/dL (6.3-8.2)
[2024-04-30] MEDS: CHLORHEXIDINE GLUCONATE 15 ML CUP PO ×3 (06:03→17:05)
[2024-04-30] MEDS: methylPREDNISolone 125 MG/2 ML VIAL 40 MG IV ×2 (06:51→18:08)
--- NOTE | 2024-04-30 06:52 | PC.NURSE ---
Patient's BP 84/49, HR 67, on Fentanyl, Precedex and Propofol drip, hospitalist constitutional law professor updated, 0.9NS bolus of 500 ml order obtained and carried out.
[2024-04-30] MEDS: SODIUM CHLORIDE 0.9% 500 ML 1000 ML IV (06:58)
[2024-04-30] MEDS: LACTATED RINGERS 1,000 ML 1000 ML IV (07:35)
[2024-04-30] MEDS: fentaNYL 2,000 MCG in DEXTROSE 5% IN WATER 210 ML 28.56 MCG IV (07:51)
[2024-04-30] MEDS: dexmedeTOMIDine in 0.9 % NaCL 400 MCG/100 ML PLAST..BAG 22.575 MCG IV (07:53)
[2024-04-30] MEDS: PANTOPRAZOLE 40 MG VIAL IV (08:08)
[2024-04-30] MEDS: ENOXAPARIN 40 MG/0.4 ML SYRINGE SUBCUT ×2 (08:08→20:56)
[2024-04-30] MEDS: SODIUM CHLORIDE 0.9% FLUSH 10 ML IV ×2 (08:09→20:57)
[2024-04-30] MEDS: GABAPENTIN 300 MG CAPSULE 600 MG TUBE ×3 (08:09→20:57)
[2024-04-30] MEDS: LACTATED RINGERS 1,000 ML 200 ML IV ×4 (08:42→23:34)
[2024-04-30] MEDS: QUETIAPINE 25 MG TABLET PO (08:58)
[2024-04-30] MEDS: propofoL 1,000 MG/100 ML VIAL 28.224 MG IV (09:22)
--- NOTE | 2024-04-30 10:40 | PC.NURSE ---
Addendum entered by Inessa Coe R.N. 04/30/24 17:42: Around 1600, pt became hypotensive, tele-ICU provider called, sedation stopped per provider orders. Remained with patient until pressure became MAP>65, orders placed by provider. Addendum entered by Inessa Coe R.N. 04/30/24 14:15: Per tele-ICU provider, adjusting insulin algorithm to follow algorithm #2. Provider said to wean precedex as tolerated due to possibly be causing auto diuresis. Addendum entered by Inessa Coe R.N. 04/30/24 13:24: Earlier RN spoke with provider once pt was hemodynamically stable and discussed SAT. Provider said okay to perform SAT once ABG done. ABG was completed, RN weaned sedation, RT came bedside, pt awake and responding to commands, intermittently becoming agitated but largely RN able to calm pt. RT performed SBT and pt able to have some spontaneous breathing but pt had multiple apneic episodes, which resulted in a fail. Pt requested to stay awake but pt became very agitated, moving a lot in bed, fighting the tube and reaching and trying to grab tube. Due to agitation, RN resumed sedation. Original Note: RN contacted provider in the morning for ongoing hypotension. After first 500 ml bolus, Pt's blood pressure remained map <65 (58 - low 60s). Pt's blood pressure remained low during second 500ml bolus as well. RN informed provider about patient's autodiuresis and large output over previous shifts. Provider ordered 1L bolus of LR and 200 ml LR continuous. Partway through first LR bolus, pt's blood pressure came back up to MAP 65 and greater. Urine output slowed and pt was oliguric in am. RN brought up concerns to provider. Pt failed SAT in am due to hemodynamic instability - hypotension. RN brought up decreased lung sounds and chest xray imaging. Provider acknowledged conern. RN brought up insulin drip and current blood glucose of 130. Provider ordered RN to turn insulin drip to 1unit/hr and check blood glucose every 2 hours.
[2024-04-30 11:37] LABS: Base Excess ABG 4.5 mmol/L (-2-3); HCO3 ABG 30 mmol/L (23-27); PCO2 ABG 47.9 mmHg (35-45); PO2 ABG 74 mmHg (80-100); pH ABG 7.41 (7.35-7.45)
[2024-04-30 11:38] LABS: Delivery System VENT; Fractionated Inspired Oxygen 50; Oxygen Saturation ABG 95 % (95-100); PEEP 8; Respiratory Rate 20; TCO2 ABG 31 mmol/L (23-27); Tidal Volume 380
[2024-04-30 11:39] LABS: Blood Gas Collection Site Left Brachial
[2024-04-30] MEDS: dexmedeTOMIDine in 0.9 % NaCL 400 MCG/100 ML PLAST..BAG 32.25 MCG IV (12:00)
--- NOTE | 2024-04-30 13:32 | P.TELICUPN_ITS ---
Subjective Subjective IF CAMERA ACTIVATED, patient seen via real-time interactive audiovisual communication: Camera activated Consent obtained for tele-seal delivery vehicle team technician care: Yes Patient Location: ICU Provider location (State): [place] Other participants/roles: rn Interval history: pt remains intubated/sedated, had a very high UO this morning and yesterday , and it was concerning for DI, but it has decreased Current Medications Current Medications Medications: Home Medications albuterol sulfate 2.5 mg/3 mL (0.083 %) solution for nebulization 2.5 mg (3 mL) inhalation Q4H PRN shortness of breath or wheezing #180 mL 11/21/22 [Rx Confirmed 04/23/24] prednisone 50 mg tablet 50 mg PO DAILY #5 tabs 11/21/22 [Rx] Visit Medications (administered) Generic Name Dose Route Start Last Admin Trade Name Freq PRN Reason Stop Dose Admin Albuterol 2.5 mg 04/23/24 10:33 04/27/24 18:09 Albuterol 2.5 Mg/3 Ml Neb (Adult) INH 2.5 mg RTQ2HR PRN Administration Wheezing Albuterol/Ipratropium 3 ml 04/23/24 11:00 04/30/24 11:07 Albuterol/Ipratropium 3 Ml Ampul INH 3 ml RTQ4HR PERRY Administration Chlorhexidine Gluconate 15 ml 04/24/24 18:00 04/30/24 12:01 Chlorhexidine Gluconate 15 Ml Cup PO 15 ml Q6HR PERRY Administration Diphenhydramine HCl 25 mg 04/25/24 17:34 04/25/24 17:40 Diphenhydramine 50 Mg/Ml Vial IV 25 mg Q6HR PRN Administration Rash Enoxaparin Sodium 40 mg 04/23/24 11:23 04/30/24 08:08 Enoxaparin 40 Mg/0.4 Ml Syringe SUBCUT 40 mg BID PERRY Administration Gabapentin 600 mg 04/27/24 15:00 04/30/24 08:09 Gabapentin 300 Mg Capsule TUBE 600 mg TID PERRY Administration Heparin Sodium (Porcine) 50 unit 04/26/24 21:41 04/27/24 10:07 Heparin Flush (Cl/Picc/Mid-Line) 50 Unit/5 Ml Syringe IV 50 unit PRN PRN Administration Flush Propofol 1,000 mg in 100 mls @ 4.032 mls/hr 04/24/24 17:15 04/30/24 13:15 Propofol IV 40 mcg/kg/min TITRATE PERRY 32.256 mls/hr Titration Protocol 5 MCG/KG/MIN dexmedeTOMIDine in 0.9 % NaCL 400 mcg in 100 mls @ 6.45 mls/hr 04/25/24 11:30 04/30/24 13:23 Precedex IV 1 mcg/kg/hr TITRATE PERRY 32.25 mls/hr Titration Protocol 0.2 MCG/KG/HR Fentanyl 2,000 mcg/ Dextrose 250 mls @ 11.76 mls/hr 04/25/24 14:00 04/30/24 12:15 IV 1.2 mcg/kg/hr TITRATE PERRY 20.16 mls/hr Titration Protocol 0.7 MCG/KG/HR INSULIN DRIP PREMIX 100 unit in 100 mls @ 6 mls/hr 04/27/24 15:30 04/30/24 10:30 Myxredlin Drip Premix IV 1 units/hr TITRATE PERRY 1 mls/hr Titration Protocol Lactated Ringer's 1,000 mls @ 200 mls/hr 04/30/24 07:45 04/30/24 13:08 Lactated Ringers IV 200 mls/hr CONT PERRY Administration Labetalol HCl 10 mg 04/26/24 19:02 04/26/24 22:42 Labetalol 20 Mg/4 Ml Syringe IV 10 mg Q10MIN PRN Administration SBP>= 180 or DBP >=110 Lorazepam 2 mg 04/25/24 11:36 04/27/24 10:12 Lorazepam 2 Mg/Ml Inj IV 2 mg Q4HR PRN Administration Anxiety/Agitation Melatonin 6 mg 04/26/24 21:00 04/29/24 20:22 Melatonin 3 Mg Tablet TUBE 6 mg BEDTIME PERRY Administration Methylprednisolone 40 mg 04/26/24 18:00 04/30/24 06:51 Methylprednisolone 125 Mg/2 Ml Vial IV 40 mg Q12H PERRY Administration Pantoprazole Sodium 40 mg 04/24/24 17:10 04/30/24 08:08 Pantoprazole 40 Mg Vial IV 40 mg DAILY PERRY Administration Quetiapine Fumarate 50 mg 04/27/24 21:00 04/29/24 20:21 Quetiapine 25 Mg Tablet PO 50 mg BEDTIME PERRY Administration Quetiapine Fumarate 25 mg 04/27/24 16:00 04/30/24 08:58 Quetiapine 25 Mg Tablet PO 25 mg BID PERRY Administration Sodium Chloride 10 ml 04/26/24 21:40 04/27/24 05:50 Sodium Chloride 0.9% Flush IV 10 ml PRN PRN Administration Flush Sodium Chloride 10 ml 04/27/24 09:00 04/30/24 08:09 Sodium Chloride 0.9% Flush IV 10 ml BID PERRY Administration Objective Ventilator Parameters: Ventilator Settings FiO2 48 RT Vent Frequency 0 Ventilator Tidal Volume 0 Exhaled Positive End Expiratory 5 Pressure Ventilator Pressure Support 15 Inspiratory Phase Time 0.80 I:E Ratio 1:2.7 Patient Position HOB >= 30 degrees Labs 04/30/24 04:50 04/30/24 04:50 Labs: Laboratory Results - last 24 hr 04/30/24 04/30/24 04:50 11:00 WBC 10.5 RBC 5.41 H Hgb 15.1 Hct 46.0 MCV 85.1 MCH 27.9 MCHC 32.8 RDW 14.6 Plt Count 205 Neut % (Auto) 60.9 Lymph % (Auto) 30.0 Leslie % (Auto) 6.9 Eos % (Auto) 1.1 L Baso % (Auto) 1.1 Neut # (Auto) 6400 Lymph # (Auto) 3200 Leslie # (Auto) 700 Eos # (Auto) 100 Baso # (Auto) 100 ABG Sample Site Left brachial ABG pH 7.41 ABG pCO2 47.9 H ABG pO2 74 L ABG HCO3 30 H ABG Total CO2 31 H ABG O2 Saturation 95 ABG Base Excess 4.5 H Respiration Rate 20 O2 Delivery Device Vent FiO2 50 Tidal Volume 380 PEEP or CPAP 8 Sodium 138 Potassium 4.3 Chloride 102 Carbon Dioxide 35 H BUN 27 H Creatinine 0.75 Estimated GFR > 60 BUN/Creatinine Ratio 36.0 H Glucose 167 H Calcium 9.0 Magnesium 2.3 Total Bilirubin 0.5 AST 20 ALT 25 Alkaline Phosphatase 59 Total Protein 6.8 Albumin 3.6 Globulin 3.2 Albumin/Globulin Ratio 1.1 Exam Vital Signs (past 8 hours): - 04/30/24 06:00 04/30/24 06:00 04/30/24 06:07 Temperature Pulse Rate 67 67 Respiratory Rate 20 20 Blood Pressure 83/49 L Pulse Oximetry 95 95 Oxygen Delivery Method 04/30/24 06:07 04/30/24 06:13 04/30/24 06:13 Temperature Pulse Rate 67 Respiratory Rate 20 Blood Pressure 82/49 L 83/53 L Pulse Oximetry 95 Oxygen Delivery Method 04/30/24 06:18 04/30/24 06:18 04/30/24 06:23 Temperature Pulse Rate 67 68 Respiratory Rate 20 20 Blood Pressure 86/54 L Pulse Oximetry 95 97 Oxygen Delivery Method 04/30/24 06:23 04/30/24 06:25 04/30/24 06:25 Temperature Pulse Rate 67 Respiratory Rate 20 Blood Pressure 80/45 L 79/41 L Pulse Oximetry 98 Oxygen Delivery Method 04/30/24 06:30 04/30/24 06:30 04/30/24 06:33 Temperature Pulse Rate 67 71 Respiratory Rate 20 20 Blood Pressure 81/45 L Pulse Oximetry 98 99 Oxygen Delivery Method 04/30/24 06:33 04/30/24 07:00 04/30/24 07:00 Temperature Pulse Rate 66 Respiratory Rate 20 Blood Pressure 90/55 L 84/49 L Pulse Oximetry 97 Oxygen Delivery Method 04/30/24 07:12 04/30/24 07:12 04/30/24 07:15 Temperature Pulse Rate 66 Respiratory Rate 20 Blood Pressure 87/48 L 88/52 L Pulse Oximetry 97 Oxygen Delivery Method 04/30/24 07:15 04/30/24 07:20 04/30/24 07:20 Temperature Pulse Rate 65 66 Respiratory Rate 20 20 Blood Pressure 83/47 L Pulse Oximetry 98 97 Oxygen Delivery Method 04/30/24 07:30 04/30/24 07:30 04/30/24 07:40 Temperature Pulse Rate 67 Respiratory Rate 21 Blood Pressure 81/45 L 84/48 L Pulse Oximetry 99 Oxygen Delivery Method 04/30/24 07:40 04/30/24 07:45 04/30/24 07:50 Temperature Pulse Rate 64 66 Respiratory Rate 20 20 Blood Pressure 92/50 L Pulse Oximetry 99 99 Oxygen Delivery Method 04/30/24 07:50 04/30/24 08:00 04/30/24 08:00 Temperature Pulse Rate 67 66 Respiratory Rate 22 20 Blood Pressure 93/51 L Pulse Oximetry 99 98 Oxygen Delivery Method 04/30/24 08:10 04/30/24 08:10 04/30/24 08:15 Temperature Pulse Rate 66 71 Respiratory Rate 20 22 Blood Pressure 95/52 L Pulse Oximetry 96 96 Oxygen Delivery Method 04/30/24 08:21 04/30/24 08:21 04/30/24 08:30 Temperature Pulse Rate 69 Respiratory Rate 23 Blood Pressure 105/65 104/58 L Pulse Oximetry 97 Oxygen Delivery Method 04/30/24 08:30 04/30/24 08:45 04/30/24 09:00 Temperature Pulse Rate 67 67 Respiratory Rate 20 20 Blood Pressure Pulse Oximetry 95 94 Oxygen Delivery Method Mechanical Ventilation 04/30/24 09:00 04/30/24 09:00 04/30/24 09:15 Temperature Pulse Rate 67 72 Respiratory Rate 20 20 Blood Pressure 111/60 Pulse Oximetry 94 Oxygen Delivery Method 04/30/24 09:30 04/30/24 09:30 04/30/24 09:45 Temperature Pulse Rate 69 69 Respiratory Rate 20 20 Blood Pressure 102/51 L Pulse Oximetry 91 93 Oxygen Delivery Method 04/30/24 10:00 04/30/24 10:00 04/30/24 10:00 Temperature 98.8 F Pulse Rate 67 Respiratory Rate 20 Blood Pressure 106/59 L Pulse Oximetry 94 Oxygen Delivery Method 04/30/24 10:15 04/30/24 10:30 04/30/24 10:30 Temperature Pulse Rate 67 66 Respiratory Rate 20 20 Blood Pressure 111/62 Pulse Oximetry 95 96 Oxygen Delivery Method 04/30/24 11:00 04/30/24 11:22 04/30/24 11:22 Temperature Pulse Rate 63 63 Respiratory Rate 20 20 Blood Pressure 117/71 Pulse Oximetry 96 97 Oxygen Delivery Method 04/30/24 11:30 04/30/24 12:00 04/30/24 12:00 Temperature 98.4 F Pulse Rate 64 67 Respiratory Rate 20 20 Blood Pressure Pulse Oximetry 95 94 Oxygen Delivery Method 04/30/24 12:30 04/30/24 12:39 04/30/24 12:39 Temperature Pulse Rate 73 Respiratory Rate 18 Blood Pressure Pulse Oximetry 95 95 95 Oxygen Delivery Method 04/30/24 13:00 04/30/24 13:00 04/30/24 13:14 Temperature Pulse Rate 71 Respiratory Rate 20 Blood Pressure 113/63 Pulse Oximetry 97 Oxygen Delivery Method Mechanical Ventilation 04/30/24 13:14 Temperature Pulse Rate 71 Respiratory Rate 20 Blood Pressure Pulse Oximetry 93 Oxygen Delivery Method Fraction of Inspired Oxygen 50 SaO2/FiO2 Ratio 156 Oxygen Delivery Method Mechanical Ventilation Oxygen Flow Rate 10 Narrative Exam Narrative: inutbated synchronous with vent rate controlled HD stable Quality TeleICU VTE Deep Vein Thrombosis/Pulmonary Embolism Present on Admission: No Assessment & Plan Assessment & Plan narrative: # Acute hypoxic respiratory failure due to suspected multifocal pneumonia, inhalational methamphetamine abuse, and status asthmaticus superimposed on probable undiagnosed BERNADETTE/OHS -Stop Zosyn/doxycycline given (-) procalcitonin on hospital day one and (-) sputum culture -Continue daily SATs/SBTs -Wean PEEP back to 8 cm H20 if/when FiO2 <= 50% -Continue DuoNeb every 4 hours scheduled, every 2 hours as needed. -Continue Solu-Medrol 40 g IV BID - Given her body habitus, we will likely need to extubate on higer PEEP given she will derecrruit otherwise. may need to extubate to bipap - on propofol anmd preceedx. may need to stop prcedex if UO renmains high and start versed gttt #Hyperactive delirium probably due to methamphetamine abuse -Maximize Precedex, but again will need to stop if UO increases -Continue gabpentin, Seroquel, QHS melatonin and PRN Ativan #Methamphetamine intoxication / History of polysubstance abuse: -Cessation counseling -See above #T2DM -Continue present regimen # hypotension Hypotensive this AM , likely from volume losses #ICU best practices -FEN: Currently tube feeds -Glycemic control: reviewed -Prophylaxis: Lovenox DVT prophylaxis, PPI for stress ulcer prophylaxis Case discussed w/ NATALY Nation. I spent a total of 38 minutes of aggregate critical care time on this patient's care today exclusive of procedural time. Telemedicine consent: in chart Physician distant site: [place] Persons involved: Patient, RN Patient seen via two-way interactive audiovisual telecommunication.
--- NOTE | 2024-04-30 14:28 | PM.PN.1 ---
Subjective Subjective Date Patient Seen: 04/30/24 Time Patient Seen: 07:50 Interval history: The patient experienced hypotension this morning with blood pressures into the 80s systolic range, after a net -6.3 L diuresis yesterday, with net negative volume status of 16 L since admission. Is intubated, sedated on mechanical ventilation for a severe asthma exacerbation in the setting of possible chemical pneumonitis. She remains on FiO2 0.55, PEEP +10 and has remained sedated with a RASS -1 to -2 today. Exam Vital Signs (past 8 hours): - 04/30/24 06:30 04/30/24 06:30 04/30/24 06:33 Temperature Pulse Rate 67 71 Respiratory Rate 20 20 Blood Pressure 81/45 L Pulse Oximetry 98 99 Oxygen Delivery Method 04/30/24 06:33 04/30/24 07:00 04/30/24 07:00 Temperature Pulse Rate 66 Respiratory Rate 20 Blood Pressure 90/55 L 84/49 L Pulse Oximetry 97 Oxygen Delivery Method 04/30/24 07:12 04/30/24 07:12 04/30/24 07:15 Temperature Pulse Rate 66 Respiratory Rate 20 Blood Pressure 87/48 L 88/52 L Pulse Oximetry 97 Oxygen Delivery Method 04/30/24 07:15 04/30/24 07:20 04/30/24 07:20 Temperature Pulse Rate 65 66 Respiratory Rate 20 20 Blood Pressure 83/47 L Pulse Oximetry 98 97 Oxygen Delivery Method 04/30/24 07:30 04/30/24 07:30 04/30/24 07:40 Temperature Pulse Rate 67 Respiratory Rate 21 Blood Pressure 81/45 L 84/48 L Pulse Oximetry 99 Oxygen Delivery Method 04/30/24 07:40 04/30/24 07:45 04/30/24 07:50 Temperature Pulse Rate 64 66 Respiratory Rate 20 20 Blood Pressure 92/50 L Pulse Oximetry 99 99 Oxygen Delivery Method 04/30/24 07:50 04/30/24 08:00 04/30/24 08:00 Temperature Pulse Rate 67 66 Respiratory Rate 22 20 Blood Pressure 93/51 L Pulse Oximetry 99 98 Oxygen Delivery Method 04/30/24 08:10 04/30/24 08:10 04/30/24 08:15 Temperature Pulse Rate 66 71 Respiratory Rate 20 22 Blood Pressure 95/52 L Pulse Oximetry 96 96 Oxygen Delivery Method 04/30/24 08:21 04/30/24 08:21 04/30/24 08:30 Temperature Pulse Rate 69 Respiratory Rate 23 Blood Pressure 105/65 104/58 L Pulse Oximetry 97 Oxygen Delivery Method 04/30/24 08:30 04/30/24 08:45 04/30/24 09:00 Temperature Pulse Rate 67 67 Respiratory Rate 20 20 Blood Pressure Pulse Oximetry 95 94 Oxygen Delivery Method Mechanical Ventilation 04/30/24 09:00 04/30/24 09:00 04/30/24 09:15 Temperature Pulse Rate 67 72 Respiratory Rate 20 20 Blood Pressure 111/60 Pulse Oximetry 94 Oxygen Delivery Method 04/30/24 09:30 04/30/24 09:30 04/30/24 09:45 Temperature Pulse Rate 69 69 Respiratory Rate 20 20 Blood Pressure 102/51 L Pulse Oximetry 91 93 Oxygen Delivery Method 04/30/24 10:00 04/30/24 10:00 04/30/24 10:00 Temperature 98.8 F Pulse Rate 67 Respiratory Rate 20 Blood Pressure 106/59 L Pulse Oximetry 94 Oxygen Delivery Method 04/30/24 10:15 04/30/24 10:30 04/30/24 10:30 Temperature Pulse Rate 67 66 Respiratory Rate 20 20 Blood Pressure 111/62 Pulse Oximetry 95 96 Oxygen Delivery Method 04/30/24 11:00 04/30/24 11:22 04/30/24 11:22 Temperature Pulse Rate 63 63 Respiratory Rate 20 20 Blood Pressure 117/71 Pulse Oximetry 96 97 Oxygen Delivery Method 04/30/24 11:30 04/30/24 12:00 04/30/24 12:00 Temperature 98.4 F Pulse Rate 64 67 Respiratory Rate 20 20 Blood Pressure Pulse Oximetry 95 94 Oxygen Delivery Method 04/30/24 12:30 04/30/24 12:39 04/30/24 12:39 Temperature Pulse Rate 73 Respiratory Rate 18 Blood Pressure Pulse Oximetry 95 95 95 Oxygen Delivery Method 04/30/24 13:00 04/30/24 13:00 04/30/24 13:14 Temperature Pulse Rate 71 Respiratory Rate 20 Blood Pressure 113/63 Pulse Oximetry 97 Oxygen Delivery Method Mechanical Ventilation 04/30/24 13:14 04/30/24 13:30 04/30/24 14:00 Temperature 97.5 F L Pulse Rate 71 67 Respiratory Rate 20 20 Blood Pressure Pulse Oximetry 93 93 Oxygen Delivery Method 04/30/24 14:00 04/30/24 14:00 Temperature Pulse Rate 61 Respiratory Rate 20 Blood Pressure 110/67 Pulse Oximetry 94 Oxygen Delivery Method Fraction of Inspired Oxygen 50 SaO2/FiO2 Ratio 156 Oxygen Delivery Method Mechanical Ventilation Oxygen Flow Rate 10 Narrative Exam Narrative: GEN: Intubated and sedated, severe obesity. Right arm PICC line in place, site appears clean HEENT: Normocephalic, face symmetric, pupils equal round reactive to light, extraocular movements intact, nares patent, mucous membranes moist, oral tracheal tube in place NECK: Supple, no lymphadenopathy, thyroid without enlargement or nodularity, carotids no bruits CHEST: Respiratory excursions symmetric, faint expiratory wheezes diffusely, diminished breath sounds throughout CV: Regular rate and rhythm, no murmurs, rubs, gallops, PMI can not be palpated ABD: Soft, obese, nontender, nondistended, body habitus limits exam. Goodrich catheter in place with scant light yellow urine present EXTR: Warm, well perfused, no clubbing/cyanosis/edema SKIN: Warm and dry, without rash NEURO: Cannot obtain due to sedation. Objective Imaging Chest x-ray: Radiologist's impression: Compared to prior radiograph 04/28/2024, lung volumes have slightly decreased. Persistent bilateral streaky opacities which may represent atelectasis versus aspiration. No new focal airspace consolidation. Stable positioning of endotracheal tube. Labs 04/30/24 04:50 04/30/24 04:50 Labs: Laboratory Results - last 24 hr 04/30/24 04/30/24 04:50 11:00 WBC 10.5 RBC 5.41 H Hgb 15.1 Hct 46.0 MCV 85.1 MCH 27.9 MCHC 32.8 RDW 14.6 Plt Count 205 Neut % (Auto) 60.9 Lymph % (Auto) 30.0 [place] % (Auto) 6.9 Eos % (Auto) 1.1 L Baso % (Auto) 1.1 Neut # (Auto) 6400 Lymph # (Auto) 3200 [place] # (Auto) 700 Eos # (Auto) 100 Baso # (Auto) 100 ABG Sample Site Left brachial ABG pH 7.41 ABG pCO2 47.9 H ABG pO2 74 L ABG HCO3 30 H ABG Total CO2 31 H ABG O2 Saturation 95 ABG Base Excess 4.5 H Respiration Rate 20 O2 Delivery Device Vent FiO2 50 Tidal Volume 380 PEEP or CPAP 8 Sodium 138 Potassium 4.3 Chloride 102 Carbon Dioxide 35 H BUN 27 H Creatinine 0.75 Estimated GFR > 60 BUN/Creatinine Ratio 36.0 H Glucose 167 H Calcium 9.0 Magnesium 2.3 Total Bilirubin 0.5 AST 20 ALT 25 Alkaline Phosphatase 59 Total Protein 6.8 Albumin 3.6 Globulin 3.2 Albumin/Globulin Ratio 1.1 [facility] Medical History Bowel obstruction Asthma exacerbation Surgical History Status post delivery (10/02/17) Social History household members: friend(s) Smoking Status: Current some day smoker alcohol intake: former Assessment & Plan Assessment & Plan narrative: 1. Acute hypoxic respiratory failure -intubated on 04/24 due to worsening resp status and agitation despite maxed on high flow -CXR with bilateral pulm consolidations -propofol and fent drips, precedex added due to agitation on vent -appreciate teleICU consult, Zosyn/doxycycline were stopped 04/29/24 due to negative procalcitonin on admission and negative sputum culture. -decrease peep today to +8 per tele ICU, possible extubation to BiPAP when ready -got dose of IV lasix 20mg x1 on 04/26 with dramatic 16 L net negative diuresis since admission. This has decreased and -echo reassuring with EF 60-65% -possible pneumonitis vs pna vs asthma exacerbation. She will likely remain intubated for a few more days. 2. Multifocal pneumonia -CTA with bilateral infiltrates consistent with multifocal pneumonia, possible chemical pneumonitis -zosyn and doxy, azithro stopped due to elevated QT. Stopped all antibiotiocs 04/29 given negative procalcitonin and lack of improvement. -sputum culture with no bacterial growth, did grow yeast. -resp PCR negative 3. Possible sepsis secondary to multifocal pneumonia. Patient met sepsis criteria given blood gas with SOFA score of >2 largely due to respiratory failure. She was treated with antibiotics as noted above. Antibiotics were stopped 04/29 and she completed 5 days of therapy. 4. Asthma with exacerbation -Continue solumedrol IV BID and nebulizers 5. Diabetes mellitus uncontrolled with hyperglycemia -On insulin drip due to elevated BG with steroids, will continue today. -TF running 6. Polysubstance dependence, with likely withdrawal - Patient does admit to daily to multiple times daily smoking of fentanyl tablets. She also reports ?occasional ?smoking of methamphetamines. Her urine tox screen was positive for amphetamines and methamphetamines. Discussed mitigating withdrawals by starting suboxone, and patient expressed interest earlier in the admission. Received 1 tab SL but stopped now as she is on an IV fentanyl drip. -See tele ICU note today for management 7. Hypotension, likely due to severe spontaneous diuresis, possibly related to Precedex. Monitor. Advance IVF today. 8. Class 3 obesity BMI is 49.3. She is at significantly increased risk of morbidity and mortality, particularly from a respiratory standpoint given her very high BMI. 9. Hyponatremia, resolved Code status Full Prophylaxis Lovenox 40 mg subQ b.i.d. I spent a total of 40 minutes of critical care time on this patient's care today; this time is exclusive of procedural time. Disposition Remains ICU Quality VTE Deep Vein Thrombosis/Pulmonary Embolism Present on Admission: No IH PROFEE Charge codes Critical Care: 09537
[2024-04-30] MEDS: dexmedeTOMIDine in 0.9 % NaCL 400 MCG/100 ML PLAST..BAG 9.675 MCG IV (15:35)
--- NOTE | 2024-04-30 16:17 | PM.EVENT ---
Event Note Date Patient Seen: 04/30/24 Time Patient Seen: 16:17 Event Note (Rapid Response, Code, or fall): Notified by RN patient is hypotensive with MAP ~60s. Sedation turned off and sepsis workup initiated. Already received 2 liters crystalloid bolus today. Will start levophed to seek MAP goal > 65. Follow up cx and adjust abx accordingly to culture data.
[2024-04-30] MEDS: propofoL 1,000 MG/100 ML VIAL 16.128 MG IV (16:37)
[2024-04-30] MEDS: CEFEPIME 1 GM in SODIUM CHLORIDE 0.9% 100 ML IV (16:57)
[2024-04-30 17:09] LABS: Bilirubin Urine UA NEGATIVE (NEGATIVE); Color Urine UA YELLOW; Glucose Urine UA NEGATIVE (Negative); Ketones Urine UA NEGATIVE (NEGATIVE); Leukocyte Esterase Urine UA TRACE (NEGATIVE); Nitrite Urine UA NEGATIVE (Negative); Occult Blood Urine UA 2+ (Negative); Protein Urine UA TRACE (Negative); Urobilinogen Urine UA 0.2 E.U./dL (0.2)
[2024-04-30 17:12] LABS: Lactate (Lactic Acid) 1.2 mmol/L (0.7-2.1)
[2024-04-30 17:29] LABS: Appearance Urine UA SL CLOUDY; Bacteria Urine Few (2-10); RBC Urine 10-30/HPF (0-5/HPF); Squamous Epithelial Cell Urine 0-1 /HPF (0-5/HPF); Urine Volume 10mL (spun); WBC Urine 0-1/HPF (0-5/HPF)
[2024-04-30 17:30] LABS: Culture Indicated Urine Specimen Cultured; Mucus Urine 1+ (Negative)
[2024-04-30] MEDS: VANCOMYCIN 1,250 MG/250 ML PIGGYBACK 250 MG IV (18:08)
--- NOTE | 2024-04-30 20:34 | PM.ICURNDS ---
- Date Patient Seen: 04/30/24 Time Patient Seen: 20:34 :: This patient was seen via real time interactive two-way audiovisual telecommunication. Note: Developed hypotension which resolved with fluids. LActic acid 1.2. Started sepsis workup and abx. Not on levophed. Cont abx and follow up cx. D/w bedside w/ RN.
[2024-04-30] MEDS: QUETIAPINE 25 MG TABLET 50 MG TUBE (20:57)
[2024-04-30] MEDS: QUETIAPINE 25 MG TABLET TUBE (20:57)
[2024-04-30] MEDS: MELATONIN 3 MG TABLET 6 MG TUBE (20:57)
[2024-04-30] MEDS: propofoL 1,000 MG/100 ML VIAL 24.192 MG IV (22:08)
[2024-04-30] MEDS: fentaNYL 2,000 MCG in DEXTROSE 5% IN WATER 210 ML 13.44 MCG IV (22:51)
[2024-05-01] VITALS (47 sets, daily range): BP systolic 109–148; BP diastolic 52–97; PULSE 58–101; RESP 18–50; TEMP 36.4–36.6; O2SAT 87–96
[2024-05-01] MEDS: CHLORHEXIDINE GLUCONATE 15 ML CUP PO ×2 (00:01→05:03)
[2024-05-01] MEDS: propofoL 1,000 MG/100 ML VIAL 24.192 MG IV ×2 (01:18→05:21)
[2024-05-01] MEDS: VANCOMYCIN 1,250 MG/250 ML PIGGYBACK 250 MG IV ×2 (01:18→10:09)
[2024-05-01] MEDS: ALBUTEROL/IPRATROPIUM 3 ML AMPUL INH ×3 (01:51→12:35)
[2024-05-01] MEDS: dexmedeTOMIDine in 0.9 % NaCL 400 MCG/100 ML PLAST..BAG 25.8 MCG IV ×2 (02:42→06:33)
[2024-05-01 04:18] LABS: Hematocrit 43.1 % (36-46); Mean Corpuscular HGB Conc 32.5 % (30-36); Mean Corpuscular Hemoglobin 27.7 PG (26-34); Mean Corpuscular Volume 85.4 fL (80-100); Platelet Count 183 X10^3/uL (150-400); Red Blood Cell Count 5.05 X10^6/uL (4.0-5.2); Red Cell Distribution Width 14.4 % (11.6-14.8); White Blood Cell Count 11.2 X10^3/uL (4.5-11.0)
[2024-05-01 04:22] LABS: Add Manual Diff / Slide Review YES
[2024-05-01 04:28] LABS: Alanine Aminotransferase 26 IU/L (<35); Albumin 3.3 g/dL (3.5-5.0); Albumin Globulin Ratio 1.1 (1.0-2.8); Alkaline Phosphatase 59 U/L (38-126); Aspartate Aminotransferase 27 IU/L (14-36); BUN Creatinine Ratio 41.7 (6-22); Bilirubin Total 0.5 mg/dL (0.2-1.3); Blood Urea Nitrogen 25 mg/dL (7-17); Calcium 8.8 mg/dL (8.4-10.2); Carbon Dioxide 32 mmol/L (22-32); Chloride 106 mmol/L (98-107); Estimated Glomerular Filt Rate > 60 mL/min (>60); Globulin 2.9 g/dL (1.7-4.1); Glucose 205 mg/dL (70-100); HEMOLYSIS < 15 (0-50); Magnesium 2.3 mg/dL (1.6-2.3); Potassium 4.6 mmol/L (3.4-5.1); Sodium 137 mmol/L (137-145); Total Protein 6.2 g/dL (6.3-8.2)
[2024-05-01 04:31] LABS: Neutrophils Absolute Manual 8400 /uL (3000-5900); RBC Morphology Normal Morphology; Total Cells Counted 100
[2024-05-01] MEDS: LACTATED RINGERS 1,000 ML 200 ML IV (04:58)
[2024-05-01] MEDS: CEFEPIME 1 GM in SODIUM CHLORIDE 0.9% 100 ML IV (05:03)
[2024-05-01] MEDS: methylPREDNISolone 125 MG/2 ML VIAL 40 MG IV (05:03)
[2024-05-01 08:55] LABS: Pregnancy Test Serum,Qual Negative (Negative)
[2024-05-01] MEDS: PANTOPRAZOLE 40 MG VIAL IV (09:00)
[2024-05-01] MEDS: ENOXAPARIN 40 MG/0.4 ML SYRINGE SUBCUT (09:00)
[2024-05-01] MEDS: SODIUM CHLORIDE 0.9% FLUSH 10 ML IV (09:01)
[2024-05-01] MEDS: propofoL 1,000 MG/100 ML VIAL 28.224 MG IV (09:01)
--- NOTE | 2024-05-01 10:57 | RT ---
Initiated SBT per tele-laboratory apparatus glass grinder direction, PSV 10/15. Pt maintained RSBI <60 for 30 min. FiO2 titrated by SpO2 to F 35% and SpO2 93%. Plan was to extubate to BiPAP 10/15 and titrate by SpO2, Pt extubated and BiPAP initiated on Pt at 10/15 and 40% to maintain SpO2 >92%, shortly after initiation of BiPAP Pt withdrew consent to Tx and removed BiPAP support and initiated departure AMA process.
--- NOTE | 2024-05-01 11:31 | CM.DPNOTE ---
Addendum entered by RAJAN Patterson 05/01/24 14:25: Per RN, pt left AMA. See RN Inessa Note for more. SL Addendum entered by RAJAN Patterson 05/01/24 12:04: SALES DESIGNER met with pt briefly in room. Pt denied wanting any SOLA/other OP resources at this time. Plans remains to leave AMA. CM team will continue to follow as needed. SL Original Note: DCP Note SALES DESIGNER reviewed EMR. Per RN, pt extubated and asking to leave AMA. Attempted to meet with pt in room but pt was occupied getting ready to leave. No CM/DCP needs identified at this time. RAJAN Patterson
--- NOTE | 2024-05-01 13:45 | PM.PN.1 ---
Subjective Subjective Date Patient Seen: 05/01/24 Time Patient Seen: 07:30 Interval history: The patient was intubated, sedated on mechanical ventilation this morning. She was aroused with stopping of sedation during the weaning trial and performed well for 20 minutes. Joint rounds were conducted with nursing, Respiratory therapist and the tele ICU attending. The decision was made to extubate. The patient was extubated without incident, and transition to oral high-flow mask with oxygen saturations of 90 %. Immediately following extubation the patient stated verbally that she rescinded her consent to treat. She requested that lines and tubes be removed and that she wished to be discharged home. She was advised that this was against medical advice given that she had just been extubated and remained at high risk for decompensation including possible recurrent respiratory failure and withdrawal from various substances she had taken before hospitalization and which were used to treat potential withdrawal and provide sedation during hospitalization. She was seen with her mother, sister, another young family member in the room, and continued to express this wish. She was offered an ethics consult to assure that she was receiving appropriate care. She declined this. Exam Vital Signs (past 8 hours): - 05/01/24 06:00 05/01/24 06:00 05/01/24 06:15 Temperature Pulse Rate 65 Respiratory Rate 20 Blood Pressure 129/83 136/87 Pulse Oximetry 94 Oxygen Delivery Method Oxygen Flow Rate Fraction of Inspired Oxygen 05/01/24 06:15 05/01/24 06:30 05/01/24 06:30 Temperature Pulse Rate 62 61 Respiratory Rate 20 20 Blood Pressure 138/90 Pulse Oximetry 93 93 Oxygen Delivery Method Oxygen Flow Rate Fraction of Inspired Oxygen 05/01/24 06:45 05/01/24 06:45 05/01/24 07:00 Temperature Pulse Rate 59 L 58 L Respiratory Rate 20 20 Blood Pressure 140/93 H Pulse Oximetry 92 93 Oxygen Delivery Method Oxygen Flow Rate Fraction of Inspired Oxygen 05/01/24 07:00 05/01/24 07:15 05/01/24 07:15 Temperature Pulse Rate 60 Respiratory Rate 20 Blood Pressure 144/95 H 147/97 H Pulse Oximetry 92 Oxygen Delivery Method Oxygen Flow Rate Fraction of Inspired Oxygen 05/01/24 07:30 05/01/24 07:30 05/01/24 07:45 Temperature Pulse Rate 66 Respiratory Rate 20 Blood Pressure 141/92 H 129/82 Pulse Oximetry 94 Oxygen Delivery Method Oxygen Flow Rate Fraction of Inspired Oxygen 05/01/24 07:45 05/01/24 08:00 05/01/24 08:00 Temperature Pulse Rate 73 65 Respiratory Rate 21 20 Blood Pressure 147/94 H Pulse Oximetry 96 95 Oxygen Delivery Method Oxygen Flow Rate Fraction of Inspired Oxygen 05/01/24 08:15 05/01/24 08:15 05/01/24 08:30 Temperature 97.8 F Pulse Rate 65 Respiratory Rate 20 Blood Pressure 148/95 H 144/91 H Pulse Oximetry 94 Oxygen Delivery Method Oxygen Flow Rate Fraction of Inspired Oxygen 05/01/24 08:30 05/01/24 08:31 05/01/24 08:31 Temperature Pulse Rate 65 64 Respiratory Rate 20 20 Blood Pressure 144/91 H Pulse Oximetry 93 93 Oxygen Delivery Method Oxygen Flow Rate Fraction of Inspired Oxygen 05/01/24 08:52 05/01/24 09:00 05/01/24 09:00 Temperature Pulse Rate 71 Respiratory Rate 20 Blood Pressure 122/73 Pulse Oximetry 92 92 Oxygen Delivery Method Mechanical Ventilation Oxygen Flow Rate Fraction of Inspired Oxygen 50 05/01/24 09:00 05/01/24 09:30 05/01/24 10:00 Temperature Pulse Rate 75 Respiratory Rate 20 Blood Pressure 125/69 Pulse Oximetry 92 Oxygen Delivery Method Mechanical Ventilation Oxygen Flow Rate Fraction of Inspired Oxygen 05/01/24 10:00 05/01/24 10:30 05/01/24 10:54 Temperature Pulse Rate 97 H 90 Respiratory Rate 18 30 H Blood Pressure Pulse Oximetry 93 90 L 93 Oxygen Delivery Method Oxygen Flow Rate Fraction of Inspired Oxygen 05/01/24 11:00 05/01/24 11:00 05/01/24 12:35 Temperature Pulse Rate 87 Respiratory Rate 22 Blood Pressure 136/74 Pulse Oximetry 87 L 88 L Oxygen Delivery Method Room Air Oxygen Flow Rate Fraction of Inspired Oxygen 05/01/24 12:49 Temperature 97.6 F Pulse Rate 99 H Respiratory Rate 28 H Blood Pressure 115/52 L Pulse Oximetry 88 L Oxygen Delivery Method Oxygen Flow Rate 0 Fraction of Inspired Oxygen Fraction of Inspired Oxygen 50 SaO2/FiO2 Ratio 184 Oxygen Delivery Method Room Air Oxygen Flow Rate 0 Narrative Exam Narrative: GEN: Intubated and sedated, severe obesity. Right arm PICC line in place, site appears clean HEENT: Normocephalic, face symmetric, pupils equal round reactive to light, extraocular movements intact, nares patent, mucous membranes moist, oral tracheal tube in place NECK: Supple, no lymphadenopathy, thyroid without enlargement or nodularity, carotids no bruits CHEST: Respiratory excursions symmetric, faint expiratory wheezes diffusely, diminished breath sounds throughout CV: Regular rate and rhythm, no murmurs, rubs, gallops, PMI can not be palpated ABD: Soft, obese, nontender, nondistended, body habitus limits exam. Goodrich catheter in place with scant light yellow urine present EXTR: Warm, well perfused, no clubbing/cyanosis/edema SKIN: Warm and dry, without rash NEURO: Moves all 4 extremities, arouses appropriately with lightening of sedation. Following extubation she has scattered mid to end-expiratory wheezes, and saturating 90% on room air, though subsequently declines further measurements. Vitals documented in chart. Objective Labs 05/01/24 04:06 05/01/24 04:06 Labs: Laboratory Results - last 24 hr 04/30/24 04/30/24 05/01/24 16:40 16:50 04:06 WBC 11.2 H RBC 5.05 Hgb 14.0 Hct 43.1 MCV 85.4 MCH 27.7 MCHC 32.5 RDW 14.4 Plt Count 183 Neut % (Auto) Not Reportable Lymph % (Auto) Not Reportable Chester % (Auto) Not Reportable Eos % (Auto) Not Reportable Baso % (Auto) Not Reportable Lymph # (Auto) Not Reportable [place] # (Auto) Not Reportable Baso # (Auto) Not Reportable Total Counted 100 Seg Neutrophils % 75.0 H Lymphocytes % (Manual) 21.0 L Monocytes % (Manual) 3.0 Eosinophils % (Manual) 1.0 L Neutrophils # (Manual) 8400 H RBC Morphology Normal morphology Sodium 137 Potassium 4.6 Chloride 106 Carbon Dioxide 32 BUN 25 H Creatinine 0.60 Estimated GFR > 60 BUN/Creatinine Ratio 41.7 H Glucose 205 H Lactate 1.2 Calcium 8.8 Magnesium 2.3 Total Bilirubin 0.5 AST 27 ALT 26 Alkaline Phosphatase 59 Total Protein 6.2 L Albumin 3.3 L Globulin 2.9 Albumin/Globulin Ratio 1.1 Serum , Qual Urine Color Yellow Urine Appearance Sl cloudy Urine pH 6.0 Ur Specific Decker 1.020 Urine Protein Trace H Urine Glucose (UA) Negative Urine Ketones Negative Urine Occult Blood 2+ H Urine Nitrate Negative Urine Bilirubin Negative Urine Urobilinogen 0.2 Ur Leukocyte Esterase Trace H Urine RBC 10-30/hpf H Urine WBC 0-1/hpf Ur Squamous Epith Cells 0-1 /hpf Urine Bacteria Few (2-10) H Urine Mucus 1+ H Ur Culture Indicated? Specimen cultured Vol Urine Centrifuged 10ml (spun) 05/01/24 08:20 WBC RBC Hgb Hct MCV MCH MCHC RDW Plt Count Neut % (Auto) Lymph % (Auto) Chester % (Auto) Eos % (Auto) Baso % (Auto) Lymph # (Auto) Chester # (Auto) Baso # (Auto) Total Counted Seg Neutrophils % Lymphocytes % (Manual) Monocytes % (Manual) Eosinophils % (Manual) Neutrophils # (Manual) RBC Morphology Sodium Potassium Chloride Carbon Dioxide BUN Creatinine Estimated GFR BUN/Creatinine Ratio Glucose Lactate Calcium Magnesium Total Bilirubin AST ALT Alkaline Phosphatase Total Protein Albumin Globulin Albumin/Globulin Ratio Serum , Qual Negative Urine Color Urine Appearance Urine pH Ur Specific Decker Urine Protein Urine Glucose (UA) Urine Ketones Urine Occult Blood Urine Nitrate Urine Bilirubin Urine Urobilinogen Ur Leukocyte Esterase Urine RBC Urine WBC Ur Squamous Epith Cells Urine Bacteria Urine Mucus Ur Culture Indicated? Vol Urine Centrifuged [facility] Medical History Bowel obstruction Asthma exacerbation Surgical History Status post delivery (10/02/17) Social History household members: friend(s) Smoking Status: Current some day smoker alcohol intake: former Assessment & Plan Assessment & Plan narrative: 1. Acute hypoxic respiratory failure -intubated on 04/24 due to worsening resp status and agitation despite maxed on high flow, extubated 05/01/2024 -CXR with bilateral pulm consolidations -propofol and fent drips, precedex added due to agitation on vent, discontinued today following extubation -Zosyn/doxycycline were stopped 04/29/24 due to negative procalcitonin on admission and negative sputum culture. -got dose of IV lasix 20mg x1 on 04/26 with dramatic 16 L net negative diuresis since admission possibly due to Precedex -echo reassuring with EF 60-65% -possible pneumonitis vs pna vs asthma exacerbation. She is at high risk for recurrent respiratory failure and re-intubation. -this information is provided to her today. She is offered an ethics consult as noted above but declines. She expresses that she wishes to leave against medical advice. She is invited to reconsider this and we would be happy to continue providing close care and monitoring in the post period. 2. Multifocal pneumonia -CTA with bilateral infiltrates consistent with multifocal pneumonia, possible chemical pneumonitis -zosyn and doxy, azithro stopped due to elevated QT. Stopped all antibiotiocs 04/29 given negative procalcitonin and lack of improvement. -sputum culture with no bacterial growth, did grow yeast. -resp PCR negative 3. Possible sepsis secondary to multifocal pneumonia. Patient met sepsis criteria given blood gas with SOFA score of >2 largely due to respiratory failure. She was treated with antibiotics as noted above. Antibiotics were stopped 04/29 and she completed 5 days of therapy. 4. Asthma with exacerbation -Continue solumedrol IV BID and nebulizers 5. Diabetes mellitus uncontrolled with hyperglycemia -On insulin drip due to elevated BG with steroids, plan is to switch to Lantus solo star insulin and sliding-scale coverage if she does not leave AMA. -TF stopped with extubation 6. Polysubstance dependence, with likely withdrawal - Patient does admit to daily to multiple times daily smoking of fentanyl tablets. She also reports ?occasional ?smoking of methamphetamines. Her urine tox screen was positive for amphetamines and methamphetamines. Discussed earlier during the admission mitigating withdrawals by starting suboxone, and patient expressed interest earlier in the admission. Received 1 tab SL but stopped on an IV fentanyl drip, since discontinued. -See tele ICU note today for management 7. Hypotension, likely due to severe spontaneous diuresis, possibly related to Precedex, resolved. Monitor. 8. Class 3 obesity 9. Hyponatremia, resolved Code status Full Prophylaxis Lovenox 40 mg subQ b.i.d. I spent a total of 45 minutes of critical care time on this patient's care today. Quality VTE Deep Vein Thrombosis/Pulmonary Embolism Present on Admission: No MIPS - Admit I confirm the patient?s Advance Care Plan is present, Code status is documented, Surrogate decision maker is in patient?s record [If Yes, STOP here]: Yes MIPS - Meds 'Current medications' to include all prescriptions, [id number] products, herbals, cannabis/cannabidiol products, and vitamin/mineral/dietary (nutritional) supplements. I have utilized all available resources to obtain, update, or review the patient?s current medications. [If Yes, STOP here]: Yes PROFEE Charge codes Critical Care: 21479
--- NOTE | 2024-05-01 14:06 | PC.NURSE ---
Addendum entered by Inessa Coe R.N. 05/01/24 15:30: Called pt's mother and informed her that patient's purse is locked with the charge nurse. Gave mother the phone number to call the charge nurse when she wants to grape picker the purse. Original Note: Pt was extubated at 1015 after successfully passing SAT and SBT/pressure support breathing trial. RN, PCT, RT, hospitalist, and tele-manager sales support present. Pt initially accepted oxygen therapy and continued treatment (IV antibiotics, IV insulin, blood sugar checks, assessments) but shortly after BiPAP initiated, pt removed BiPAP on own and took off SPO2 sensor. Pt voiced that she did not want any more treatment, including monitoring and oxygen, and started pulling at lines to remove IV, PICC, and Goodrich. This RN counseled patient and educated her on the importance of continued care. RN educated patient on the risks of not receiving treatment, especially after a prolonged illness. Pt still persisted that she did not want care. Pt called family and asked family to come. RN explained risks of patient pulling out IV and PICC and patient agreed to let RN take out IV, PICC and Goodrich to reduce injury and bleeding. PICC, IV and Goodrich safely removed by RN and patient tolerated removal. Initally pt refused all monitoring and interventions but then agreed to some nursing interventions (a set of vital signs and one blood glucose check). RN counseled patient multiple times, including when family was present, about the risks of leaving against medical advice and when to come back to the ER and call 911. Pt persisted that she wanted to leave, and told RN that she had a pulse oximetry and oxygen at home. RN informed tele-ICU provider, charge nurse and hospitalist that patient wanted to leave against medical advice. Hospitalist came bedside and counseled patient with nurse present. Patient signed AMA paper and left the hospital at 1345.
== END 2024-05-01 13:45 | disposition left against medical advice (07) | DRG 720 ==
LOC: ED 06:44 → AC 08:52 → ICU 09:17
PROVIDERS: Anesthesiology Critical Care Medicine; Internal Medicine; Internal Medicine Pulmonary Disease; Student in an Organized Health Care Education/Training Program; Admitting Provider Family Medicine; Emergency Provider Emergency Medicine; PCP Physician Assistant Medical; Referring Provider Emergency Medicine; Visit Provider Family Medicine
DX: A41.9 Sepsis, unspecified organism (principal); J96.01 Acute respiratory failure with hypoxia; J18.9 Pneumonia, unspecified organism; J45.901 Unspecified asthma with (acute) exacerbation; E11.65 Type 2 diabetes mellitus with hyperglycemia; E66.01 Morbid (severe) obesity due to excess calories; E87.1 Hypo-osmolality and hyponatremia; F17.200 Nicotine dependence, unspecified, uncomplicated; I95.9 Hypotension, unspecified; F11.23 Opioid dependence with withdrawal; F15.23 Other stimulant dependence with withdrawal; R65.20 Severe sepsis without septic shock; Z53.29 Procedure and treatment not carried out because of patient's decision for other reasons; Z68.42 Body mass index [BMI] 45.0-49.9, adult
CPT/HCPCS: 36415; 36569; 36592; 36600; 71045; 71275; 80048; 80053; 80202; 80305; 81001; 82805; 82962; 83605; 83735; 84100; 84145; 84478; 84703; 85007; 85025; 87040; 87070; 87077; 87086; 87205; 87633; 87797; 93005; 93010; 93306; 94002; 94003; 94010; 94640; 94799; 96365; 96375; 99233; 99284; 99291; 99406; C9113; J0295; J0692; J0696; J1100; J1200; J1642; J1650; J1815; J1940; J2060; J2250; J2543; J2704; J2919; J3010; J7613; Q9957; Q9967